=== PATIENT | male | born 1940 | race Caucasian/White ===

== ENCOUNTER 2016-08-14 17:22 | Observation (INO) | payer MEDICARE ==
[2016-08-14] VITALS (9 sets, daily range): BP systolic 146–210; BP diastolic 74–127; PULSE 68–106; RESP 18–20; TEMP 97.6; O2SAT 92–97
[~2016-08-14] VITALS: Ht 177.8 cm; Wt 99.1 kg
[~2016-08-14 17:22] MED LIST: ALLO300 PO; DUONI NEB; ECOT81TA2 PO; ENDO5TAB6 PO; EZET10 PO; FISH100020 PO; FLUT50I NASAL; FURO20TA PO; GLIM1TAB PO; GUAI600 PO; KCL10C PO; METO25 PO; MOBI7.5T PO; NACL.65%I; PRED10 PO; RANI150T PO; TIZA2CAP PO; VENTAER INH; VITA-13 PO
[2016-08-14] MEDS ORDERED: SODIUM CHLORIDE 0.9% FLUSH 5 ML FLUSH IVF PRN (18:00)
--- NOTE | 2016-08-14 18:17 | PD ---
HPI Chief Complaint: Abdominal Pain Time Seen by Provider: 18:16 Travel History International Travel<30 days: No Contact w/Intl Traveler<30days: No Traveled to known affect area: No History of Present Illness HPI Patient comes in complaining of epigastric abdominal pain that began this morning. Patient states he's had similar pain in the past however this felt different. Pain is sharp stabbing like in nature and radiates across his upper abdomen. 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 Patient states he contacted his primary care doctor [facility] this pain feels different and was told to go to a local clinic [facility] here locally. Patient was subsequently sent to the ER after having EKG showing A. fib with ventricular rate of 91. Patient reports he has a history of a fibrillation when he had surgery several years ago but denies any other issues with A. fib. Patient denies any chest pain, palpitations, nausea, vomiting, back pain, numbness or tingling anywhere. Patient reports associated shortness of breath with this and reports his lower extremities have become swollen over the past couple of days which is new. Denies any abdominal distention. PFSH Past Medical History Arthritis: Yes (OA) Asthma: No Autoimmune Disease: No Blood Disorders: Yes (PT STATES HE BLEEDS EASILY UNK ETIOLOGY) Anxiety: Yes Depression: No Heart Rhythm Problems: No Cancer: No Cardiac Catheterization: Yes Cardiovascular Problems: Yes (CABG) High Cholesterol: Yes Chemotherapy: No Chest Pain: No Congestive Heart Failure: No COPD: Yes Cerebrovascular Accident: No Coronary Artery Disease: Yes Diabetes: No Endocrine: No Gastrointestinal Disorders: Yes GERD: Yes Glaucoma: No Gout: Yes Genitourinary: No Hepatitis: No Hiatal Hernia: No Hypertension: Yes Immune Disorder: No Implanted Vascular Access Dvce: Yes Kidney Stones: No Medical other: Yes (GOUT) Musculoskeletal: Yes Neurologic: No Psychiatric: Yes Reproductive: No Respiratory: Yes (COPD ) Migraines: No Radiation Therapy: No Renal Failure: No Seizures: No Sickle Cell Disease: No Sleep Apnea: Yes Thyroid Disease: No Ulcer: No Past Surgical History Abdominal Surgery: No AICD: No Arteriovenous Shunt: No Cardiac Surgery: Yes (CABG) Coronary Artery Bypass Graft: Yes (CABG X2 1997) Ear Surgery: No Endocrine Surgery: No Eye Surgery: Yes (BILATERAL CATARACT REMOVAL) Genitourinary Surgery: No Gynecologic Surgery: No Insulin Pump: No Joint Replacement: Yes (BILATERAL TOTAL HIP) Oral Surgery: Yes (TONSILLECTOMY) Pacemaker: No Thoracic Surgery: No Tonsillectomy: Yes Other Surgery: Yes Social History Alcohol Use: Yes (2-4 BEERS PER DAY) Tobacco Use: No (QUIT) Substance Use: No Allergies-Medications (Allergen,Severity, Reaction): Coded Allergies: HMG-CoA Reductase Inhibitors (Unverified Allergy, Severe, JOINT PAIN, VOMITING, UNABLE TO MOVE, 01/05/16) Lipitor (Verified Allergy, Severe, Nausea/Vomiting, 01/05/16) Lovastatin (Unverified Allergy, Severe, 01/05/16) ALL "STATINS" Mevacor (Verified Allergy, Severe, Nausea/Vomiting, 01/05/16) Tetanus Toxoid (Verified Allergy, Severe, VOMITING, CRAMPING, 01/05/16) Zocor (Verified Allergy, Severe, Nausea/Vomiting, 01/05/16) *MDRO Multi-Drug Resistant Organism (Verified Adverse Reaction, Unknown, ) 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 Reported Meds & Prescriptions Reported Meds & Active Scripts Active Reported Vitamin D3 (Cholecalciferol) 1,000 Unit Chew 1,000 Units CHEW DAILY Ranitidine (Ranitidine HCl) 150 Mg Tab 150 Mg PO BID Prednisone 5 Mg Tab 5 Mg PO BID Metoprolol Succinate ER 24 HR (Metoprolol Succinate) 50 Mg Tab 50 Mg PO DAILY Hydrocodone-Acetaminophen 10-325 mg Tab 1 Tab PO Q4H PRN Glimepiride 1 Mg Tab 1 Mg PO DAILY Take with breakfast or first main meal Furosemide 20 Mg Tab 20 Mg PO BID Furosemide 40 Mg Tab 40 Mg PO BID Fish Oil ([place]-3 Fatty Acids) 500 Mg Cap Allopurinol 300 Mg Tab 300 Mg PO DAILY Albuterol Neb (Albuterol Sulfate) 2.5 Mg/3 Ml Neb 2.5 Mg NEB ONCE Advair Hfa 12 GM Inh (Fluticasone-Salmeterol 12 GM Inh) 230-21 Mcg/Act Aer 2 Puff INH BID Review of Systems Except as stated in HPI: all other systems reviewed are Neg Physical Exam Narrative GENERAL: Well-developed, overly nourished, in no acute distress, and non-ill appearing. SKIN: Warm and dry. HEAD: Atraumatic. Normocephalic. EYES: Pupils equal and round. EOMI. No scleral icterus. No injection or drainage. ENT: No nasal bleeding or discharge. Mucous membranes pink and moist. NECK: Trachea midline. Supple. No nuclear rigidity. CARDIOVASCULAR: Regular rate and rhythm. No murmur appreciated. RESPIRATORY: No accessory muscle use. No respiratory distress. Decreased breath sounds in scant wheezing noted throughout. GASTROINTESTINAL: Abdomen soft, patient reports tenderness to palpation throughout his abdomen, nondistended. Hepatic and splenic margins not palpable. Normal bowel sounds 4. No pulsatile mass. MUSCULOSKELETAL: No obvious deformities. No clubbing. No cyanosis. 1+ pitting edema bilateral lower extremities. Full range of motion. NEUROLOGICAL: Awake and alert. No obvious cranial nerve deficits. Motor grossly within normal limits. Normal speech. PSYCHIATRIC: Appropriate mood and affect; insight and judgment normal. Data Data Last Documented VS Vital Signs Date Time Temp Pulse Resp B/P Pulse Ox O2 Delivery O2 Flow Rate FiO2 08/14/16 22:17 85 18 164/79 94 Nasal Cannula 3 08/14/16 17:27 97.6 Orders Complete Blood Count With Diff (08/14/16 17:49) Comprehensive Metabolic Panel (08/14/16 17:49) Lipase (08/14/16 17:49) Prothrombin Time / Inr (Pt) (08/14/16 17:49) Act Partial Throm Time (Ptt) (08/14/16 17:49) Urinalysis - C+S If Indicated (08/14/16 17:49) Iv Access Insert/Monitor (08/14/16 17:49) Ecg Monitoring (08/14/16 17:49) Oximetry (08/14/16 17:49) Sodium Chloride 0.9% Flush (Ns Flush) (08/14/16 18:00) Electrocardiogram (08/14/16 17:49) B-Type Natriuretic Peptide (08/14/16 17:51) Chest, Single Ap (08/14/16 17:51) Abdomen, Flat & Upright (08/14/16 ) Metoprolol Tartrate Inj (Lopressor Inj) (08/14/16 18:18) Cta Thor Abd Aorta W Iv C W3d (08/14/16 ) Methylprednisolone So Succ Inj (Solumedr (08/14/16 19:00) Albuterol-Ipratropium Neb (Duoneb Neb) (08/14/16 19:00) Methylprednisolone So Succ Inj (Solumedr (08/14/16 19:00) Albuterol-Ipratropium Neb (Duoneb Neb) (08/14/16 19:00) Ckmb (Isoenzyme) Profile (08/14/16 18:00) Magnesium (Mg) (08/14/16 18:00) Troponin I (08/14/16 18:00) Metoprolol Tartrate Inj (Lopressor Inj) (08/14/16 19:57) Lactic Acid (08/14/16 20:54) Hydralazine Inj (Apresoline Inj) (08/14/16 21:15) Iohexol 350 Inj (Omnipaque 350 Inj) (08/14/16 21:27) Admit Order (Ed Use Only) (08/14/16 22:44) Labs Laboratory Tests Test 08/14/16 08/14/16 18:00 21:41 White Blood Count 7.2 TH/MM3 Red Blood Count 5.20 MIL/MM3 Hemoglobin 15.5 GM/DL Hematocrit 47.9 % Mean Corpuscular Volume 92.2 FL Mean Corpuscular Hemoglobin 29.9 PG Mean Corpuscular Hemoglobin 32.4 % Concent Red Cell Distribution Width 16.8 % Platelet Count 219 TH/MM3 Mean Platelet Volume 9.2 FL Neutrophils (%) (Auto) 78.7 % Lymphocytes (%) (Auto) 9.5 % Monocytes (%) (Auto) 8.7 % Eosinophils (%) (Auto) 2.3 % Basophils (%) (Auto) 0.8 % Neutrophils # (Auto) 5.7 TH/MM3 Lymphocytes # (Auto) 0.7 TH/MM3 Monocytes # (Auto) 0.6 TH/MM3 Eosinophils # (Auto) 0.2 TH/MM3 Basophils # (Auto) 0.1 TH/MM3 CBC Comment DIFF FINAL Differential Comment Prothrombin Time 11.1 SEC Prothromb Time International 1.0 RATIO Ratio Activated Partial 29.2 SEC Thromboplast Time Urine Color LIGHT-YELLOW Urine Turbidity CLEAR Urine pH 6.5 Urine Specific [place] 1.007 Urine Protein NEG mg/dL Urine Glucose (UA) NEG mg/dL Urine Ketones NEG mg/dL Urine Occult Blood NEG Urine Nitrite NEG Urine Bilirubin NEG Urine Urobilinogen LESS THAN 2.0 MG/DL Urine Leukocyte Esterase NEG Urine RBC 1 /hpf Urine WBC LESS THAN 1 /hpf Microscopic Urinalysis Comment CULT NOT INDICATED Sodium Level 143 MEQ/L Potassium Level 4.0 MEQ/L Chloride Level 105 MEQ/L Carbon Dioxide Level 30.0 MEQ/L Anion Gap 8 MEQ/L Blood Urea Nitrogen 25 MG/DL Creatinine 1.30 MG/DL Estimat Glomerular Filtration 54 ML/MIN Rate Random Glucose 78 MG/DL Calcium Level 9.0 MG/DL Magnesium Level 2.1 MG/DL Total Bilirubin 0.9 MG/DL Aspartate Amino Transf 21 U/L (AST/SGOT) Alanine Aminotransferase 61 U/L (ALT/SGPT) Alkaline Phosphatase 85 U/L Total Creatine Kinase 80 U/L Troponin I LESS THAN 0.02 NG/ML B-Type Natriuretic Peptide 34 PG/ML Total Protein 7.1 GM/DL Albumin 3.5 GM/DL Lipase 188 U/L Lactic Acid Level 1.5 mmol/L MDM Medical Decision Making Medical Screen Exam Complete: Yes Emergency Medical Condition: Yes Differential Diagnosis CHF, COPD, pancreatitis, ileus, small bowel surfing, acute coronary syndrome, A. fib, aneurysm, other Narrative Course Patient seen and examined. Laboratory and radiological studies were ordered. Discussed patient with Dr. Goff and Dr. Diamond, who saw and evaluated the patient and recommends having the patient admitted for hypertension urgency pending laboratory and radiological studies. Discussed all findings and plan of care with patient, who is agreeable for admission. All questions were answered. Physician Communication Physician Communication [id number] Randall who is agreeable to admit the patient. Diagnosis Primary Impression: Hypertensive urgency Condition: Stable Fox Jeff Aug 14, 2016 18:17
[2016-08-14] MEDS ORDERED: METOPROLOL TARTRATE 5 MG/5 ML VIAL IV PUSH STA ×2 (18:18→19:57)
[2016-08-14] MEDS ORDERED: HYDR-3583 PO (18:22)
[2016-08-14] MEDS ORDERED: ALLO300T2 PO (18:22)
[2016-08-14] MEDS ORDERED: METO50TA11 PO (18:22)
[2016-08-14] MEDS ORDERED: GLIM1TAB PO (18:22)
[2016-08-14] MEDS ORDERED: FURO20TA PO (18:22)
[2016-08-14] MEDS ORDERED: ADVA230A INH (18:22)
[2016-08-14] MEDS ORDERED: FISH500C (18:22)
[2016-08-14] MEDS ORDERED: ALBU0.08 NEB (18:22)
[2016-08-14] MEDS ORDERED: FURO40TA PO (18:22)
[2016-08-14] MEDS ORDERED: CHOL100025 CHEW (18:22)
[2016-08-14] MEDS ORDERED: RANI150T PO (18:22)
[2016-08-14] MEDS ORDERED: PRED5TAB PO (18:22)
--- NOTE | 2016-08-14 18:39 | RADRPT ---
EXAM DATE/TIME: 08/14/2016 18:15 [facility] COMPARISON: CHEST SINGLE AP, January 05, 2016, 7:21. INDICATIONS : Short of breath. MEDICAL HISTORY : Chronic obstructive pulmonary disease. SURGICAL HISTORY : CABG. ENCOUNTER: Initial ACUITY: 2 days PAIN SCORE: 0/10 LOCATION: Bilateral chest FINDINGS: A single view of the chest demonstrates postoperative median sternotomy. Cardiomegaly present. Minima l perihilar airspace disease. No effusion. No pneumothorax. CONCLUSION: 1. Cardiomegaly. Minimal perihilar and basilar subsegmental air space disease. Fernando Lainez MD on August 14, 2016 at 18:36 Board Certified Radiologist. This report was verified electronically.
--- NOTE | 2016-08-14 18:41 | RADRPT ---
EXAM DATE/TIME: 08/14/2016 18:17 [facility] COMPARISON: No previous studies available for comparison. INDICATIONS : Abdominal pain. MEDICAL HISTORY : None. SURGICAL HISTORY : None. ENCOUNTER: Initial ACUITY: 1 day PAIN SCORE: 10/10 LOCATION: Bilateral middle abdomen. FINDINGS: Supine and upright views of the abdomen were performed. The abdominal bowel gas pattern is nonspecif ic without evidence for obstruction or free air. Postoperative bilateral hip replacement. Previous me hussain sternotomy. CONCLUSION: 1. Nonspecific bowel gas pattern without evidence for obstruction or free air. Fernando Lainez MD on August 14, 2016 at 18:38 Board Certified Radiologist. This report was verified electronically.
[2016-08-14] MEDS ORDERED: RESP: ALBUTEROL 2.5 MG/IPRATROPIUM 0.5 MG NEB (SCH) INH (19:00)
[2016-08-14] MEDS ORDERED: methylPREDNISolone SOD SUCC 125 MG/2 ML VIAL IV PUSH ONE ×2 (19:00)
--- NOTE | 2016-08-14 19:01 | PD ---
Physical Exam Date Seen by Provider: Aug 14, 2016 Time Seen by Provider: 18:00 Narrative I, Dr. Goff, have reviewed the advance practice practitioner's documentation and am in agreement, met with the patient face to face, made the diagnosis, and the medical decision making was done by me. *My assessment and Findings: Patient seen and evaluated with PA, please see PA note for further information. Here for abdominal pain, shortness of breath, had been sent by primary care physician to [facility] urgent care and they sent him in because of A. fib. Patient has previous history of A. fib. On exam, he has notable bilateral leg edema. Bilateral lung wheezing. He is tender in the upper abdomen without guarding or rebound. Chest x-ray, lab work , CT of the abdomen pelvis and aorta was initiated on the patient especially considering his history. His blood pressure is fairly elevated as well in the ER and he was given metoprolol for the blood pressure. Solu-Medrol and DuoNeb was ordered for the patient for wheezing. Data Data Last Documented VS Vital Signs Date Time Temp Pulse Resp B/P Pulse Ox O2 Delivery O2 Flow Rate FiO2 08/14/16 18:32 92 20 210/127 Room Air 08/14/16 17:27 97.6 97 Orders Complete Blood Count With Diff (08/14/16 17:49) Comprehensive Metabolic Panel (08/14/16 17:49) Lipase (08/14/16 17:49) Prothrombin Time / Inr (Pt) (08/14/16 17:49) Act Partial Throm Time (Ptt) (08/14/16 17:49) Urinalysis - C+S If Indicated (08/14/16 17:49) Iv Access Insert/Monitor (08/14/16 17:49) Ecg Monitoring (08/14/16 17:49) Oximetry (08/14/16 17:49) Sodium Chloride 0.9% Flush (Ns Flush) (08/14/16 18:00) Electrocardiogram (08/14/16 17:49) B-Type Natriuretic Peptide (08/14/16 17:51) Ckmb (Isoenzyme) Profile (08/14/16 17:51) Magnesium (Mg) (08/14/16 17:51) Troponin I (08/14/16 17:51) Chest, Single Ap (08/14/16 17:51) Abdomen, Flat & Upright (08/14/16 ) Metoprolol Tartrate Inj (Lopressor Inj) (08/14/16 18:18) Cta Thor Abd Aorta W Iv C W3d (08/14/16 ) Methylprednisolone So Succ Inj (Solumedr (08/14/16 19:00) Albuterol-Ipratropium Neb (Duoneb Neb) (08/14/16 19:00) Methylprednisolone So Succ Inj (Solumedr (08/14/16 19:00) Albuterol-Ipratropium Neb (Duoneb Neb) (08/14/16 19:00) MDM Medical Record Reviewed: Yes Supervised Visit with YONY: Yes Differential Diagnosis COPD exacerbation versus CHF versus pneumonia versus PE versus AAA versus gastritis versus pancreatitis versus other acute intra-abdominal processes Narrative Course Awaiting workup for further delineation of acute issues. Disposition based on workup. If breathing issues and blood pressure not improved, patient will need to be admitted. Diagnosis Primary Impression: UPPER ABDOMINAL PAIN, UNSPECIFIED Additional Impression: COPD exacerbation Cortney Goff MD Aug 14, 2016 19:01
[2016-08-14 19:17] LABS: AUTOMATED NEUTROPHIL # 5.7 TH/MM3 (1.8-7.7); BASOPHIL # 0.1 TH/MM3 (0-0.2); BASOPHIL % 0.8 % (0.0-2.0); EOSINOPHIL # 0.2 TH/MM3 (0-0.4); EOSINOPHIL % 2.3 % (0.0-4.0); HEMATOCRIT 47.9 % (39.0-51.0); HEMO FLAGS DIFF FINAL; LYMPH % 9.5 % (9.0-44.0); LYMPHOCYTE # 0.7 TH/MM3 (1.0-4.8); MEAN CELL VOLUME 92.2 FL (80.0-100.0); MEAN CORPUSCULAR HEMOGLOBIN 29.9 PG (27.0-34.0); MEAN CORPUSCULAR HGB CONC 32.4 % (32.0-36.0); MONO % 8.7 % (0.0-8.0); NEUT % 78.7 % (16.0-70.0); PLATELET COUNT 219 TH/MM3 (150-450); RED CELL DISTRIBUTION WIDTH 16.8 % (11.6-17.2); WHITE BLOOD COUNT 7.2 TH/MM3 (4.0-11.0)
[2016-08-14 19:23] LABS: BLOOD, URINE NEG (NEG); GLUCOSE,URINE NEG (NEG); KETONE, URINE NEG (NEG); NITRITE,URINE NEG (NEG); PH, URINE 6.5 (5.0-8.5); URINE COLOR LIGHT-YELLOW (YELLW/STRAW)
[2016-08-14 19:28] LABS: COMMENT (UR) CULT NOT INDICATED; CULTURE IF INDICATED CULT NOT INDICATED
[2016-08-14 19:41] LABS: APTT (PATIENT) 29.2 SEC (24.3-30.1); PROTHROMBIN TIME - PATIENT 11.1 SEC (9.8-11.6)
[2016-08-14] MEDS: RESP: ALBUTEROL 2.5 MG/IPRATROPIUM 0.5 MG NEB (SCH) INH (20:13)
[2016-08-14 20:23] LABS: ALKALINE PHOSPHATASE 85 U/L (45-117); ALT (GPT) 61 U/L (12-78); ANION GAP 8 MEQ/L (5-15); AST (GOT) 21 U/L (15-37); BLOOD UREA NITROGEN 25 MG/DL (7-18); CHLORIDE 105 MEQ/L (98-107); GLOMERULAR FILTRATION RATE 54 ML/MIN (>89); MAGNESIUM 2.1 MG/DL (1.5-2.5); SODIUM (NA) 143 MEQ/L (136-145); TOTAL BILIRUBIN ADULT 0.9 MG/DL (0.2-1.0)
[2016-08-14 20:26] LABS: CREATINE KINASE 80 U/L (39-308)
[2016-08-14] MEDS ORDERED: hydrALAZINE HCL 20 MG/ML VIAL IV PUSH ONE (21:15)
[2016-08-14] MEDS ORDERED: IOHEXOL 350 MG/ML 10 ML VIAL (for RAD DIAG) IV ONE (21:27)
--- NOTE | 2016-08-14 22:28 | RADRPT ---
EXAM DATE/TIME: 08/14/2016 21:17 [facility] COMPARISON: No previous studies available for comparison. INDICATIONS : Abdominal pain with shortness of breath for two days. IV CONTRAST: 100 cc Omnipaque 350 (iohexol) IV RADIATION DOSE: 12.98 CTDIvol (mGy) MEDICAL HISTORY : Cardiovascular disease. Hypertension. SURGICAL HISTORY : None. ENCOUNTER: Initial ACUITY: 1 day PAIN SCALE: 6/10 LOCATION: upper quadrant abdomen TECHNIQUE: Volumetric scanning was performed using a multi-row detector CT scanner. The data was post processed with a variety of visualization algorithms including full volume maximum intensity projection, multi -planar sliding thin slab reformation, curved planar reformation, and surface rendering techniques. Using automated exposure control and adjustment of the mA and/or kV according to patient size, radiat ion dose was kept as low as reasonably achievable to obtain optimal diagnostic quality images. FINDINGS: No filling defects identified in the pulmonary arteries to suggest pulmonary embolic disease. The aor ta is atherosclerotic and tortuous but without significant aneurysmal dilatation. There is mild to moderate centrilobular emphysema the lungs. Dependent atelectasis present. No pleura l or pericardial effusion. No adenopathy. Hepatic cyst is present. Small gallstones. Previous hip rep lacement. No bowel obstruction, free fluid or free air. CONCLUSION: 1. Negative for pulmonary embolism. No aneurysm or dissection identified. Mild to moderate atheroscle rotic change in the aorta. Mild to moderate emphysema. 2. Small gallstones in the gallbladder. Hepatic cysts. No hydronephrosis. No free fluid or free air. Previous bilateral hip replacement. 3. Colonic diverticulosis. Fernando Lainez MD on August 14, 2016 at 22:23 Board Certified Radiologist. This report was verified electronically.
[2016-08-14] MEDS ORDERED: TEMAZEPAM 15 MG CAP PO PRN (23:00)
[2016-08-14] MEDS ORDERED: RESP: ALBUTEROL 2.5 MG/IPRATROPIUM 0.5 MG NEB (PRN) NEB (23:00)
[2016-08-14] MEDS ORDERED: cloNIDine HCL 0.1 MG TAB PO PRN (23:00)
[2016-08-15] VITALS (13 sets, daily range): BP systolic 123–189; BP diastolic 59–91; PULSE 62–112; RESP 18; TEMP 96.6–98; O2SAT 94–98
[2016-08-15] MEDS: LOSARTAN 50 MG TAB PO SCH ×3 (03:15→21:38)
[2016-08-15 06:47] LABS: BICARBONATE 26.1 MEQ/L (21.0-32.0); POTASSIUM 4.3 MEQ/L (3.5-5.1)
[2016-08-15] MEDS ORDERED: RESP: ALBUTEROL 2.5 MG/IPRATROPIUM 0.5 MG NEB (PRN) NEB ×2 (09:00→09:40)
[2016-08-15] MEDS ORDERED: FUROSEMIDE 20 MG/2 ML VIAL IV PUSH ONE (09:45)
[2016-08-15] MEDS ORDERED: ADVAIR INH SCH (10:00)
--- NOTE | 2016-08-15 10:11 | HHI.HP ---
HPI Service [facility] Hospitalists Primary Care Physician Brad Conley MD Admission Diagnosis hypertension urgency Chief Complaint: Abdominal pain Travel History International Travel<30 Days: No Contact w/Intl Traveler <30 Da: No Traveled to Known Affected Are: No History of Present Illness Mr. Hobbs is a 76 y/o WM with COPD, CAD s/p CABG, HTN, Hyperlipidemia, and diabetes who was brought to the ED [place] [facility] [place] with complaints of epigastric abdominal pain that began in the adult neurologist hours on 08/14. He states that the abd pain in mainly in the upper abdomen. He had three BMs during the night on 08/14 but states that this did not provide any relief. He reports that in the past he has had issues with constipation which has made him feel more SOB but that this is different. The pain is sharp/stabbing like in nature and radiates across his upper abdomen. He feels like he can't take a deep breath because this increases the pain. Pt states that he has had over the last three days some intermittent SOB that lasts for a few minutes and then resolves. Sometimes this is improved with taking his nebulizer treatments. He also reports that he has been having increased LE edema and his Lasix dose was recently increased to 40mg in AM and 20mg in PM. Patient states he contacted his PCP. Dr. Conley, and was told to go to a [facility] clinic. Patient was subsequently was seen in the [facility] clinic and was told he was in A. fib with ventricular rate of 91 and instructed to go to the ER. Patient had perioperative A. fib in 08/2015 when he had hip surgery which resolved to NSR. Patient denies any chest pain, palpitations, nausea, vomiting, back pain, numbness or dizziness. Pts BP at the time of arrival in the ED was 153/106 which increased to 210/127. Pt was given Metoprolol IV x 2 doses and Hydralazine 10mg IV x one dose in the ER. Pt was also given Solu-Medrol and Duoneb treatments in the ER Review of Systems Constitutional: DENIES: Fever, Chills Eyes: DENIES: Vision loss Ears, nose, mouth, throat: DENIES: Hearing loss Respiratory: COMPLAINS OF: Shortness of breath, DENIES: Cough, Sputum production Cardiovascular: COMPLAINS OF: Lower Extremity Edema, DENIES: Chest pain, Palpitations Gastrointestinal: COMPLAINS OF: Abdominal pain, Reflux, DENIES: Constipation, Diarrhea, Nausea, Vomiting Genitourinary: DENIES: Hematuria, Dysuria Musculoskeletal: DENIES: Back pain, Neck pain Integumentary: DENIES: Rash Neurologic: DENIES: Headache Psychiatric: DENIES: Confusion Past Family Social History Past Medical History A. fib/flutter Anxiety Osteoarthritis COPD/Asthma CAD s/p CABG 2 vessels CHF CKD, stage 3 Hypertension Hyperlipidemia Pulmonary hypertension Type 2 diabetes with neuropathy ( reports that he has steroid induced hyperglycemia, not diabetes) GERD MASHA on CPAP 2D echo (06/09/2010) - Mild LVH - Estimated EF 55-60% - Mild tricuspid regurgitation - PA peak pressure 44mmHg Past Surgical History Left total hip arthroplasty on 08/30/[address] Gar Coronary artery bypass graft 2 in 1997 Cataract surgery 2010 Tonsillectomy as a child Reported Medications -Vitamin D3 1,000 Units CHEW DAILY -Ranitidine 150 Mg PO BID -Prednisone 5 Mg PO BID -Metoprolol Succinate ER 50 Mg PO DAILY -Hydrocodone-Acetaminophen 10-325 mg Tab 1 Tab PO Q4H PRN -Glimepiride 1 Mg PO DAILY Take with breakfast or first main meal - Furosemide 40 Mg PO IN AM and 20 Mg PO in Afternoon --Fish Oil 2000 Mg Cap DAILY -Allopurinol 300 Mg PO DAILY -Albuterol Neb 2.5 Mg/3 Ml Neb 2.5 Mg NEB -Advair Hfa 12 GM Inh 230-21 Mcg/Act Aer 2 Puff INH BID Allergies: Coded Allergies: HMG-CoA Reductase Inhibitors (Unverified Allergy, Severe, JOINT PAIN, VOMITING, UNABLE TO MOVE, 01/05/16) Lipitor (Verified Allergy, Severe, Nausea/Vomiting, 01/05/16) Lovastatin (Unverified Allergy, Severe, 01/05/16) ALL "STATINS" Mevacor (Verified Allergy, Severe, Nausea/Vomiting, 01/05/16) Tetanus Toxoid (Verified Allergy, Severe, VOMITING, CRAMPING, 01/05/16) Zocor (Verified Allergy, Severe, Nausea/Vomiting, 01/05/16) *MDRO Multi-Drug Resistant Organism (Verified Adverse Reaction, Unknown, ) 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 Family History Noncontributory Social History Remote hx of tobacco use, none since 1974 but smoked 1 pack per day prior to that for approximately 15 years Denies any alcohol use 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 Physical Exam Vital Signs Vital Signs Date Time Temp Pulse Resp B/P Pulse Ox O2 Delivery O2 Flow Rate FiO2 08/15/16 07:04 112 18 189/88 97 Nasal Cannula 3 08/15/16 05:45 73 18 150/91 94 Nasal Cannula 3 08/15/16 03:43 72 18 169/76 94 Nasal Cannula 3 08/15/16 01:45 88 18 145/90 94 Nasal Cannula 3 08/14/16 22:47 87 20 174/74 97 Nasal Cannula 3 08/14/16 22:17 85 18 164/79 94 Nasal Cannula 3 08/14/16 21:42 81 20 146/102 97 Nasal Cannula 3 08/14/16 20:18 97 Nasal Cannula 3.00 08/14/16 20:06 89 20 201/89 92 Nasal Cannula 2 08/14/16 19:35 68 20 185/117 95 Room Air 08/14/16 19:05 80 20 195/86 96 Room Air 08/14/16 18:32 92 20 210/127 Room Air 08/14/16 17:27 97.6 106 20 153/106 97 Room Air Physical Exam GENERAL: This is a well-nourished, well-developed patient, in no apparent distress. HEENT: Atraumatic. Normocephalic. No temporal or scalp tenderness. No scleral icterus. Airway patent. NECK: Trachea midline, supple, nontender, no meningeal signs. CARDIO: Irregular, tachy, HR in the 90-120s RESP: Decreased air movement bilaterally. No wheezes, rales, or rhonchi. ABD: +BS, soft, mild distended, nontender EXT: Bilateral LE edema with skin changes consistent with venous stasis changes NEURO: Awake and alert. Motor and sensory grossly within normal limits. Normal speech. Laboratory Laboratory Tests Test 08/14/16 08/14/16 08/15/16 18:00 21:41 05:27 White Blood Count 7.2 Red Blood Count 5.20 Hemoglobin 15.5 Hematocrit 47.9 Mean Corpuscular Volume 92.2 Mean Corpuscular Hemoglobin 29.9 Mean Corpuscular Hemoglobin 32.4 Concent Red Cell Distribution Width 16.8 Platelet Count 219 Mean Platelet Volume 9.2 Neutrophils (%) (Auto) 78.7 Lymphocytes (%) (Auto) 9.5 Monocytes (%) (Auto) 8.7 Eosinophils (%) (Auto) 2.3 Basophils (%) (Auto) 0.8 Neutrophils # (Auto) 5.7 Lymphocytes # (Auto) 0.7 Monocytes # (Auto) 0.6 Eosinophils # (Auto) 0.2 Basophils # (Auto) 0.1 CBC Comment DIFF FINAL Differential Comment Prothrombin Time 11.1 Prothromb Time International 1.0 Ratio Activated Partial 29.2 Thromboplast Time Urine Color LIGHT-YELLOW Urine Turbidity CLEAR Urine pH 6.5 Urine Specific [place] 1.007 Urine Protein NEG Urine Glucose (UA) NEG Urine Ketones NEG Urine Occult Blood NEG Urine Nitrite NEG Urine Bilirubin NEG Urine Urobilinogen LESS THAN 2.0 Urine Leukocyte Esterase NEG Urine RBC 1 Urine WBC LESS THAN 1 Microscopic Urinalysis Comment CULT NOT INDICATED Sodium Level 143 142 Potassium Level 4.0 4.3 Chloride Level 105 106 Carbon Dioxide Level 30.0 26.1 Anion Gap 8 10 Blood Urea Nitrogen 25 25 Creatinine 1.30 1.30 Estimat Glomerular Filtration 54 54 Rate Random Glucose 78 219 Calcium Level 9.0 9.0 Magnesium Level 2.1 Total Bilirubin 0.9 Aspartate Amino Transf 21 (AST/SGOT) Alanine Aminotransferase 61 (ALT/SGPT) Alkaline Phosphatase 85 Total Creatine Kinase 80 Troponin I LESS THAN 0.02 B-Type Natriuretic Peptide 34 Total Protein 7.1 Albumin 3.5 Lipase 188 Lactic Acid Level 1.5 Result Diagram: 08/14/16 1800 08/15/16 0527 Imaging Last Impressions Chest X-Ray 08/14/16 1751 Signed Impressions: Service Date/Time: Sunday, August 14, 2016 18:15 - CONCLUSION: 1. Cardiomegaly. Minimal perihilar and basilar subsegmental air space disease. Fernando Lainez MD Aorta CTA 08/14/16 0000 Signed Impressions: Service Date/Time: Sunday, August 14, 2016 21:17 - CONCLUSION: 1. Negative for pulmonary embolism. No aneurysm or dissection identified. Mild to moderate atherosclerotic change in the aorta. Mild to moderate emphysema. 2. Small gallstones in the gallbladder. Hepatic cysts. No hydronephrosis. No free fluid or free air. Previous bilateral hip replacement. 3. Colonic diverticulosis. Fernando Lainez MD Abdomen X-Ray 08/14/16 0000 Signed Impressions: Service Date/Time: Sunday, August 14, 2016 18:17 - CONCLUSION: 1. Nonspecific bowel gas pattern without evidence for obstruction or free air. Fernando Lainez MD Septic Shock Reassessment Heart: Irregular Lungs: Clear Skin: Warm Assessment and Plan Problem List: (1) Abdominal pain Status: Acute Plan: - Pt admitted with complaints of upper abdominal pain x 2 days, not relieved with BMs, not related to food intake, worse with deep breathing. Etiology unclear, possibly pleuritic pain vs. CHF vs. ascites vs. other - KUB (08/14) --> Nonspecific bowel gas pattern without evidence for obstruction or free air. - CXR (08/14) --> Cardiomegaly. Minimal perihilar and basilar subsegmental air space disease. - CTA Aorta (08/14) --> Negative for pulmonary embolism. No aneurysm or dissection identified. Mild to moderate atherosclerotic change in the aorta. Mild to moderate emphysema. Small gallstones in the gallbladder. Hepatic cysts. No hydronephrosis. No free fluid or free air. Previous bilateral hip replacement. Colonic diverticulosis - Check 2D echo - Check Abd US - LFTs are stable. - CE are negative. - PPI - Pain meds PRN - Lasix 20mg x one dose now - Monitor labs - Supportive care - DVT prophylaxis (2) Hypertensive urgency Status: Acute Plan: - Pt with significantly elevated BP at the time of admission - Pt has been resumed on Metoprolol 50mg po BID and Losartan 50mg po Q12H - Clonidine PRN - Monitor (3) A-fib Status: Chronic Plan: - Pt with a hx of paroxysmal atrial fibrillation - Pt is not on any anticoagulants, he declined them previously because he has issues with bleeding easily. - Pt is currently in A. fib with HR into the 110-120's on telemetry - Metoprolol 50mg po BID - Monitor (4) COPD (chronic obstructive pulmonary disease) Status: Chronic Plan: - Duonebs Q6H WA and Q2H PRN - Cont. home meds - Pt was given Solu-medrol in the ER - Consider continuing Solumedrol vs. prednisone. Pt was on Prednisone 5mg po daily as an outpt. (5) Hypertension Status: Chronic Plan: - See above. (6) Hyperlipemia Status: Chronic Plan: - Cont. home meds (7) Diabetes mellitus Status: Chronic Plan: - NovoLog SSI - Accu checks (8) Gout Status: Chronic Assessment and Plan Patient examined. Assessment and plan formulated with Janneth Clark PA-C. I agree with the above. mostly midabdomen pains. 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 recently had some constipation from narcotic meds. no vomiting. no fever or chills. describes sob whenf flexing at hips. relieved with bm but returns. pt was hypertensive on arrival. He was given bp meds and copd meds acutely. f/u kub and consider laxative. add ppi and simethicone and reassess. deescalate steroid in AM Problem Qualifiers (1) Abdominal pain: Qualified Code: R10.13 - Epigastric pain (2) A-fib: Qualified Code: I48.0 - Paroxysmal atrial fibrillation Janneth Clark Aug 15, 2016 10:09 Zia Gordon MD Aug 15, 2016 22:32
[2016-08-15] MEDS ORDERED: GLUCAGON 1 MG/ML VIAL OTHER PRN (10:45)
[2016-08-15] MEDS ORDERED: DEXTROSE 50% IN WATER 50 ML VIAL(D50) IV PUSH PRN (10:45)
--- NOTE | 2016-08-15 11:59 | RADRPT ---
EXAM DATE/TIME: 08/15/2016 10:53 [facility] COMPARISON: CTA THORACIC ABDOMINAL AORTA W 3D RECON, August 14, 2016, 21:17. INDICATIONS : Pain. MEDICAL HISTORY : Chronic obstructive pulmonary disease. Hypercholesterolemia. Gastroesophageal reflux disease. Coronar y artery disease. Dyspnea. Hypertension. Arthritis. Gout. SURGICAL HISTORY : Tonsillectomy. Bilateral cataract removal. CABG. Bilateral total hip replacements. ENCOUNTER: Initial ACUITY: 1 day PAIN SCORE: 2/10 LOCATION: Bilateral upper quadrant MEASUREMENTS: LIVER: 18.3 cm length COMMON DUCT: 5 mm RIGHT KIDNEY: 10.9 x 5.5 x 6.9 cm LEFT KIDNEY: 11.4 x 6.7 x 6.4 cm SPLEEN: 11.0 cm length AORTA: 2.6cm maximal FINDINGS: LIVER: Normal size and configuration with a 3.6 cm cyst in the right lobe. COMMON DUCT: No intraluminal mass or stone visualized. GALLBLADDER: Contains a small amount of sludge and suggestion of a small 1.9 cm area of echogenicity near the neck possible stone. PANCREAS: The visualized portions are within normal limits. RIGHT KIDNEY: No hydronephrosis, stone or mass. LEFT KIDNEY: No hydronephrosis, stone or mass. SPLEEN: No focal lesion. AORTA: Non aneurysmal. IVC: Within normal limits. CONCLUSION: 3.6 cm cyst right lobe of liver. Gallbladder reveals sludge and suggestion 1.9 cm area of echo genicity stone near the neck. Hugh Cabrera MD on August 15, 2016 at 11:53 Board Certified Radiologist. This report was verified electronically.
[2016-08-15] MEDS: RESP: ALBUTEROL 2.5 MG/IPRATROPIUM 0.5 MG NEB (SCH) NEB ×2 (12:30→19:40)
[2016-08-15] MEDS: METOPROLOL TARTRATE 50 MG TAB PO SCH ×2 (12:37→21:38)
[2016-08-15] MEDS: PANTOPRAZOLE SOD 40 MG DELAYED RELEASE TAB PO SCH (12:38)
[2016-08-15] MEDS: ALLOPURINOL 300 MG TAB PO SCH (12:38)
[2016-08-15] MEDS: INSULIN ASPART SUPPLEMENTAL SCALE SQ SCH ×3 (12:50→21:39)
[2016-08-15] MEDS: ACETAMINOPHEN/HYDROcodone 325 MG/10 MG TAB PO PRN (13:40)
--- NOTE | 2016-08-15 15:32 | EC ---
Study Study Date:08/15/2016 STUDY CONCLUSIONS SUMMARY - Left ventricle: The cavity size was normal. There was mild focal basal hypertrophy of the septum. Systolic function was normal. The estimated ejection fraction was in the range of 55% to 60%. Wall motion was normal; there were no regional wall motion abnormalities. - Pulmonary arteries: Systolic pressure was mildly increased. PA peak pressure: 46mm Hg (S). If LV function is below 40, please consider prescribing an ACEI or ARB or document rationale for non-use. PROCEDURE DATA STUDY STATUS: Elective. Procedure: Transthoracic echocardiography. Image quality was good. Scanning was performed from the parasternal, apical, and subcostal acoustic windows. Study completion: The patient tolerated the procedure well. Transthoracic echocardiography. M-mode, complete 2D, complete spectral Doppler, and color Doppler. Patient status: Inpatient. CARDIAC ANATOMY LEFT VENTRICLE: The cavity size was normal. There was mild focal basal hypertrophy of the septum. Systolic function was normal. The estimated ejection fraction was in the range of 55% to 60%. Wall motion was normal; there were no regional wall motion abnormalities. AORTIC VALVE: Trileaflet; normal thickness leaflets. Doppler: Transvalvular velocity was within the normal range. There was no stenosis. No regurgitation. AORTA: Aortic root: The aortic root was normal in size. MITRAL VALVE: Structurally normal valve. Doppler: Transvalvular velocity was within the normal range. There was no evidence for stenosis. Trace regurgitation. Peak gradient: 5mm Hg (D). LEFT ATRIUM: The atrium was normal in size. RIGHT VENTRICLE: The cavity size was normal. Wall thickness was normal. PULMONIC VALVE: Doppler: Transvalvular velocity was within the normal range. There was no evidence for stenosis. No regurgitation. TRICUSPID VALVE: Structurally normal valve. Doppler: Transvalvular velocity was within the normal range. No regurgitation. PULMONARY ARTERY: The main pulmonary artery was normal-sized. Systolic pressure was mildly increased. RIGHT ATRIUM: The atrium was normal in size. PERICARDIUM: There was no pericardial effusion. SYSTEMIC VEINS: Inferior vena cava: The vessel was normal in size. BASIC MEASUREMENTS ADULT Normal Left ventricle LV internal dimension, ED, chordal level, 50.2 mm 43-52 PLAX LV posterior wall thickness, ED 9.26 mm IVS/LVPW ratio, ED *1.37 <1.3 Ventricular septum Septal thickness, ED 12.7 mm Aortic valve Leaflet separation 20 mm 15-26 Left atrium Anterior-posterior dimension 31 mm BASIC MEASUREMENTS ADULT Normal Aortic valve Leaflet separation 20 mm 15-26 DOPPLER MEASUREMENTS ADULT Normal Main pulmonary artery Pressure, S *46 mm Hg =30 Mitral valve Peak E-wave velocity 111 cm/s Peak gradient, D 5 mm Hg Tricuspid valve Regurgitant peak velocity 284 cm/s Peak RV-RA gradient, S 32 mm Hg Maximal regurgitant velocity 284 cm/s Systemic veins Estimated CVP 10 mm Hg Right ventricle RV pressure, S *46 mm Hg <30 LEGEND: Mean values are shown as u=mean value. Asterisk (*) lares values outside specified normal range. Prepared and signed by Candis Dangelo [id number]
[2016-08-15] MEDS: methylPREDNISolone SOD SUCC 40 MG/1 ML VIAL IV PUSH SCH ×2 (17:27→23:11)
[2016-08-15] MEDS ORDERED: SIMETHICONE 125 MG CHEWABLE TAB PO ONE (18:30)
--- NOTE | 2016-08-15 18:43 | RADRPT ---
EXAM DATE/TIME: 08/15/2016 18:19 [facility] COMPARISON: No previous studies available for comparison. INDICATIONS : Abdominal pain. MEDICAL HISTORY : None. SURGICAL HISTORY : None. ENCOUNTER: Initial ACUITY: 2 days PAIN SCORE: 10 LOCATION: Bilateral upper quadrant abdomen. FINDINGS: Supine view of the abdomen was performed. The abdominal bowel gas pattern is normal. Gas-filled loop s of nondilated large and small bowel observed. No abnormal masses, calcifications, or organomegaly is seen. Renal contours are obscured by the patient's body habitus in conjunction with the portable n ature of the exam. Bilateral hip prostheses partially seen. CONCLUSION: Normal bowel gas pattern. Vish Arriola Jr., MD on August 15, 2016 at 18:40 Board Certified Radiologist. This report was verified electronically.
[2016-08-15] MEDS: SIMETHICONE 125 MG CHEWABLE TAB PO SCH (21:38)
[2016-08-16] VITALS (7 sets, daily range): BP systolic 127–140; BP diastolic 60–84; PULSE 70–111; RESP 17–18; TEMP 97–98; O2SAT 93–97
[2016-08-16] MEDS: ACETAMINOPHEN/HYDROcodone 325 MG/10 MG TAB PO PRN ×3 (02:29→16:55)
[2016-08-16] MEDS: LACTULOSE SYRUP 20 GM/30 ML CUP PO SCH ×4 (05:43→16:46)
[2016-08-16] MEDS: SIMETHICONE 125 MG CHEWABLE TAB PO SCH ×2 (05:43→14:43)
[2016-08-16] MEDS: methylPREDNISolone SOD SUCC 40 MG/1 ML VIAL IV PUSH SCH (05:44)
[2016-08-16] MEDS: INSULIN ASPART SUPPLEMENTAL SCALE SQ SCH ×3 (05:59→16:46)
[2016-08-16] MEDS: RESP: ALBUTEROL 2.5 MG/IPRATROPIUM 0.5 MG NEB (SCH) NEB ×2 (06:22→13:04)
[2016-08-16 08:03] LABS: BASOPHIL % 0.1 % (0.0-2.0); HEMATOCRIT 46.7 % (39.0-51.0); HEMO FLAGS DIFF FINAL; LYMPH % 2.1 % (9.0-44.0); LYMPHOCYTE # 0.3 TH/MM3 (1.0-4.8); MEAN CORPUSCULAR HEMOGLOBIN 29.7 PG (27.0-34.0); MEAN CORPUSCULAR HGB CONC 32.6 % (32.0-36.0); MONO % 1.7 % (0.0-8.0); NEUT % 96.1 % (16.0-70.0); PLATELET COUNT 228 TH/MM3 (150-450); RED BLOOD COUNT 5.13 MIL/MM3 (4.50-5.90); RED CELL DISTRIBUTION WIDTH 16.6 % (11.6-17.2); WHITE BLOOD COUNT 13.6 TH/MM3 (4.0-11.0)
[2016-08-16] MEDS: ALLOPURINOL 300 MG TAB PO SCH (08:24)
[2016-08-16] MEDS: PANTOPRAZOLE SOD 40 MG DELAYED RELEASE TAB PO SCH (08:25)
[2016-08-16] MEDS: LOSARTAN 50 MG TAB PO SCH (08:25)
[2016-08-16] MEDS: METOPROLOL TARTRATE 50 MG TAB PO SCH (08:25)
[2016-08-16 08:29] LABS: BICARBONATE 23.1 MEQ/L (21.0-32.0); MAGNESIUM 2.5 MG/DL (1.5-2.5); POTASSIUM 4.6 MEQ/L (3.5-5.1)
--- NOTE | 2016-08-16 09:58 | HHI.PR ---
Subjective Remarks Pt reports that he was able to walk around the whole unit last night without significant SOB In the ER he wasn't able to walk to the bathroom without SOB He has not had any BMs since admission No significant flatus Abd pain is improving. Objective Vitals Vital Signs Date Time Temp Pulse Resp B/P Pulse Ox O2 Delivery O2 Flow Rate FiO2 08/16/16 08:45 97.0 111 18 129/60 94 08/16/16 01:28 98.0 70 18 130/72 96 08/15/16 23:22 70 08/15/16 20:58 98.0 88 18 124/78 97 08/15/16 20:10 62 08/15/16 16:00 96.8 74 18 123/59 97 08/15/16 14:00 76 08/15/16 13:45 79 18 127/67 98 08/15/16 13:40 96.6 97 18 153/72 96 08/15/16 12:32 96 Nasal Cannula 3.00 Result Diagram: 08/16/16 0737 08/16/16 0737 Other Results Laboratory Tests Test 08/14/16 08/14/16 08/15/16 08/16/16 18:00 21:41 05:27 07:37 White Blood Count 7.2 TH/MM3 13.6 TH/MM3 Red Blood Count 5.20 MIL/MM3 5.13 MIL/MM3 Hemoglobin 15.5 GM/DL 15.3 GM/DL Hematocrit 47.9 % 46.7 % Mean Corpuscular Volume 92.2 FL 91.0 FL Mean Corpuscular Hemoglobin 29.9 PG 29.7 PG Mean Corpuscular Hemoglobin 32.4 % 32.6 % Concent Red Cell Distribution Width 16.8 % 16.6 % Platelet Count 219 TH/MM3 228 TH/MM3 Mean Platelet Volume 9.2 FL 9.1 FL Neutrophils (%) (Auto) 78.7 % 96.1 % Lymphocytes (%) (Auto) 9.5 % 2.1 % Monocytes (%) (Auto) 8.7 % 1.7 % Eosinophils (%) (Auto) 2.3 % 0.0 % Basophils (%) (Auto) 0.8 % 0.1 % Neutrophils # (Auto) 5.7 TH/MM3 13.0 TH/MM3 Lymphocytes # (Auto) 0.7 TH/MM3 0.3 TH/MM3 Monocytes # (Auto) 0.6 TH/MM3 0.2 TH/MM3 Eosinophils # (Auto) 0.2 TH/MM3 0.0 TH/MM3 Basophils # (Auto) 0.1 TH/MM3 0.0 TH/MM3 CBC Comment DIFF FINAL DIFF FINAL Differential Comment Prothrombin Time 11.1 SEC Prothromb Time International 1.0 RATIO Ratio Activated Partial 29.2 SEC Thromboplast Time Urine Color LIGHT-YELLOW Urine Turbidity CLEAR Urine pH 6.5 Urine Specific [place] 1.007 Urine Protein NEG mg/dL Urine Glucose (UA) NEG mg/dL Urine Ketones NEG mg/dL Urine Occult Blood NEG Urine Nitrite NEG Urine Bilirubin NEG Urine Urobilinogen LESS THAN 2.0 MG/DL Urine Leukocyte Esterase NEG Urine RBC 1 /hpf Urine WBC LESS THAN 1 /hpf Microscopic Urinalysis Comment CULT NOT INDICATED Sodium Level 143 MEQ/L 142 MEQ/L 139 MEQ/L Potassium Level 4.0 MEQ/L 4.3 MEQ/L 4.6 MEQ/L Chloride Level 105 MEQ/L 106 MEQ/L 103 MEQ/L Carbon Dioxide Level 30.0 MEQ/L 26.1 MEQ/L 23.1 MEQ/L Anion Gap 8 MEQ/L 10 MEQ/L 13 MEQ/L Blood Urea Nitrogen 25 MG/DL 25 MG/DL 44 MG/DL Creatinine 1.30 MG/DL 1.30 MG/DL 1.77 MG/DL Estimat Glomerular Filtration 54 ML/MIN 54 ML/MIN 38 ML/MIN Rate Random Glucose 78 MG/DL 219 MG/DL 217 MG/DL Calcium Level 9.0 MG/DL 9.0 MG/DL 9.5 MG/DL Magnesium Level 2.1 MG/DL 2.5 MG/DL Total Bilirubin 0.9 MG/DL Aspartate Amino Transf 21 U/L (AST/SGOT) Alanine Aminotransferase 61 U/L (ALT/SGPT) Alkaline Phosphatase 85 U/L Total Creatine Kinase 80 U/L Troponin I LESS THAN 0.02 NG/ML B-Type Natriuretic Peptide 34 PG/ML Total Protein 7.1 GM/DL Albumin 3.5 GM/DL Lipase 188 U/L Lactic Acid Level 1.5 mmol/L Imaging Last Impressions Abdomen X-Ray 08/15/16 0000 Signed Impressions: Service Date/Time: Monday, August 15, 2016 18:19 - CONCLUSION: Normal bowel gas pattern. Vish Arriola Jr., MD Abdomen Ultrasound 08/15/16 0000 Signed Impressions: Service Date/Time: Monday, August 15, 2016 10:53 - CONCLUSION: 3.6 cm cyst right lobe of liver. Gallbladder reveals sludge and suggestion 1.9 cm area of echogenicity stone near the neck. Hugh Cabrera MD Chest X-Ray 08/14/16 1751 Signed Impressions: Service Date/Time: Sunday, August 14, 2016 18:15 - CONCLUSION: 1. Cardiomegaly. Minimal perihilar and basilar subsegmental air space disease. Fernando Lainez MD Aorta CTA 08/14/16 0000 Signed Impressions: Service Date/Time: Sunday, August 14, 2016 21:17 - CONCLUSION: 1. Negative for pulmonary embolism. No aneurysm or dissection identified. Mild to moderate atherosclerotic change in the aorta. Mild to moderate emphysema. 2. Small gallstones in the gallbladder. Hepatic cysts. No hydronephrosis. No free fluid or free air. Previous bilateral hip replacement. 3. Colonic diverticulosis. Fernando Lainez MD Objective Remarks General: NAD, AAOx3 Chest: CTA bilaterally Cardiac: Regular Abd: +BS, firm, nontender Ext: Less edema bilaterally A/P Problem List: (1) Abdominal pain Status: Acute Plan: - Pt admitted with complaints of upper abdominal pain x 2 days, not relieved with BMs, not related to food intake, worse with deep breathing. Etiology unclear. - KUB (08/14) --> Nonspecific bowel gas pattern without evidence for obstruction or free air. - CXR (08/14) --> Cardiomegaly. Minimal perihilar and basilar subsegmental air space disease. - CTA Aorta (08/14) --> Negative for pulmonary embolism. No aneurysm or dissection identified. Mild to moderate atherosclerotic change in the aorta. Mild to moderate emphysema. Small gallstones in the gallbladder. Hepatic cysts. No hydronephrosis. No free fluid or free air. Previous bilateral hip replacement. Colonic diverticulosis - 2D echo (08/15) --> Systolic function is normal with estimated EF 55-60%. PA peak pressure increased at 46mmHg - Abd US (08/15) --> 3.6 cm cyst right lobe of liver. Gallbladder reveals sludge and suggestion 1.9 cm area of echogenicity stone near the neck - KUB (08/15) --> Normal bowel gas pattern - LFTs are stable. - CE are negative. - PPI - Pain meds PRN - Pt was given Lasix 20mg x one dose on 08/15 - Monitor labs - Supportive care - DVT prophylaxis (2) Hypertensive urgency Status: Acute Plan: - Pt with significantly elevated BP at the time of admission - Pt has been resumed on Metoprolol 50mg po BID and Losartan 50mg po Q12H - KOFFI is much more stable today - Clonidine PRN - Monitor (3) A-fib Status: Chronic Plan: - Pt with a hx of paroxysmal atrial fibrillation - Pt is not on any anticoagulants, he declined them previously because he has issues with bleeding easily. - Pt is currently in A. fib with HR controlled - Cont. Metoprolol 50mg po BID - Monitor (4) COPD (chronic obstructive pulmonary disease) Status: Chronic Plan: - Duonebs Q6H WA and Q2H PRN - Cont. home meds - Pt was given Solu-medrol in the ER - Pt was continued on Solu-Medrol and will deescalate the dose today - Pt will need a quick taper of prednisone upon discharge. - Pt was on Prednisone 5mg po daily as an outpt. (5) Hypertension Status: Chronic Plan: - See above. (6) Hyperlipemia Status: Chronic Plan: - Cont. home meds (7) Diabetes mellitus Status: Chronic Plan: - NovoLog SSI - Accu checks (8) Gout Status: Chronic Assessment and Plan Patient examined. Assessment and plan formulated with Janneth Clark PA-C. I agree with the above. pt seems to have alot of gaseous abdomen discomfort. today it is resolved. no bm yet despite multiple doses of lactulose. he is passing gas. he is dehydrated. I have recommended he stay and his agrees. Pt says he needs to get home and check on his animals. he would be high risk for readmission. Problem Qualifiers (1) Abdominal pain: Qualified Code: R10.13 - Epigastric pain (2) A-fib: Qualified Code: I48.0 - Paroxysmal atrial fibrillation Janneth Clark Aug 16, 2016 09:58 Zia Gordon MD Aug 16, 2016 16:49
[2016-08-16] MEDS ORDERED: LACT10SO PO (16:30)
[2016-08-16] MEDS ORDERED: SIME1CHW13 CHEW (16:30)
[2016-08-16] MEDS ORDERED: SODIUM CHLOR 0.9% 250 ML INJ 250 ML IV ONE (16:30)
[2016-08-16] MEDS ORDERED: PRED20 PO (16:30)
--- NOTE | 2016-08-16 16:31 | HHI.DCPOC ---
Discharge Care Plan Diagnosis: (1) Abdominal pain (2) Hypertensive urgency (3) Hypertension (4) Hyperlipemia (5) Gout (6) Diabetes mellitus (7) COPD (chronic obstructive pulmonary disease) (8) A-fib Goals to Promote Your Health * To prevent worsening of your condition and complications - Pt is to drink plenty of fluids tonight. - He can resume his Lasix 40mg in AM and 20mg in PM tomorrow - He will need a recheck of his blood work next week with results to his PCP. - Pt is to followup with his PCP, Dr. Conley, next week. Directions to Meet Your Goals Take your medications as prescribed Follow your dietary instruction Follow activity as directed Keep your appointments as scheduled Take your immunizations and boosters as scheduled If your symptoms worsen call your PCP, if no PCP go to Urgent Care Center or Emergency Room Smoking is Dangerous to Your Health. Avoid second hand smoke Call the 24-hour hour crisis hotline for domestic abuse at Janneth Clark Aug 16, 2016 16:31
[2016-08-16] MEDS ORDERED: methylPREDNISolone SOD SUCC 40 MG/1 ML VIAL IV PUSH SCH (21:00)
== END 2016-08-16 20:00 | disposition home or self-care (01) ==
LOC: NEPC 17:22 → NEDA 22:46 → NEDH 08-15 03:06 → NEPGCP 08-15 13:31
PROVIDERS: ADMIT Hospitalist; ATTEND Hospitalist
DX: R10.13 Epigastric pain (principal); I16.0 Hypertensive urgency; I10 Essential (primary) hypertension; I48.0 Paroxysmal atrial fibrillation; E78.5 Hyperlipidemia, unspecified; E11.9 Type 2 diabetes mellitus without complications; M1A.9XX0 Chronic gout, unspecified, without tophus (tophi); J44.9 Chronic obstructive pulmonary disease, unspecified; I25.810 Atherosclerosis of coronary artery bypass graft(s) without angina pectoris; R06.02 Shortness of breath; Z95.1 Presence of aortocoronary bypass graft
CPT/HCPCS: 71010; 71275; 74000; 74020; 74174; 76700; 80048; 80053; 81001; 82550; 82948; 83605; 83690; 83735; 83880; 84484; 85025; 85610; 85730; 93306; 94640; 94664; 96374; 96375; 96376; 99285; G0378; J0360; J1815; J1940; J2920; J2930; J7050; Q9967

== ENCOUNTER 2016-12-15 12:50 | Emergency (ER) | payer MEDICARE ==
[~2016-12-15] VITALS: Ht 172.7 cm; Wt 100.0 kg
[~2016-12-15 12:50] MED LIST changes: +ADVA230A INH; +ALBU0.08 NEB; -ALLO300 PO; +ALLO300T2 PO; +CHOL100025 CHEW; -DUONI NEB; -ECOT81TA2 PO; -ENDO5TAB6 PO; -EZET10 PO; -FISH100020 PO; +FISH500C; -FLUT50I NASAL; +FURO40TA PO; -GUAI600 PO; +HYDR-3583 PO; -KCL10C PO; +LACT10SO PO; -METO25 PO; +METO50TA11 PO; -MOBI7.5T PO; -NACL.65%I; -PRED10 PO; +PRED20 PO; +SIME1CHW13 CHEW; -TIZA2CAP PO; -VENTAER INH; -VITA-13 PO
[2016-12-15 12:53] VITALS: BP 139/82; PULSE 90; RESP 24; TEMP 96.9; O2SAT 96
--- NOTE | 2016-12-15 13:00 | PD ---
Physical Exam Time Seen by Provider: 12:59 Narrative 76 y/o male here with laceration to R forearm sustained by a tree branch. Vital signs reviewed. Seen at triage desk, awaiting bed placement. Data Data Last Documented VS Vital Signs Date Time Temp Pulse Resp B/P Pulse Ox O2 Delivery O2 Flow Rate FiO2 12/15/16 12:53 96.9 90 24 139/82 96 Room Air MDM Medical Record Reviewed: Yes Supervised Visit with YONY: Shadi Armenta December 15, 2016 13:00
--- NOTE | 2016-12-15 13:10 | PD ---
HPI Chief Complaint: Laceration/Skin Injury Time Seen by Provider: 13:04 Travel History International Travel<30 days: No Contact w/Intl Traveler<30days: No Traveled to known affect area: No History of Present Illness HPI 46-year-old male here with complaint of laceration. Patient was using a machete to trim a tree when all this and he began to bleed from the arm. Isn't exactly sure what happened or how he lacerated his right arm. Noted bleeding on scene which is now hemostatic. Denies any loss of function, numbness or tingling. Unknown last tetanus, the patient is allergic to immunization. PFSH Past Medical History Hx Anticoagulant Therapy: No Arthritis: Yes (OA) Asthma: No Autoimmune Disease: No Blood Disorders: Yes (PT STATES HE BLEEDS EASILY UNK ETIOLOGY) Anxiety: Yes Depression: No Heart Rhythm Problems: No Cancer: No Cardiac Catheterization: Yes Cardiovascular Problems: Yes (CABG) High Cholesterol: Yes Chemotherapy: No Chest Pain: No Congestive Heart Failure: No COPD: Yes Cerebrovascular Accident: No Coronary Artery Disease: Yes Diabetes: No Endocrine: No Gastrointestinal Disorders: Yes GERD: Yes Glaucoma: No Gout: Yes Genitourinary: No Hepatitis: No Hiatal Hernia: No Hypertension: Yes Immune Disorder: No Implanted Vascular Access Dvce: Yes Kidney Stones: No Musculoskeletal: Yes Neurologic: No Psychiatric: Yes Reproductive: No Respiratory: Yes (COPD ) Migraines: No Radiation Therapy: No Renal Failure: No Seizures: No Sickle Cell Disease: No Sleep Apnea: Yes Thyroid Disease: No Ulcer: No Past Surgical History Abdominal Surgery: No AICD: No Arteriovenous Shunt: No Cardiac Surgery: Yes (CABG) Coronary Artery Bypass Graft: Yes (CABG X2 1997) Ear Surgery: No Endocrine Surgery: No Eye Surgery: Yes (BILATERAL CATARACT REMOVAL) Genitourinary Surgery: No Gynecologic Surgery: No Insulin Pump: No Joint Replacement: Yes (BILATERAL TOTAL HIP) Oral Surgery: Yes (TONSILLECTOMY) Pacemaker: No Thoracic Surgery: No Tonsillectomy: Yes Other Surgery: Yes Social History Alcohol Use: Yes (2-4 BEERS PER DAY) Tobacco Use: No (QUIT) Substance Use: No Allergies-Medications (Allergen,Severity, Reaction): Coded Allergies: HMG-CoA Reductase Inhibitors (Unverified Allergy, Severe, JOINT PAIN, VOMITING, UNABLE TO MOVE, 12/15/16) Lipitor (Verified Allergy, Severe, Nausea/Vomiting, 12/15/16) Lovastatin (Unverified Allergy, Severe, 12/15/16) ALL "STATINS" Mevacor (Verified Allergy, Severe, Nausea/Vomiting, 12/15/16) Tetanus Toxoid (Verified Allergy, Severe, VOMITING, CRAMPING, 12/15/16) Zocor (Verified Allergy, Severe, Nausea/Vomiting, 12/15/16) *MDRO Multi-Drug Resistant Organism (Verified Adverse Reaction, Unknown, ) 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 Reported Meds & Prescriptions Reported Meds & Active Scripts Active Lactulose Liq (Lactulose) 10 Gm/15 Ml Soln 30 Ml PO Q6H PRN 30 Days Simethicone 125 Mg Chw 125 Mg CHEW QID PRN Prednisone 20 Mg Tab 20 Mg PO DIRECTED 20 MG twice a day x 3 days, then 20 MG daily x 3 days, then 10 MG daily x 3 days, then resume your regular 5mg daily dose Reported Vitamin D3 (Cholecalciferol) 1,000 Unit Chew 1,000 Units CHEW DAILY Ranitidine (Ranitidine HCl) 150 Mg Tab 150 Mg PO BID Metoprolol Succinate ER 24 HR (Metoprolol Succinate) 50 Mg Tab 50 Mg PO DAILY Hydrocodone-Acetaminophen 10-325 mg Tab 1 Tab PO Q4H PRN Glimepiride 1 Mg Tab 1 Mg PO DAILY Take with breakfast or first main meal Furosemide 20 Mg Tab 20 Mg PO DAILY@1400 resume on 08/17/16 Furosemide 40 Mg Tab 40 Mg PO DAILY Fish Oil ([place]-3 Fatty Acids) 500 Mg Cap Allopurinol 300 Mg Tab 300 Mg PO DAILY Albuterol Neb (Albuterol Sulfate) 2.5 Mg/3 Ml Neb 2.5 Mg NEB ONCE Advair Hfa 12 GM Inh (Fluticasone-Salmeterol 12 GM Inh) 230-21 Mcg/Act Aer 2 Puff INH BID Review of Systems Except as stated in HPI: all other systems reviewed are Neg Physical Exam Narrative GENERAL: Well-appearing male in no acute distress SKIN: Large L-shaped laceration over the dorsal aspect of the right forearm, hemostatic. No evidence of tendon, ligament, muscular injury HEAD: Normocephalic. EYES: No scleral icterus. No injection or drainage. ENT: Mucous membranes pink and moist. NECK: Supple CARDIOVASCULAR: Regular rate and rhythm. RESPIRATORY: No accessory muscle use. MUSCULOSKELETAL: Moves all extremities normally NEUROLOGICAL: Awake and alert. normal speech. PSYCHIATRIC: Appropriate mood and affect; insight and judgment normal. Data Data Last Documented VS Vital Signs Date Time Temp Pulse Resp B/P Pulse Ox O2 Delivery O2 Flow Rate FiO2 12/15/16 12:53 96.9 90 24 139/82 96 Room Air Orders Lidocai-Epi 1%-1:100,000 Inj (Xylocaine- (12/15/16 13:15) MDM Medical Decision Making Medical Screen Exam Complete: Yes Emergency Medical Condition: Yes Medical Record Reviewed: Yes Differential Diagnosis 76-year-old male here with laceration. Exam is consistent with same, thankfully superficial without any tendon, ligament, muscular involvement but will require suture repair Narrative Course Laceration repaired, please see procedure note, and discharged home Diagnosis Primary Impression: Laceration of right forearm Qualified Code: S51.811A - Laceration of right forearm, initial encounter Referrals: Primary Care Physician 1 week Additional Instructions: Suture removal in 7-10 days Med/Other Pt SpecificInfo: No Change to Meds Disposition: 01 DISCHARGE HOME Condition: Stable Darlin Hodge MD December 15, 2016 13:10
[2016-12-15] MEDS ORDERED: LIDOCAINE 1%/EPINEPHrine 1:100,000 SOLN 20 ML VIAL INFIL ONE (13:15)
[2016-12-15] MEDS ORDERED: LIDOCAINE 1%/EPINEPHrine 1:200,000 PF SOLN 10 ML VIAL INFIL ONE (13:45)
--- NOTE | 2016-12-15 14:27 | PD ---
Physical Exam Time Seen by Provider: 14:23 Narrative I repaired the laceration to the right forearm. Data Data Last Documented VS Vital Signs Date Time Temp Pulse Resp B/P Pulse Ox O2 Delivery O2 Flow Rate FiO2 12/15/16 12:53 96.9 90 24 139/82 96 Room Air Orders Lidoca-Epi Pf 1%-1:200,000 Inj (Xylocain (12/15/16 13:45) MDM Supervised Visit with YONY: No Narrative Course I repaired the laceration to the right forearm. See my procedure note. Procedures Procedure Narrative LACERATION LOCATION: Lateral aspect of right proximal forearm LENGTH: Approximately 15 cm; L-shaped NUMBER OF STITCHES/TONI: 15 toni REPAIR: The area of the laceration was prepped with Betadine and sterilely draped. The laceration was infiltrated with 1% lidocaine with epinephrine. The wound was copiously irrigated and explored without evidence of foreign body, tendon injury or neurovascular injury. The wound was closed using toni. This was a single layer repair. A sterile dressing was applied. The patient was advised to keep the dressing clean and dry. Patient tolerated the procedure well. Diagnosis Primary Impression: Laceration of right forearm Qualified Code: S51.811A - Laceration of right forearm, initial encounter Referrals: Primary Care Physician 1 week Patient Instructions: General Instructions Departure Forms: Tests/Procedures Additional Instruction: Staple removal in 7-10 days Disposition: 01 DISCHARGE HOME Condition: Stable Meghana Omalley December 15, 2016 14:27
== END 2016-12-15 15:55 | disposition home or self-care (01) ==
LOC: NEPD 12:50
DX: S51.811A Laceration without foreign body of right forearm, initial encounter (principal); W45.8XXA Other foreign body or object entering through skin, initial encounter; Y93.H2 Activity, gardening and landscaping
CPT/HCPCS: 12005

== ENCOUNTER 2018-01-25 16:10 | Inpatient (IN) ==
[2018-01-25] MEDS ORDERED: Sod Chloride 0.9% Inj 1,000 ML IV.SIG ONE ×2 (17:53→17:54)
[2018-01-25 18:00] LABS: Baso # (Auto) 0.1 th/mm3 (0.0-0.2); Baso % (Auto) 1.1 % (0.0-2.0); Eos # (Auto) 0.2 th/mm3 (0.0-0.4); Eos % (Auto) 1.9 % (0.0-4.0); Hematocrit 37.5 % (39.0-51.0); Hemoglobin 11.9 gm/dL (13.0-17.0); Lymph # (Auto) 1.3 th/mm3 (1.0-4.8); Lymph % (Auto) 11.9 % (9.0-44.0); Mean Corpuscular HGB Conc 31.7 % (32.0-36.0); Mean Corpuscular Hemoglobin 31.1 pg (27.0-34.0); Mean Platelet Volume 9.8 fL (7.0-11.0); Mono # (Auto) 0.8 th/mm3 (0.0-0.9); Mono % (Auto) 7.1 % (0.0-8.0); Neut # (Auto) 8.5 th/mm3 (1.8-7.7); Platelet Count 425 th/mm3 (150-450); Red Blood Count 3.83 mil/mm3 (4.50-5.90); Red Cell Distribution Width 17.7 % (11.6-17.2); White Blood Count 10.9 th/mm3 (4.0-11.0)
[2018-01-25] MEDS ORDERED: Vancomycin Inj 1 GM/200 ML PIGGYBACK IV.SIG SCH (18:00)
--- NOTE | 2018-01-25 18:04 | ED ---
HPI General Chief complaint: Skin/Abscess/Foreign Body Stated complaint: Wond care/legs Time Seen by Provider: 01/25/18 16:49 History of Present Illness HPI narrative: This patient was sent to the emergency department from wound care evaluation for IV antibiotic admission. He is been battling wounds on his feet for several months. Culture came back today from his left heel revealing heavy growth of Enterococcus faecalis. The report suggested he would need combination synergistic therapy including IV aminoglycoside with either ampicillin or vancomycin. He denies fever. He has generalized weakness and fatigue. He is hypotensive and 85 systolic. Symptoms are severe. Duration of the malaise is 1 week. No alleviating factors. Symptoms are exacerbated by his infection. Related Data Home Medications Medication Instructions Recorded Confirmed allopurinol 300 mg PO DAILY 01/25/18 01/25/18 ezetimibe [Zetia] 10 mg PO DAILY 01/25/18 01/25/18 furosemide [Lasix] 40 mg PO QAM 01/25/18 01/25/18 gabapentin 300 mg PO BID 01/25/18 01/25/18 glimepiride 1 mg PO QAM 01/25/18 01/25/18 hydrocodone-acetaminophen [Wilton] 1 tab PO TID 01/25/18 01/25/18 losartan 100 mg PO DAILY 01/25/18 01/25/18 metoprolol tartrate 50 mg PO BID 01/25/18 01/25/18 Allergies Allergy/AdvReac Type Severity Reaction Status Date / Time amlodipine Allergy Severe JOINT Verified 01/25/18 17:52 PAIN, VOMITING, UNABLE TO MOVE atorvastatin Allergy Severe Nausea/Vomi Verified 01/25/18 17:52 ting lovastatin Allergy Severe Abdominal Verified 01/25/18 17:52 Pain pravastatin Allergy Severe JOINT Verified 01/25/18 17:52 PAIN, VOMITING, UNABLE TO MOVE simvastatin Allergy Severe Nausea/Vomi Verified 01/25/18 17:52 ting tetanus toxoid, adsorbed Allergy Severe VOMITING, Verified 01/25/18 17:52 CRAMPING *MDRO Multi-Drug Resistant AdvReac Unknown Nausea/Vomi Uncoded 01/25/18 17:52 Organism ting Review of Systems Except as stated in HPI: all other systems reviewed are negative PMFSH Social History Social History Substance History: No History of Abuse Second Hand Smoke Exposure: No Smoking Status: Former smoker Tobacco Type: Cigarettes How Often Do You Have a Drink Containing Alcohol: Never [facility] within [facility] Last 8 Weeks: No Recent Out of Country Travel within the Last 8 Weeks: No Immunization History Tetanus Immunization: Unsure Hx Influenza Vaccine This Season: No Exam Narrative Exam Narrative: GENERAL: Well-nourished, well-developed patient with generalized weakness and hypotension. SKIN: Focused skin assessment reveals no rash and nodules. Skin is Warm and dry. HEAD: Atraumatic. Normocephalic. EYES: Pupils equal and round. No scleral icterus. No injection or drainage. ENT: No nasal bleeding or discharge. Mucous membranes pink and moist. NECK: Trachea midline. No JVD. CARDIOVASCULAR: Regular rate and rhythm. No murmur appreciated. RESPIRATORY: No accessory muscle use. Diminished breath sounds throughout with no active wheezing or crackles. Breath sounds equal bilaterally. GASTROINTESTINAL: Abdomen soft, non-tender, nondistended. Hepatic and splenic margins not palpable. MUSCULOSKELETAL: No obvious deformities. No clubbing. No cyanosis. There is a wound on his left heel. Roughly quarter sized and circular with some black eschar in the middle of it. There is a wound on his right foot which goes through the skin and into the subcu tissues. There is some yellow honey crusting on his right tibia area with some erythema and swelling. NEUROLOGICAL: Awake and alert. No obvious cranial nerve deficits. Motor grossly within normal limits. Normal speech. PSYCHIATRIC: Appropriate mood and affect; insight and judgment normal. Course Initial Documented Vital Signs Pulse Rate 81 01/25/18 16:50 Respiratory Rate 22 01/25/18 16:50 Blood Pressure 235/124 H 01/25/18 16:50 Last Documented Vital Signs Pulse Rate 81 01/25/18 16:50 Respiratory Rate 22 01/25/18 16:50 Blood Pressure 99/57 L 01/25/18 18:00 Critical Care Time Critical Care Time: Yes Total Critical Care Time: 38 Attestation: Aggregate critical care time was 38 minutes. Time to perform other separately billable procedures was not included in the critical care time. My time did not include minutes spent treating any other patients simultaneously or on activities that did not directly contribute to the patient's treatment. The services I provided to this patient were to treat and/or prevent clinically significant deterioration that could result in: Septic shock, cardiopulmonary arrest I provided critical care services requiring my management, as noted below: Chart data review, documentation time, medication orders and management, vital sign assessments/reviewing monitor data, ordering and reviewing lab tests, ordering and interpreting/reviewing x-rays and diagnostic studies, care of the patient and discussion of the patient with the admitting physicians. Medical Decision Making MDM Narrative Medical decision making narrative: 2 IVs placed. I gave him 2 L normal saline IV bolus and will reassess pressure after that. Blood cultures obtained prior to IV vancomycin administration Labs sent Pressures come up to the 90s after the first liter. After the second liter is 106 systolic. He is not tachycardic or febrile and has normal white count at this point. Blood pressure has improved. [facility] I reviewed his chest x-ray which is negative. Differential Diagnosis Differential Diagnosis: Sepsis, bacteremia, wound infection, cellulitis Medical Records Medical records reviewed: Yes I reviewed the patient's medical records. I reviewed the culture results that the patient brought in as described in history of present illness Lab Data Lab results reviewed: Yes I reviewed the patient's lab results. Result diagrams: 01/25/18 17:40 01/25/18 17:40 Lab Results 01/25/18 01/25/18 Range/Units 17:40 17:40 WBC 10.9 (4.0-11.0) th/mm3 RBC 3.83 L (4.50-5.90) mil/mm3 Hgb 11.9 L (13.0-17.0) gm/dL Hct 37.5 L (39.0-51.0) % MCV 98.0 (80.0-100.0) fL MCH 31.1 (27.0-34.0) pg MCHC 31.7 L (32.0-36.0) % RDW 17.7 H (11.6-17.2) % Plt Count 425 (150-450) th/mm3 MPV 9.8 (7.0-11.0) fL Neut % (Auto) 78.0 H (16.0-70.0) % Lymph % (Auto) 11.9 (9.0-44.0) % [place] % (Auto) 7.1 (0.0-8.0) % Eos % (Auto) 1.9 (0.0-4.0) % Baso % (Auto) 1.1 (0.0-2.0) % Neut # (Auto) 8.5 H (1.8-7.7) th/mm3 Lymph # (Auto) 1.3 (1.0-4.8) th/mm3 [place] # (Auto) 0.8 (0.0-0.9) th/mm3 Eos # (Auto) 0.2 (0.0-0.4) th/mm3 Baso # (Auto) 0.1 (0.0-0.2) th/mm3 WBC Differential . Differential Comment Auto diff final Sodium 136 (136-145) meq/L Potassium 3.9 (3.5-5.1) meq/L Chloride 99 (98-107) meq/L Carbon Dioxide 24.3 (21.0-32.0) meq/L Anion Gap 13 (5-15) meq/L BUN 38 H (7-18) mg/dL Creatinine 2.72 H (0.60-1.30) mg/dL Estimated GFR 23 L (>89) mL/min Random Glucose 112 H (74-106) mg/dL Calcium 9.9 (8.5-10.1) mg/dL Imaging Data Radiologist's impression: ITS Impressions Chest X-Ray 01/25/18 17:54 CONCLUSION: 1. Cardiomegaly. 2. No focal infiltrate or pulmonary vascular congestion. 3. Severe degenerative changes involving the shoulders bilaterally. Discharge Plan Discharge Disposition Patient Disposition: 30 Still Patient Discharge Details Discharge Problem: Wound infection Physicians Team ED Provider: Teodoro Barney Primary Care Provider: Primary Care Shelia Heaton Other Providers: Prudence Sandoval Rxs /Orders / Referrals /Forms Prescriptions: Continue hydrocodone-acetaminophen [Wilton] 10-325 mg Tablet 1 tab PO TID RF: 0 gabapentin 300 mg Capsule 300 mg PO BID RF: 0 No Action furosemide [Lasix] 40 mg Tablet 40 mg PO QAM RF: 0 glimepiride 1 mg Tablet 1 mg PO QAM RF: 0 metoprolol tartrate 50 mg Tablet 50 mg PO BID RF: 0 allopurinol 300 mg Tablet 300 mg PO DAILY RF: 0 losartan 100 mg Tablet 100 mg PO DAILY RF: 0 ezetimibe [Zetia] 10 mg Tablet 10 mg PO DAILY RF: 0 Discharge Interventions Interventions: Vital Signs Last Done: 01/25/18 18:00 Status ED Status: With Doctor
[2018-01-25 18:20] LABS: Calcium 9.9 mg/dL (8.5-10.1); Carbon Dioxide 24.3 meq/L (21.0-32.0); Potassium 3.9 meq/L (3.5-5.1)
--- NOTE | 2018-01-25 18:40 | XR ---
EXAM DATE: 01/25/2018 6:28 PM EDT AGE/SEX: 77 years / Male INDICATIONS: Fever. Leg edema. CLINICAL DATA: This is the patient's initial encounter. Patient reports that signs and symptoms have been present for 3 days and indicates a pain score of 6/10. MEDICAL/SURGICAL HISTORY: Cardiovascular disease. CABG. COMPARISON: [facility] [place], CHEST SINGLE AP, 08/14/2016. . FINDINGS: Median sternotomy wires are noted status post cardiac surgery. The heart is enlarged. The pulmonary v ascular pattern is normal. The lungs are clear. Severe degenerative changes are noted involving the s houlders bilaterally. CONCLUSION: 1. Cardiomegaly. 2. No focal infiltrate or pulmonary vascular congestion. 3. Severe degenerative changes involving the shoulders bilaterally. Electronically signed by: Ken San MD 01/25/2018 6:38 PM EDT
[2018-01-25] MEDS ORDERED: Acetaminophen 325 MG Tablet PO PRN (18:59)
[2018-01-25] MEDS ORDERED: Bisacodyl 10 MG Supp RECTAL PRN (18:59)
[2018-01-25] MEDS ORDERED: Dextrose 50% in Water 50 ML Vial IV.PUSH PRN (19:10)
[2018-01-25] MEDS: Enoxaparin Inj 30 MG/0.3 ML Syringe SQ SCH (21:00)
[2018-01-25] MEDS: Sod Chloride 0.9% Inj 1,000 ML IV.CONT SCH (21:12)
[2018-01-25] MEDS: Gabapentin 300 MG Capsule PO SCH (22:05)
[2018-01-25] MEDS: Insulin NovoLOG Aspart Correctional Sugar Inj SQ SCH (22:06)
--- NOTE | 2018-01-25 22:22 | P.HPFP ---
History of Present Illness Primary Care Physician: No Primary Care Physician History of Present Illness: This is a pleasant 77-year-old male with past medical history of coronary artery disease, COPD, chronic kidney disease stage III, diabetes with neuropathy, peripheral arterial disease, and paroxysmal atrial fibrillation who presented to the ER today for evaluation of cellulitis and possible infected ulcer of lower extremity. The patient states that he was at the wound care clinic earlier today. He was weak and unable to get out of the car. He then vomited. He felt very dizzy. Of note several days ago he did have a culture of the left heel ulcer which returned positive for enterococcus sensitive to vancomycin. The patient has been under treatment with Dr. Kaminski for the left heel ulcer and also ulcer of the posterior right calf. Today he has redness of his right lower foot. The patient also has chronic pedal edema. He endorses he has not been eating or drinking well. He was hypotensive in the ED, this improved after receiving IVF boluses. He has elevation of BUN and creatinine as compared to baseline. No leukocytosis. - Diagnosis (1) YAZAN (acute kidney injury) (2) CKD stage 3 due to type 2 diabetes mellitus (3) Afib (4) COPD (chronic obstructive pulmonary disease) (5) Dehydration (6) Wound infection (7) Vomiting alone (8) Weakness generalized Inpatient Certification: I certify that the inpatient services were ordered in accordance with Medicare regulations governing the order. This includes certification that hospital inpatient services are reasonable and necessary and in the case of services not specified as inpatient-only under 42 CFR 419.22(n), that they are appropriately provided as inpatient services in accordance to with the 2-midnight benchmark under 43 CFR 412.3(e) Estimated Total Length of Stay (Days): 3 Plans for Post Hospital Care: Not yet determined Review of Systems All other systems reviewed negative except as stated in HPI PMFSH - History History Provided By: Patient, Medical Record - Medical / Surgical Hx Neg / Unobtainable Medical Problems Denied: Yes (patient denies diabetes, says he has borderline diabetes) - Medical History Medical History: Medical History (Last Updated 01/25/18 @ 22:22 by Celi Johnson MD) Edema of both lower extremities due to peripheral venous insufficiency (Acute) GERD (gastroesophageal reflux disease) (Acute) CAD (coronary artery disease) (Acute) Paroxysmal A-fib (Acute) COPD (chronic obstructive pulmonary disease) (Acute) Cellulitis of right foot (Acute) Ulcers of both lower extremities (Acute) PAD (peripheral artery disease) (Acute) Asthma CHF (congestive heart failure) 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, uncontrolled, with neuropathy HLD (hyperlipidemia) HTN (hypertension) MASHA (obstructive sleep apnea) Pedal edema Pulmonary hypertension - Surgical History Surgical History: Surgical History (Last Updated 01/25/18 @ 22:22 by Celi Johnson MD) Hx of CABG (Acute) - Family History Family History: Family History (Last Updated 01/25/18 @ 22:18 by Celi Johnson MD) Other Family history of diabetes mellitus - Tobacco History Second Hand Smoke Exposure: No Tobacco Use In Past 30 Days: No Smoking Status: Former smoker Tobacco Type: Cigarettes - Alcohol History How Often Do You Have a Drink Containing Alcohol: Never - Substance Use History Substance History: No History of Abuse - Travel History Recent Travel in the [place] Within the Last 8 Weeks: No Recent Travel Out of the Country Within the Last 8 Weeks: No - Immunization History Tetanus Immunization: Unsure Hx Influenza Vaccine This Season: No Medications and Allergies Active Medications: Active Medications Acetaminophen (Tylenol) 650 mg PO Q4H PRN PRN Reason: Temp > 100.4 Hydrocodone Bitart/Acetaminophen ([place] 10/325) 1 tab PO Q8HR PRN PRN Reason: wound pain Al Hydroxide/Mg Hydroxide (Milk Of Jasiel Liq) 30 ml PO Q12H PRN PRN Reason: Mild Constipation Albuterol (Duoneb Neb (Prn)) 1 ampul NEB Q4HR NEB PRN PRN Reason: DYSPNEA Bisacodyl (Dulcolax Supp) 10 mg RECTAL DAILY PRN PRN Reason: SEVERE CONSITIPATION Dextrose (D50w Vial) 50 ml IV.PUSH UNSCH PRN PRN Reason: PER HYPOGLYCEMIA PROTOCOL Enoxaparin Sodium (Lovenox Inj) 30 mg SQ Q24H [facility] Last Admin: 01/25/18 21:00 Dose: 30 mg Gabapentin (Neurontin) 300 mg PO BID [facility] Last Admin: 01/25/18 22:05 Dose: 300 mg Glucagon (Glucagon Inj) 1 mg OTHER PRN PRN PRN Reason: for Hypoglycemia Protocol Vancomycin/Sodium Chloride (Vancomycin Inj) 1 gm in 200 mls @ 200 mls/hr IV.SIG [employer] [facility] Sodium Chloride (Ns Inj) 1,000 mls @ 100 mls/hr IV.CONT .Q10H [facility] Last Admin: 01/25/18 21:12 Dose: 100 mls/hr Insulin Aspart (Novolog Insulin Suppl Scale Inj) 0 unit SQ ACHS AND 3AM [facility]; Protocol Last Admin: 01/25/18 22:06 Dose: Not Given Lactulose (Lactulose Liq) 30 ml PO DAILY PRN PRN Reason: SEVERE CONSITIPATION Ondansetron HCl (Zofran Inj) 4 mg IV.PUSH Q6H PRN PRN Reason: NAUSEA OR VOMITING Sennosides (Senokot) 17.2 mg PO Q12H PRN PRN Reason: Moderate Constipation Allergies Allergy/AdvReac Type Severity Reaction Status Date / Time amlodipine Allergy Severe JOINT Verified 01/25/18 17:52 PAIN, VOMITING, UNABLE TO MOVE atorvastatin Allergy Severe Nausea/Vomi Verified 01/25/18 17:52 ting lovastatin Allergy Severe Abdominal Verified 01/25/18 17:52 Pain pravastatin Allergy Severe JOINT Verified 01/25/18 17:52 PAIN, VOMITING, UNABLE TO MOVE simvastatin Allergy Severe Nausea/Vomi Verified 01/25/18 17:52 ting tetanus toxoid, adsorbed Allergy Severe VOMITING, Verified 01/25/18 17:52 CRAMPING *MDRO Multi-Drug Resistant AdvReac Unknown Nausea/Vomi Uncoded 01/25/18 17:52 Organism ting Home Medications Medication Instructions Recorded Confirmed Type allopurinol 300 mg PO DAILY 01/25/18 01/25/18 History ezetimibe [Zetia] 10 mg PO DAILY 01/25/18 01/25/18 History furosemide [Lasix] 40 mg PO QAM 01/25/18 01/25/18 History gabapentin 300 mg PO BID 01/25/18 01/25/18 History glimepiride 1 mg PO QAM 01/25/18 01/25/18 History hydrocodone-acetaminophen [[place]] 1 tab PO TID 01/25/18 01/25/18 History losartan 100 mg PO DAILY 01/25/18 01/25/18 History metoprolol tartrate 50 mg PO BID 01/25/18 01/25/18 History Exam Vital signs: Vital Signs 07/06/18 16:50 01/25/18 17:41 01/25/18 18:00 Temperature Pulse Rate 81 Respiratory Rate 22 Blood Pressure 235/124 H 85/67 L 99/57 L Pulse Oximetry 01/25/18 21:21 01/25/18 21:53 Temperature 97.4 F L Pulse Rate 58 L 98 H Respiratory Rate 18 Blood Pressure 106/61 109/64 Pulse Oximetry 88 L Intake & Output 01/25/18 01/25/18 01/26/18 06:59 18:59 06:59 Weight 90.718 kg Narrative: GENERAL: Pleasant male in no apparent distress. SKIN: Warm and dry. Anterior right foot with erythema and warmth. He has a shallow wide ulcer on the posterior right calf. He has a silver dollar sized wound on the left heel with clean bed and no sign of infection. HEAD: Atraumatic. Normocephalic. EYES: Pupils equal and round. No scleral icterus. No injection or drainage. ENT: No nasal bleeding or discharge. Mucous membranes pink and moist. NECK: Trachea midline. No JVD. CARDIOVASCULAR: Irregularly irregular rate and rhythm. He has poor capillary refill of both feet. RESPIRATORY: No accessory muscle use. Clear to auscultation. Breath sounds equal bilaterally. GASTROINTESTINAL: Abdomen soft, non-tender, nondistended. Hepatic and splenic margins not palpable. MUSCULOSKELETAL: 2+ edema bilateral lower extremities. NEUROLOGICAL: Awake and alert. No obvious cranial nerve deficits. Motor grossly within normal. normal speech. PSYCHIATRIC: Appropriate mood and affect; insight and judgment normal. Results - Labs Result diagrams: 01/25/18 17:40 01/25/18 17:40 Abnormal lab results 01/25/18 01/25/18 Range/Units 17:40 17:40 RBC 3.83 L (4.50-5.90) mil/mm3 Hgb 11.9 L (13.0-17.0) gm/dL Hct 37.5 L (39.0-51.0) % MCHC 31.7 L (32.0-36.0) % RDW 17.7 H (11.6-17.2) % Neut % (Auto) 78.0 H (16.0-70.0) % Neut # (Auto) 8.5 H (1.8-7.7) th/mm3 BUN 38 H (7-18) mg/dL Creatinine 2.72 H (0.60-1.30) mg/dL Estimated GFR 23 L (>89) mL/min Random Glucose 112 H (74-106) mg/dL Short CBC 01/25/18 Range/Units 17:40 WBC 10.9 (4.0-11.0) th/mm3 Hgb 11.9 L (13.0-17.0) gm/dL Hct 37.5 L (39.0-51.0) % Plt Count 425 (150-450) th/mm3 BMP 01/25/18 17:40 Sodium 136 Potassium 3.9 Chloride 99 Carbon Dioxide 24.3 BUN 38 H Creatinine 2.72 H Calcium 9.9 - Imaging Impressions Chest X-Ray 01/25/18 17:54 CONCLUSION: 1. Cardiomegaly. 2. No focal infiltrate or pulmonary vascular congestion. 3. Severe degenerative changes involving the shoulders bilaterally. Caprini VTE Risk Assessment Caprini VTE Risk Assessment: Moderate/High Risk (score >= 2) Caprini Risk Assessment Model: Point Value = 1 Point Value = 2 Point Value = 3 Point Value = 5 Age 41-60 Minor surgery BMI > 25 kg/m2 Swollen legs Varicose veins or History of unexplained or recurrent spontaneous Oral contraceptives or hormone replacement Sepsis (< 1 month) Serious lung disease, including pneumonia (< 1 month) Abnormal pulmonary function Acute myocardial infarction Congestive heart failure (< 1 month) History of inflammatory bowel disease Medical patient at bed rest Age 61-74 Arthroscopic surgery Major open surgery (> 45 min) Laparoscopic surgery (> 45 min) Malignancy Confined to bed (> 72 hours) Immobilizing plaster cast Central venous access Age >= 75 History of VTE Family history of VTE Factor V Leiden Prothrombin [id number] Lupus anticoagulant Anticardiolipin antibodies Elevated serum homocysteine Heparin-induced thrombocytopenia Other congenital or acquired thrombophilia Stroke (< 1 month) Elective arthroplasty Hip, pelvis, or leg fracture Acute spinal cord injury (< 1 month) Prophylaxis Regimen: Total Risk Factor Score Risk Level Prophylaxis Regimen 0-1 Low Early ambulation 2 Moderate Order ONE of the following: *Sequential Compression Device (SCD) *Heparin 5000 units SQ BID 3-4 Higher Order ONE of the following medications: *Heparin 5000 units SQ TID *Enoxaparin/Lovenox 40 mg SQ daily (WT < 150 kg, CrCl > 30 mL/min) *Enoxaparin/Lovenox 30 mg SQ daily (WT < 150 kg, CrCl > 10-29 mL/min) *Enoxaparin/Lovenox 30 mg SQ BID (WT < 150 kg, CrCl > 30 mL/min) AND/OR *Sequential Compression Device (SCD) 5 or more Highest Order ONE of the following medications: *Heparin 5000 units SQ TID (Preferred with Epidurals) *Enoxaparin/Lovenox 40 mg SQ daily (WT < 150 kg, CrCl > 30 mL/min) *Enoxaparin/Lovenox 30 mg SQ daily (WT < 150 kg, CrCl > 10-29 mL/min) *Enoxaparin/Lovenox 30 mg SQ BID (WT < 150 kg, CrCl > 30 mL/min) AND *Sequential Compression Device (SCD) Assessment and Plan - Assessment (1) YAZAN (acute kidney injury) Code(s): N17.9 - Acute kidney failure, unspecified Status: Acute (2) CKD stage 3 due to type 2 diabetes mellitus Code(s): E11.22 - Type 2 diabetes mellitus with diabetic chronic kidney disease ; N18.3 - Chronic kidney disease, stage 3 (moderate) Status: Acute (3) Afib Code(s): I48.91 - Unspecified atrial fibrillation Status: Acute (4) COPD (chronic obstructive pulmonary disease) Code(s): J44.9 - Chronic obstructive pulmonary disease, unspecified Status: Acute (5) Dehydration Code(s): E86.0 - Dehydration Status: Acute (6) Wound infection Code(s): T14.8XXA - Other injury of unspecified body region, initial encounter; L08.9 - Local infection of the skin and subcutaneous tissue, unspecified Status: Acute (7) Vomiting alone Code(s): R11.11 - Vomiting without nausea Status: Acute (8) Weakness generalized Code(s): R53.1 - Weakness Status: Acute - Assessment and Plan We will admit to [facility]. Place him on vancomycin for the right foot cellulitis. I am not sure that the enterococcus represents infection of the left heel ulcer as it appears clean. Will consult infectious disease for recommendations. Consult wound care nurse. Place him on sliding scale insulin. Hold his home blood pressure medications. The patient declines anticoagulation. We will continue him on aspirin. Heart rate is currently controlled. Observe for any more vomiting. Consult physical therapy. DVT prophylaxis with Lovenox renally dosed.
[2018-01-25] MEDS ORDERED: Vancomycin Consult Pharmacy 1 EACH OTHER SCH (23:00)
[2018-01-26] MEDS ORDERED: Vancomycin Inj 1,500 MG in Sodium Chlor 0.9% Inj 500 ML IV.SIG ONE ×2
[2018-01-26] MEDS: Insulin NovoLOG Aspart Correctional Sugar Inj SQ SCH ×3 (04:12→12:14)
[2018-01-26] MEDS: Sod Chloride 0.9% Inj 1,000 ML IV.CONT SCH ×2 (06:27→10:00)
[2018-01-26] MEDS: Aspirin 325 MG Tablet PO SCH (09:49)
[2018-01-26] MEDS: Ezetimibe 10 MG Tablet PO SCH (09:49)
[2018-01-26] MEDS: Gabapentin 300 MG Capsule PO SCH (09:49)
--- NOTE | 2018-01-26 10:31 | ECG ---
Date Performed: 01/25/2018 Time Performed: 18:13:10 PTAGE: 77 years EKG: ATRIAL FIBRILLATION NONSPECIFIC ST ABNORMALITY ABNORMAL ECG PREVIOUS TRACING : 01/05/2016 17.54 Compared to previous tracing, atrial fibrillation has repla shyann Sinus rhythm . DOCTOR: Zhen Truong Interpretating Date/Time 01/26/2018 10:30:32
[2018-01-26 14:19] LABS: Baso # (Auto) 0.1 th/mm3 (0.0-0.2); Baso % (Auto) 0.9 % (0.0-2.0); Eos # (Auto) 0.2 th/mm3 (0.0-0.4); Eos % (Auto) 3.1 % (0.0-4.0); Hematocrit 30.8 % (39.0-51.0); Hemoglobin 9.9 gm/dL (13.0-17.0); Lymph # (Auto) 0.8 th/mm3 (1.0-4.8); Lymph % (Auto) 12.4 % (9.0-44.0); Mean Corpuscular HGB Conc 32.1 % (32.0-36.0); Mean Corpuscular Hemoglobin 30.7 pg (27.0-34.0); Mean Corpuscular Volume 95.4 fL (80.0-100.0); Mean Platelet Volume 9.5 fL (7.0-11.0); Mono # (Auto) 0.6 th/mm3 (0.0-0.9); Mono % (Auto) 8.8 % (0.0-8.0); Neut # (Auto) 4.8 th/mm3 (1.8-7.7); Neut % (Auto) 74.8 % (16.0-70.0); Platelet Count 306 th/mm3 (150-450); Red Blood Count 3.22 mil/mm3 (4.50-5.90); Red Cell Distribution Width 17.4 % (11.6-17.2); White Blood Count 6.5 th/mm3 (4.0-11.0)
--- NOTE | 2018-01-26 14:22 | P.CONID ---
History of Present Illness Service: ID Consult date: 01/26/18 Requesting Physician: Celi Johnson Reason for Consult: Evaluation and management of bilateral lower extremity cellulitis as well a Primary Care Provider: No Primary Care Physician Family Provider: Brad Conley MD History of Present Illness: Mr. Hobbs is a 77-year-old male with past medical history significant for coronary artery disease, COPD, chronic kidney disease stage III , diabetes with neuropathy, peripheral arterial disease as well as paroxysmal atrial fibrillation who presents to the emergency room for evaluation of weakness and dizziness. Patient reports that he has had recurrent cellulitis but that is not the reason why he is here today he has been seeing wound care in the clinic and was infected the wound care clinic in trying to get into his car when he felt extremely weak and unable to get out of the car. He then vomited felt dizzy and was brought into the emergency department. Patient had reportedly a culture of the left heel which was positive for enterococcus which is reportedly sensitive to vancomycin. Patient reportedly is under the treatment of Dr. Kaminski for left heel ulcer as well as ulcer of the posterior right calf. Patient endorses that he has not been eating or drinking well because he has not been feeling quite well we hypotensive in the emergency department with IV fluid boluses. WBC count on admission was normal because of hypotension as well as bilateral lower extremity cellulitis patient was admitted to the hospital for further evaluation for sepsis. Diseases consulted with sepsis and bilateral lower extremity cellulitis. Admission patient had temperature of 100.2 was tachycardic and hypotensive and there was concern for sepsis and workup is pending for the same. Review of Systems All other systems reviewed negative except as stated in HPI PMFSH - History History Provided By: Patient, Medical Record - Medical / Surgical Hx Neg / Unobtainable Medical Problems Denied: Yes (patient denies diabetes, says he has borderline diabetes) - Medical History Medical History: Medical History (Last Reviewed 01/26/18 @ 07:06 by Abhi Marrufo) Edema of both lower extremities due to peripheral venous insufficiency (Acute) GERD (gastroesophageal reflux disease) (Acute) CAD (coronary artery disease) (Acute) Paroxysmal A-fib (Acute) COPD (chronic obstructive pulmonary disease) (Acute) Cellulitis of right foot (Acute) Ulcers of both lower extremities (Acute) PAD (peripheral artery disease) (Acute) Asthma CHF (congestive heart failure) 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, uncontrolled, with neuropathy HLD (hyperlipidemia) HTN (hypertension) MASHA (obstructive sleep apnea) Pedal edema Pulmonary hypertension - Surgical History Surgical History: Surgical History (Last Reviewed 01/26/18 @ 07:06 by Abhi Marrufo) Hx of CABG (Acute) - Family History Family History: Family History (Last Updated 01/25/18 @ 22:18 by Celi Johnson MD) Other Family history of diabetes mellitus - Tobacco History Second Hand Smoke Exposure: No Tobacco Use In Past 30 Days: No Smoking Status: Former smoker Tobacco Type: Cigarettes - Alcohol History How Often Do You Have a Drink Containing Alcohol: Never - Substance Use History Substance History: No History of Abuse - Travel History Recent Travel in the [place] Within the Last 8 Weeks: No Recent Travel Out of the Country Within the Last 8 Weeks: No - Immunization History Tetanus Immunization: Unsure Hx Influenza Vaccine This Season: No Medications and Allergies Active Medications: Active Medications Acetaminophen (Tylenol) 650 mg PO Q4H PRN PRN Reason: Temp > 100.4 Hydrocodone Bitart/Acetaminophen ([place] 10/325) 1 tab PO Q8HR PRN PRN Reason: wound pain Al Hydroxide/Mg Hydroxide (Milk Of Magnesia Liq) 30 ml PO Q12H PRN PRN Reason: Mild Constipation Albuterol (Duoneb Neb (Prn)) 1 ampul NEB Q4HR NEB PRN PRN Reason: DYSPNEA Last Admin: 01/26/18 13:29 Dose: 1 ampul Aspirin (Aspirin) 325 mg PO DAILY [facility] Last Admin: 01/26/18 09:49 Dose: 325 mg Bisacodyl (Dulcolax Supp) 10 mg RECTAL DAILY PRN PRN Reason: SEVERE CONSITIPATION Dextrose (D50w Vial) 50 ml IV.PUSH UNSCH PRN PRN Reason: PER HYPOGLYCEMIA PROTOCOL Ezetimibe (Zetia) 10 mg PO DAILY [facility] Last Admin: 01/26/18 09:49 Dose: 10 mg Enoxaparin Sodium (Lovenox Inj) 30 mg SQ Q24H [facility] Last Admin: 01/25/18 21:00 Dose: 30 mg Gabapentin (Neurontin) 300 mg PO BID [facility] Last Admin: 01/26/18 09:49 Dose: 300 mg Glucagon (Glucagon Inj) 1 mg OTHER PRN PRN PRN Reason: for Hypoglycemia Protocol Sodium Chloride (Ns Inj) 1,000 mls @ 100 mls/hr IV.CONT .Q10H [facility] Last Infusion: 01/26/18 09:56 Dose: Infused Insulin Aspart (Novolog Insulin Suppl Scale Inj) 0 unit SQ ACHS AND 3AM ANTIONETTE; Protocol Last Admin: 01/26/18 12:14 Dose: Not Given Lactulose (Lactulose Liq) 30 ml PO DAILY PRN PRN Reason: SEVERE CONSITIPATION Ondansetron HCl (Zofran Inj) 4 mg IV.PUSH Q6H PRN PRN Reason: NAUSEA OR VOMITING Sennosides (Senokot) 17.2 mg PO Q12H PRN PRN Reason: Moderate Constipation Allergies Allergy/AdvReac Type Severity Reaction Status Date / Time amlodipine Allergy Severe JOINT Verified 01/25/18 17:52 PAIN, VOMITING, UNABLE TO MOVE atorvastatin Allergy Severe Nausea/Vomi Verified 01/25/18 17:52 ting lovastatin Allergy Severe Abdominal Verified 01/25/18 17:52 Pain pravastatin Allergy Severe JOINT Verified 01/25/18 17:52 PAIN, VOMITING, UNABLE TO MOVE simvastatin Allergy Severe Nausea/Vomi Verified 01/25/18 17:52 ting tetanus toxoid, adsorbed Allergy Severe VOMITING, Verified 01/25/18 17:52 CRAMPING *MDRO Multi-Drug Resistant AdvReac Unknown Nausea/Vomi Uncoded 01/25/18 17:52 Organism ting Home Medications Medication Instructions Recorded Confirmed Type allopurinol 300 mg PO DAILY 01/25/18 01/25/18 History ezetimibe [Zetia] 10 mg PO DAILY 01/25/18 01/25/18 History furosemide [Lasix] 40 mg PO QAM 01/25/18 01/25/18 History gabapentin 300 mg PO BID 01/25/18 01/25/18 History glimepiride 1 mg PO QAM 01/25/18 01/25/18 History hydrocodone-acetaminophen [[place]] 1 tab PO TID 01/25/18 01/25/18 History losartan 100 mg PO DAILY 01/25/18 01/25/18 History metoprolol tartrate 50 mg PO BID 01/25/18 01/25/18 History Exam Vital signs: Vital Signs 01/25/18 16:50 01/25/18 17:41 01/25/18 18:00 Temperature Pulse Rate 81 Respiratory Rate 22 Blood Pressure 235/124 H 85/67 L 99/57 L Pulse Oximetry 01/25/18 21:21 01/25/18 21:53 01/25/18 22:14 Temperature 97.4 F L Pulse Rate 58 L 98 H Respiratory Rate 18 Blood Pressure 106/61 109/64 Pulse Oximetry 88 L 98 01/25/18 23:47 01/26/18 04:14 01/26/18 08:00 Temperature 98.2 F 99.0 F 100.6 F H Pulse Rate 53 L 102 H 106 H Respiratory Rate 16 17 17 Blood Pressure 117/53 L 102/55 L 101/57 L Pulse Oximetry 97 95 100 01/26/18 11:25 01/26/18 13:31 Temperature 99.1 F Pulse Rate 117 H 80 Respiratory Rate 20 16 Blood Pressure 98/53 L Pulse Oximetry 99 Intake & Output 01/25/18 01/26/18 01/26/18 18:59 06:59 18:59 Intake Total 1240 / 1240 3500 / 3500 Balance 1240 / 1240 3500 / 3500 Weight 90.718 kg 90.72 kg Intake: IV 1000 / 1000 3500 / 3500 NS Inj 1,000 ML @ 100 mls/hr IV 1000 / 1000 1000 / 1000 .CONT .Q10H [facility] Rx#:[id number] Vancomycin Inj 1,500 MG In NS 500 / 500 Inj 500 ML @ 250 mls/hr IV.SIG ONCE ONE Rx#:[id number] Oral 240 / 240 Other: Weight On Admission 90.72 kg Narrative: GENERAL: Well-nourished well-developed, not in acute distress SKIN: Cool and dry, no generalized rash HEAD: Atraumatic. Normocephalic. No temporal or scalp tenderness. EYES: Pupils equal round and reactive. Scleral icterus. No injection or drainage. No petechia ENT: Nothing abnormal detected NECK: Trachea midline. Supple, nontender, no meningeal signs. CARDIOVASCULAR: HS audible. RESPIRATORY: Clear to auscultation bilaterally. GASTROINTESTINAL: Abdomen soft nontender. MUSCULOSKELETAL: Bilateral lower extremity cellulitis. Dry scaly skin bilateral lower extremities. Left heel posterior aspect with stage I pressure ulcer surrounding erythema. Right heel with skin breakdown as well. NEUROLOGICAL: Alert oriented 3. Nonfocal. Psych cooperative IV line sites ok. Results - Labs CBC & Chem 7: 01/26/18 12:34 01/25/18 17:40 Labs: Laboratory Results - last 24 hr 01/25/18 01/25/18 01/26/18 17:40 17:40 12:34 WBC 10.9 6.5 RBC 3.83 L 3.22 L Hgb 11.9 L 9.9 L D Hct 37.5 L 30.8 L MCV 98.0 95.4 MCH 31.1 30.7 MCHC 31.7 L 32.1 RDW 17.7 H 17.4 H Plt Count 425 306 MPV 9.8 9.5 Neut % (Auto) 78.0 H 74.8 H Lymph % (Auto) 11.9 12.4 [place] % (Auto) 7.1 8.8 H Eos % (Auto) 1.9 3.1 Baso % (Auto) 1.1 0.9 Neut # (Auto) 8.5 H 4.8 Lymph # (Auto) 1.3 0.8 L [place] # (Auto) 0.8 0.6 Eos # (Auto) 0.2 0.2 Baso # (Auto) 0.1 0.1 WBC Differential . . Differential Comment Auto diff final Auto diff final Sodium 136 Potassium 3.9 Chloride 99 Carbon Dioxide 24.3 Anion Gap 13 BUN 38 H Creatinine 2.72 H Estimated GFR 23 L POC Glucose Random Glucose 112 H Calcium 9.9 01/26/18 13:18 WBC RBC Hgb Hct MCV MCH MCHC RDW Plt Count MPV Neut % (Auto) Lymph % (Auto) [place] % (Auto) Eos % (Auto) Baso % (Auto) Neut # (Auto) Lymph # (Auto) [place] # (Auto) Eos # (Auto) Baso # (Auto) WBC Differential Differential Comment Sodium Potassium Chloride Carbon Dioxide Anion Gap BUN Creatinine Estimated GFR POC Glucose 153 H Random Glucose Calcium - Imaging Impressions Chest X-Ray 01/25/18 17:54 CONCLUSION: 1. Cardiomegaly. 2. No focal infiltrate or pulmonary vascular congestion. 3. Severe degenerative changes involving the shoulders bilaterally. Assessment and Plan - Plan Bilateral lower extremity cellulitis Bilateral lower extremity heel ulcerations. Pressure sores related from prior admissions per patient's narrative. Peripheral vascular disease Peripheral arterial disease Coronary artery disease Recommendations Discontinue vancomycin IV Start Unasyn IV Follow cultures Follow clinically Case discussed with Dr. العلي podiatry who will see the patient.
[2018-01-26 14:44] LABS: Alanine Aminotransferase 18 U/L (12-78); Albumin 2.1 g/dL (3.4-5.0); Alkaline Phosphatase 56 U/L (45-117); Anion Gap 11 meq/L (5-15); Aspartate Aminotransferase 39 U/L (15-37); Blood Urea Nitrogen 40 mg/dL (7-18); Calcium 8.7 mg/dL (8.5-10.1); Carbon Dioxide 24.3 meq/L (21.0-32.0); Chloride 107 meq/L (98-107); Glomerular Filtration Rate 25 mL/min (>89); Glucose,Random 123 mg/dL (74-106); Potassium 3.5 meq/L (3.5-5.1); Sodium 142 meq/L (136-145); Total Protein 5.8 g/dL (6.4-8.2)
[2018-01-26] MEDS: Ampicillin/Sulbactam Inj 1,500 MG in Sodium Chloride 0.9% Inj 100 ML IV.SIG SCH (17:25)
--- NOTE | 2018-01-26 18:32 | P.CONPOD ---
History of Present Illness Service: Foot and Ankle Surgery/Podiatry Consult date: 01/26/18 Reason for Consult: Bilateral LE ulcerations Primary Care Provider: Shelia Primary Care Physician Family Provider: Brad Conley MD Chief Complaint: Bialteral wounds History of Present Illness: Podiatry consulted for this 77-year-old male with past medical history of coronary artery disease, COPD, chronic kidney disease stage III, diabetes with neuropathy, peripheral arterial disease, and atrial fibrillation who presented to the ER today for evaluation of cellulitis and bilateral lower extremity wounds. Patient states he is seen at the wound care center by Dr. Kaminski. Patient states he was weak and unable to get of the car, he vomited and felt dizzy while he was at the wound care center today. He states he did have a culture come back positive for enterococcus to the left lateral heel ulcer. Review of Systems All other systems reviewed negative except as stated in HPI PMFSH - History History Provided By: Patient, Medical Record - Medical / Surgical Hx Neg / Unobtainable Medical Problems Denied: Yes (patient denies diabetes, says he has borderline diabetes) - Medical History Medical History: Medical History (Last Reviewed 01/26/18 @ 18:27 by Mariam العلي DPM) Edema of both lower extremities due to peripheral venous insufficiency (Acute) GERD (gastroesophageal reflux disease) (Acute) CAD (coronary artery disease) (Acute) Paroxysmal A-fib (Acute) COPD (chronic obstructive pulmonary disease) (Acute) Cellulitis of right foot (Acute) Ulcers of both lower extremities (Acute) PAD (peripheral artery disease) (Acute) Asthma CHF (congestive heart failure) 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, uncontrolled, with neuropathy HLD (hyperlipidemia) HTN (hypertension) MASHA (obstructive sleep apnea) Pedal edema Pulmonary hypertension - Surgical History Surgical History: Surgical History (Last Reviewed 01/26/18 @ 18:27 by Mariam العلي DPM) Hx of CABG (Acute) - Family History Family History: Family History (Last Reviewed 01/26/18 @ 18:27 by Mariam العلي DPM) Other Family history of diabetes mellitus - Tobacco History Second Hand Smoke Exposure: No Tobacco Use In Past 30 Days: No Smoking Status: Former smoker Tobacco Type: Cigarettes - Alcohol History How Often Do You Have a Drink Containing Alcohol: Never - Substance Use History Substance History: No History of Abuse - Travel History Recent Travel in the [place] Within the Last 8 Weeks: No Recent Travel Out of the Country Within the Last 8 Weeks: No - Immunization History Tetanus Immunization: Unsure Hx Influenza Vaccine This Season: No Medications and Allergies Active Medications: Active Medications Acetaminophen (Tylenol) 650 mg PO Q4H PRN PRN Reason: Temp > 100.4 Hydrocodone Bitart/Acetaminophen ([place] 10/325) 1 tab PO Q8HR PRN PRN Reason: wound pain Al Hydroxide/Mg Hydroxide (Milk Of Magnesia Liq) 30 ml PO Q12H PRN PRN Reason: Mild Constipation Albuterol (Duoneb Neb (Prn)) 1 ampul NEB Q4HR NEB PRN PRN Reason: DYSPNEA Last Admin: 01/26/18 17:51 Dose: 1 ampul Aspirin (Aspirin) 325 mg PO DAILY [facility] Last Admin: 01/26/18 09:49 Dose: 325 mg Bisacodyl (Dulcolax Supp) 10 mg RECTAL DAILY PRN PRN Reason: SEVERE CONSITIPATION Dextrose (D50w Vial) 50 ml IV.PUSH UNSCH PRN PRN Reason: PER HYPOGLYCEMIA PROTOCOL Ezetimibe (Zetia) 10 mg PO DAILY [facility] Last Admin: 01/26/18 09:49 Dose: 10 mg Enoxaparin Sodium (Lovenox Inj) 30 mg SQ Q24H [facility] Last Admin: 01/25/18 21:00 Dose: 30 mg Gabapentin (Neurontin) 300 mg PO BID [facility] Last Admin: 01/26/18 09:49 Dose: 300 mg Glucagon (Glucagon Inj) 1 mg OTHER PRN PRN PRN Reason: for Hypoglycemia Protocol Ampicillin Sodium/Sulbactam Sodium 1,500 mg/ Sodium Chloride 100 mls @ 200 mls/ hr IV.SIG Q6H [facility] Last Admin: 01/26/18 17:25 Dose: 200 mls/hr Sodium Chloride (Ns Inj) 1,000 mls @ 100 mls/hr IV.CONT .Q10H [facility] Insulin Aspart (Novolog Insulin Suppl Scale Inj) 0 unit SQ ACHS AND 3AM [facility]; Protocol Last Admin: 01/26/18 12:14 Dose: Not Given Lactulose (Lactulose Liq) 30 ml PO DAILY PRN PRN Reason: SEVERE CONSITIPATION Ondansetron HCl (Zofran Inj) 4 mg IV.PUSH Q6H PRN PRN Reason: NAUSEA OR VOMITING Sennosides (Senokot) 17.2 mg PO Q12H PRN PRN Reason: Moderate Constipation Allergies Allergy/AdvReac Type Severity Reaction Status Date / Time amlodipine Allergy Severe JOINT Verified 01/25/18 17:52 PAIN, VOMITING, UNABLE TO MOVE atorvastatin Allergy Severe Nausea/Vomi Verified 01/25/18 17:52 ting lovastatin Allergy Severe Abdominal Verified 01/25/18 17:52 Pain pravastatin Allergy Severe JOINT Verified 01/25/18 17:52 PAIN, VOMITING, UNABLE TO MOVE simvastatin Allergy Severe Nausea/Vomi Verified 01/25/18 17:52 ting tetanus toxoid, adsorbed Allergy Severe VOMITING, Verified 01/25/18 17:52 CRAMPING *MDRO Multi-Drug Resistant AdvReac Unknown Nausea/Vomi Uncoded 01/25/18 17:52 Organism ting Home Medications Medication Instructions Recorded Confirmed Type allopurinol 300 mg PO DAILY 01/25/18 01/25/18 History ezetimibe [Zetia] 10 mg PO DAILY 01/25/18 01/25/18 History furosemide [Lasix] 40 mg PO QAM 01/25/18 01/25/18 History gabapentin 300 mg PO BID 01/25/18 01/25/18 History glimepiride 1 mg PO QAM 01/25/18 01/25/18 History hydrocodone-acetaminophen [Owendale] 1 tab PO TID 01/25/18 01/25/18 History losartan 100 mg PO DAILY 01/25/18 01/25/18 History metoprolol tartrate 50 mg PO BID 01/25/18 01/25/18 History Physical Exam Vital signs: Vital Signs 01/25/18 21:21 01/25/18 21:53 01/25/18 22:14 Temperature 97.4 F L Pulse Rate 58 L 98 H Respiratory Rate 18 Blood Pressure 106/61 109/64 Pulse Oximetry 88 L 98 01/25/18 23:47 01/26/18 04:14 01/26/18 08:00 Temperature 98.2 F 99.0 F 100.6 F H Pulse Rate 53 L 102 H 106 H Respiratory Rate 16 17 17 Blood Pressure 117/53 L 102/55 L 101/57 L Pulse Oximetry 97 95 100 01/26/18 11:25 01/26/18 13:31 01/26/18 16:00 Temperature 99.1 F 98.2 F Pulse Rate 117 H 80 102 H Respiratory Rate 20 16 21 Blood Pressure 98/53 L 102/64 Pulse Oximetry 99 01/26/18 17:53 Temperature Pulse Rate 72 Respiratory Rate 14 Blood Pressure Pulse Oximetry Intake & Output 01/25/18 01/26/18 01/26/18 18:59 06:59 18:59 Intake Total 1240 / 1240 4700 / 4700 Balance 1240 / 1240 4700 / 4700 Weight 90.718 kg 90.72 kg Intake: IV 1000 / 1000 3500 / 3500 NS Inj 1,000 ML @ 100 mls/hr IV 1000 / 1000 1000 / 1000 .CONT .Q10H [facility] Rx#:[id number] Vancomycin Inj 1,500 MG In NS 500 / 500 Inj 500 ML @ 250 mls/hr IV.SIG ONCE ONE Rx#:[id number] Oral 240 / 240 1200 / 1200 Other: # Voids 0 # Bowel Movements 0 Weight On Admission 90.72 kg Narrative: GENERAL: This is a well-nourished, well-developed patient, in no apparent distress. SKIN: Bilateral lower extremity wounds HEAD: Atraumatic. EYES: Pupils equal round and reactive. ENT: Airway patent. NECK: Trachea midline. RESPIRATORY: Nonlabored breathing. MUSCULOSKELETAL:. Negative Homans sign bilaterally. NEUROLOGICAL: Awake and alert. Normal speech. Lower extremity physical exam: Vascular: Dorsalis pedis nonpalpable, posterior tibial nonpalpable. Capillary refill time within normal limits to digits X5 bilateral foot. Edema present to bilateral LE. Neuro: Gross sensation intact to bilateral lower extremity. Pinpoint sensation decreased to bilateral LE. No hyperalgesia noted to bilateral lower extremity Dermatology: Increased edema and erythema noted to bilateral left lateral heel ulceration noted with superficial base and mild hyperkeratotic borders. Mild serous drainage noted to this wound. Wound also located to right posterior calf with fibro-granular base, serous drainage noted, surrounding erythema noted , no fluctuance noted. Musculoskeletal: Tender to palpation to bilateral lower extremity on examination. Results - Labs CBC & Chem 7: 01/26/18 12:34 01/26/18 12:34 Laboratory Results - last 24 hr 01/26/18 01/26/18 01/26/18 12:34 12:34 13:18 WBC 6.5 RBC 3.22 L Hgb 9.9 L D Hct 30.8 L MCV 95.4 MCH 30.7 MCHC 32.1 RDW 17.4 H Plt Count 306 MPV 9.5 Neut % (Auto) 74.8 H Lymph % (Auto) 12.4 [place] % (Auto) 8.8 H Eos % (Auto) 3.1 Baso % (Auto) 0.9 Neut # (Auto) 4.8 Lymph # (Auto) 0.8 L [place] # (Auto) 0.6 Eos # (Auto) 0.2 Baso # (Auto) 0.1 WBC Differential . Differential Comment Auto diff final Sodium 142 Potassium 3.5 Chloride 107 D Carbon Dioxide 24.3 Anion Gap 11 BUN 40 H Creatinine 2.48 H Estimated GFR 25 L POC Glucose 153 H Random Glucose 123 H Calcium 8.7 D Total Bilirubin 0.5 AST 39 H ALT 18 Alkaline Phosphatase 56 Total Protein 5.8 L Albumin 2.1 L Microbiology 01/25/18 18:00 Blood - Peripheral Aerobic Blood Culture - Preliminary No growth in 1 day 01/25/18 18:00 Blood - Peripheral Anaerobic Blood Culture - Preliminary No growth in 1 day 01/25/18 17:50 Blood - Peripheral Aerobic Blood Culture - Preliminary No growth in 1 day 01/25/18 17:50 Blood - Peripheral Anaerobic Blood Culture - Preliminary No growth in 1 day - Imaging Impressions Chest X-Ray 01/25/18 17:54 CONCLUSION: 1. Cardiomegaly. 2. No focal infiltrate or pulmonary vascular congestion. 3. Severe degenerative changes involving the shoulders bilaterally. Assessment and Plan - Plan 77-year-old male with left lateral heel ulceration and right posterior calf ulceration Patient examined evaluated with all questions answered Nursing to perform daily dressing changes will provide daily dressing change orders We will Have Wound Care Nurses place Ethel to left heel ulcer every 72 hours Recommend vascular workup will obtain ABIs Appreciate ID recommendations Continue with IV antibiotics Ulcerations are stable at this point in time and do not require any surgical intervention or debridement
--- NOTE | 2018-01-26 18:42 | P.PNIM ---
Subjective Interval history: No new complaints. Physical Exam Vital signs: Vital Signs 01/25/18 21:21 01/25/18 21:53 01/25/18 22:14 Temperature 97.4 F L Pulse Rate 58 L 98 H Respiratory Rate 18 Blood Pressure 106/61 109/64 Pulse Oximetry 88 L 98 01/25/18 23:47 01/26/18 04:14 01/26/18 08:00 Temperature 98.2 F 99.0 F 100.6 F H Pulse Rate 53 L 102 H 106 H Respiratory Rate 16 17 17 Blood Pressure 117/53 L 102/55 L 101/57 L Pulse Oximetry 97 95 100 01/26/18 11:25 01/26/18 13:31 01/26/18 16:00 Temperature 99.1 F 98.2 F Pulse Rate 117 H 80 102 H Respiratory Rate 20 16 21 Blood Pressure 98/53 L 102/64 Pulse Oximetry 99 01/26/18 17:53 Temperature Pulse Rate 72 Respiratory Rate 14 Blood Pressure Pulse Oximetry Intake & Output 01/25/18 01/26/18 01/26/18 18:59 06:59 18:59 Intake Total 1240 / 1240 4700 / 4700 Balance 1240 / 1240 4700 / 4700 Weight 90.718 kg 90.72 kg Intake: IV 1000 / 1000 3500 / 3500 NS Inj 1,000 ML @ 100 mls/hr IV 1000 / 1000 1000 / 1000 .CONT .Q10H [facility] Rx#:[id number] Vancomycin Inj 1,500 MG In NS 500 / 500 Inj 500 ML @ 250 mls/hr IV.SIG ONCE ONE Rx#:[id number] Oral 240 / 240 1200 / 1200 Other: # Voids 0 # Bowel Movements 0 Weight On Admission 90.72 kg Narrative: GENERAL: This is a well-nourished, well-developed patient, in no apparent distress. CARDIOVASCULAR: Regular rate and rhythm without murmurs, gallops, or rubs. RESPIRATORY: Clear to auscultation. Breath sounds equal bilaterally. No wheezes , rales, or rhonchi. GASTROINTESTINAL: Abdomen soft, non-tender, nondistended. Normal active bowel sounds MUSCULOSKELETAL: b/l LE heel ulcers NEURO: Alert & Oriented x4 to person, place, time, situation. Moves all ext x4 Results - Labs CBC & Chem 7: 01/27/18 08:35 01/27/18 08:35 Microbiology 01/25/18 18:00 Blood - Peripheral Aerobic Blood Culture - Preliminary No growth in 1 day 01/25/18 18:00 Blood - Peripheral Anaerobic Blood Culture - Preliminary No growth in 1 day 01/25/18 17:50 Blood - Peripheral Aerobic Blood Culture - Preliminary No growth in 1 day 01/25/18 17:50 Blood - Peripheral Anaerobic Blood Culture - Preliminary No growth in 1 day - Imaging Impressions Chest X-Ray 01/25/18 17:54 CONCLUSION: 1. Cardiomegaly. 2. No focal infiltrate or pulmonary vascular congestion. 3. Severe degenerative changes involving the shoulders bilaterally. Assessment and Plan - Assessment (1) Wound infection Code(s): T14.8XXA - Other injury of unspecified body region, initial encounter; L08.9 - Local infection of the skin and subcutaneous tissue, unspecified Status: Acute Plan: Wound Infections, B/L heels - Pt follows outpt with General Surgery, Dr. Kaminski. - Wound Cx outpt, left heel, (01/18) --> enterococcus faecalis - h/o enterococcus in left heel wound by outpt culture - Comgmt with ID, Podiatry, Wound Care - Pt received Vancomycin in the ER - Unasyn (01/26 - present) - norco prn pain - DVT prophylaxis with lovenox - supportive care YAZAN - underlying CKD -3 - pt had decreased appetite, n/v prior to admission - continue IVFs - repeat BMP in AM Failure to Thrive - IVFs - PT - will likely need SNF at the end of this hospitalization COPD - duonebs prn PAD CAD - ASA, zetia (2) YAZAN (acute kidney injury) Code(s): N17.9 - Acute kidney failure, unspecified Status: Acute (3) Afib Code(s): I48.91 - Unspecified atrial fibrillation Status: Acute (4) COPD (chronic obstructive pulmonary disease) Code(s): J44.9 - Chronic obstructive pulmonary disease, unspecified Status: Acute (5) Weakness generalized Code(s): R53.1 - Weakness Status: Acute
[2018-01-27] MEDS: Ampicillin/Sulbactam Inj 1,500 MG in Sodium Chloride 0.9% Inj 100 ML IV.SIG SCH ×5 (00:06→21:00)
[2018-01-27] MEDS: Gabapentin 300 MG Capsule PO SCH ×3 (00:07→20:50)
[2018-01-27] MEDS: Enoxaparin Inj 30 MG/0.3 ML Syringe SQ SCH ×2 (00:07→18:36)
[2018-01-27] MEDS: Insulin NovoLOG Aspart Correctional Sugar Inj SQ SCH ×5 (00:14→20:52)
[2018-01-27] MEDS: Sod Chloride 0.9% Inj 1,000 ML IV.CONT SCH ×2 (00:15→18:09)
[2018-01-27 09:35] LABS: Baso % (Auto) 0.6 % (0.0-2.0); Eos # (Auto) 0.2 th/mm3 (0.0-0.4); Eos % (Auto) 3.7 % (0.0-4.0); Hemoglobin 9.3 gm/dL (13.0-17.0); Lymph # (Auto) 0.7 th/mm3 (1.0-4.8); Lymph % (Auto) 12.5 % (9.0-44.0); Mean Corpuscular Hemoglobin 29.8 pg (27.0-34.0); Mean Corpuscular Volume 96.2 fL (80.0-100.0); Mean Platelet Volume 9.4 fL (7.0-11.0); Mono # (Auto) 0.7 th/mm3 (0.0-0.9); Mono % (Auto) 12.7 % (0.0-8.0); Neut # (Auto) 3.9 th/mm3 (1.8-7.7); Neut % (Auto) 70.5 % (16.0-70.0); Platelet Count 310 th/mm3 (150-450); Red Blood Count 3.12 mil/mm3 (4.50-5.90); Red Cell Distribution Width 17.2 % (11.6-17.2); White Blood Count 5.6 th/mm3 (4.0-11.0)
[2018-01-27 09:53] LABS: Calcium 8.8 mg/dL (8.5-10.1); Carbon Dioxide 22.7 meq/L (21.0-32.0); Magnesium 1.8 mg/dL (1.5-2.5); Potassium 3.6 meq/L (3.5-5.1)
[2018-01-27] MEDS: Aspirin 325 MG Tablet PO SCH (10:01)
[2018-01-27] MEDS: Ezetimibe 10 MG Tablet PO SCH (10:01)
--- NOTE | 2018-01-27 15:16 | P.PNIM ---
Subjective Interval history: No new complaints. Physical Exam Vital signs: Vital Signs 01/26/18 16:00 01/26/18 17:53 01/26/18 20:00 Temperature 98.2 F 98.0 F Pulse Rate 102 H 72 101 H Respiratory Rate 21 14 18 Blood Pressure 102/64 126/75 Pulse Oximetry 91 L 01/26/18 20:30 01/26/18 23:43 01/27/18 00:00 Temperature Pulse Rate 109 H 93 H 110 H Respiratory Rate 22 Blood Pressure Pulse Oximetry 98 01/27/18 00:35 01/27/18 01:03 01/27/18 04:00 Temperature 99.3 F 98.7 F Pulse Rate 111 H 111 H Respiratory Rate 20 20 20 Blood Pressure 120/62 116/57 L Pulse Oximetry 99 98 01/27/18 08:00 01/27/18 12:00 01/27/18 13:12 Temperature 97.7 F 98.0 F Pulse Rate 83 97 H 93 H Respiratory Rate 20 21 16 Blood Pressure 113/92 H 98/61 L Pulse Oximetry 96 95 99 Intake & Output 01/26/18 01/27/18 01/27/18 18:59 06:59 18:59 Intake Total 4800 / 4800 200 / 200 240 / 240 Balance 4800 / 4800 200 / 200 240 / 240 Weight 92.6 kg Intake: IV 3600 / 3600 200 / 200 NS Inj 1,000 ML @ 100 mls/hr IV 1000 / 1000 .CONT .Q10H [facility] Rx#:[id number] Unasyn Inj 1,500 MG In NS Inj 100 / 100 200 / 200 100 ML @ 200 mls/hr IV.SIG Q6H [facility] Rx#:[id number] Vancomycin Inj 1,500 MG In NS 500 / 500 Inj 500 ML @ 250 mls/hr IV.SIG ONCE ONE Rx#:[id number] Oral 1200 / 1200 240 / 240 Other: # Voids 0 # Bowel Movements 0 Narrative: GENERAL: This is a well-nourished, well-developed patient, in no apparent distress. CARDIOVASCULAR: Regular rate and rhythm without murmurs, gallops, or rubs. RESPIRATORY: Clear to auscultation. Breath sounds equal bilaterally. No wheezes , rales, or rhonchi. GASTROINTESTINAL: Abdomen soft, non-tender, nondistended. Normal active bowel sounds MUSCULOSKELETAL: b/l LE heel ulcers NEURO: Alert & Oriented x4 to person, place, time, situation. Moves all ext x4 Results - Labs CBC & Chem 7: 01/27/18 08:35 01/27/18 08:35 Microbiology 01/25/18 18:00 Blood - Peripheral Aerobic Blood Culture - Preliminary No growth in 2 days 01/25/18 18:00 Blood - Peripheral Anaerobic Blood Culture - Preliminary No growth in 2 days 01/25/18 17:50 Blood - Peripheral Aerobic Blood Culture - Preliminary No growth in 2 days 01/25/18 17:50 Blood - Peripheral Anaerobic Blood Culture - Preliminary No growth in 2 days Assessment and Plan - Assessment (1) Wound infection Code(s): T14.8XXA - Other injury of unspecified body region, initial encounter; L08.9 - Local infection of the skin and subcutaneous tissue, unspecified Status: Acute Plan: Wound Infections, B/L heels - Pt follows outpt with General Surgery, Dr. Kaminski. - Wound Cx outpt, left heel, (01/18) --> enterococcus faecalis - h/o enterococcus in left heel wound by outpt culture - Comgmt with ID, Podiatry, Wound Care - Pt received Vancomycin in the ER - Unasyn (01/26 - present) - norco prn pain - DVT prophylaxis with lovenox - supportive care YAZAN - improving - underlying CKD -3 - pt had decreased appetite, n/v prior to admission - Cr 2.72 (01/25), 2.48 (01/26), 1.76 (01/27) - continue IVFs - repeat BMP in AM Failure to Thrive - IVFs - PT - will need SNF at the end of this hospitalization - anticipate d/c to SNF in 1-2 days COPD - duonebs prn PAD CAD - ASA, zetia (2) YAZAN (acute kidney injury) Code(s): N17.9 - Acute kidney failure, unspecified Status: Acute (3) Afib Code(s): I48.91 - Unspecified atrial fibrillation Status: Acute (4) COPD (chronic obstructive pulmonary disease) Code(s): J44.9 - Chronic obstructive pulmonary disease, unspecified Status: Acute (5) Weakness generalized Code(s): R53.1 - Weakness Status: Acute
--- NOTE | 2018-01-27 17:10 | ECHRPT ---
EXAM DATE: 01/27/2018 12:30 PM EDT AGE/SEX: 77 years / Male INDICATIONS: Wound Care, BLE ulcers CLINICAL DATA: This is the patient's initial encounter. Patient reports that signs and symptoms have been present for > 1 year and indicates a pain score of 8/10. MEDICAL/SURGICAL HISTORY: . CAD, COPD, KIDNEY DISEASE, PAD, AFIB, BLE WOUNDS . HX OF CABG COMPARISON: [facility] – [place], CTA THORACIC ABDOMINAL AORTA W 3D RECON, 08/14/2016. . TECHNIQUE: Five-station segmental examination of the lower extremities was performed. Pulsed-cuff wa veform tracings and pressures were recorded. Ankle-brachial indices and toe-brachial indices were fidel culated. PRESSURES (mmHg): Brachial (arm) : RIGHT: IV SITE, LEFT: 86 Lower Thigh : RIGHT: 51, LEFT: 142 Calf : RIGHT: 77, LEFT: 76 Ankle : RIGHT: 85, LEFT: 69 Toe : RIGHT: 0, LEFT: 0 ANATOLY : RIGHT: 0.99, LEFT: 0.80 TBI : RIGHT: 0.00, LEFT: 0.00 RIGHT: , LEFT: FINDINGS: Pulsed-Cuff Waveform: Significantly blunted waveforms in the temporal lobes with unobtainable pressu res. There is also erratic inconsistent waveforms bilaterally. Other: None. CONCLUSION: 1. Irregular inconsistent segmental pressures and waveforms particularly on the right. This may refl ect diffusely calcified vessels peripherally with artifactually increased pressures. 2. Significantly dampened waveforms with unobtainable pressures in the toes consistent with small ve ssel disease. 3. Consider CTA examination for better evaluation. Electronically signed by: Ke Mckeon MD 01/27/2018 5:08 PM EDT
[2018-01-28] MEDS: Ampicillin/Sulbactam Inj 1,500 MG in Sodium Chloride 0.9% Inj 100 ML IV.SIG SCH ×4 (03:09→21:46)
[2018-01-28] MEDS: Insulin NovoLOG Aspart Correctional Sugar Inj SQ SCH ×5 (03:21→21:43)
[2018-01-28] MEDS: Sod Chloride 0.9% Inj 1,000 ML IV.CONT SCH (05:00)
[2018-01-28 05:47] LABS: Baso % (Auto) 0.8 % (0.0-2.0); Eos # (Auto) 0.2 th/mm3 (0.0-0.4); Eos % (Auto) 4.8 % (0.0-4.0); Hematocrit 28.8 % (39.0-51.0); Hemoglobin 9.1 gm/dL (13.0-17.0); Lymph # (Auto) 0.6 th/mm3 (1.0-4.8); Lymph % (Auto) 11.2 % (9.0-44.0); Mean Corpuscular HGB Conc 31.6 % (32.0-36.0); Mean Corpuscular Hemoglobin 30.5 pg (27.0-34.0); Mean Corpuscular Volume 96.6 fL (80.0-100.0); Mean Platelet Volume 9.1 fL (7.0-11.0); Mono # (Auto) 0.6 th/mm3 (0.0-0.9); Mono % (Auto) 12.2 % (0.0-8.0); Neut # (Auto) 3.6 th/mm3 (1.8-7.7); Platelet Count 272 th/mm3 (150-450); Red Blood Count 2.98 mil/mm3 (4.50-5.90); Red Cell Distribution Width 17.1 % (11.6-17.2)
[2018-01-28 06:07] LABS: Calcium 8.8 mg/dL (8.5-10.1); Carbon Dioxide 21.5 meq/L (21.0-32.0); Potassium 3.9 meq/L (3.5-5.1)
--- NOTE | 2018-01-28 08:19 | P.PNIM ---
Subjective Interval history: Pt and are willing to go to snf at end of hospitalization they are insisting on resuming home medications today they are not happy about lack of wound care over the weekend. Physical Exam Vital signs: Vital Signs 01/27/18 12:00 01/27/18 13:12 01/27/18 16:00 Temperature 98.0 F 97.6 F Pulse Rate 97 H 93 H 101 H Respiratory Rate 21 16 20 Blood Pressure 98/61 L 103/55 L Pulse Oximetry 95 99 95 01/27/18 20:00 01/27/18 20:52 01/28/18 00:00 Temperature 97.3 F L 98.7 F Pulse Rate 83 69 93 H Respiratory Rate 20 18 20 Blood Pressure 134/69 114/55 L Pulse Oximetry 99 100 96 01/28/18 04:00 Temperature 98.7 F Pulse Rate 107 H Respiratory Rate 21 Blood Pressure 137/73 Pulse Oximetry 93 L Intake & Output 01/27/18 01/28/18 01/28/18 18:59 06:59 18:59 Intake Total 2040 / 2040 1560 / 1560 Output Total 400 / 400 600 / 600 Balance 1640 / 1640 960 / 960 Weight 92.6 kg Intake: IV 1200 / 1200 1200 / 1200 NS Inj 1,000 ML @ 100 mls/hr IV 1000 / 1000 1000 / 1000 .CONT .Q10H [facility] Rx#:[id number] Unasyn Inj 1,500 MG In NS Inj 200 / 200 200 / 200 100 ML @ 200 mls/hr IV.SIG Q6H [facility] Rx#:[id number] Oral 840 / 840 360 / 360 Output: Urine 400 / 400 600 / 600 heent neg heart reg lung cta abd s/nt ext left heel ulcerated/edematous right post calf ulcerated Results - Labs CBC & Chem 7: 01/28/18 05:15 01/28/18 05:15 Laboratory Results - last 24 hr 01/27/18 01/27/18 01/27/18 08:35 08:35 12:35 WBC 5.6 RBC 3.12 L Hgb 9.3 L Hct 30.0 L MCV 96.2 MCH 29.8 MCHC 31.0 L RDW 17.2 Plt Count 310 MPV 9.4 Neut % (Auto) 70.5 H Lymph % (Auto) 12.5 [place] % (Auto) 12.7 H Eos % (Auto) 3.7 Baso % (Auto) 0.6 Neut # (Auto) 3.9 Lymph # (Auto) 0.7 L [place] # (Auto) 0.7 Eos # (Auto) 0.2 Baso # (Auto) 0.0 WBC Differential . Differential Comment Auto diff final Sodium 143 Potassium 3.6 Chloride 109 H Carbon Dioxide 22.7 Anion Gap 11 BUN 36 H Creatinine 1.76 H Estimated GFR 38 L POC Glucose 141 H Random Glucose 95 Calcium 8.8 Magnesium 1.8 01/27/18 01/27/18 01/28/18 17:09 20:02 03:15 WBC RBC Hgb Hct MCV MCH MCHC RDW Plt Count MPV Neut % (Auto) Lymph % (Auto) [place] % (Auto) Eos % (Auto) Baso % (Auto) Neut # (Auto) Lymph # (Auto) [place] # (Auto) Eos # (Auto) Baso # (Auto) WBC Differential Differential Comment Sodium Potassium Chloride Carbon Dioxide Anion Gap BUN Creatinine Estimated GFR POC Glucose 163 H 107 172 H Random Glucose Calcium Magnesium 01/28/18 01/28/18 01/28/18 05:15 05:15 07:52 WBC 5.0 RBC 2.98 L Hgb 9.1 L Hct 28.8 L MCV 96.6 MCH 30.5 MCHC 31.6 L RDW 17.1 Plt Count 272 MPV 9.1 Neut % (Auto) 71.0 H Lymph % (Auto) 11.2 [place] % (Auto) 12.2 H Eos % (Auto) 4.8 H Baso % (Auto) 0.8 Neut # (Auto) 3.6 Lymph # (Auto) 0.6 L [place] # (Auto) 0.6 Eos # (Auto) 0.2 Baso # (Auto) 0.0 WBC Differential . Differential Comment Auto diff final Sodium 143 Potassium 3.9 Chloride 112 H Carbon Dioxide 21.5 Anion Gap 10 BUN 29 H Creatinine 1.48 H Estimated GFR 46 L POC Glucose 91 Random Glucose 112 H Calcium 8.8 Magnesium Microbiology 01/25/18 18:00 Blood - Peripheral Aerobic Blood Culture - Preliminary No growth in 2 days 01/25/18 18:00 Blood - Peripheral Anaerobic Blood Culture - Preliminary No growth in 2 days 01/25/18 17:50 Blood - Peripheral Aerobic Blood Culture - Preliminary No growth in 2 days 01/25/18 17:50 Blood - Peripheral Anaerobic Blood Culture - Preliminary No growth in 2 days - Imaging Impressions Extremity Arterial Study 01/26/18 18:34 CONCLUSION: 1. Irregular inconsistent segmental pressures and waveforms particularly on the right. This may reflect diffusely calcified vessels peripherally with artifactually increased pressures. 2. Significantly dampened waveforms with unobtainable pressures in the toes consistent with small vessel disease. 3. Consider CTA examination for better evaluation. Assessment and Plan - Assessment (1) Wound infection Code(s): T14.8XXA - Other injury of unspecified body region, initial encounter; L08.9 - Local infection of the skin and subcutaneous tissue, unspecified Status: Acute Plan: Wound Infections, B/L heels - Pt follows outpt with General Surgery, Dr. Kaminski. - Wound Cx outpt, left heel, (01/18) --> enterococcus faecalis - h/o enterococcus in left heel wound by outpt culture - Comgmt with ID, Podiatry, Wound Care - Pt received Vancomycin in the ER - Unasyn (01/26 - present) - norco prn pain - DVT prophylaxis with lovenox - Wound care orders placed per Podiatry. await wound care team - vascular studies per podiatry - will plan for dc to snf once wound care and abx regimen decided. - supportive care YAZAN - improving - underlying CKD -3 - pt had decreased appetite, n/v prior to admission - Cr 2.72 (01/25), 2.48 (01/26), 1.76 (01/27), 01/28 1.4 - continue IVFs Failure to Thrive - IVFs - PT - will need SNF at the end of this hospitalization - anticipate d/c to SNF soon COPD - duonebs prn PAD CAD - ASA, zetia (2) YAZAN (acute kidney injury) Code(s): N17.9 - Acute kidney failure, unspecified Status: Acute (3) Afib Code(s): I48.91 - Unspecified atrial fibrillation Status: Acute (4) COPD (chronic obstructive pulmonary disease) Code(s): J44.9 - Chronic obstructive pulmonary disease, unspecified Status: Chronic (5) Weakness generalized Code(s): R53.1 - Weakness Status: Acute (3) Afib Qualifiers: Atrial fibrillation type: chronic Qualified Code(s): I48.2 - Chronic atrial fibrillation
[2018-01-28] MEDS: Ezetimibe 10 MG Tablet PO SCH (08:28)
[2018-01-28] MEDS: Gabapentin 300 MG Capsule PO SCH ×2 (08:28→21:45)
[2018-01-28] MEDS: Aspirin 325 MG Tablet PO SCH (08:28)
[2018-01-28] MEDS: Allopurinol 300 MG Tablet PO SCH (09:16)
[2018-01-28] MEDS: Metoprolol Tartrate 50 MG Tablet PO SCH ×2 (09:16→21:44)
--- NOTE | 2018-01-28 12:15 | P.CONVS ---
History of Present Illness Service: Cardiovascular Consult date: 01/28/18 Reason for Consult: Non healing bilateral lower extremity wounds/ non palpable distal pulses Primary Care Provider: No Primary Care Physician Family Provider: Brad Conley MD Chief Complaint: Bialteral wounds History of Present Illness: 77/M w/ a PMH of COPD, CAD, PAD, Venous Insufficiency, CKD (stage III), DM and A - Fib Pt had an appointment with Dr. Kaminski this past Sunday for wound care Pt stated he was unable to get out of the vehicle and began vomiting, staff sent pt to the ED for an evaluation Pt reported a decrease in ambulation over the past few months due to weakness Pt c/o chronic B LE swelling with pain Pt w/ non palpable distal pules LE warm w/ motor intact Review of Systems Constitutional: Denies chills, Denies fever(s) Cardiovascular: Reports foot swelling, Reports leg swelling, Denies chest pain, Denies shortness of breath Skin/Breast: Reports change in skin color (B LE lipodermatosclerosis ), Reports dry skin, Reports hair loss, Reports non-healing lesions, Reports skin ulcer, Reports wounds (L heel/L LE lateral wound/Right LE posterior wound ) PMFSH - History History Provided By: Patient, Family Member, Medical Record - Medical / Surgical Hx Neg / Unobtainable Medical Problems Denied: Yes (patient denies diabetes, says he has borderline diabetes) - Medical History Medical History: Medical History (Last Updated 01/28/18 @ 11:56 by Juanita Madrigal) Edema of both lower extremities due to peripheral venous insufficiency (Acute) GERD (gastroesophageal reflux disease) (Acute) CAD (coronary artery disease) (Acute) Paroxysmal A-fib (Acute) COPD (chronic obstructive pulmonary disease) (Acute) Cellulitis of right foot (Acute) Ulcers of both lower extremities (Acute) PAD (peripheral artery disease) (Acute) Asthma CHF (congestive heart failure) 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, uncontrolled, with neuropathy FH: bilateral hip replacements FH: bilateral hip replacements HLD (hyperlipidemia) HTN (hypertension) MASHA (obstructive sleep apnea) Pedal edema Pulmonary hypertension - Surgical History Surgical History: Surgical History (Last Updated 01/28/18 @ 11:55 by Juanita Madrigal) Hx of CABG (Acute) Hx of tonsillectomy - Family History Family History: Family History (Last Reviewed 01/28/18 @ 11:56 by Juanita Madrigal) Other Family history of diabetes mellitus - Tobacco History Second Hand Smoke Exposure: No Tobacco Use In Past 30 Days: No Smoking Status: Former smoker Tobacco Type: Cigarettes - Alcohol History How Often Do You Have a Drink Containing Alcohol: Never - Substance Use History Substance History: No History of Abuse - Travel History Recent Travel in the [place] Within the Last 8 Weeks: No Recent Travel Out of the Country Within the Last 8 Weeks: No - Immunization History Tetanus Immunization: Unsure Hx Influenza Vaccine This Season: No Medications and Allergies Allergies Allergy/AdvReac Type Severity Reaction Status Date / Time amlodipine Allergy Severe JOINT Verified 01/25/18 17:52 PAIN, VOMITING, UNABLE TO MOVE atorvastatin Allergy Severe Nausea/Vomi Verified 01/25/18 17:52 ting lovastatin Allergy Severe Abdominal Verified 01/25/18 17:52 Pain pravastatin Allergy Severe JOINT Verified 01/25/18 17:52 PAIN, VOMITING, UNABLE TO MOVE simvastatin Allergy Severe Nausea/Vomi Verified 01/25/18 17:52 ting tetanus toxoid, adsorbed Allergy Severe VOMITING, Verified 01/25/18 17:52 CRAMPING *MDRO Multi-Drug Resistant AdvReac Unknown Nausea/Vomi Uncoded 01/25/18 17:52 Organism ting Home Medications Medication Instructions Recorded Confirmed Type allopurinol 300 mg PO DAILY 01/25/18 01/25/18 History ezetimibe [Zetia] 10 mg PO DAILY 01/25/18 01/25/18 History furosemide [Lasix] 40 mg PO QAM 01/25/18 01/25/18 History gabapentin 300 mg PO BID 01/25/18 01/25/18 History glimepiride 1 mg PO QAM 01/25/18 01/25/18 History hydrocodone-acetaminophen [[place]] 1 tab PO TID 01/25/18 01/25/18 History losartan 100 mg PO DAILY 01/25/18 01/25/18 History metoprolol tartrate 50 mg PO BID 01/25/18 01/25/18 History Active Medications: Active Medications Acetaminophen (Tylenol) 650 mg PO Q4H PRN PRN Reason: Temp > 100.4 Hydrocodone Bitart/Acetaminophen ([place] 10/325) 1 tab PO Q8HR PRN PRN Reason: wound pain Last Admin: 01/28/18 08:30 Dose: 1 tab Al Hydroxide/Mg Hydroxide (Milk Of Magnesia Liq) 30 ml PO Q12H PRN PRN Reason: Mild Constipation Albuterol (Duoneb Neb (Prn)) 1 ampul NEB Q4HR NEB PRN PRN Reason: DYSPNEA Last Admin: 01/27/18 20:52 Dose: 1 ampul Allopurinol (Zyloprim) 300 mg PO DAILY [facility] Last Admin: 01/28/18 09:16 Dose: 300 mg Alprazolam (Xanax) 0.25 mg PO HS [facility] Aspirin (Aspirin) 325 mg PO DAILY [facility] Last Admin: 01/28/18 08:28 Dose: 325 mg Bisacodyl (Dulcolax Supp) 10 mg RECTAL DAILY PRN PRN Reason: SEVERE CONSITIPATION Dextrose (D50w Vial) 50 ml IV.PUSH UNSCH PRN PRN Reason: PER HYPOGLYCEMIA PROTOCOL Ezetimibe (Zetia) 10 mg PO DAILY [facility] Last Admin: 01/28/18 08:28 Dose: 10 mg Enoxaparin Sodium (Lovenox Inj) 30 mg SQ Q24H [facility] Last Admin: 01/27/18 18:36 Dose: 30 mg Gabapentin (Neurontin) 300 mg PO BID [facility] Last Admin: 01/28/18 08:28 Dose: 300 mg Glucagon (Glucagon Inj) 1 mg OTHER PRN PRN PRN Reason: for Hypoglycemia Protocol Ampicillin Sodium/Sulbactam Sodium 1,500 mg/ Sodium Chloride 100 mls @ 200 mls/ hr IV.SIG Q6H [facility] Last Infusion: 01/28/18 10:00 Dose: Infused Sodium Bicarbonate 150 meq/ (Dextrose) 1,150 mls @ 42 mls/hr IV.CONT .Q24H [facility] Insulin Aspart (Novolog Insulin Suppl Scale Inj) 0 unit SQ ACHS AND 3AM [facility]; Protocol Last Admin: 01/28/18 11:33 Dose: Not Given Lactulose (Lactulose Liq) 30 ml PO DAILY PRN PRN Reason: SEVERE CONSITIPATION Metoprolol Tartrate (Lopressor) 50 mg PO BID [facility] Last Admin: 01/28/18 09:16 Dose: 50 mg Ondansetron HCl (Zofran Inj) 4 mg IV.PUSH Q6H PRN PRN Reason: NAUSEA OR VOMITING Sennosides (Senokot) 17.2 mg PO Q12H PRN PRN Reason: Moderate Constipation Physical Exam Vital Signs / I&O: Vital Signs 01/27/18 12:00 01/27/18 13:12 01/27/18 16:00 Temperature 98.0 F 97.6 F Pulse Rate 97 H 93 H 101 H Respiratory Rate 21 16 20 Blood Pressure 98/61 L 103/55 L Pulse Oximetry 95 99 95 01/27/18 20:00 01/27/18 20:52 01/28/18 00:00 Temperature 97.3 F L 98.7 F Pulse Rate 83 69 93 H Respiratory Rate 20 18 20 Blood Pressure 134/69 114/55 L Pulse Oximetry 99 100 96 01/28/18 04:00 01/28/18 08:00 01/28/18 09:01 Temperature 98.7 F Pulse Rate 107 H 108 H Respiratory Rate 21 21 Blood Pressure 137/73 Pulse Oximetry 93 L 100 Intake & Output 01/27/18 01/28/18 01/28/18 18:59 06:59 18:59 Intake Total 2040 / 2040 1560 / 1560 100 / 100 Output Total 400 / 400 600 / 600 Balance 1640 / 1640 960 / 960 100 / 100 Weight 92.6 kg Intake: IV 1200 / 1200 1200 / 1200 100 / 100 NS Inj 1,000 ML @ 100 mls/hr IV 1000 / 1000 1000 / 1000 .CONT .Q10H [facility] Rx#:[id number] Unasyn Inj 1,500 MG In NS Inj 200 / 200 200 / 200 100 / 100 100 ML @ 200 mls/hr IV.SIG Q6H [facility] Rx#:[id number] Oral 840 / 840 360 / 360 Output: Urine 400 / 400 600 / 600 Neuro: GCS 15 CN 2-12 intact Speech Clear Neck: No JVD distention Heart: + S1, S2 Lungs: CTA Abdomen: S/NT Vascular: NON palpable R/L femoral pulses NON palpable R/L DP/PT LE warm w/ motor intact Lipodermatosclerosis present B LE LE swelling w/ multiple B LE ulcerations Extremities: UE 5/5 LE 4/5 Laboratory Results - last 24 hr 01/27/18 01/27/18 01/27/18 12:35 17:09 20:02 WBC RBC Hgb Hct MCV MCH MCHC RDW Plt Count MPV Neut % (Auto) Lymph % (Auto) [place] % (Auto) Eos % (Auto) Baso % (Auto) Neut # (Auto) Lymph # (Auto) [place] # (Auto) Eos # (Auto) Baso # (Auto) WBC Differential Differential Comment Sodium Potassium Chloride Carbon Dioxide Anion Gap BUN Creatinine Estimated GFR POC Glucose 141 H 163 H 107 Random Glucose Calcium 01/28/18 01/28/18 01/28/18 03:15 05:15 05:15 WBC 5.0 RBC 2.98 L Hgb 9.1 L Hct 28.8 L MCV 96.6 MCH 30.5 MCHC 31.6 L RDW 17.1 Plt Count 272 MPV 9.1 Neut % (Auto) 71.0 H Lymph % (Auto) 11.2 [place] % (Auto) 12.2 H Eos % (Auto) 4.8 H Baso % (Auto) 0.8 Neut # (Auto) 3.6 Lymph # (Auto) 0.6 L [place] # (Auto) 0.6 Eos # (Auto) 0.2 Baso # (Auto) 0.0 WBC Differential . Differential Comment Auto diff final Sodium 143 Potassium 3.9 Chloride 112 H Carbon Dioxide 21.5 Anion Gap 10 BUN 29 H Creatinine 1.48 H Estimated GFR 46 L POC Glucose 172 H Random Glucose 112 H Calcium 8.8 01/28/18 07:52 WBC RBC Hgb Hct MCV MCH MCHC RDW Plt Count MPV Neut % (Auto) Lymph % (Auto) [place] % (Auto) Eos % (Auto) Baso % (Auto) Neut # (Auto) Lymph # (Auto) [place] # (Auto) Eos # (Auto) Baso # (Auto) WBC Differential Differential Comment Sodium Potassium Chloride Carbon Dioxide Anion Gap BUN Creatinine Estimated GFR POC Glucose 91 Random Glucose Calcium Microbiology 01/25/18 18:00 Aerobic Blood Culture - Preliminary Blood - Peripheral No growth in 3 days Anaerobic Blood Culture - Preliminary No growth in 3 days 01/25/18 17:50 Aerobic Blood Culture - Preliminary Blood - Peripheral No growth in 3 days Anaerobic Blood Culture - Preliminary No growth in 3 days Impressions Extremity Arterial Study 01/26/18 18:34 CONCLUSION: 1. Irregular inconsistent segmental pressures and waveforms particularly on the right. This may reflect diffusely calcified vessels peripherally with artifactually increased pressures. 2. Significantly dampened waveforms with unobtainable pressures in the toes consistent with small vessel disease. 3. Consider CTA examination for better evaluation. Assessment and Plan - Plan 77/M w/ chronic B LE wounds and non palpable distal pulses LE warm w/ motor intact Reviewed ANATOLY's Reviewed labs- Creatine improving Plan D/C MIVF Ordered D5W w/ 3 amps of Sodium Bicarb in prep for CTA Ordered BMP for tomorrow am- If Creatine improves will order CTA tomorrow am Continue daily CardioVascular R/F modifications- ASA/Statin (intolerant) Discussed plan w/ Dr. Evan Madrigal [employer] [facility] [phone] - Attending Attestation I agree with above note. Patient has B venous stasis changes but he has nonpalpable femoral, pedal pulses, and the heel ulceration appears pressure related/arterial. Would not entertain and venous therapy until arterial issue improved. PVRs support the clinical diagnosis of severe arterial insufficiency. Because of lack of femoral pulses, he likely has aorto-iliac disease and as such, needs CTA A/P to toes. Will hydrate overnight and if creatinine stable/better, will proceed with CTA tomorrow. Further plans based on imaging. Will follow closely. Ken Benavidez MD FACS [employer] metal products fabricator assembler [facility] - Heart and Vascular Surgery at [facility] [phone]
--- NOTE | 2018-01-28 14:03 | P.PNID ---
Subjective Remarks: Mr. Hobbs is a 77-year-old male with past medical history significant for coronary artery disease, COPD, chronic kidney disease stage III , diabetes with neuropathy, peripheral arterial disease as well as paroxysmal atrial fibrillation who presents to the emergency room for evaluation of weakness and dizziness. Patient reports that he has had recurrent cellulitis but that is not the reason why he is here today he has been seeing wound care in the clinic and was infected the wound care clinic in trying to get into his car when he felt extremely weak and unable to get out of the car. He then vomited felt dizzy and was brought into the emergency department. Patient had reportedly a culture of the left heel which was positive for enterococcus which is reportedly sensitive to vancomycin. Patient reportedly is under the treatment of Dr. Kaminski for left heel ulcer as well as ulcer of the posterior right calf. Patient endorses that he has not been eating or drinking well because he has not been feeling quite well we hypotensive in the emergency department with IV fluid boluses. WBC count on admission was normal because of hypotension as well as bilateral lower extremity cellulitis patient was admitted to the hospital for further evaluation for sepsis. Diseases consulted with sepsis and bilateral lower extremity cellulitis. Admission patient had temperature of 100.2 was tachycardic and hypotensive and there was concern for sepsis and workup is pending for the same. 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, uncontrolled, with neuropathy HLD (hyperlipidemia) HTN (hypertension) MASHA (obstructive sleep apnea) Pedal edema Pulmonary hypertension Surgical History: Surgical History Hx of CABG (Acute) Allergies/Adverse Reactions: Allergies amlodipine Allergy (Severe, Verified 01/25/18 17:52) JOINT PAIN, VOMITING, UNABLE TO MOVE atorvastatin Allergy (Severe, Verified 01/25/18 17:52) Nausea/Vomiting lovastatin Allergy (Severe, Verified 01/25/18 17:52) Abdominal Pain ALL "STATINS" pravastatin Allergy (Severe, Verified 01/25/18 17:52) JOINT PAIN, VOMITING, UNABLE TO MOVE simvastatin Allergy (Severe, Verified 01/25/18 17:52) Nausea/Vomiting tetanus toxoid, adsorbed Allergy (Severe, Verified 01/25/18 17:52) VOMITING, CRAMPING *MDRO Multi-Drug Resistant Organism Adverse Reaction (Unknown, Uncoded 01/25/18 17:52) Nausea/Vomiting 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 Objective Vital Signs 01/27/18 16:00 01/27/18 20:00 01/27/18 20:52 Temperature 97.6 F 97.3 F L Pulse Rate 101 H 83 69 Respiratory Rate 20 20 18 Blood Pressure 103/55 L 134/69 Pulse Oximetry 95 99 100 01/28/18 00:00 01/28/18 04:00 01/28/18 08:00 Temperature 98.7 F 98.7 F 98 F Pulse Rate 93 H 107 H 117 H Respiratory Rate 20 21 20 Blood Pressure 114/55 L 137/73 123/63 Pulse Oximetry 96 93 L 99 01/28/18 09:01 01/28/18 12:00 Temperature 98.1 F Pulse Rate Respiratory Rate 20 Blood Pressure 108/65 Pulse Oximetry 100 96 Intake & Output 01/27/18 01/28/18 01/28/18 18:59 06:59 18:59 Intake Total 2040 / 2040 1560 / 1560 600 / 600 Output Total 400 / 400 600 / 600 Balance 1640 / 1640 960 / 960 600 / 600 Weight 92.6 kg Intake: IV 1200 / 1200 1200 / 1200 600 / 600 NS Inj 1,000 ML @ 100 mls/hr IV 1000 / 1000 1000 / 1000 500 / 500 .CONT .Q10H [facility] Rx#:[id number] Unasyn Inj 1,500 MG In NS Inj 200 / 200 200 / 200 100 / 100 100 ML @ 200 mls/hr IV.SIG Q6H [facility] Rx#:[id number] Oral 840 / 840 360 / 360 Output: Urine 400 / 400 600 / 600 01/25/18 18:00 Blood - Peripheral Aerobic Blood Culture - Preliminary No growth in 3 days 01/25/18 18:00 Blood - Peripheral Anaerobic Blood Culture - Preliminary No growth in 3 days 01/25/18 17:50 Blood - Peripheral Aerobic Blood Culture - Preliminary No growth in 3 days 01/25/18 17:50 Blood - Peripheral Anaerobic Blood Culture - Preliminary No growth in 3 days Lab - Hematology Results 01/26/18 01/27/18 01/28/18 12:34 08:35 05:15 WBC 6.5 5.6 5.0 RBC 3.22 L 3.12 L 2.98 L Hgb 9.9 L D 9.3 L 9.1 L Hct 30.8 L 30.0 L 28.8 L MCV 95.4 96.2 96.6 MCH 30.7 29.8 30.5 MCHC 32.1 31.0 L 31.6 L RDW 17.4 H 17.2 17.1 Plt Count 306 310 272 MPV 9.5 9.4 9.1 Neut % (Auto) 74.8 H 70.5 H 71.0 H Lymph % (Auto) 12.4 12.5 11.2 [place] % (Auto) 8.8 H 12.7 H 12.2 H Eos % (Auto) 3.1 3.7 4.8 H Baso % (Auto) 0.9 0.6 0.8 Neut # (Auto) 4.8 3.9 3.6 Lymph # (Auto) 0.8 L 0.7 L 0.6 L [place] # (Auto) 0.6 0.7 0.6 Eos # (Auto) 0.2 0.2 0.2 Baso # (Auto) 0.1 0.0 0.0 WBC Differential . . . Differential Comment Auto diff final Auto diff final Auto diff final Lab - Chemistry Results 01/26/18 01/26/18 01/27/18 12:34 20:49 07:43 Sodium 142 Potassium 3.5 Chloride 107 D Carbon Dioxide 24.3 Anion Gap 11 BUN 40 H Creatinine 2.48 H Estimated GFR 25 L POC Glucose 122 H 109 Random Glucose 123 H Calcium 8.7 D Magnesium Total Bilirubin 0.5 AST 39 H ALT 18 Alkaline Phosphatase 56 Total Protein 5.8 L Albumin 2.1 L 01/27/18 01/27/18 01/27/18 08:35 12:35 17:09 Sodium 143 Potassium 3.6 Chloride 109 H Carbon Dioxide 22.7 Anion Gap 11 BUN 36 H Creatinine 1.76 H Estimated GFR 38 L POC Glucose 141 H 163 H Random Glucose 95 Calcium 8.8 Magnesium 1.8 Total Bilirubin AST ALT Alkaline Phosphatase Total Protein Albumin 01/27/18 01/28/18 01/28/18 20:02 03:15 05:15 Sodium 143 Potassium 3.9 Chloride 112 H Carbon Dioxide 21.5 Anion Gap 10 BUN 29 H Creatinine 1.48 H Estimated GFR 46 L POC Glucose 107 172 H Random Glucose 112 H Calcium 8.8 Magnesium Total Bilirubin AST ALT Alkaline Phosphatase Total Protein Albumin 01/28/18 01/28/18 07:52 11:31 Sodium Potassium Chloride Carbon Dioxide Anion Gap BUN Creatinine Estimated GFR POC Glucose 91 110 Random Glucose Calcium Magnesium Total Bilirubin AST ALT Alkaline Phosphatase Total Protein Albumin Imaging: ITS Impressions Chest X-Ray 01/25/18 17:54 CONCLUSION: 1. Cardiomegaly. 2. No focal infiltrate or pulmonary vascular congestion. 3. Severe degenerative changes involving the shoulders bilaterally. Extremity Arterial Study 01/26/18 18:34 CONCLUSION: 1. Irregular inconsistent segmental pressures and waveforms particularly on the right. This may reflect diffusely calcified vessels peripherally with artifactually increased pressures. 2. Significantly dampened waveforms with unobtainable pressures in the toes consistent with small vessel disease. 3. Consider CTA examination for better evaluation. Physical Exam: GENERAL: Well-nourished well-developed, not in acute distress SKIN: Cool and dry, no generalized rash HEAD: Atraumatic. Normocephalic. No temporal or scalp tenderness. EYES: Pupils equal round and reactive. Scleral icterus. No injection or drainage. No petechia ENT: Nothing abnormal detected NECK: Trachea midline. Supple, nontender, no meningeal signs. CARDIOVASCULAR: HS audible. RESPIRATORY: Clear to auscultation bilaterally. GASTROINTESTINAL: Abdomen soft nontender. MUSCULOSKELETAL: Bilateral lower extremity cellulitis. Dry scaly skin bilateral lower extremities. Left heel posterior aspect with stage I pressure ulcer surrounding erythema. Right heel with skin breakdown as well. NEUROLOGICAL: Alert oriented 3. Nonfocal. Psych cooperative IV line sites ok. Assessment and Plan - Plan Bilateral lower extremity cellulitis Bilateral lower extremity heel ulcerations. Pressure sores related from prior admissions per patient's narrative. Peripheral vascular disease Peripheral arterial disease Coronary artery disease Recommendations Continue Unasyn IV. Follow cultures Follow clinically Discussed with Dr. Mukherjee: Patient undergoing vascular workup CTA once the workup is complete call me for discharge recommendations. Clinically cellulitis appears to be improving. Concerned that itching to oral without assessing vascular supply local availability of oral antibiotic issue. I will be OOT please call ID retail salesperson for discharge recs if vascular issues not resolved and IV antibiotics needed. If vascular supply restored and patient clinically doing well ok to complete course with oral augmentin.
[2018-01-28] MEDS: Sodium Bicarbonate 8.4% Inj 150 MEQ in Dextrose 5% in Water Inj 1,000 ML IV.CONT SCH ×2 (14:37)
--- NOTE | 2018-01-28 16:50 | P.PNWCN ---
Wound Care Nurse Consult Description: Wound consult ordered by Communicated with: Artis RN Recommendation: Please defer to Vascular surgeons recommendations Additional information: Patient was not seen today due to having current wound care orders by podiatry for left lower extremity and general surgeon writing plan of care on right lower extremity please reconsult wound care if needed. Wound/Pressure Injury - Patient Status Premedicated for Pain Prior to Dressing Change: No - Wound Left Heel Wound Assessment: Ongoing Wound Type: Pressure Injury Is This a Chronic Wound: Yes Requested from Provider a Wound Care Consult: Yes Length: 3 Width: 3 Wound Bed Appearance: Peeling Skin, Red, Shiny, White, Yellow Surrounding Tissue Appearance: Dark Red, Edematous, Erythema, [place] Surrounding Tissue Temperature: Warm Drainage Description: Purulent Drainage Amount: None Drainage Odor: Slight Odor Dressing Status: Changed Primary Dressing: Adhesive Dressing Left Leg Wound Assessment: Ongoing Wound Type: Pressure Injury Is This a Chronic Wound: Yes Requested from Provider a Wound Care Consult: Yes Wound Bed Appearance: Peeling Skin, [place] Surrounding Tissue Appearance: [place] Surrounding Tissue Temperature: Warm Drainage Amount: None Drainage Odor: Slight Odor Dressing Status: Changed Primary Dressing: Adhesive Dressing Right Leg Wound Assessment: Ongoing Wound Type: Pressure Injury Is This a Chronic Wound: Yes Requested from Provider a Wound Care Consult: Yes Wound Bed Appearance: Peeling Skin, [place], Red, Shiny, Yellow Surrounding Tissue Appearance: Dark Red, Edematous, Erythema, [place], Shiny, Weeping Surrounding Tissue Temperature: Warm Drainage Description: Serosanguinous Drainage Amount: Scant Drainage Odor: No Odor Dressing Status: Changed Primary Dressing: maxsorb ag 2 Cover Dressing: Gauze Roll/Wrap Incision - Patient Status Premedicated for Pain Prior to Dressing Change: No
[2018-01-28] MEDS: Enoxaparin Inj 30 MG/0.3 ML Syringe SQ SCH (18:29)
[2018-01-28] MEDS: ALPRAZolam 0.25 MG Tablet PO SCH (21:45)
[2018-01-29] MEDS: Ampicillin/Sulbactam Inj 1,500 MG in Sodium Chloride 0.9% Inj 100 ML IV.SIG SCH ×4 (03:08→21:40)
[2018-01-29] MEDS: Insulin NovoLOG Aspart Correctional Sugar Inj SQ SCH ×5 (04:52→21:39)
[2018-01-29 07:16] LABS: Calcium 8.9 mg/dL (8.5-10.1); Carbon Dioxide 21.1 meq/L (21.0-32.0); Potassium 4.1 meq/L (3.5-5.1)
[2018-01-29] MEDS: Gabapentin 300 MG Capsule PO SCH ×3 (08:10→21:54)
[2018-01-29] MEDS: Aspirin 325 MG Tablet PO SCH (08:10)
[2018-01-29] MEDS: Allopurinol 300 MG Tablet PO SCH (08:10)
[2018-01-29] MEDS: Ezetimibe 10 MG Tablet PO SCH (08:11)
[2018-01-29] MEDS: Metoprolol Tartrate 50 MG Tablet PO SCH ×2 (08:11→21:42)
--- NOTE | 2018-01-29 09:26 | P.PNIM ---
Subjective Interval history: pt c/o ue swelling after ivf started. Physical Exam Vital signs: Vital Signs 01/28/18 12:00 01/28/18 15:09 01/28/18 15:23 Temperature 98.1 F Pulse Rate 79 78 69 Respiratory Rate 20 16 Blood Pressure 108/65 Pulse Oximetry 96 01/28/18 16:00 01/28/18 20:00 01/28/18 20:49 Temperature 98 F Pulse Rate 70 96 H 68 Respiratory Rate 20 18 Blood Pressure 100/59 L Pulse Oximetry 100 95 01/28/18 21:43 01/29/18 00:00 01/29/18 01:18 Temperature 97.8 F 98.7 F Pulse Rate 110 H 104 H 84 Respiratory Rate 18 18 Blood Pressure 117/76 110/69 Pulse Oximetry 98 96 01/29/18 04:00 01/29/18 08:00 Temperature 97.9 F 98.5 F Pulse Rate 85 108 H Respiratory Rate 18 22 Blood Pressure 100/63 137/96 H Pulse Oximetry 98 99 Intake & Output 01/28/18 01/29/18 01/29/18 18:59 06:59 18:59 Intake Total 1540 / 1540 300 / 300 Output Total 550 / 550 Balance 1540 / 1540 -250 / -250 Weight 94.5 kg Intake: IV 700 / 700 200 / 200 NS Inj 1,000 ML @ 100 mls/hr IV 500 / 500 .CONT .Q10H ANTIONETTE Rx#:[id number] Unasyn Inj 1,500 MG In NS Inj 200 / 200 200 / 200 100 ML @ 200 mls/hr IV.SIG Q6H ANTIONETTE Rx#:[id number] Oral 840 / 840 100 / 100 Output: Urine 550 / 550 Other: # Voids 2 # Bowel Movements 0 heart reg lung cta abd s/nt ext left heel ulcerated/swollen right post calf ulcerated ue's swollen. Results - Labs CBC & Chem 7: 01/28/18 05:15 01/29/18 06:20 Laboratory Results - last 24 hr 01/28/18 01/28/18 01/28/18 11:31 16:40 20:34 Sodium Potassium Chloride Carbon Dioxide Anion Gap BUN Creatinine Estimated GFR POC Glucose 110 103 92 Random Glucose Calcium 01/29/18 01/29/18 01/29/18 04:28 06:20 07:26 Sodium 143 Potassium 4.1 Chloride 112 H Carbon Dioxide 21.1 Anion Gap 10 BUN 21 H Creatinine 1.26 Estimated GFR 55 L POC Glucose 123 H 108 Random Glucose 96 Calcium 8.9 Microbiology 01/25/18 18:00 Blood - Peripheral Aerobic Blood Culture - Preliminary No growth in 3 days 01/25/18 18:00 Blood - Peripheral Anaerobic Blood Culture - Preliminary No growth in 3 days 01/25/18 17:50 Blood - Peripheral Aerobic Blood Culture - Preliminary No growth in 3 days 01/25/18 17:50 Blood - Peripheral Anaerobic Blood Culture - Preliminary No growth in 3 days Assessment and Plan - Assessment (1) Wound infection Code(s): T14.8XXA - Other injury of unspecified body region, initial encounter; L08.9 - Local infection of the skin and subcutaneous tissue, unspecified Status: Acute Plan: Wound Infections, B/L heels - Pt follows outpt with General Surgery, Dr. Kaminski. - Wound Cx outpt, left heel, (01/18) --> enterococcus faecalis - h/o enterococcus in left heel wound by outpt culture - Comgmt with ID, Podiatry, Wound Care - Pt received Vancomycin in the ER - Unasyn (01/26 - present) - norco prn pain - DVT prophylaxis with lovenox - Wound care orders placed per Podiatry. - vascular studies per podiatry. gfr better with ivf...await cta with runoff per vascular and await decision for any vascular procedures before dc to snf dc ivf jessica due to increased swelling. pt agreeable to snf. discussed po augmentin upon dc with ID YAZAN - improving - underlying CKD -3 - pt had decreased appetite, n/v prior to admission - Cr 2.72 (01/25), 2.48 (01/26), 1.76 (01/27), 01/28 1.4. now 1.2 Failure to Thrive - IVFs - PT - will need SNF at the end of this hospitalization - anticipate d/c to SNF soon COPD - duonebs prn PAD CAD - ASA, zetia (2) YAZAN (acute kidney injury) Code(s): N17.9 - Acute kidney failure, unspecified Status: Acute (3) Afib Code(s): I48.91 - Unspecified atrial fibrillation Status: Acute (4) COPD (chronic obstructive pulmonary disease) Code(s): J44.9 - Chronic obstructive pulmonary disease, unspecified Status: Chronic (5) Weakness generalized Code(s): R53.1 - Weakness Status: Acute (3) Afib Qualifiers: Atrial fibrillation type: chronic Qualified Code(s): I48.2 - Chronic atrial fibrillation
[2018-01-29] MEDS: Sodium Bicarbonate 8.4% Inj 150 MEQ in Dextrose 5% in Water Inj 1,000 ML IV.CONT SCH ×2 (13:03)
--- NOTE | 2018-01-29 17:35 | CT ---
EXAM DATE: 01/29/2018 5:08 PM EDT AGE/SEX: 77 years / Male INDICATIONS: Peripheral vascular disease CLINICAL DATA: This is the patient's initial encounter. Patient reports that signs and symptoms have been present for 1 day and indicates a pain score of 5/10. MEDICAL/SURGICAL HISTORY: Cardiovascular disease. Asthma. Diabetes. Hypertension, CKD None. RADIATION DOSE: 6.11 CTDI (mGy) COMPARISON: No prior exams available for comparison. TECHNIQUE: Volumetric scanning was performed using a multi-row detector CT scanner during bolus infu tracy of 99 ml Omnipaque 350 (iohexol) nonionic water-soluble contrast as a single exam dose. The d jae was post processed with a variety of visualization algorithms including full volume maximum inten sity projection, multi-planar sliding thin slab reformation, curved planar reformation, and surface r endering techniques. Using automated exposure control and adjustment of the mA and/or kV according t o patient size, radiation dose was kept as low as reasonably achievable to obtain optimal diagnostic quality images. DICOM format image data is available electronically for review and comparison. FINDINGS: There is subsegmental atelectasis in the both bases. Small bilateral pleural effusions are identified . There are multiple hypodensities within the liver compatible with hepatic cysts the largest measur ing 2 cm in segment 4 The gallbladder and pancreas are unremarkable. No intrahepatic or extrahepatic ductal dilatation is seen. The adrenal glands and kidneys appear normal bilaterally. No hydronephros is or mass lesions are identified. There is diverticulosis without evidence of diverticulitis. The aorta is normal in caliber. There is no evidence of aneurysm or dissection. There is 20-30% steno sis at the origin of the celiac axis. The superior mesenteric artery origin is patent. The left renal artery origin is patent. There is 70-80% stenosis at the origin of the right renal artery Examination of the right lower extremity demonstrates no evidence of inflow stenosis. The common femo ral artery is patent. There are multiple areas of stenosis involving distal right superficial femora l artery greater than 70%. No segmental occlusion is identified. The popliteal artery is patent. Ther e is three-vessel runoff to the ankle. There is diffuse disease involving the infrapopliteal vessels Examination of the left lower extremity demonstrates no evidence of inflow stenosis. The common femor al artery is patent. There is high-grade stenosis involving the distal left superficial femoral arter y. No segmental occlusion is identified. The popliteal artery is patent. There is two vessel runoff t o the ankle via the anterior tibial and peroneal branches. 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 This would be amen able to endovascular repair. No inflow stenosis is seen. Electronically signed by: Felipe Archer MD 01/29/2018 5:34 PM EDT
[2018-01-29] MEDS: Enoxaparin Inj 30 MG/0.3 ML Syringe SQ SCH (18:07)
--- NOTE | 2018-01-29 21:25 | ECHRPT ---
Indication: ATRIAL FIB/FLUTTER CONCLUSIONS Normal left ventricular size. Wall thickness is normal. The left ventricular systolic function is moderately reduced with an estimated ejection fraction of 40% with paradoxical septal motion.The right ventricle is moderately dilated. The right ventricular systoilc function is mildly decreased. The left atrial size is mildly dilated. The right atrial size is mildly dilated. No atrial level shunt is demonstrated by color flow Doppler interrogation. Mitral annular thickening with mild mitral valve regurgitation. Aortic valve sclerosis is present. Mild aortic valve regurgitation. There is moderate tricuspid regurgitation. The estimated pulmonary arterial pressure is 44.3 mmHg. BP: / HR: Rhythm: Sinus MEASUREMENTS (Male / Female) Normal Values Technical Quality:Fair 2D ECHO LV Diastolic Diameter PLAX 4.4 cm 4.2 - 5.9 / 3.9 - 5.3 cm LV Systolic Diameter PLAX 3.7 cm IVS Diastolic Thickness 0.9 cm 0.6 - 1.0 / 0.6 - 0.9 cm LVPW Diastolic Thickness 0.9 cm 0.6 - 1.0 / 0.6 - 0.9 cm LV Relative Wall Thickness 0.4 RV Internal Dim ED PLAX 4.2 cm LVOT Diameter 2.3 cm Aortic Root Diameter 4.0 cm LA Systolic Diameter LX 4.6 cm 3.0 - 4.0 / 2.7 - 3.8 cm M-MODE AV Cusp Separation MM 1.6 cm DOPPLER AV Peak Velocity 157.3 cm/s AV Peak Gradient 9.9 mmHg AV Mean Gradient 5.3 mmHg AV Velocity Time Integral 28.6 cm LVOT Peak Velocity 55.6 cm/s LVOT Peak Gradient 1.2 mmHg LVOT Velocity Time Integral 10.2 cm AV Area Cont Eq vti 1.5 cm AV Area Cont Eq pk 1.5 cm Mitral E Point Velocity 122.0 cm/s LV E' Lateral Velocity 13.5 cm/s Mitral E to LV E' Lateral Ratio 9.0 LV E' Septal Velocity 9.7 cm/s Mitral E to LV E' Septal Ratio 12.6 TR Peak Velocity 293.0 cm/s TR Peak Gradient 34.3 mmHg Right Atrial Pressure 10.0 mmHg Pulmonary Artery Systolic Pressu 44.3 mmHg Right Ventricular Systolic Press 44.3 mmHg PV Peak Velocity 57.1 cm/s PV Peak Gradient 1.3 mmHg FINDINGS LEFT VENTRICLE Normal left ventricular size. Wall thickness is normal. The left ventricular systolic function is moderately reduced with an estimated ejection fraction of 40% with paradoxical septal motion. RIGHT VENTRICLE The right ventricle is moderately dilated. The right ventricular systoilc function is mildly decreased. LEFT ATRIUM The left atrial size is mildly dilated. RIGHT ATRIUM The right atrial size is mildly dilated. ATRIAL SEPTUM No atrial level shunt is demonstrated by color flow Doppler interrogation. AORTA The aortic root and proximal ascending aorta are normal in size on limited imaging. MITRAL VALVE Mitral annular thickening with mild mitral valve regurgitation. AORTIC VALVE Aortic valve sclerosis is present. Mild aortic valve regurgitation. TRICUSPID VALVE There is moderate tricuspid regurgitation. The estimated pulmonary arterial pressure is 44.3 mmHg. PULMONARY VALVE No pulmonary valve regurgitation or stenosis. VESSELS The inferior vena cava is normal in size. PERICARDIUM No pericardial effusion. Jerome Diamond MD (Electronically Signed) Final Date:29 January 2018 21:24
[2018-01-29] MEDS: ALPRAZolam 0.25 MG Tablet PO SCH (21:42)
[2018-01-30] MEDS: Ampicillin/Sulbactam Inj 1,500 MG in Sodium Chloride 0.9% Inj 100 ML IV.SIG SCH ×4 (03:49→22:32)
[2018-01-30] MEDS: Insulin NovoLOG Aspart Correctional Sugar Inj SQ SCH ×5 (03:54→22:31)
[2018-01-30] MEDS: Aspirin 325 MG Tablet PO SCH (09:00)
[2018-01-30] MEDS: Allopurinol 300 MG Tablet PO SCH (09:00)
[2018-01-30] MEDS: Ezetimibe 10 MG Tablet PO SCH (09:00)
[2018-01-30] MEDS: Metoprolol Tartrate 50 MG Tablet PO SCH ×2 (09:00→22:35)
--- NOTE | 2018-01-30 09:45 | P.PNIM ---
Subjective Interval history: more wheezing and ue swelling alyx. Physical Exam Vital signs: Vital Signs 01/29/18 12:00 01/29/18 15:58 01/29/18 16:00 Temperature 98.4 F 98.1 F Pulse Rate 66 71 88 Respiratory Rate 22 16 22 Blood Pressure 166/78 H 148/70 H Pulse Oximetry 100 96 100 01/29/18 19:56 01/29/18 20:00 01/29/18 23:45 Temperature 97.0 F L Pulse Rate 87 109 H 84 Respiratory Rate 20 Blood Pressure 128/66 Pulse Oximetry 99 01/30/18 00:00 01/30/18 04:00 01/30/18 04:13 Temperature 98.4 F 99.0 F Pulse Rate 86 91 H 77 Respiratory Rate 20 20 Blood Pressure 111/54 L 125/58 L Pulse Oximetry 97 99 Intake & Output 01/29/18 01/30/18 01/30/18 18:59 06:59 18:59 Intake Total 1830 / 1830 220 / 220 Output Total 600 / 600 400 / 400 Balance 1230 / 1230 -180 / -180 Weight 96.1 kg Intake: IV 1350 / 1350 100 / 100 Sodium Bicarbonate 8.4% Inj 150 1150 / 1150 MEQ In D5W Inj 1,000 ML @ 42 mls/hr IV.CONT .Q24H ANTIONETTE Rx#: [id number] Unasyn Inj 1,500 MG In NS Inj 200 / 200 100 / 100 100 ML @ 200 mls/hr IV.SIG Q6H ANTIONETTE Rx#:[id number] Oral 480 / 480 120 / 120 Output: Urine 600 / 600 400 / 400 Other: # Bowel Movements 0 oriented heart reg lung exp wheeze alyx abd s/nt ext left heel/post calf ulceration Results - Labs CBC & Chem 7: 01/28/18 05:15 01/29/18 06:20 Laboratory Results - last 24 hr 01/29/18 01/29/18 01/29/18 12:11 16:55 19:53 POC Glucose 123 H 77 133 H 01/30/18 01/30/18 03:53 08:30 POC Glucose 112 H 105 Microbiology 01/25/18 18:00 Blood - Peripheral Aerobic Blood Culture - Preliminary No growth in 4 days 01/25/18 18:00 Blood - Peripheral Anaerobic Blood Culture - Preliminary No growth in 4 days 01/25/18 17:50 Blood - Peripheral Aerobic Blood Culture - Preliminary No growth in 4 days 01/25/18 17:50 Blood - Peripheral Anaerobic Blood Culture - Preliminary No growth in 4 days - Imaging Impressions Aorta w/Runoff CTA 01/29/18 00:00 CONCLUSION: High-grade stenosis involving the distal superficial femoral arteries bilaterally. This would be amenable to endovascular repair. No inflow stenosis is seen. Assessment and Plan - Assessment (1) Wound infection Code(s): T14.8XXA - Other injury of unspecified body region, initial encounter; L08.9 - Local infection of the skin and subcutaneous tissue, unspecified Status: Acute Plan: Wound Infections, B/L heels - Pt follows outpt with General Surgery, Dr. Kaminski. - Wound Cx outpt, left heel, (01/18) --> enterococcus faecalis - h/o enterococcus in left heel wound by outpt culture - Comgmt with ID, Podiatry, Wound Care - Pt received Vancomycin in the ER - Unasyn (01/26 - present) - norco prn pain - DVT prophylaxis with lovenox - Wound care orders placed per Podiatry. - vascular studies per podiatry. gfr better with ivf... - CTA shows severe femoral art dz bilaterally spoke with vascular surg. revascularization procedure planned for tomorrow stop ivf. pt getting edematous/wheezing. resume lasix/nebs scheduled pt agreeable to snf. discussed po augmentin upon dc with ID YAZAN - improving - underlying CKD -3 - pt had decreased appetite, n/v prior to admission - Cr 2.72 (01/25), 2.48 (01/26), 1.76 (01/27), 01/28 1.4. now 1.2 Failure to Thrive - PT - will need SNF at the end of this hospitalization - anticipate d/c to SNF soon COPD - duonebs PAD CAD - ASA, zetia (2) YAZAN (acute kidney injury) Code(s): N17.9 - Acute kidney failure, unspecified Status: Acute (3) Afib Code(s): I48.91 - Unspecified atrial fibrillation Status: Acute (4) COPD (chronic obstructive pulmonary disease) Code(s): J44.9 - Chronic obstructive pulmonary disease, unspecified Status: Chronic (5) Weakness generalized Code(s): R53.1 - Weakness Status: Acute (3) Afib Qualifiers: Atrial fibrillation type: chronic Qualified Code(s): I48.2 - Chronic atrial fibrillation
[2018-01-30] MEDS ORDERED: Furosemide 40 MG Tablet PO ONE (10:00)
--- NOTE | 2018-01-30 11:37 | P.PNVS ---
- Pre-operative Note Planned Procedure: Bilateral Lower Extremity Angiogram Interval History: 77/M with multiple wounds to B LE Pt w/ bilateral distal superficial femoral artery stenosis (high grade) Labs: WBC 5.0 th/mm3 (4.0-11.0) 01/28/18 05:15 RBC 2.98 mil/mm3 (4.50-5.90) L 01/28/18 05:15 Hgb 9.1 gm/dL (13.0-17.0) L 01/28/18 05:15 Hct 28.8 % (39.0-51.0) L 01/28/18 05:15 MCV 96.6 fL (80.0-100.0) 01/28/18 05:15 MCH 30.5 pg (27.0-34.0) 01/28/18 05:15 MCHC 31.6 % (32.0-36.0) L 01/28/18 05:15 RDW 17.1 % (11.6-17.2) 01/28/18 05:15 Plt Count 272 th/mm3 (150-450) 01/28/18 05:15 MPV 9.1 fL (7.0-11.0) 01/28/18 05:15 Sodium 143 meq/L (136-145) 01/29/18 06:20 Potassium 4.1 meq/L (3.5-5.1) 01/29/18 06:20 Chloride 112 meq/L (98-107) H 01/29/18 06:20 Carbon Dioxide 21.1 meq/L (21.0-32.0) 01/29/18 06:20 Anion Gap 10 meq/L (5-15) 01/29/18 06:20 BUN 21 mg/dL (7-18) H 01/29/18 06:20 Random Glucose 96 mg/dL (74-106) 01/29/18 06:20 Calcium 8.9 mg/dL (8.5-10.1) 01/29/18 06:20 Imaging: ITS Impressions Chest X-Ray 01/25/18 17:54 CONCLUSION: 1. Cardiomegaly. 2. No focal infiltrate or pulmonary vascular congestion. 3. Severe degenerative changes involving the shoulders bilaterally. Extremity Arterial Study 01/26/18 18:34 CONCLUSION: 1. Irregular inconsistent segmental pressures and waveforms particularly on the right. This may reflect diffusely calcified vessels peripherally with artifactually increased pressures. 2. Significantly dampened waveforms with unobtainable pressures in the toes consistent with small vessel disease. 3. Consider CTA examination for better evaluation. 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 This would be amenable to endovascular repair. No inflow stenosis is seen. Consent: Informed consent has been obtained from Bin Hobbs. I have explained the procedure in detail and discussed the risks, benefits, and potential complications. All questions have been answered. Patient Contact Information: - Darrell Hobbs [phone]
[2018-01-30] MEDS: Gabapentin 300 MG Capsule PO SCH ×2 (12:21→22:37)
[2018-01-30] MEDS: Enoxaparin Inj 40 MG/0.4 ML Syringe SQ SCH (15:47)
[2018-01-30] MEDS: ALPRAZolam 0.25 MG Tablet PO SCH (22:37)
--- NOTE | 2018-01-31 08:37 | P.PNIM ---
Subjective Interval history: no new complaints. edema better. Physical Exam Vital signs: Vital Signs 01/30/18 11:50 01/30/18 12:00 01/30/18 16:00 Temperature 98.3 F Pulse Rate 84 96 H 87 Respiratory Rate 20 Blood Pressure 110/70 Pulse Oximetry 100 01/30/18 16:10 01/30/18 16:30 01/30/18 18:00 Temperature 98.4 F Pulse Rate 80 78 Respiratory Rate 20 20 Blood Pressure 100/67 Pulse Oximetry 97 98 01/30/18 20:00 01/30/18 20:07 01/30/18 20:24 Temperature 97.4 F L Pulse Rate 100 H 85 99 H Respiratory Rate 18 16 Blood Pressure 117/61 Pulse Oximetry 98 01/31/18 00:00 01/31/18 00:24 01/31/18 00:43 Temperature 97.9 F Pulse Rate 102 H 90 90 Respiratory Rate 20 21 Blood Pressure 127/72 Pulse Oximetry 100 01/31/18 04:00 01/31/18 04:13 01/31/18 08:11 Temperature 98.9 F Pulse Rate 104 H 99 H 100 H Respiratory Rate 20 17 Blood Pressure 154/66 H Pulse Oximetry 96 99 Intake & Output 01/30/18 01/31/18 01/31/18 18:59 06:59 18:59 Intake Total 680 / 680 240 / 240 Output Total 800 / 800 Balance 680 / 680 -560 / -560 Weight 96.5 kg Intake: IV 200 / 200 Unasyn Inj 1,500 MG In NS Inj 200 / 200 100 ML @ 200 mls/hr IV.SIG Q6H ANTIONETTE Rx#:[id number] Oral 480 / 480 240 / 240 Output: Urine 800 / 800 Other: # Voids 1 # Bowel Movements 1 0 heart reg lung cta abd s/nt ext lower ext bandages over ulcerated areas in place. Results - Labs CBC & Chem 7: 01/28/18 05:15 01/29/18 06:20 Laboratory Results - last 24 hr 01/30/18 01/30/18 01/30/18 08:30 12:04 17:00 POC Glucose 105 102 77 01/30/18 01/31/18 01/31/18 20:08 04:18 07:19 POC Glucose 112 H 113 H 100 Microbiology 01/25/18 18:00 Blood - Peripheral Aerobic Blood Culture - Final No growth in 5 days 01/25/18 18:00 Blood - Peripheral Anaerobic Blood Culture - Final No growth in 5 days 01/25/18 17:50 Blood - Peripheral Aerobic Blood Culture - Final No growth in 5 days 01/25/18 17:50 Blood - Peripheral Anaerobic Blood Culture - Final No growth in 5 days Assessment and Plan - Assessment (1) Wound infection Code(s): T14.8XXA - Other injury of unspecified body region, initial encounter; L08.9 - Local infection of the skin and subcutaneous tissue, unspecified Status: Acute Plan: Wound Infections, B/L heels - Pt follows outpt with General Surgery, Dr. Kaminski. - Wound Cx outpt, left heel, (01/18) --> enterococcus faecalis - h/o enterococcus in left heel wound by outpt culture - Comgmt with ID, Podiatry, Wound Care - Pt received Vancomycin in the ER - Unasyn (01/26 - present) - norco prn pain - DVT prophylaxis with lovenox - Wound care orders placed per Podiatry. - vascular studies per podiatry. gfr better with ivf... - CTA shows severe femoral art dz bilaterally spoke with vascular surg. revascularization procedure planned for today stopped ivf. pt getting edematous/wheezing. resumed lasix/nebs scheduled and now better. pt agreeable to snf. discussed po augmentin upon dc with ID YAZAN - improving - underlying CKD -3 - pt had decreased appetite, n/v prior to admission - Cr 2.72 (01/25), 2.48 (01/26), 1.76 (01/27), 01/28 1.4. now 1.2 Failure to Thrive - PT - will need SNF at the end of this hospitalization - anticipate d/c to SNF soon COPD - duonebs PAD CAD - ASA, zetia (2) YAZAN (acute kidney injury) Code(s): N17.9 - Acute kidney failure, unspecified Status: Acute (3) Afib Code(s): I48.91 - Unspecified atrial fibrillation Status: Acute (4) COPD (chronic obstructive pulmonary disease) Code(s): J44.9 - Chronic obstructive pulmonary disease, unspecified Status: Chronic (5) Weakness generalized Code(s): R53.1 - Weakness Status: Acute (3) Afib Qualifiers: Atrial fibrillation type: chronic Qualified Code(s): I48.2 - Chronic atrial fibrillation
[2018-01-31] MEDS: Gabapentin 300 MG Capsule PO SCH ×2 (08:51→21:25)
[2018-01-31] MEDS: Insulin NovoLOG Aspart Correctional Sugar Inj SQ SCH ×3 (08:51→17:40)
[2018-01-31] MEDS: Aspirin 325 MG Tablet PO SCH (08:54)
[2018-01-31] MEDS: Ezetimibe 10 MG Tablet PO SCH (08:55)
[2018-01-31] MEDS: Furosemide 40 MG Tablet PO SCH (08:55)
[2018-01-31] MEDS: Metoprolol Tartrate 50 MG Tablet PO SCH ×2 (08:55→21:24)
[2018-01-31] MEDS: Allopurinol 300 MG Tablet PO SCH (08:55)
[2018-01-31] MEDS: Ampicillin/Sulbactam Inj 1,500 MG in Sodium Chloride 0.9% Inj 100 ML IV.SIG SCH ×5 (09:30→21:24)
[2018-01-31] MEDS ORDERED: Heparin 10,000 UNITS/10 ML Vial (for IV use) ONE (11:13)
[2018-01-31] MEDS ORDERED: Bupivacaine PF 0.5% Inj 30 ML Vial ONE (11:13)
[2018-01-31] MEDS ORDERED: Heparin/NS PF Inj 500 ML ONE (11:13)
[2018-01-31] MEDS ORDERED: Phenylephrine/NS 1000 MCG/10ML Syringe IV.PUSH ONE (12:00)
[2018-01-31] MEDS ORDERED: Lidocaine PF 1% Inj 5 ML Syringe INFILTRATN ONE (12:00)
[2018-01-31] MEDS ORDERED: ceFAZolin 2 GM Premix Inj 2 GM/50 ML PIGGYBACK IV.SIG ONE (12:04)
[2018-01-31] MEDS ORDERED: Iohexol 300 MG/ML 50 ML Vial (for Rad Diag) IVCONTRAST ONE (13:44)
--- NOTE | 2018-01-31 13:45 | P.OP ---
Date of procedure: 01/31/18 Procedure: 1. Aortogram w/ B LE angiogram 2. B SFA angioplasty (5mm) 3. B FAMILY REUNIFICATION SPECIALIST Angioseal Implants: Angioseal B FAMILY REUNIFICATION SPECIALIST Anesthesia: GETA Surgeon: Ken Benavidez MD Heel Trimmer: Rebecca Vigil Estimated blood loss (mL): 10 Urine output (mL): 200 Pathology: none sent Operation and Findings: B SFA tandem lesions, successful [employer] without need for stent Excellent result
[2018-01-31] MEDS ORDERED: Morphine Inj 4 MG/ML Vial ONE (14:20)
--- NOTE | 2018-01-31 15:56 | MP ---
cc: Ken Benavidez MD DATE OF OPERATION: 01/31/2018 PREOPERATIVE DIAGNOSIS: Bilateral lower extremity peripheral arterial occlusive disease. POSTOPERATIVE DIAGNOSIS: Bilateral lower extremity peripheral arterial occlusive disease. PROCEDURE PERFORMED: 1. Aortogram with bilateral lower extremity angiogram. 2. Left superficial femoral artery angioplasty with a 5 mm balloon. 3. Right SFA angioplasty with 5 mm balloon. 4. Bilateral common femoral artery AngioSeal. ATTENDING SURGEON: Ken Benavidez MD JUICE MIXER SURGEON: Rebecca Vigil. ANESTHESIA: General. INDICATIONS FOR PROCEDURE: Mr. Hobbs is a 77-year-old gentleman with severe peripheral vascular disease, rest pain and tissue loss. He was taken to the operating room for angiographic evaluation and treatment. There was no prior catheter-based imaging available for my review. DESCRIPTION OF PROCEDURE: Informed consent was obtained from the patient. He was taken to the operating room and placed supine on the operating room table. An appropriate timeout was taken to ensure the patient's identify, the operative site and planned procedure. Two grams of Ancef was administered prior to skin incision and will be discontinued after a single preoperative does. Everyone in the room agreed with the timeout and we proceeded. His bilateral groins were prepped and draped and a 21-gauge micropuncture needle was used to access the right common femoral artery. This was exchanged using Seldinger technique for a micropuncture sheath through which a 0.038 Glidewire was introduced. The micropuncture sheath was exchanged for a 5-Macanese sheath. A VCF catheter was placed over the wire and through the sheath and aortogram and pelvic arteriogram obtained. The Glidewire was navigated down to the left common femoral artery and the VCF was exchanged for a glide catheter, and this was used to navigate into the left common femoral artery and left lower extremity arteriogram was obtained. The patient was systemically heparinized with 5000 units of IV heparin. A 0.035 Ramos wire was placed through the glide catheter and the glide catheter was removed. The 5-Macanese sheath was removed and a 6-Macanese, 55-cm Jayden sheath was introduced. A CXI catheter was advanced over the Ramos and through the Jayden and the Ramos was exchanged for a [employer] wire. The PR[employer] wire and then a Glidewire were used to navigate to the stenoses of the SFA and the catheter was advanced to the popliteal artery. The Ramos wire was then reintroduced. The CXI catheter was removed and the entire SFA was angioplastied with a 5 mm balloon. The completion angiogram showed excellent result without any recoil or extravasation. The wire, catheter and sheath were removed and exchanged for a short 6-Macanese sheath through which a right lower extremity arteriogram was obtained. The wire was reintroduced and the groin was closed with an Angio-Seal. A 21-gauge micropuncture needle was used to access the left common femoral artery. This was exchanged using Seldinger technique through a micropuncture sheath, through which a 0.035 Glidewire was introduced. The micropuncture sheath was exchanged for a 5-Macanese sheath, and the VCF catheter and Glidewire were navigated down to the right common femoral artery from the left catheter site. The Ramos wire was then introduced instead of the Glidewire and the Ramos was advanced down to the SFA. The CXI catheter was advanced over the Ramos and the Ramos exchanged for a [employer] wire and Glidewire and, using the combination of glide, PR[employer] HE[employer] and CXI, we were able to navigate past the SFA stenoses, down in the popliteal artery and the SFA was angioplastied with a 5 mm balloon. The completion angiograms showed excellent result without recoil or extravasation. The wire, catheter and sheath were removed and the groin was closed with Angio-Seal. There were no complications. I was present and scrubbed and performed the entire procedure. INTERPRETATION OF IMAGES: The patient has patent terminal aorta, common iliac arteries, hypogastric arteries and external iliac arteries bilaterally. The common femoral artery was calcified, but no hemodynamically significant stenoses. The left SFA has several high-grade tandem stenoses that were successfully angioplastied. The popliteal artery is patent and there is 3-vessel runoff to the foot with a pedal arch filling. On the right hand side, the patient has a patent common femoral, profunda. The proximal SFA is patent. The mid-SFA has several high-grade tandem stenoses and the distal SFA is patent and the popliteal artery is patent, with 3-vessel runoff. After angioplasty, there was successful resolution of the hemodynamically-appearing stenoses on the right. MD AIDEN Hoffman/SADE , 03:28 PM , 03:55 PM
[2018-01-31] MEDS: Enoxaparin Inj 40 MG/0.4 ML Syringe SQ SCH (16:39)
[2018-01-31] MEDS: ALPRAZolam 0.25 MG Tablet PO SCH (21:25)
[2018-02-01] MEDS: Ampicillin/Sulbactam Inj 1,500 MG in Sodium Chloride 0.9% Inj 100 ML IV.SIG SCH ×4 (03:44→21:50)
[2018-02-01] MEDS: Insulin NovoLOG Aspart Correctional Sugar Inj SQ SCH ×5 (03:47→21:00)
[2018-02-01] MEDS: Metoprolol Tartrate 50 MG Tablet PO SCH ×2 (08:22→21:50)
[2018-02-01] MEDS: Aspirin 325 MG Tablet PO SCH (08:22)
[2018-02-01] MEDS: Furosemide 40 MG Tablet PO SCH (08:22)
[2018-02-01] MEDS: Gabapentin 300 MG Capsule PO SCH (08:22)
[2018-02-01] MEDS: Allopurinol 300 MG Tablet PO SCH (08:22)
[2018-02-01] MEDS: Ezetimibe 10 MG Tablet PO SCH (08:22)
--- NOTE | 2018-02-01 09:45 | P.PNIM ---
Subjective Interval history: sleeping present. asking to stop gabapentin and change xanax to prn also she believes his urine smell is from the antibiotics Physical Exam Vital signs: Vital Signs 01/31/18 11:45 01/31/18 12:00 01/31/18 14:15 Temperature 97.6 F 97.4 F L Pulse Rate 69 69 97 H Respiratory Rate 20 24 Blood Pressure 106/54 L 132/74 Pulse Oximetry 100 94 L 01/31/18 14:30 01/31/18 14:45 01/31/18 15:00 Temperature Pulse Rate 101 H 88 91 H Respiratory Rate 20 20 20 Blood Pressure 134/83 138/94 H 128/66 Pulse Oximetry 97 97 97 01/31/18 15:15 01/31/18 15:35 01/31/18 16:00 Temperature 98.1 F 97.5 F L Pulse Rate 92 H 64 100 H Respiratory Rate 20 16 Blood Pressure 130/75 131/60 Pulse Oximetry 97 94 L 01/31/18 16:15 01/31/18 19:30 01/31/18 20:00 Temperature 97.4 F L Pulse Rate 74 108 H 96 H Respiratory Rate 17 18 20 Blood Pressure 135/90 Pulse Oximetry 99 99 02/01/18 00:00 02/01/18 04:00 02/01/18 05:02 Temperature 98.2 F 101.3 F H Pulse Rate 109 H 104 H 114 H Respiratory Rate 18 18 18 Blood Pressure 150/73 H 152/90 H Pulse Oximetry 98 93 L 02/01/18 08:00 02/01/18 08:45 Temperature 98.1 F Pulse Rate 97 H 79 Respiratory Rate 17 Blood Pressure 116/64 Pulse Oximetry 97 97 Intake & Output 01/31/18 02/01/18 02/01/18 18:59 06:59 18:59 Intake Total 450 / 450 440 / 440 Output Total 710 / 710 100 / 100 Balance -260 / -260 340 / 340 Weight 100.7 kg Intake: IV 250 / 250 200 / 200 Unasyn Inj 1,500 MG In NS Inj 200 / 200 200 / 200 100 ML @ 200 mls/hr IV.SIG Q6H [facility] Rx#:[id number] Ancef 2 GM Premix Inj 2 gm In 50 / 50 50 ml @ 0 mls/hr IV.SIG .STK- [facility] Rx#:[id number] Oral 0 / 0 240 / 240 Anesthesia Amount 200 / 200 Output: Urine 100 / 100 100 / 100 Estimated Blood Loss 10 10 Urine Amount (Catheter) 600 / 600 Straight 600 / 600 Other: Date of Last Bowel Movement 01/31/18 heent neg heart reg lung cta abd s/nt ext lower ext bandaged. - Urinary Catheter Management Straight Cath placed during this visit: yes Reason for continuing: Not indwelling catheter Insertion date: 01/31/18 Insertion time: 13:32 Results - Labs CBC & Chem 7: 01/28/18 05:15 01/29/18 06:20 Laboratory Results - last 24 hr 01/31/18 01/31/18 01/31/18 10:55 16:58 21:18 POC Glucose 115 H 81 82 02/01/18 02/01/18 03:45 07:10 POC Glucose 109 116 H Assessment and Plan - Assessment (1) Wound infection Code(s): T14.8XXA - Other injury of unspecified body region, initial encounter; L08.9 - Local infection of the skin and subcutaneous tissue, unspecified Status: Acute Plan: Wound Infections, B/L heels - Pt follows outpt with General Surgery, Dr. Kaminski. - Wound Cx outpt, left heel, (01/18) --> enterococcus faecalis - h/o enterococcus in left heel wound by outpt culture - Comgmt with ID, Podiatry, Wound Care - Pt received Vancomycin in the ER - Unasyn (01/26 - present) - norco prn pain - DVT prophylaxis with lovenox - Wound care orders placed per Podiatry. - vascular studies per podiatry. gfr better with ivf... - CTA shows severe femoral art dz bilaterally spoke with vascular surg. s/p balloon angioplasty alyx femorals 01/31 plan for dc to snf in AM u/a pending. discussed po augmentin upon dc with ID YAZAN - improving - underlying CKD -3 - pt had decreased appetite, n/v prior to admission - Cr 2.72 (01/25), 2.48 (01/26), 1.76 (01/27), 01/28 1.4. now 1.2 Failure to Thrive - PT - will need SNF at the end of this hospitalization - anticipate d/c to SNF soon COPD - duonebs PAD CAD - ASA, zetia (2) YAZAN (acute kidney injury) Code(s): N17.9 - Acute kidney failure, unspecified Status: Acute (3) Afib Code(s): I48.91 - Unspecified atrial fibrillation Status: Acute (4) COPD (chronic obstructive pulmonary disease) Code(s): J44.9 - Chronic obstructive pulmonary disease, unspecified Status: Chronic (5) Weakness generalized Code(s): R53.1 - Weakness Status: Acute (3) Afib Qualifiers: Atrial fibrillation type: chronic Qualified Code(s): I48.2 - Chronic atrial fibrillation
[2018-02-01] MEDS: Enoxaparin Inj 40 MG/0.4 ML Syringe SQ SCH (12:18)
[2018-02-01] MEDS ORDERED: ALPRAZolam 0.25 MG Tablet PO PRN (21:00)
[2018-02-02] MEDS: Insulin NovoLOG Aspart Correctional Sugar Inj SQ SCH ×7 (03:21→22:17)
[2018-02-02] MEDS: Ampicillin/Sulbactam Inj 1,500 MG in Sodium Chloride 0.9% Inj 100 ML IV.SIG SCH ×2 (03:22→09:03)
[2018-02-02] MEDS: Metoprolol Tartrate 50 MG Tablet PO SCH ×2 (09:00→22:15)
[2018-02-02] MEDS: Allopurinol 300 MG Tablet PO SCH (09:00)
[2018-02-02] MEDS: Aspirin 325 MG Tablet PO SCH (09:00)
[2018-02-02] MEDS: Ezetimibe 10 MG Tablet PO SCH (09:00)
[2018-02-02] MEDS: Furosemide 40 MG Tablet PO SCH (09:00)
--- NOTE | 2018-02-02 10:07 | P.PNIM ---
Subjective Interval history: c/o peristent ue edema Physical Exam Vital signs: Vital Signs 02/01/18 12:00 02/01/18 12:09 02/01/18 16:00 Temperature 98.2 F 98.2 F Pulse Rate 83 97 H 66 Respiratory Rate 19 18 Blood Pressure 147/73 H 108/61 Pulse Oximetry 97 99 02/01/18 19:20 02/01/18 19:21 02/01/18 20:00 Temperature 97.8 F Pulse Rate 91 H 88 Respiratory Rate 18 18 Blood Pressure 116/74 Pulse Oximetry 98 94 L 02/01/18 21:10 02/01/18 23:46 02/02/18 00:00 Temperature 97.7 F Pulse Rate 85 90 91 H Respiratory Rate 18 Blood Pressure 99/59 L Pulse Oximetry 97 02/02/18 04:00 02/02/18 04:03 02/02/18 07:54 Temperature 97.5 F L Pulse Rate 73 77 122 H Respiratory Rate 18 14 Blood Pressure 111/58 L Pulse Oximetry 96 99 02/02/18 08:00 Temperature 98.1 F Pulse Rate 109 H Respiratory Rate 20 Blood Pressure 117/71 Pulse Oximetry 97 Intake & Output 02/01/18 02/02/18 02/02/18 18:59 06:59 18:59 Intake Total 800 / 800 560 / 560 100 / 100 Output Total 150 / 150 650 / 650 Balance 650 / 650 -90 / -90 100 / 100 Weight 101.6 kg Intake: IV 200 / 200 200 / 200 100 / 100 Unasyn Inj 1,500 MG In NS Inj 200 / 200 200 / 200 100 / 100 100 ML @ 200 mls/hr IV.SIG Q6H [facility] Rx#:[id number] Oral 600 / 600 360 / 360 Output: Urine 150 / 150 650 / 650 Other: # Bowel Movements 0 0 pitting edema alyx upper ext's heart reg lungcta abd s/nt ext no lower ext pitting edema bandages over known ulcerations. - Urinary Catheter Management Straight Cath placed during this visit: yes Reason for continuing: Not indwelling catheter Insertion date: 01/31/18 Insertion time: 13:32 Results - Labs CBC & Chem 7: 01/28/18 05:15 01/29/18 06:20 Laboratory Results - last 24 hr 02/01/18 02/01/18 02/01/18 11:49 16:23 21:49 POC Glucose 91 121 H 93 02/02/18 02/02/18 03:20 09:01 POC Glucose 113 H 98 Assessment and Plan - Assessment (1) Wound infection Code(s): T14.8XXA - Other injury of unspecified body region, initial encounter; L08.9 - Local infection of the skin and subcutaneous tissue, unspecified Status: Acute Plan: Wound Infections, B/L heels - Pt follows outpt with General Surgery, Dr. Kaminski. - Wound Cx outpt, left heel, (01/18) --> enterococcus faecalis - h/o enterococcus in left heel wound by outpt culture - Comgmt with ID, Podiatry, Wound Care - Pt received Vancomycin in the ER - Unasyn (01/26 - present) - norco prn pain - DVT prophylaxis with lovenox - Wound care orders placed per Podiatry. - vascular studies per podiatry. gfr better with ivf... - CTA shows severe femoral art dz bilaterally spoke with vascular surg. s/p balloon angioplasty alyx femorals 01/31 plan for dc to snf this weekend. extra lasix today for UE swelling due to IVF convert to po abx and stop iv u/a pending. YAZAN - improving - underlying CKD -3 - pt had decreased appetite, n/v prior to admission - Cr 2.72 (01/25), 2.48 (01/26), 1.76 (01/27), 01/28 1.4. now 1.2 Failure to Thrive - PT - will need SNF at the end of this hospitalization - anticipate d/c to SNF soon COPD - duonebs PAD CAD - ASA, zetia (2) YAZAN (acute kidney injury) Code(s): N17.9 - Acute kidney failure, unspecified Status: Acute (3) Afib Code(s): I48.91 - Unspecified atrial fibrillation Status: Acute (4) COPD (chronic obstructive pulmonary disease) Code(s): J44.9 - Chronic obstructive pulmonary disease, unspecified Status: Chronic (5) Weakness generalized Code(s): R53.1 - Weakness Status: Acute (3) Afib Qualifiers: Atrial fibrillation type: chronic Qualified Code(s): I48.2 - Chronic atrial fibrillation
--- NOTE | 2018-02-02 10:30 | P.PNVS ---
Subjective Subjective/Hospital Course: POD#2 s/p B [facility] EM[facility]Y [facility] obviously still debilitated but feel feel better to him Objective Vital Signs / I&O: Vital Signs 02/01/18 12:00 02/01/18 12:09 02/01/18 16:00 Temperature 98.2 F 98.2 F Pulse Rate 83 97 H 66 Respiratory Rate 19 18 Blood Pressure 147/73 H 108/61 Pulse Oximetry 97 99 02/01/18 19:20 02/01/18 19:21 02/01/18 20:00 Temperature 97.8 F Pulse Rate 91 H 88 Respiratory Rate 18 18 Blood Pressure 116/74 Pulse Oximetry 98 94 L 02/01/18 21:10 02/01/18 23:46 02/02/18 00:00 Temperature 97.7 F Pulse Rate 85 90 91 H Respiratory Rate 18 Blood Pressure 99/59 L Pulse Oximetry 97 02/02/18 04:00 02/02/18 04:03 02/02/18 07:54 Temperature 97.5 F L Pulse Rate 73 77 122 H Respiratory Rate 18 14 Blood Pressure 111/58 L Pulse Oximetry 96 99 02/02/18 08:00 Temperature 98.1 F Pulse Rate 75 Respiratory Rate 20 Blood Pressure 117/71 Pulse Oximetry 97 Intake & Output 02/01/18 02/02/18 02/02/18 18:59 06:59 18:59 Intake Total 800 / 800 560 / 560 100 / 100 Output Total 150 / 150 650 / 650 Balance 650 / 650 -90 / -90 100 / 100 Weight 101.6 kg Intake: IV 200 / 200 200 / 200 100 / 100 Unasyn Inj 1,500 MG In NS Inj 200 / 200 200 / 200 100 / 100 100 ML @ 200 mls/hr IV.SIG Q6H [facility] Rx#:[id number] Oral 600 / 600 360 / 360 Output: Urine 150 / 150 650 / 650 Other: # Bowel Movements 0 0 Physical Exam: B LE edema persists palpable pedal pusles (DP) Laboratory Results - last 24 hr 02/01/18 02/01/18 02/01/18 11:49 16:23 21:49 POC Glucose 91 121 H 93 02/02/18 02/02/18 03:20 09:01 POC Glucose 113 H 98 Assessment and Plan - Assessment (1) Wound of left leg Code(s): S81.802A - Unspecified open wound, left lower leg, initial encounter Status: Chronic (2) Wound of right leg Code(s): S81.801A - Unspecified open wound, right lower leg, initial encounter Status: Chronic - Plan POD#2 s/p B [facility] EM[facility]Y [facility] successful revascularization palpable pulses and feet feel better 1. Medical management per primary service - needs antiplatelet therapy only s/p [facility] EMERGENCY DEPARTMENT (ASA or plavix ok) 2.wound care as you are doing 3. will arrange f/u in my clinic in 1m with ABIs
[2018-02-02] MEDS: Enoxaparin Inj 40 MG/0.4 ML Syringe SQ SCH (13:39)
[2018-02-02] MEDS: Amoxicillin/Clavulanate 500/125 MG Tablet PO SCH ×2 (13:39→22:15)
[2018-02-02] MEDS ORDERED: Furosemide 40 MG Tablet PO ONE (16:00)
[2018-02-03 07:00] VITALS: BP 130/60; TEMP 99.1
[2018-02-03 07:52] VITALS: RESP 14; O2SAT 97
[2018-02-03] MEDS: Amoxicillin/Clavulanate 500/125 MG Tablet PO SCH (08:15)
[2018-02-03] MEDS: Insulin NovoLOG Aspart Correctional Sugar Inj SQ SCH ×2 (08:15→08:22)
[2018-02-03] MEDS: Aspirin 325 MG Tablet PO SCH (08:18)
[2018-02-03] MEDS: Metoprolol Tartrate 50 MG Tablet PO SCH (08:18)
[2018-02-03] MEDS: Ezetimibe 10 MG Tablet PO SCH (08:18)
[2018-02-03] MEDS: Furosemide 40 MG Tablet PO SCH (08:18)
[2018-02-03] MEDS: Allopurinol 300 MG Tablet PO SCH (08:18)
--- NOTE | 2018-02-03 09:38 | P.DS ---
Date of admission: 01/25/18 19:19 Primary care physician: No Primary Care Physician Anticipated date of discharge: 02/03/18 Brief History from admission: This is a pleasant 77-year-old male with past medical history of coronary artery disease, COPD, chronic kidney disease stage III, diabetes with neuropathy, peripheral arterial disease, and paroxysmal atrial fibrillation who presented to the ER today for evaluation of cellulitis and possible infected ulcer of lower extremity. The patient states that he was at the wound care clinic earlier today. He was weak and unable to get out of the car. He then vomited. He felt very dizzy. Of note several days ago he did have a culture of the left heel ulcer which returned positive for enterococcus sensitive to vancomycin. The patient has been under treatment with Dr. Kaminski for the left heel ulcer and also ulcer of the posterior right calf. Today he has redness of his right lower foot. The patient also has chronic pedal edema. He endorses he has not been eating or drinking well. He was hypotensive in the ED, this improved after receiving IVF boluses. He has elevation of BUN and creatinine as compared to baseline. No leukocytosis. DS: Diagnosis - Discharge Diagnosis (1) Wound infection Status: Acute (2) YAZAN (acute kidney injury) Status: Acute (3) Afib Status: Acute (4) COPD (chronic obstructive pulmonary disease) Status: Chronic (5) Weakness generalized Status: Acute DS: Medications - Discharge Medications Prescriptions: alprazolam [Xanax] 0.25 mg PO HS PRN #10 tab PRN Reason: Anxiety aspirin 325 mg PO DAILY 90 Days #90 tab furosemide [Lasix] 20 mg PO DAILY@17 #10 tab hydrocodone-acetaminophen 1 tab PO Q8HR PRN #10 tab PRN Reason: Acute Pain ipratropium-albuterol 1 amp NEB Q6HR WHILE AWAKE NEB 14 Days ml DS: Summary Hospital Course: - Assessment (1) Wound infection Code(s): T14.8XXA - Other injury of unspecified body region, initial encounter; L08.9 - Local infection of the skin and subcutaneous tissue, unspecified Status: Acute Plan: Wound Infections, B/L heels - Pt follows outpt with General Surgery, Dr. Kaminski. - Wound Cx outpt, left heel, (01/18) --> enterococcus faecalis - h/o enterococcus in left heel wound by outpt culture - Comgmt with ID, Podiatry, Wound Care - Pt received Vancomycin in the ER - Unasyn (01/26 - present) - norco prn pain - DVT prophylaxis with lovenox - Wound care orders placed per Podiatry. - vascular studies per podiatry. gfr better with ivf... - CTA shows severe femoral art dz bilaterally spoke with vascular surg. s/p balloon angioplasty alyx femorals 01/31 plan for dc to snf today. extra lasix for UE swelling due to IVF convert to po abx and stop iv send with wound care orders rec. by podiatry YAZAN - improving - underlying CKD -3 - pt had decreased appetite, n/v prior to admission - Cr 2.72 (01/25), 2.48 (01/26), 1.76 (01/27), 01/28 1.4. now 1.2 Failure to Thrive - PT - will need SNF at the end of this hospitalization - anticipate d/c to SNF soon COPD - duonebs PAD CAD - ASA, zetia (2) YAZAN (acute kidney injury) Code(s): N17.9 - Acute kidney failure, unspecified Status: Acute (3) Afib Code(s): I48.91 - Unspecified atrial fibrillation Status: Acute (4) COPD (chronic obstructive pulmonary disease) Code(s): J44.9 - Chronic obstructive pulmonary disease, unspecified Status: Chronic (5) Weakness generalized Code(s): R53.1 - Weakness Status: Acute (3) Afib Qualifiers: Atrial fibrillation type: chronic Qualified Code(s): I48.2 - Chronic atrial fibrillation - Time Spent with Patient Total time spent providing and/or coordinating discharge services: - Quality: VTE Deep Vein Thrombosis/Pulmonary Embolism Present on Admission: No Exam Vital signs: Vital Signs 02/02/18 12:00 02/02/18 12:45 02/02/18 16:00 Temperature 98.0 F 98.2 F Pulse Rate 75 71 77 Respiratory Rate 20 14 20 Blood Pressure 123/59 L 138/88 Pulse Oximetry 99 100 02/02/18 20:00 02/02/18 20:05 02/03/18 00:00 Temperature 98.8 F 98.6 F Pulse Rate 88 102 H 75 Respiratory Rate 20 20 Blood Pressure 124/68 131/78 Pulse Oximetry 99 95 02/03/18 03:45 02/03/18 04:00 02/03/18 07:51 Temperature 99.1 F Pulse Rate 99 H 86 91 H Respiratory Rate 20 14 Blood Pressure 130/60 Pulse Oximetry 95 97 Intake & Output 02/02/18 02/03/18 02/03/18 18:59 06:59 18:59 Intake Total 580 / 580 240 / 240 Output Total 0 / 0 1200 / 1200 Balance 580 / 580 -960 / -960 Weight 100.8 kg Intake: IV 100 / 100 Unasyn Inj 1,500 MG In NS Inj 100 / 100 100 ML @ 200 mls/hr IV.SIG Q6H [facility] Rx#:[id number] Oral 480 / 480 240 / 240 Output: Urine 0 / 0 1200 / 1200 Stool 0 / 0 Results Procedures completed during hospitalization: balloon angioplasty bilateral femoral arteries cta with runoff Labs on day of discharge: Labs from last 24 hours 02/03/18 02/03/18 02/02/18 08:22 05:55 20:04 POC Glucose 124 H 118 H 124 H 02/02/18 02/02/18 17:21 13:41 POC Glucose 119 H 130 H - Impressions ITS Impressions Chest X-Ray 01/25/18 17:54 CONCLUSION: 1. Cardiomegaly. 2. No focal infiltrate or pulmonary vascular congestion. 3. Severe degenerative changes involving the shoulders bilaterally. Extremity Arterial Study 01/26/18 18:34 CONCLUSION: 1. Irregular inconsistent segmental pressures and waveforms particularly on the right. This may reflect diffusely calcified vessels peripherally with artifactually increased pressures. 2. Significantly dampened waveforms with unobtainable pressures in the toes consistent with small vessel disease. 3. Consider CTA examination for better evaluation. 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 This would be amenable to endovascular repair. No inflow stenosis is seen. Discharge Plan - Discharge Disposition Patient Disposition: 03 Discharge to SNF - Discharge Condition Condition: Stable - Discharge Order Discharge Orders: Discharge Order (Routine); Ordered 02/03/18 Ordered By: Zia Gordon Vascular Surgery Clear for Discharge (Routine); Ordered 02/01/18 Ordered By: Ken Benavidez - Discharge Details Anticipated Discharge Date: 02/03/18 - Physicians Team Primary Care Provider: Primary Care Shelia Heaton Attending Provider: Sylvain Reyes Other Providers: Prudence Sandoval MD ; Mariam العلي DPM ; Ken Benavidez MD
[2018-02-03 09:48] VITALS: PULSE 98
== END 2018-02-03 11:33 ==
LOC: NEPC 16:10 → NEDA 19:19 → NEPFCDU 21:32 → N04 01-26 19:03
PROVIDERS: ADMIT Hospitalist; ATTEND Hospitalist
PROC: ANGIOLE (2018-01-31 12:11)

== ENCOUNTER 2018-06-26 15:15 | Inpatient (IN) ==
--- NOTE | 2018-06-26 15:48 | ED ---
HPI General Chief complaint: Weakness Stated complaint: gen weakness Time Seen by Provider: 06/26/18 15:47 Source: patient and family Mode of arrival: wheelchair Limitations: no limitations History of Present Illness HPI Narrative: 78-year-old male with PMH of coronary artery disease, COPD, chronic kidney disease stage III, diabetes with neuropathy, peripheral arterial disease, and paroxysmal atrial fibrillation presents to the ED for evaluation of 2 weeks history of weakness. The patient states that he does not have much of an appetite and anything he eats taste strange. He endorses some retching but denies vomiting. He denies fever, chills, chest pain, palpitations, shortness of breath, cough, abdominal pain, melena, hematochezia, dysuria, hematuria, numbness, tingling, weakness, limitations to range of motion of the extremities. His at bedside says that he has had a gradual weight loss of 30-40 pounds over the course of the year. The patient has chronic wounds in the right leg and sees wound care regularly, last visit today. He is followed by Dr. Johnson, [facility]. Related Data Home Medications Medication Instructions Recorded Confirmed allopurinol 300 mg PO DAILY 01/25/18 06/26/18 ezetimibe [Zetia] 10 mg PO DAILY 01/25/18 06/26/18 furosemide [Lasix] 40 mg PO QAM PRN 01/25/18 06/26/18 hydrocodone-acetaminophen [[place]] 1 tab PO TID 01/25/18 06/26/18 metoprolol tartrate 50 mg PO DAILY 01/25/18 06/26/18 furosemide [Lasix] 20 mg PO DAILY@17 PRN 06/26/18 06/26/18 Previous Rx's Medication Instructions Recorded alprazolam [Xanax] 0.25 mg PO HS PRN #10 tab 02/03/18 Allergies Allergy/AdvReac Type Severity Reaction Status Date / Time amlodipine Allergy Severe JOINT Verified 06/26/18 15:30 PAIN, VOMITING, UNABLE TO MOVE atorvastatin Allergy Severe Nausea/Vomi Verified 06/26/18 15:30 ting lovastatin Allergy Severe Abdominal Verified 06/26/18 15:30 Pain pravastatin Allergy Severe JOINT Verified 06/26/18 15:30 PAIN, VOMITING, UNABLE TO MOVE simvastatin Allergy Severe Nausea/Vomi Verified 06/26/18 15:30 ting tetanus toxoid, adsorbed Allergy Severe VOMITING, Verified 06/26/18 15:30 CRAMPING *MDRO Multi-Drug Resistant AdvReac Unknown Nausea/Vomi Uncoded 01/25/18 17:52 Organism ting Review of Systems ROS: all other systems reviewed are negative [facility] Medical History Medical History GERD (gastroesophageal reflux disease) (Acute) CAD (coronary artery disease) (Acute) Paroxysmal A-fib (Acute) COPD (chronic obstructive pulmonary disease) (Acute) Cellulitis of right foot (Acute) Ulcers of both lower extremities (Acute) PAD (peripheral artery disease) (Acute) CHF (congestive heart failure) (Acute) CKD stage 3 due to type 2 diabetes mellitus (Acute) DM type 2, uncontrolled, with neuropathy (Acute) Edema of both lower extremities due to peripheral venous insufficiency (Acute) HLD (hyperlipidemia) (Acute) HTN (hypertension) (Acute) MASHA (obstructive sleep apnea) (Acute) Pedal edema (Acute) Pulmonary hypertension (Acute) Surgical History Surgical History History of bilateral hip replacements (Acute) Hx of CABG (Acute) Hx of tonsillectomy (Acute) Social History Social History Substance History: No History of Abuse Second Hand Smoke Exposure: No Smoking Status: Former smoker Tobacco Type: Cigarettes How Often Do You Have a Drink Containing Alcohol: Never Recent Travel in [facility] within the Last 8 Weeks: No Recent Out of Country Travel within the Last 8 Weeks: No Exam Narrative Exam Narrative: GENERAL: Well-nourished, well-developed, chronically ill- appearing white male in no acute distress. SKIN: Focused skin assessment warm/dry. Chronic ulcers of the right lower extremity without signs of active infection. HEAD: Atraumatic. Normocephalic. EYES: Pupils equal and round. No scleral icterus. No injection or drainage. ENT: No nasal bleeding or discharge. Mucous membranes pink and moist. NECK: Trachea midline. No JVD. CARDIOVASCULAR: Regular rate and rhythm. No murmur appreciated. RESPIRATORY: No accessory muscle use. Clear to auscultation. Breath sounds equal bilaterally. GASTROINTESTINAL: Abdomen soft, non-tender, nondistended. Hepatic and splenic margins not palpable. MUSCULOSKELETAL: No obvious deformities. No clubbing. No cyanosis. No edema. NEUROLOGICAL: Awake and alert. No obvious cranial nerve deficits. Motor grossly within normal limits. Weak overall. Normal speech. PSYCHIATRIC: Appropriate mood and affect; insight and judgment normal. Course Initial Documented Vital Signs Temperature 96.5 F L 06/26/18 15:19 Pulse Rate 52 L 06/26/18 15:19 Respiratory Rate 12 06/26/18 15:19 Blood Pressure 107/59 L 06/26/18 15:19 Pulse Oximetry 97 06/26/18 15:19 Last Documented Vital Signs Temperature 97.8 F 06/28/18 04:00 Pulse Rate 95 H 06/28/18 04:00 Respiratory Rate 18 06/28/18 04:00 Blood Pressure 172/70 H 06/28/18 04:00 Pulse Oximetry 97 06/28/18 04:00 Medical Decision Making YONY Attestation YONY supervised visit: Yes Attestation: I, Dr. Grove, have reviewed the advance practice practitioner's documentation and am in agreement, met with the patient face to face, made the diagnosis, and the medical decision making was done by me. *My assessment and Findings: [-Patient presented for generalized weakness evaluation, was diagnosed with hyperkalemia, dehydration, renal insufficiency. Patient is admitted for further evaluation and treatment.] MDM Narrative Medical decision making narrative: EKG as below. Troponin negative x1.78-year -old male with PMH of coronary artery disease, COPD, chronic kidney disease stage III, diabetes with neuropathy, peripheral arterial disease, and paroxysmal atrial fibrillation presents to the ED for evaluation of 2 weeks history of weakness. The patient states that he does not have much of an appetite and anything he eats taste strange. He endorses some retching but denies vomiting. His at bedside says that he has had a gradual weight loss of 30-40 pounds over the course of the year. Patient is hypotensive with a heart rate of 52 on presentation. On physical exam he is chronically ill- appearing, dry appearing and generally weak. There are ulcers of the right foot without signs of infection. Lung sounds are equal bilaterally. Patient was administered 500 mL's normal saline. CBC with WBC 8.9, hemoglobin 12.9. INR is 1.1. BUN 32, creatinine 2.63. Calcium 14.01 adjusted for albumin. No evidence of UTI on the UA. CT abdomen pelvis with no acute abnormality. CT of the head shows right frontal sinusitis versus mass. Given the patient's weight loss, hypercalcemia and the CT brain findings plan to admit for evaluation. Patient's agreeable to this plan. I spoke with Dr. Santizo who agrees to accept the patient to the medicine service under Dr. Reyes. Please see medicine notes for disposition. Medical Screen Exam Complete: Yes Emergency Medical Condition: Yes Differential Diagnosis Differential Diagnosis: Malnourishment versus dehydration versus deconditioning versus metabolic derangement versus UTI versus pneumonia versus malignancy versus other Lab Data Result diagrams: 06/27/18 04:48 06/27/18 11:26 Lab Results 06/26/18 06/26/18 06/26/18 Range/Units 16:36 16:36 16:36 WBC 8.9 (4.0-11.0) th/mm3 RBC 4.15 L (4.50-5.90) mil/mm3 Hgb 12.9 L (13.0-17.0) gm/dL Hct 37.3 L (39.0-51.0) % MCV 90.0 (80.0-100.0) fL MCH 31.2 (27.0-34.0) pg MCHC 34.7 (32.0-36.0) % RDW 18.1 H (11.6-17.2) % Plt Count 323 (150-450) th/mm3 MPV 9.2 (7.0-11.0) fL Neut % (Auto) 78.5 H (16.0-70.0) % Lymph % (Auto) 10.1 (9.0-44.0) % [place] % (Auto) 7.7 (0.0-8.0) % Eos % (Auto) 2.6 (0.0-4.0) % Baso % (Auto) 1.1 (0.0-2.0) % Neut # (Auto) 6.9 (1.8-7.7) th/mm3 Lymph # (Auto) 0.9 L (1.0-4.8) th/mm3 [place] # (Auto) 0.7 (0.0-0.9) th/mm3 Eos # (Auto) 0.2 (0.0-0.4) th/mm3 Baso # (Auto) 0.1 (0.0-0.2) th/mm3 WBC Differential . Differential Comment Auto diff final PT 11.2 (9.8-11.6) sec INR 1.1 Ratio Sodium (136-145) meq/L Potassium (3.5-5.1) meq/L Chloride (98-107) meq/L Carbon Dioxide (21.0-32.0) meq/L Anion Gap (5-15) meq/L BUN (7-18) mg/dL Creatinine (0.60-1.30) mg/dL Estimated GFR (>89) mL/min POC Glucose (68-110) mg/dl Random Glucose (74-106) mg/dL Calcium (8.5-10.1) mg/dL Calcium Adj for Albumin (8.5-10.1) mg/dL Phosphorus (2.5-4.9) mg/dL Magnesium (1.5-2.5) mg/dL Iron (65-175) mcg/dL TIBC (250-450) mcg/dL % Saturation (20-50) % Ferritin (26-388) ng/mL Total Bilirubin (0.2-1.0) mg/dL AST (15-37) U/L ALT (12-78) U/L Alkaline Phosphatase (45-117) U/L Ammonia (11-32) mcmol/L Troponin I (0.02-0.05) ng/mL B-Natriuretic Peptide 74 (0-100) pg/mL Total Protein (6.4-8.2) g/dL Total Protein (PEP) (6.4-8.2) gm/dL Albumin (3.4-5.0) g/dL Albumin (PEP) (3.50-5.00) gm/dL Albumin/Globulin Ratio (1.39-2.23) Rwast-2-Nzviddbvc (0.11-0.29) gm/dL Suamz-6-Gwbvnpfib (0.22-1.00) gm/dL Beta Globulins (0.53-1.03) gm/dL Gamma Globulins (0.50-1.39) gm/dL PTH Intact (12.4-76.8) pg/mL Urine Color (Yellw/Straw) Urine Clarity (Clear) Urine pH (5.0-8.5) Ur Specific [place] (1.002-1.035) Urine Protein (Neg-Trace) mg/dL Urine Glucose (UA) (Negative) mg/dL Urine Ketones (Negative) mg/dL Urine Occult Blood (Negative) Urine Nitrate (Negative) Urine Bilirubin (Negative) Urine Urobilinogen (Less than 2) mg/dL Ur Leukocyte Esterase (Negative) Urine RBC (0-3) /hpf Urine WBC (0-5) /hpf Urine Bacteria (None) /hpf Micro UA Comment Ur Microscopic Review Urine Culture Comments Urine Osmolality (300-1300) mosm/kg Ur Random Creatinine (27-300) mg/dL Ur Random Sodium meq/L IgG (680-1670) mg/dL IgA (103-568) mg/dL IgM (38-231) mg/dL [place]/Lambda Ratio (1.57-3.93) Complement C3 (90-180) mg/dL Complement C4 (10-40) mg/dL [place] Light Chain Anal (170-370) mg/dL Lambda Light Chain Anal (90-210) mg/dL Hepatitis A IgM Ab (Nonreactive) Hep Bs Antigen (Nonreactive) Hep B Core IgM Ab (Nonreactive) Hep C IgG Ab (Nonreactive) 06/26/18 06/26/18 06/27/18 Range/Units 16:36 19:11 04:48 WBC (4.0-11.0) th/mm3 RBC (4.50-5.90) mil/mm3 Hgb (13.0-17.0) gm/dL Hct (39.0-51.0) % MCV (80.0-100.0) fL MCH (27.0-34.0) pg MCHC (32.0-36.0) % RDW (11.6-17.2) % Plt Count (150-450) th/mm3 MPV (7.0-11.0) fL Neut % (Auto) (16.0-70.0) % Lymph % (Auto) (9.0-44.0) % [place] % (Auto) (0.0-8.0) % Eos % (Auto) (0.0-4.0) % Baso % (Auto) (0.0-2.0) % Neut # (Auto) (1.8-7.7) th/mm3 Lymph # (Auto) (1.0-4.8) th/mm3 [place] # (Auto) (0.0-0.9) th/mm3 Eos # (Auto) (0.0-0.4) th/mm3 Baso # (Auto) (0.0-0.2) th/mm3 WBC Differential Differential Comment PT (9.8-11.6) sec INR Ratio Sodium 136 137 (136-145) meq/L Potassium 4.5 4.1 (3.5-5.1) meq/L Chloride 96 L 100 (98-107) meq/L Carbon Dioxide 24.7 23.0 (21.0-32.0) meq/L Anion Gap 15 14 (5-15) meq/L BUN 32 H 31 H (7-18) mg/dL Creatinine 2.63 H 2.57 H (0.60-1.30) mg/dL Estimated GFR 24 L 24 L (>89) mL/min POC Glucose 90 (68-110) mg/dl Random Glucose 96 47 L* (74-106) mg/dL Calcium 13.3 H* 13.6 H* (8.5-10.1) mg/dL Calcium Adj for Albumin 14.0 H* 14.4 H* (8.5-10.1) mg/dL Phosphorus (2.5-4.9) mg/dL Magnesium 1.8 (1.5-2.5) mg/dL Iron (65-175) mcg/dL TIBC (250-450) mcg/dL % Saturation (20-50) % Ferritin (26-388) ng/mL Total Bilirubin 0.9 0.9 (0.2-1.0) mg/dL AST 13 L 12 L (15-37) U/L ALT 8 L 8 L (12-78) U/L Alkaline Phosphatase 80 72 (45-117) U/L Ammonia (11-32) mcmol/L Troponin I Less than 0.02 L (0.02-0.05) ng/mL B-Natriuretic Peptide (0-100) pg/mL Total Protein 7.1 6.8 (6.4-8.2) g/dL Total Protein (PEP) (6.4-8.2) gm/dL Albumin 3.1 L 3.0 L (3.4-5.0) g/dL Albumin (PEP) (3.50-5.00) gm/dL Albumin/Globulin Ratio (1.39-2.23) Uvjvg-6-Ixoyoqjuj (0.11-0.29) gm/dL Igezy-1-Lotxukmyc (0.22-1.00) gm/dL Beta Globulins (0.53-1.03) gm/dL Gamma Globulins (0.50-1.39) gm/dL PTH Intact (12.4-76.8) pg/mL Urine Color (Yellw/Straw) Urine Clarity (Clear) Urine pH (5.0-8.5) Ur Specific [place] (1.002-1.035) Urine Protein (Neg-Trace) mg/dL Urine Glucose (UA) (Negative) mg/dL Urine Ketones (Negative) mg/dL Urine Occult Blood (Negative) Urine Nitrate (Negative) Urine Bilirubin (Negative) Urine Urobilinogen (Less than 2) mg/dL Ur Leukocyte Esterase (Negative) Urine RBC (0-3) /hpf Urine WBC (0-5) /hpf Urine Bacteria (None) /hpf Micro UA Comment Ur Microscopic Review Urine Culture Comments Urine Osmolality (300-1300) mosm/kg Ur Random Creatinine (27-300) mg/dL Ur Random Sodium meq/L IgG (680-1670) mg/dL IgA (103-568) mg/dL IgM (38-231) mg/dL [place]/Lambda Ratio (1.57-3.93) Complement C3 (90-180) mg/dL Complement C4 (10-40) mg/dL [place] Light Chain Anal (170-370) mg/dL Lambda Light Chain Anal (90-210) mg/dL Hepatitis A IgM Ab (Nonreactive) Hep Bs Antigen (Nonreactive) Hep B Core IgM Ab (Nonreactive) Hep C IgG Ab (Nonreactive) 06/27/18 06/27/18 06/27/18 Range/Units 04:48 06:25 08:05 WBC 5.5 (4.0-11.0) th/mm3 RBC 4.32 L (4.50-5.90) mil/mm3 Hgb 12.7 L (13.0-17.0) gm/dL Hct 39.8 (39.0-51.0) % MCV 92.2 (80.0-100.0) fL MCH 29.4 (27.0-34.0) pg MCHC 31.8 L (32.0-36.0) % RDW 17.8 H (11.6-17.2) % Plt Count 279 (150-450) th/mm3 MPV 9.9 (7.0-11.0) fL Neut % (Auto) 63.9 (16.0-70.0) % Lymph % (Auto) 16.5 (9.0-44.0) % [place] % (Auto) 10.3 H (0.0-8.0) % Eos % (Auto) 8.0 H (0.0-4.0) % Baso % (Auto) 1.3 (0.0-2.0) % Neut # (Auto) 3.5 (1.8-7.7) th/mm3 Lymph # (Auto) 0.9 L (1.0-4.8) th/mm3 [place] # (Auto) 0.6 (0.0-0.9) th/mm3 Eos # (Auto) 0.4 (0.0-0.4) th/mm3 Baso # (Auto) 0.1 (0.0-0.2) th/mm3 WBC Differential . Differential Comment Auto diff final PT (9.8-11.6) sec INR Ratio Sodium (136-145) meq/L Potassium (3.5-5.1) meq/L Chloride (98-107) meq/L Carbon Dioxide (21.0-32.0) meq/L Anion Gap (5-15) meq/L BUN (7-18) mg/dL Creatinine (0.60-1.30) mg/dL Estimated GFR (>89) mL/min POC Glucose 65 L (68-110) mg/dl Random Glucose (74-106) mg/dL Calcium (8.5-10.1) mg/dL Calcium Adj for Albumin (8.5-10.1) mg/dL Phosphorus (2.5-4.9) mg/dL Magnesium (1.5-2.5) mg/dL Iron (65-175) mcg/dL TIBC (250-450) mcg/dL % Saturation (20-50) % Ferritin (26-388) ng/mL Total Bilirubin (0.2-1.0) mg/dL AST (15-37) U/L ALT (12-78) U/L Alkaline Phosphatase (45-117) U/L Ammonia (11-32) mcmol/L Troponin I (0.02-0.05) ng/mL B-Natriuretic Peptide (0-100) pg/mL Total Protein (6.4-8.2) g/dL Total Protein (PEP) (6.4-8.2) gm/dL Albumin (3.4-5.0) g/dL Albumin (PEP) (3.50-5.00) gm/dL Albumin/Globulin Ratio (1.39-2.23) Xhysw-7-Kdzcnicyc (0.11-0.29) gm/dL Wsnfh-1-Cntwnvnvi (0.22-1.00) gm/dL Beta Globulins (0.53-1.03) gm/dL Gamma Globulins (0.50-1.39) gm/dL PTH Intact (12.4-76.8) pg/mL Urine Color Yellow (Yellw/Straw) Urine Clarity Clear (Clear) Urine pH 5.0 (5.0-8.5) Ur Specific [place] 1.014 (1.002-1.035) Urine Protein 30 H (Neg-Trace) mg/dL Urine Glucose (UA) Negative (Negative) mg/dL Urine Ketones 20 (Negative) mg/dL Urine Occult Blood Negative (Negative) Urine Nitrate Negative (Negative) Urine Bilirubin Negative (Negative) Urine Urobilinogen 2.0 H (Less than 2) mg/dL Ur Leukocyte Esterase Negative (Negative) Urine RBC Less than 1 (0-3) /hpf Urine WBC 2 (0-5) /hpf Urine Bacteria Rare H (None) /hpf Micro UA Comment Culture not ind Ur Microscopic Review Not Reportable Urine Culture Comments Culture not ind Urine Osmolality (300-1300) mosm/kg Ur Random Creatinine (27-300) mg/dL Ur Random Sodium meq/L IgG (680-1670) mg/dL IgA (103-568) mg/dL IgM (38-231) mg/dL [place]/Lambda Ratio (1.57-3.93) Complement C3 (90-180) mg/dL Complement C4 (10-40) mg/dL [place] Light Chain Anal (170-370) mg/dL Lambda Light Chain Anal (90-210) mg/dL Hepatitis A IgM Ab (Nonreactive) Hep Bs Antigen (Nonreactive) Hep B Core IgM Ab (Nonreactive) Hep C IgG Ab (Nonreactive) 06/27/18 06/27/18 06/27/18 Range/Units 10:35 11:26 11:26 WBC (4.0-11.0) th/mm3 RBC (4.50-5.90) mil/mm3 Hgb (13.0-17.0) gm/dL Hct (39.0-51.0) % MCV (80.0-100.0) fL MCH (27.0-34.0) pg MCHC (32.0-36.0) % RDW (11.6-17.2) % Plt Count (150-450) th/mm3 MPV (7.0-11.0) fL Neut % (Auto) (16.0-70.0) % Lymph % (Auto) (9.0-44.0) % [place] % (Auto) (0.0-8.0) % Eos % (Auto) (0.0-4.0) % Baso % (Auto) (0.0-2.0) % Neut # (Auto) (1.8-7.7) th/mm3 Lymph # (Auto) (1.0-4.8) th/mm3 [place] # (Auto) (0.0-0.9) th/mm3 Eos # (Auto) (0.0-0.4) th/mm3 Baso # (Auto) (0.0-0.2) th/mm3 WBC Differential Differential Comment PT (9.8-11.6) sec INR Ratio Sodium 137 (136-145) meq/L Potassium 3.6 (3.5-5.1) meq/L Chloride 101 (98-107) meq/L Carbon Dioxide 23.6 (21.0-32.0) meq/L Anion Gap 12 (5-15) meq/L BUN 31 H (7-18) mg/dL Creatinine 2.45 H (0.60-1.30) mg/dL Estimated GFR 26 L (>89) mL/min POC Glucose 111 H (68-110) mg/dl Random Glucose 93 (74-106) mg/dL Calcium 12.5 H* D (8.5-10.1) mg/dL Calcium Adj for Albumin (8.5-10.1) mg/dL Phosphorus 2.6 2.7 (2.5-4.9) mg/dL Magnesium 1.7 (1.5-2.5) mg/dL Iron 46 L (65-175) mcg/dL TIBC 213 L (250-450) mcg/dL % Saturation 21.6 (20-50) % Ferritin 425 H (26-388) ng/mL Total Bilirubin (0.2-1.0) mg/dL AST (15-37) U/L ALT (12-78) U/L Alkaline Phosphatase (45-117) U/L Ammonia (11-32) mcmol/L Troponin I (0.02-0.05) ng/mL B-Natriuretic Peptide (0-100) pg/mL Total Protein (6.4-8.2) g/dL Total Protein (PEP) 6.5 (6.4-8.2) gm/dL Albumin 2.8 L (3.4-5.0) g/dL Albumin (PEP) 3.56 (3.50-5.00) gm/dL Albumin/Globulin Ratio 1.21 L (1.39-2.23) Nfalj-5-Upgqcbwep 0.26 (0.11-0.29) gm/dL Gerke-9-Lnddbymbn 0.93 (0.22-1.00) gm/dL Beta Globulins 0.65 (0.53-1.03) gm/dL Gamma Globulins 1.11 (0.50-1.39) gm/dL PTH Intact (12.4-76.8) pg/mL Urine Color (Yellw/Straw) Urine Clarity (Clear) Urine pH (5.0-8.5) Ur Specific [place] (1.002-1.035) Urine Protein (Neg-Trace) mg/dL Urine Glucose (UA) (Negative) mg/dL Urine Ketones (Negative) mg/dL Urine Occult Blood (Negative) Urine Nitrate (Negative) Urine Bilirubin (Negative) Urine Urobilinogen (Less than 2) mg/dL Ur Leukocyte Esterase (Negative) Urine RBC (0-3) /hpf Urine WBC (0-5) /hpf Urine Bacteria (None) /hpf Micro UA Comment Ur Microscopic Review Urine Culture Comments Urine Osmolality (300-1300) mosm/kg Ur Random Creatinine (27-300) mg/dL Ur Random Sodium meq/L IgG 834 (680-1670) mg/dL IgA 153 (103-568) mg/dL IgM 59 (38-231) mg/dL [place]/Lambda Ratio 1.56 L (1.57-3.93) Complement C3 111 (90-180) mg/dL Complement C4 47 H (10-40) mg/dL [place] Light Chain Anal 192 (170-370) mg/dL Lambda Light Chain Anal 123 (90-210) mg/dL Hepatitis A IgM Ab (Nonreactive) Hep Bs Antigen (Nonreactive) Hep B Core IgM Ab (Nonreactive) Hep C IgG Ab (Nonreactive) 06/27/18 06/27/18 06/27/18 Range/Units 11:26 11:34 19:32 WBC (4.0-11.0) th/mm3 RBC (4.50-5.90) mil/mm3 Hgb (13.0-17.0) gm/dL Hct (39.0-51.0) % MCV (80.0-100.0) fL MCH (27.0-34.0) pg MCHC (32.0-36.0) % RDW (11.6-17.2) % Plt Count (150-450) th/mm3 MPV (7.0-11.0) fL Neut % (Auto) (16.0-70.0) % Lymph % (Auto) (9.0-44.0) % [place] % (Auto) (0.0-8.0) % Eos % (Auto) (0.0-4.0) % Baso % (Auto) (0.0-2.0) % Neut # (Auto) (1.8-7.7) th/mm3 Lymph # (Auto) (1.0-4.8) th/mm3 [place] # (Auto) (0.0-0.9) th/mm3 Eos # (Auto) (0.0-0.4) th/mm3 Baso # (Auto) (0.0-0.2) th/mm3 WBC Differential Differential Comment PT (9.8-11.6) sec INR Ratio Sodium (136-145) meq/L Potassium (3.5-5.1) meq/L Chloride (98-107) meq/L Carbon Dioxide (21.0-32.0) meq/L Anion Gap (5-15) meq/L BUN (7-18) mg/dL Creatinine (0.60-1.30) mg/dL Estimated GFR (>89) mL/min POC Glucose (68-110) mg/dl Random Glucose (74-106) mg/dL Calcium (8.5-10.1) mg/dL Calcium Adj for Albumin (8.5-10.1) mg/dL Phosphorus (2.5-4.9) mg/dL Magnesium (1.5-2.5) mg/dL Iron (65-175) mcg/dL TIBC (250-450) mcg/dL % Saturation (20-50) % Ferritin (26-388) ng/mL Total Bilirubin (0.2-1.0) mg/dL AST (15-37) U/L ALT (12-78) U/L Alkaline Phosphatase (45-117) U/L Ammonia Less than 10 L (11-32) mcmol/L Troponin I (0.02-0.05) ng/mL B-Natriuretic Peptide (0-100) pg/mL Total Protein (6.4-8.2) g/dL Total Protein (PEP) (6.4-8.2) gm/dL Albumin (3.4-5.0) g/dL Albumin (PEP) (3.50-5.00) gm/dL Albumin/Globulin Ratio (1.39-2.23) Xzgdf-5-Sfohgnhrt (0.11-0.29) gm/dL Rbyiq-7-Rgxugcpft (0.22-1.00) gm/dL Beta Globulins (0.53-1.03) gm/dL Gamma Globulins (0.50-1.39) gm/dL PTH Intact (12.4-76.8) pg/mL Urine Color (Yellw/Straw) Urine Clarity (Clear) Urine pH (5.0-8.5) Ur Specific [place] (1.002-1.035) Urine Protein (Neg-Trace) mg/dL Urine Glucose (UA) (Negative) mg/dL Urine Ketones (Negative) mg/dL Urine Occult Blood (Negative) Urine Nitrate (Negative) Urine Bilirubin (Negative) Urine Urobilinogen (Less than 2) mg/dL Ur Leukocyte Esterase (Negative) Urine RBC (0-3) /hpf Urine WBC (0-5) /hpf Urine Bacteria (None) /hpf Micro UA Comment Ur Microscopic Review Urine Culture Comments Urine Osmolality (300-1300) mosm/kg Ur Random Creatinine 105 (27-300) mg/dL Ur Random Sodium 19 meq/L IgG (680-1670) mg/dL IgA (103-568) mg/dL IgM (38-231) mg/dL [place]/Lambda Ratio (1.57-3.93) Complement C3 (90-180) mg/dL Complement C4 (10-40) mg/dL [place] Light Chain Anal (170-370) mg/dL Lambda Light Chain Anal (90-210) mg/dL Hepatitis A IgM Ab Nonreactive (Nonreactive) Hep Bs Antigen Nonreactive (Nonreactive) Hep B Core IgM Ab Nonreactive (Nonreactive) Hep C IgG Ab Nonreactive (Nonreactive) 06/27/18 06/27/18 06/27/18 Range/Units 19:32 20:38 20:58 WBC (4.0-11.0) th/mm3 RBC (4.50-5.90) mil/mm3 Hgb (13.0-17.0) gm/dL Hct (39.0-51.0) % MCV (80.0-100.0) fL MCH (27.0-34.0) pg MCHC (32.0-36.0) % RDW (11.6-17.2) % Plt Count (150-450) th/mm3 MPV (7.0-11.0) fL Neut % (Auto) (16.0-70.0) % Lymph % (Auto) (9.0-44.0) % [place] % (Auto) (0.0-8.0) % Eos % (Auto) (0.0-4.0) % Baso % (Auto) (0.0-2.0) % Neut # (Auto) (1.8-7.7) th/mm3 Lymph # (Auto) (1.0-4.8) th/mm3 [place] # (Auto) (0.0-0.9) th/mm3 Eos # (Auto) (0.0-0.4) th/mm3 Baso # (Auto) (0.0-0.2) th/mm3 WBC Differential Differential Comment PT (9.8-11.6) sec INR Ratio Sodium (136-145) meq/L Potassium (3.5-5.1) meq/L Chloride (98-107) meq/L Carbon Dioxide (21.0-32.0) meq/L Anion Gap (5-15) meq/L BUN (7-18) mg/dL Creatinine (0.60-1.30) mg/dL Estimated GFR (>89) mL/min POC Glucose 109 (68-110) mg/dl Random Glucose (74-106) mg/dL Calcium (8.5-10.1) mg/dL Calcium Adj for Albumin (8.5-10.1) mg/dL Phosphorus (2.5-4.9) mg/dL Magnesium (1.5-2.5) mg/dL Iron (65-175) mcg/dL TIBC (250-450) mcg/dL % Saturation (20-50) % Ferritin (26-388) ng/mL Total Bilirubin (0.2-1.0) mg/dL AST (15-37) U/L ALT (12-78) U/L Alkaline Phosphatase (45-117) U/L Ammonia (11-32) mcmol/L Troponin I (0.02-0.05) ng/mL B-Natriuretic Peptide (0-100) pg/mL Total Protein (6.4-8.2) g/dL Total Protein (PEP) (6.4-8.2) gm/dL Albumin (3.4-5.0) g/dL Albumin (PEP) (3.50-5.00) gm/dL Albumin/Globulin Ratio (1.39-2.23) Poxbl-1-Hbotyclly (0.11-0.29) gm/dL Symln-5-Voxhenana (0.22-1.00) gm/dL Beta Globulins (0.53-1.03) gm/dL Gamma Globulins (0.50-1.39) gm/dL PTH Intact Less than 6.3 L (12.4-76.8) pg/mL Urine Color (Yellw/Straw) Urine Clarity (Clear) Urine pH (5.0-8.5) Ur Specific [place] (1.002-1.035) Urine Protein (Neg-Trace) mg/dL Urine Glucose (UA) (Negative) mg/dL Urine Ketones (Negative) mg/dL Urine Occult Blood (Negative) Urine Nitrate (Negative) Urine Bilirubin (Negative) Urine Urobilinogen (Less than 2) mg/dL Ur Leukocyte Esterase (Negative) Urine RBC (0-3) /hpf Urine WBC (0-5) /hpf Urine Bacteria (None) /hpf Micro UA Comment Ur Microscopic Review Urine Culture Comments Urine Osmolality 386 (300-1300) mosm/kg Ur Random Creatinine (27-300) mg/dL Ur Random Sodium meq/L IgG (680-1670) mg/dL IgA (103-568) mg/dL IgM (38-231) mg/dL [place]/Lambda Ratio (1.57-3.93) Complement C3 (90-180) mg/dL Complement C4 (10-40) mg/dL [place] Light Chain Anal (170-370) mg/dL Lambda Light Chain Anal (90-210) mg/dL Hepatitis A IgM Ab (Nonreactive) Hep Bs Antigen (Nonreactive) Hep B Core IgM Ab (Nonreactive) Hep C IgG Ab (Nonreactive) 06/28/18 Range/Units 05:10 WBC (4.0-11.0) th/mm3 RBC (4.50-5.90) mil/mm3 Hgb (13.0-17.0) gm/dL Hct (39.0-51.0) % MCV (80.0-100.0) fL MCH (27.0-34.0) pg MCHC (32.0-36.0) % RDW (11.6-17.2) % Plt Count (150-450) th/mm3 MPV (7.0-11.0) fL Neut % (Auto) (16.0-70.0) % Lymph % (Auto) (9.0-44.0) % [place] % (Auto) (0.0-8.0) % Eos % (Auto) (0.0-4.0) % Baso % (Auto) (0.0-2.0) % Neut # (Auto) (1.8-7.7) th/mm3 Lymph # (Auto) (1.0-4.8) th/mm3 [place] # (Auto) (0.0-0.9) th/mm3 Eos # (Auto) (0.0-0.4) th/mm3 Baso # (Auto) (0.0-0.2) th/mm3 WBC Differential Differential Comment PT (9.8-11.6) sec INR Ratio Sodium (136-145) meq/L Potassium (3.5-5.1) meq/L Chloride (98-107) meq/L Carbon Dioxide (21.0-32.0) meq/L Anion Gap (5-15) meq/L BUN (7-18) mg/dL Creatinine (0.60-1.30) mg/dL Estimated GFR (>89) mL/min POC Glucose 105 (68-110) mg/dl Random Glucose (74-106) mg/dL Calcium (8.5-10.1) mg/dL Calcium Adj for Albumin (8.5-10.1) mg/dL Phosphorus (2.5-4.9) mg/dL Magnesium (1.5-2.5) mg/dL Iron (65-175) mcg/dL TIBC (250-450) mcg/dL % Saturation (20-50) % Ferritin (26-388) ng/mL Total Bilirubin (0.2-1.0) mg/dL AST (15-37) U/L ALT (12-78) U/L Alkaline Phosphatase (45-117) U/L Ammonia (11-32) mcmol/L Troponin I (0.02-0.05) ng/mL B-Natriuretic Peptide (0-100) pg/mL Total Protein (6.4-8.2) g/dL Total Protein (PEP) (6.4-8.2) gm/dL Albumin (3.4-5.0) g/dL Albumin (PEP) (3.50-5.00) gm/dL Albumin/Globulin Ratio (1.39-2.23) Smatj-9-Onpgzwzgh (0.11-0.29) gm/dL Mixgg-6-Ydvrxqsie (0.22-1.00) gm/dL Beta Globulins (0.53-1.03) gm/dL Gamma Globulins (0.50-1.39) gm/dL PTH Intact (12.4-76.8) pg/mL Urine Color (Yellw/Straw) Urine Clarity (Clear) Urine pH (5.0-8.5) Ur Specific [place] (1.002-1.035) Urine Protein (Neg-Trace) mg/dL Urine Glucose (UA) (Negative) mg/dL Urine Ketones (Negative) mg/dL Urine Occult Blood (Negative) Urine Nitrate (Negative) Urine Bilirubin (Negative) Urine Urobilinogen (Less than 2) mg/dL Ur Leukocyte Esterase (Negative) Urine RBC (0-3) /hpf Urine WBC (0-5) /hpf Urine Bacteria (None) /hpf Micro UA Comment Ur Microscopic Review Urine Culture Comments Urine Osmolality (300-1300) mosm/kg Ur Random Creatinine (27-300) mg/dL Ur Random Sodium meq/L IgG (680-1670) mg/dL IgA (103-568) mg/dL IgM (38-231) mg/dL [place]/Lambda Ratio (1.57-3.93) Complement C3 (90-180) mg/dL Complement C4 (10-40) mg/dL [place] Light Chain Anal (170-370) mg/dL Lambda Light Chain Anal (90-210) mg/dL Hepatitis A IgM Ab (Nonreactive) Hep Bs Antigen (Nonreactive) Hep B Core IgM Ab (Nonreactive) Hep C IgG Ab (Nonreactive) Imaging Data Radiologist's impression: Chest X-Ray 06/26/18 16:06 CONCLUSION: 1. Stable postsurgical features and compensated cardiomegaly. 2. No acute abnormality. Head CT 06/26/18 16:08 CONCLUSION: No acute intracranial abnormality demonstrated. Right frontal sinusitis versus mass. . Abdomen/Pelvis CT 06/26/18 17:48 CONCLUSION: 1. No acute abnormality demonstrated. 2. Scattered benign-appearing cysts of the liver. 3. Mild atrophy of the right kidney, similar to before. 4. Atherosclerotic abdominal aorta and branch vessels. Abdomen/Bladder Ultrasound 06/27/18 00:00 CONCLUSION: 1. No hydronephrosis. However, right kidney is small in size with cortical thinning and echogenicity suggesting chronic medical renal disease. 2. There is at least one polypoid nodular mass along the anterior urinary bladder wall measuring up to 6 mm. Suggest correlating for hematuria since this could represent a urothelial neoplasm. Also consider correlation with cystoscopy or could noninvasively evaluate with pelvis MRI with and without intravenous contrast if the patient has a stable GFR greater than 30. Head MRI 06/27/18 00:00 CONCLUSION: No evidence of acute intracranial pathology. No masses are identified. Findings characteristic of frontal sinus mucocele. CT scan of the sinuses is recommended if clinically indicated ECG Data Attestation: I personally reviewed and interpreted this ECG as follows: Interpretation: Rate 52, A. fib. Normal axis. No acute ST changes. Reviewed by Dr. Terrell cough. Discharge Plan Discharge Disposition Patient Disposition: ED Admit(ED Internal Use Only) Discharge Order Discharge Orders: ED Use Only Admit Order (Routine); Ordered 06/26/18 Ordered By: Haley Corona Discharge Details Diagnosis: Weakness generalized, Dehydration, Hypercalcemia Physicians Team ED Provider: [place] [facility] Midlevel Provider: Haley Corona Primary Care Provider: Celi Johnson Attending Provider: Sylvain Reyes Other Providers: Matthew Coon ; Bolivar Gupta ; Pedro Pablo Rosenberg V ; Qamar Ibrahim Discharge Interventions Interventions: ED Discharge Assessment Last Done: 06/26/18 21:37 Status ED Status: Left Department Discharge Information Discharge Date/Time: 06/26/18 21:43
[2018-06-26] MEDS ORDERED: Sodium Chlor 0.9% Inj 500 ML IV.SIG ONE (16:06)
--- NOTE | 2018-06-26 16:36 | XR ---
EXAM DATE: 06/26/2018 4:31 PM EST AGE/SEX: 78 years / Male INDICATIONS: Cough. CLINICAL DATA: This is the patient's initial encounter. Patient reports that signs and symptoms have been present for 3 days and indicates a pain score of 0/10. MEDICAL/SURGICAL HISTORY: Congestive heart failure. Cardiovascular disease. CABG. COMPARISON: [facility] – [place], CHEST 1V SINGLE AP, 01/25/2018. . FINDINGS: No significant new focal pleural or parenchymal opacities. Postsurgical features of prior median ster notomy. Stable mild enlargement of the cardiac silhouette. Bony thorax is grossly intact. CONCLUSION: 1. Stable postsurgical features and compensated cardiomegaly. 2. No acute abnormality. Electronically signed by: Ke Mckeon MD 06/26/2018 4:35 PM EST
[2018-06-26 17:00] LABS: Baso # (Auto) 0.1 th/mm3 (0.0-0.2); Baso % (Auto) 1.1 % (0.0-2.0); Eos # (Auto) 0.2 th/mm3 (0.0-0.4); Eos % (Auto) 2.6 % (0.0-4.0); Hematocrit 37.3 % (39.0-51.0); Hemoglobin 12.9 gm/dL (13.0-17.0); Lymph # (Auto) 0.9 th/mm3 (1.0-4.8); Lymph % (Auto) 10.1 % (9.0-44.0); Mean Corpuscular HGB Conc 34.7 % (32.0-36.0); Mean Corpuscular Hemoglobin 31.2 pg (27.0-34.0); Mean Platelet Volume 9.2 fL (7.0-11.0); Mono # (Auto) 0.7 th/mm3 (0.0-0.9); Mono % (Auto) 7.7 % (0.0-8.0); Neut # (Auto) 6.9 th/mm3 (1.8-7.7); Neut % (Auto) 78.5 % (16.0-70.0); Platelet Count 323 th/mm3 (150-450); Red Blood Count 4.15 mil/mm3 (4.50-5.90); Red Cell Distribution Width 18.1 % (11.6-17.2); White Blood Count 8.9 th/mm3 (4.0-11.0)
[2018-06-26 17:06] LABS: INR 1.1 Ratio; Prothrombin Time 11.2 sec (9.8-11.6)
[2018-06-26 17:22] LABS: Alanine Aminotransferase 8 U/L (12-78); Albumin 3.1 g/dL (3.4-5.0); Alkaline Phosphatase 80 U/L (45-117); Anion Gap 15 meq/L (5-15); Aspartate Aminotransferase 13 U/L (15-37); Blood Urea Nitrogen 32 mg/dL (7-18); Calcium 13.3 mg/dL (8.5-10.1); Carbon Dioxide 24.7 meq/L (21.0-32.0); Chloride 96 meq/L (98-107); Glomerular Filtration Rate 24 mL/min (>89); Glucose,Random 96 mg/dL (74-106); Magnesium 1.8 mg/dL (1.5-2.5); Potassium 4.5 meq/L (3.5-5.1); Sodium 136 meq/L (136-145); Total Protein 7.1 g/dL (6.4-8.2)
--- NOTE | 2018-06-26 18:21 | CT ---
EXAM DATE: 06/26/2018 6:10 PM EST AGE/SEX: 78 years / Male INDICATIONS: General weakness. CLINICAL DATA: This is the patient's initial encounter. Patient reports that signs and symptoms have been present for 2 weeks and indicates a pain score of 0/10. MEDICAL/SURGICAL HISTORY: Congestive heart failure. Hypertension. Diabetes. CAD. CKD. COPD. GERD . CABG. RADIATION DOSE: 53.89 CTDI (mGy) ;Tabletop exam COMPARISON: No prior exams available for comparison. TECHNIQUE: CT of the head without contrast. Using automated exposure control and adjustment of the mA and/or kV according to patient size, radiation dose was kept as low as reasonably achievable to ob tain optimal diagnostic quality images. DICOM format image data is available electronically for revi ew and comparison. FINDINGS: Cerebrum: The ventricles are normal for age. No evidence of midline shift, mass lesion, hemorrhage or acute infarction. No extraaxial fluid collections are seen. Posterior Fossa: The cerebellum and brainstem are intact. The 4th ventricle is midline. The cerebe llopontine angle is unremarkable. Extracranial: There is heterogeneous material totally opacifying the right frontal sinus. Skull: The calvaria is intact. No evidence of skull fracture. CONCLUSION: No acute intracranial abnormality demonstrated. Right frontal sinusitis versus mass. . Electronically signed by: Jerry Smith MD 06/26/2018 6:19 PM EST
--- NOTE | 2018-06-26 19:06 | CT ---
EXAM DATE: 06/26/2018 6:13 PM EST AGE/SEX: 78 years / Male INDICATIONS: Mid-abdomen pain, loss of appetite. CLINICAL DATA: This is the patient's initial encounter. Patient reports that signs and symptoms have been present for 2 weeks and indicates a pain score of 6/10. MEDICAL/SURGICAL HISTORY: Diabetes. Hypertension. Congestive heart failure. CAD. CKD. COPD. GERD. CABG. Bilateral hip replacements. RADIATION DOSE: 14.72 CTDI (mGy) COMPARISON: [facility] – [place], CTA THORACIC ABDOMINAL AORTA W 3D RECON, 08/14/2016. . TECHNIQUE: Multiple contiguous axial images were obtained through the abdomen. Images were obtained using multiple row detector helical technique. Using automated exposure control and adjustment of the mA and/or kV according to patient size, radiation dose was kept as low as reasonably achievable to o btain optimal diagnostic quality images. DICOM format image data is available electronically for rev iew and comparison. FINDINGS: Scattered benign-appearing cysts measuring up to 3.2 cm are seen of the liver. No acute liver abnorma lity demonstrated. Noncontrast appearance of the spleen, pancreas and adrenal glands within normal li mits. Mild atrophy again seen of the right kidney. No obstruction or inflammatory changes are seen of the gastrointestinal tract. There is atherosclerosis of the abdominal aorta. The vessel measures 2.8 cm maximum, similar to the p rior CTA. There is dense atherosclerosis at the origins of the branch vessels. No free fluid or free air. No lymphadenopathy. Visualized lung bases are clear. No acute bony abnormality demonstrated. CONCLUSION: 1. No acute abnormality demonstrated. 2. Scattered benign-appearing cysts of the liver. 3. Mild atrophy of the right kidney, similar to before. 4. Atherosclerotic abdominal aorta and branch vessels. Electronically signed by: Jerry Smith MD 06/26/2018 7:05 PM EST
[2018-06-26] MEDS ORDERED: Acetaminophen 325 MG Tablet PO PRN (20:36)
[2018-06-26] MEDS ORDERED: Sod Chloride 0.9% Inj 1,000 ML IV.CONT SCH (20:45)
--- NOTE | 2018-06-26 20:47 | P.HP ---
History of Present Illness [facility] Primary Care Physician: Celi Johnson MD Chief Complaint: Increasing generalized weakness weight loss History of Present Illness: 78-year-old male with PMH of coronary artery disease, COPD, chronic kidney disease stage III, diabetes with neuropathy, peripheral arterial disease, and paroxysmal atrial fibrillation, chronic lower extremity wounds right lower extremity followed by wound clinic, presents to the ED for evaluation of 2 weeks history of weakness. The patient states that he does not have much of an appetite and anything he eats taste strange. He endorses some retching but denies vomiting. He denies fever, chills, chest pain, palpitations, shortness of breath, cough, abdominal pain, melena, hematochezia, dysuria, hematuria, numbness, tingling, weakness, limitations to range of motion of the extremities. His at bedside says that he has had a gradual weight loss of 30-40 pounds over the course of the year. The patient has chronic wounds in the right leg and sees wound care regularly, last visit today. In the emergency room lab workup revealed that creatinine of greater than 2 with a history of CKD stage III may be acute kidney injury on this stage III, significant hypercalcemia CT of the head shows a questionable mass in the frontal area, CT of the abdomen is unremarkable. Patient has never had endoscopy or colonoscopy according to his . Of note the abnormal abnormal finding on CT could be responsible for not feeling like eating due to taste problems. - Diagnosis (1) Hypercalcemia (2) YAZAN (acute kidney injury) (3) Dehydration (4) Weakness generalized (5) Afib Inpatient Certification: I certify that the inpatient services were ordered in accordance with Medicare regulations governing the order. This includes certification that hospital inpatient services are reasonable and necessary and in the case of services not specified as inpatient-only under 42 CFR 419.22(n), that they are appropriately provided as inpatient services in accordance to with the 2-midnight benchmark under 43 CFR 412.3(e) Estimated Total Length of Stay (Days): 3 Plans for Post Hospital Care: Not yet determined Review of Systems All other systems reviewed negative except as stated [facility] - History History Provided By: Patient, Family Member - Medical History Medical History: Medical History (Last Reviewed 06/26/18 @ 20:44 by James Santizo MD) Edema of both lower extremities due to peripheral venous insufficiency (Acute) GERD (gastroesophageal reflux disease) (Acute) CAD (coronary artery disease) (Acute) Paroxysmal A-fib (Acute) COPD (chronic obstructive pulmonary disease) (Acute) Cellulitis of right foot (Acute) Ulcers of both lower extremities (Acute) PAD (peripheral artery disease) (Acute) Asthma CHF (congestive heart failure) 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, uncontrolled, with neuropathy FH: bilateral hip replacements FH: bilateral hip replacements HLD (hyperlipidemia) HTN (hypertension) MASHA (obstructive sleep apnea) Pedal edema Pulmonary hypertension - Surgical History Surgical History: Surgical History (Last Reviewed 06/26/18 @ 20:44 by James Santizo MD) Hx of CABG (Acute) Hx of tonsillectomy - Family History Family History: Family History (Last Reviewed 06/26/18 @ 20:44 by James Santizo MD) Other Family history of diabetes mellitus - Tobacco History Second Hand Smoke Exposure: No Smoking Status: Former smoker Tobacco Type: Cigarettes - Alcohol History How Often Do You Have a Drink Containing Alcohol: Never - Substance Use History Substance History: No History of Abuse - Travel History Recent Travel in the [place] Within the Last 8 Weeks: No Recent Travel Out of the Country Within the Last 8 Weeks: No - Immunization History Tetanus Immunization: Unsure Medications and Allergies Active Medications: Active Medications Acetaminophen (Tylenol) 650 mg PO Q4H PRN PRN Reason: Temp > 100.4 Allopurinol (Zyloprim) 300 mg PO DAILY ANTIONETTE Sodium Chloride (Ns Inj) 1,000 mls @ 80 mls/hr IV.CONT .[id number] [facility] Metoprolol Tartrate (Lopressor) 50 mg PO DAILY ANTIONETTE Ondansetron HCl (Zofran Inj) 4 mg IV.PUSH Q6H PRN PRN Reason: NAUSEA OR VOMITING Senna/Docusate Sodium (Yvette-Colace) 1 tab PO BID ANTIONETTE Sodium Chloride (Ns Flush) 2 ml IV.FLUSH PRN PRN PRN Reason: FLUSH AFTER USING IV ACCESS Sodium Chloride (Ns Flush) 2 ml IV.FLUSH BID ANTIONETTE Sodium Chloride (Ns Flush) 2 ml IV.FLUSH PRN PRN PRN Reason: FLUSH AFTER USING IV ACCESS Allergies Allergy/AdvReac Type Severity Reaction Status Date / Time amlodipine Allergy Severe JOINT Verified 12/05/18 15:30 PAIN, VOMITING, UNABLE TO MOVE atorvastatin Allergy Severe Nausea/Vomi Verified 06/26/18 15:30 ting lovastatin Allergy Severe Abdominal Verified 06/26/18 15:30 Pain pravastatin Allergy Severe JOINT Verified 06/26/18 15:30 PAIN, VOMITING, UNABLE TO MOVE simvastatin Allergy Severe Nausea/Vomi Verified 06/26/18 15:30 ting tetanus toxoid, adsorbed Allergy Severe VOMITING, Verified 06/26/18 15:30 CRAMPING *MDRO Multi-Drug Resistant AdvReac Unknown Nausea/Vomi Uncoded 01/25/18 17:52 Organism ting Home Medications Medication Instructions Recorded Confirmed Type allopurinol 300 mg PO DAILY 01/25/18 06/26/18 History ezetimibe [Zetia] 10 mg PO DAILY 01/25/18 06/26/18 History furosemide [Lasix] 40 mg PO QAM PRN 01/25/18 06/26/18 History hydrocodone-acetaminophen [[place]ton] 1 tab PO TID 01/25/18 06/26/18 History metoprolol tartrate 50 mg PO DAILY 01/25/18 06/26/18 History furosemide [Lasix] 20 mg PO DAILY@17 PRN 06/26/18 06/26/18 History Exam Vital signs: Vital Signs 06/26/18 15:19 06/26/18 16:41 06/26/18 16:42 Temperature 96.5 F L Pulse Rate 52 L 56 L Respiratory Rate 12 12 Blood Pressure 107/59 L 141/90 H Pulse Oximetry 97 96 98 06/26/18 18:49 Temperature Pulse Rate 56 L Respiratory Rate 23 Blood Pressure 123/59 L Pulse Oximetry 98 Intake & Output 06/26/18 06/26/18 06/27/18 06:59 18:59 06:59 Intake Total 500 / 500 Balance 500 / 500 Weight 69.4 kg Intake: IV 500 / 500 NS Inj 500 ML @ Wide Open IV. 500 / 500 SIG BOLUS ONE Rx#:[id number] Narrative: GENERAL: SKIN: Warm and dry. Chronic lower extremity wounds wrapped at this time HEAD: Normocephalic. EYES: No scleral icterus. No injection or drainage. NECK: Supple, trachea midline. No JVD or lymphadenopathy. CARDIOVASCULAR: Regular rate and rhythm without murmurs, gallops, or rubs. RESPIRATORY: Breath sounds equal bilaterally. No accessory muscle use. GASTROINTESTINAL: Abdomen soft, non-tender, nondistended. MUSCULOSKELETAL: No cyanosis, or edema. Chronic lower extremity wounds BACK: Nontender without obvious deformity. No CVA tenderness. Results - Labs CBC & Chem 7: 06/26/18 16:36 12 16:36 Labs: Laboratory Results - last 24 hr 06/26/18 06/26/18 12 16:36 16:36 16:36 WBC 8.9 RBC 4.15 L Hgb 12.9 L Hct 37.3 L MCV 90.0 MCH 31.2 MCHC 34.7 RDW 18.1 H Plt Count 323 MPV 9.2 Neut % (Auto) 78.5 H Lymph % (Auto) 10.1 [place] % (Auto) 7.7 Eos % (Auto) 2.6 Baso % (Auto) 1.1 Neut # (Auto) 6.9 Lymph # (Auto) 0.9 L [place] # (Auto) 0.7 Eos # (Auto) 0.2 Baso # (Auto) 0.1 WBC Differential . Differential Comment Auto diff final PT 11.2 INR 1.1 Sodium Potassium Chloride Carbon Dioxide Anion Gap BUN Creatinine Estimated GFR POC Glucose Random Glucose Calcium Calcium Adj for Albumin Magnesium Total Bilirubin AST ALT Alkaline Phosphatase Troponin I B-Natriuretic Peptide 74 Total Protein Albumin 06/26/18 06/26/18 16:36 19:11 WBC RBC Hgb Hct MCV MCH MCHC RDW Plt Count MPV Neut % (Auto) Lymph % (Auto) [place] % (Auto) Eos % (Auto) Baso % (Auto) Neut # (Auto) Lymph # (Auto) [place] # (Auto) Eos # (Auto) Baso # (Auto) WBC Differential Differential Comment PT INR Sodium 136 Potassium 4.5 Chloride 96 L Carbon Dioxide 24.7 Anion Gap 15 BUN 32 H Creatinine 2.63 H Estimated GFR 24 L POC Glucose 90 Random Glucose 96 Calcium 13.3 H* Calcium Adj for Albumin 14.0 H* Magnesium 1.8 Total Bilirubin 0.9 AST 13 L ALT 8 L Alkaline Phosphatase 80 Troponin I Less than 0.02 L B-Natriuretic Peptide Total Protein 7.1 Albumin 3.1 L - Imaging Impressions Chest X-Ray 06/26/18 16:06 CONCLUSION: 1. Stable postsurgical features and compensated cardiomegaly. 2. No acute abnormality. Head CT 06/26/18 16:08 CONCLUSION: No acute intracranial abnormality demonstrated. Right frontal sinusitis versus mass. . Abdomen/Pelvis CT 06/26/18 17:48 CONCLUSION: 1. No acute abnormality demonstrated. 2. Scattered benign-appearing cysts of the liver. 3. Mild atrophy of the right kidney, similar to before. 4. Atherosclerotic abdominal aorta and branch vessels. Caprini VTE Risk Assessment Caprini VTE Risk Assessment: Moderate/High Risk (score >= 2) Caprini Risk Assessment Model: Point Value = 1 Point Value = 2 Point Value = 3 Point Value = 5 Age 41-60 Minor surgery BMI > 25 kg/m2 Swollen legs Varicose veins or History of unexplained or recurrent spontaneous Oral contraceptives or hormone replacement Sepsis (< 1 month) Serious lung disease, including pneumonia (< 1 month) Abnormal pulmonary function Acute myocardial infarction Congestive heart failure (< 1 month) History of inflammatory bowel disease Medical patient at bed rest Age 61-74 Arthroscopic surgery Major open surgery (> 45 min) Laparoscopic surgery (> 45 min) Malignancy Confined to bed (> 72 hours) Immobilizing plaster cast Central venous access Age >= 75 History of VTE Family history of VTE Factor V Leiden Prothrombin [id number] Lupus anticoagulant Anticardiolipin antibodies Elevated serum homocysteine Heparin-induced thrombocytopenia Other congenital or acquired thrombophilia Stroke (< 1 month) Elective arthroplasty Hip, pelvis, or leg fracture Acute spinal cord injury (< 1 month) Prophylaxis Regimen: Total Risk Factor Score Risk Level Prophylaxis Regimen 0-1 Low Early ambulation 2 Moderate Order ONE of the following: *Sequential Compression Device (SCD) *Heparin 5000 units SQ BID 3-4 Higher Order ONE of the following medications: *Heparin 5000 units SQ TID *Enoxaparin/Lovenox 40 mg SQ daily (WT < 150 kg, CrCl > 30 mL/min) *Enoxaparin/Lovenox 30 mg SQ daily (WT < 150 kg, CrCl > 10-29 mL/min) *Enoxaparin/Lovenox 30 mg SQ BID (WT < 150 kg, CrCl > 30 mL/min) AND/OR *Sequential Compression Device (SCD) 5 or more Highest Order ONE of the following medications: *Heparin 5000 units SQ TID (Preferred with Epidurals) *Enoxaparin/Lovenox 40 mg SQ daily (WT < 150 kg, CrCl > 30 mL/min) *Enoxaparin/Lovenox 30 mg SQ daily (WT < 150 kg, CrCl > 10-29 mL/min) *Enoxaparin/Lovenox 30 mg SQ BID (WT < 150 kg, CrCl > 30 mL/min) AND *Sequential Compression Device (SCD) Assessment and Plan - Assessment (1) Hypercalcemia Code(s): E83.52 - Hypercalcemia Status: Acute Plan: We will start patient on some IV fluid calcium ascites concerning with malignancy and as there is an abnormality seen on CAT scan of the head we will go ahead and order MRI for further clarification as he has renal failure will hold the MRI without contrast will review labs in the morning (2) YAZAN (acute kidney injury) Code(s): N17.9 - Acute kidney failure, unspecified Status: Acute Plan: With some IV fluid we will recheck labs he may need nephrology consult (3) Dehydration Code(s): E86.0 - Dehydration Status: Acute Plan: On clinical exam he does appear to be dehydrated we will go ahead and hydrate as stated above and follow-up labs (4) Weakness generalized Code(s): R53.1 - Weakness Status: Acute Plan: Weakness could be explained from the history with a high calcium and critical kidney problems we will go ahead and give some fluid and recheck labs will need physical therapy as well (5) Afib Code(s): I48.91 - Unspecified atrial fibrillation Status: Acute Plan: Patient is on metoprolol we will continue that for now - Plan Further plan as case develops Code Status: Full Discussed Condition With: Patient and (5) Afib Qualifiers:
[2018-06-27] MEDS: Senna/Docusate Sodium 8.6/50 MG Tablet PO SCH ×3 (00:30→20:56)
[2018-06-27 07:07] LABS: Baso # (Auto) 0.1 th/mm3 (0.0-0.2); Baso % (Auto) 1.3 % (0.0-2.0); Eos # (Auto) 0.4 th/mm3 (0.0-0.4); Hematocrit 39.8 % (39.0-51.0); Hemoglobin 12.7 gm/dL (13.0-17.0); Lymph # (Auto) 0.9 th/mm3 (1.0-4.8); Lymph % (Auto) 16.5 % (9.0-44.0); Mean Corpuscular HGB Conc 31.8 % (32.0-36.0); Mean Corpuscular Hemoglobin 29.4 pg (27.0-34.0); Mean Corpuscular Volume 92.2 fL (80.0-100.0); Mean Platelet Volume 9.9 fL (7.0-11.0); Mono # (Auto) 0.6 th/mm3 (0.0-0.9); Mono % (Auto) 10.3 % (0.0-8.0); Neut # (Auto) 3.5 th/mm3 (1.8-7.7); Neut % (Auto) 63.9 % (16.0-70.0); Platelet Count 279 th/mm3 (150-450); Red Blood Count 4.32 mil/mm3 (4.50-5.90); Red Cell Distribution Width 17.8 % (11.6-17.2); White Blood Count 5.5 th/mm3 (4.0-11.0)
[2018-06-27 07:23] LABS: Bacteria,Urine Rare /hpf; Bilirubin,Urine Negative (Negative); Clarity,Urine Clear (Clear); Color,Urine Yellow (Yellw/Straw); Glucose,Urine (UA) Negative (Negative); Leukocyte Esterase,Urine Negative (Negative); Nitrite,Urine Negative (Negative); Specific Gravity,Urine 1.014 (1.002-1.035)
[2018-06-27 07:55] LABS: Calcium 13.6 mg/dL (8.5-10.1); Potassium 4.1 meq/L (3.5-5.1); Total Protein 6.8 g/dL (6.4-8.2)
[2018-06-27] MEDS: Dextrose 5%/NaCl 0.45% Inj 1,000 ML IV.CONT SCH (10:28)
[2018-06-27] MEDS: Metoprolol Tartrate 50 MG Tablet PO SCH (10:30)
[2018-06-27] MEDS: Allopurinol 300 MG Tablet PO SCH (10:30)
[2018-06-27] MEDS ORDERED: Zoledronic Acid Inj 4 MG in Sodium Chlor 0.9% Inj 150 ML IV.SIG ONE (11:00)
--- NOTE | 2018-06-27 12:02 | P.CONPAL ---
Consult Service: Palliative Care Requesting Physician: Sylvain Reyes Reason for Consult: a. To assist with evaluation and management of symptoms including: Pain, generalized weakness and physical deconditioning b. To assist medical decision maker(s) with: better understanding of current medical conditions; weighing benefits/burdens of medical treatment options; making medical treatment decisions. Primary Care Provider: Celi Johnson MD History of Present Illness History of Present Illness: Mr. Hobbs is a 78-year-old male with past medical history of coronary artery disease, paroxysmal atrial fibrillation, chronic kidney disease stage III, COPD , peripheral arterial disease, diabetes mellitus with neuropathy, and chronic lower extremity wounds. Patient was brought to the emergency room on 06/26/18 for evaluation of progressive weakness over the past 2 weeks. ER course: * Vital signs: Temperature 96.5F, pulse 52, respirations 12, BP 107/59, O2 saturation 97% * Laboratory workup revealing WBC 8.9, hemoglobin 12.9, hematocrit 37.3, platelet count 323, PT 11.2, INR 1.1, sodium 136, potassium 4.5, BUN/creatinine 32/2.63, calcium 18.3, AST 1 3, ALT 8, troponin less than 0.02, total protein 7.1, albumin 3.1 * Urinalysis negative for leukocyte esterase and nitrates * Chest x-ray revealed compensated cardiomegaly with no acute abnormality. * Head CT revealing no acute intracranial abnormality and right frontal sinusitis versus a mass. * CT abdomen/pelvis revealing no acute abnormality. Scattered benign appearing cysts of the liver. Mild atrophy of the right kidney and atherosclerotic abdominal aorta and branch vessels. * 500 mls normal saline administered hypotension. * Patient admitted for further evaluation and treatment for weight loss, hypercalcemia and CT brain findings. Nephrology consulted for evaluation and management of acute kidney injury with an elevated creatinine. Ultrasound kidney/renal/bladder on 06/27/18 revealing no hydronephrosis. Right kidney is small in size with cortical thinning and echogenicity suggesting chronic medical renal disease. There is at least one polypoid nodular mass along the anterior urinary bladder wall measuring up to 6 mm. Consider correlation with cystoscopy or noninvasively evaluate with pelvis MRI with and without intravenous contrast when or if patient has a GFR greater than 30. Palliative care consulted to assist with symptom management and establishment of goals of medical treatment. Discussion with Dr. Reyes prior to seeing patient, who feels that goals of medical treatment discussion should be held off for now. Patient seen and examined in his room. Patient is lethargic, oriented to self, place and partly situation. Patient is endorsing nausea, abdominal discomfort and generalized weakness. Introduced palliative care. Obtained some of patient `s psychosocial, past medical history and events leading to this hospitalization. Patient states that he has advanced directives. He states that if he becomes incapacitated, his spouse Darrell Hobbs is his designated healthcare surrogate. Patient states that his makes medical decisions for him. Patient politely dismissed palliative care stating that he wants to rest and is not feeling too good. He states that maybe he will be able to talk more tomorrow (06/28/18) and hopes that his will also be present. . Function/Cognitive Trajectory: Patient lives at home with spouse. He states that he requires assistance with his ADLs and uses a walker and wheelchair at home. Patient has lost 30-40 pounds over a year. Patient has chronic wounds to his bilateral legs and he follows with wound care regularly. Patient's last hospitalization was in January, for management of bilateral lower extremity cellulitis. Review of Systems Constitutional: Reports weight loss, Denies chills, Denies fever(s) Eyes: Denies blurry vision Ears, Nose, Mouth, and Throat: Denies abnormal hearing, Denies difficulty swallowing Cardiovascular: Denies chest pain, Denies shortness of breath Respiratory: Denies shortness of breath Gastrointestinal: Reports nausea, Denies abdominal pain, Denies black, tarry stools, Denies constipation, Denies difficulty swallowing, Denies vomiting, Denies vomiting blood Genitourinary: Denies blood in urine, Denies urinary incontinence Musculoskeletal: Reports decreased muscle mass Skin/Breast: Reports non-healing lesions (In right leg) Neurologic: Denies confusion Psychiatric: Reports change in appetite (Decreased appetite), Denies confusion Endocrine: Denies increased urination Hematologic/Lymphatic: Reports easy bruising PMFSH - History History Provided By: Patient, Medical Record - Medical History Medical History: Medical History (Last Updated 06/27/18 @ 11:31 by David Parson) GERD (gastroesophageal reflux disease) (Acute) CAD (coronary artery disease) (Acute) Paroxysmal A-fib (Acute) COPD (chronic obstructive pulmonary disease) (Acute) Cellulitis of right foot (Acute) Ulcers of both lower extremities (Acute) PAD (peripheral artery disease) (Acute) Asthma CHF (congestive heart failure) 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, uncontrolled, with neuropathy Edema of both lower extremities due to peripheral venous insufficiency HLD (hyperlipidemia) HTN (hypertension) MASHA (obstructive sleep apnea) Pedal edema Pulmonary hypertension - Surgical History Surgical History: Surgical History (Last Updated 06/27/18 @ 11:32 by David Parson) History of bilateral hip replacements Hx of CABG Hx of tonsillectomy - Family History Family History: Family History (Last Reviewed 06/28/18 @ 09:18 by Jeni Murphy) Other Family history of diabetes mellitus - Social History I have reviewed the patient's Social History: Yes - Tobacco History Second Hand Smoke Exposure: No Smoking Status: Former smoker Tobacco Type: Cigarettes - Alcohol History How Often Do You Have a Drink Containing Alcohol: Never - Substance Use History Substance History: No History of Abuse - Travel History Recent Travel in the [place] Within the Last 8 Weeks: No Recent Travel Out of the Country Within the Last 8 Weeks: No - Immunization History Tetanus Immunization: Unsure Hx Influenza Vaccine This Season: No Medications and Allergies Active Medications: Active Medications Acetaminophen (Tylenol) 650 mg PO Q4H PRN PRN Reason: Temp > 100.4 Allopurinol (Zyloprim) 300 mg PO DAILY [facility] Last Admin: 06/27/18 10:30 Dose: 300 mg Dextrose/Sodium Chloride (D5w/1/2 Ns Inj) 1,000 mls @ 85 mls/hr IV.CONT .[id number] [facility] Last Admin: 06/27/18 10:28 Dose: 85 mls/hr Zoledronic Acid 4 mg/ Sodium (Chloride) 155 mls @ 155 mls/hr IV.SIG ONCE ONE Stop: 06/27/18 11:59 Metoprolol Tartrate (Lopressor) 50 mg PO DAILY [facility] Last Admin: 06/27/18 10:30 Dose: 50 mg Ondansetron HCl (Zofran Inj) 4 mg IV.PUSH Q6H PRN PRN Reason: NAUSEA OR VOMITING Senna/Docusate Sodium (Yvette-Colace) 1 tab PO BID [facility] Last Admin: 06/27/18 10:30 Dose: 1 tab Sodium Chloride (Ns Flush) 2 ml IV.FLUSH BID [facility] Last Admin: 06/27/18 10:28 Dose: Not Given Sodium Chloride (Ns Flush) 2 ml IV.FLUSH PRN PRN PRN Reason: FLUSH AFTER USING IV ACCESS Allergies Allergy/AdvReac Type Severity Reaction Status Date / Time amlodipine Allergy Severe JOINT Verified 06/26/18 15:30 PAIN, VOMITING, UNABLE TO MOVE atorvastatin Allergy Severe Nausea/Vomi Verified 06/26/18 15:30 ting lovastatin Allergy Severe Abdominal Verified 06/26/18 15:30 Pain pravastatin Allergy Severe JOINT Verified 06/26/18 15:30 PAIN, VOMITING, UNABLE TO MOVE simvastatin Allergy Severe Nausea/Vomi Verified 06/26/18 15:30 ting tetanus toxoid, adsorbed Allergy Severe VOMITING, Verified 06/26/18 15:30 CRAMPING *MDRO Multi-Drug Resistant AdvReac Unknown Nausea/Vomi Uncoded 01/25/18 17:52 Organism ting Home Medications Medication Instructions Recorded Confirmed Type allopurinol 300 mg PO DAILY 01/25/18 06/26/18 History ezetimibe [Zetia] 10 mg PO DAILY 01/25/18 06/26/18 History furosemide [Lasix] 40 mg PO QAM PRN 01/25/18 06/26/18 History hydrocodone-acetaminophen [[place]] 1 tab PO TID 01/25/18 06/26/18 History metoprolol tartrate 50 mg PO DAILY 01/25/18 06/26/18 History furosemide [Lasix] 20 mg PO DAILY@17 PRN 06/26/18 06/26/18 History Advance Directives Living Will: Unknown Health Care Surrogate Name and Number: HCP: Spouse-Darrell Hobbs-[phone] Family/friends goals: No family at bedside. . Ethical and Legal Issues: None identified. . Physical Exam Vital Signs: Vital Signs - 24 hr 06/26/18 15:19 06/26/18 16:41 06/26/18 16:42 Temperature 96.5 F L Pulse Rate 52 L 56 L Respiratory Rate 12 12 Blood Pressure 107/59 L 141/90 H Pulse Oximetry 97 96 98 06/26/18 18:49 06/26/18 21:45 06/27/18 00:00 Temperature 97.4 F L 97.3 F L Pulse Rate 56 L 59 L 77 Respiratory Rate 23 18 16 Blood Pressure 123/59 L 170/68 H 132/70 Pulse Oximetry 98 98 98 06/27/18 08:00 06/27/18 09:14 Temperature 98.3 F Pulse Rate 77 Respiratory Rate 18 Blood Pressure 114/64 Pulse Oximetry 97 98 I&O: Intake & Output 06/25/18 06/26/18 06/27/18 06/28/18 06:59 06:59 06:59 06:59 Intake Total 620 / 620 822 / 822 Output Total 600 / 600 Balance 822 / 822 Weight 69.6 kg Physical Exam: CONSTITUTIONAL/GENERAL: This is an elderly chronically ill looking patient, in no apparent distress. TUBES/LINES/DRAINS: PIV SKIN: No jaundice, rashes, or lesions. Ecchymoses on upper extremities. Wounds to bilateral lower extremities covered with dressings. Skin temperature appropriate. Not diaphoretic. HEAD: Atraumatic. Normocephalic. EYES: Pupils equal and round and reactive. Extraocular motions intact. No scleral icterus. No injection or drainage. Fundi not examined. ENT: Hearing grossly normal. Nose without bleeding or purulent drainage. Moist oral mucosa. NECK: Trachea midline. Supple, nontender. CARDIOVASCULAR: Regular rate and rhythm without murmurs, gallops, or rubs. No JVD. Peripheral pulses symmetric. RESPIRATORY/CHEST: Symmetric, unlabored respirations. Diminished breath sounds. No wheezes, rales, or rhonchi. GASTROINTESTINAL: Abdomen soft, non-tender, nondistended. No guarding. Bowel sounds present. GENITOURINARY: Without palpable bladder distension. MUSCULOSKELETAL: Extremities without clubbing, cyanosis, or edema. No joint tenderness or effusion noted. No calf tenderness. No mottling or clubbing. LYMPHATICS: Did not assess NEUROLOGICAL: Lethargic, oriented to self, place and partly situation. Moves all extremities to command with generalized weakness. PSYCHIATRIC: No obvious anxiety/depression. no apparent hallucinations or other psychotic thought process. Diagnostic Tests Laboratory: Laboratory Results - last 72 hr 06/26/18 06/26/18 06/26/18 16:36 16:36 16:36 WBC 8.9 RBC 4.15 L Hgb 12.9 L Hct 37.3 L MCV 90.0 MCH 31.2 MCHC 34.7 RDW 18.1 H Plt Count 323 MPV 9.2 Neut % (Auto) 78.5 H Lymph % (Auto) 10.1 [place] % (Auto) 7.7 Eos % (Auto) 2.6 Baso % (Auto) 1.1 Neut # (Auto) 6.9 Lymph # (Auto) 0.9 L [place] # (Auto) 0.7 Eos # (Auto) 0.2 Baso # (Auto) 0.1 WBC Differential . Differential Comment Auto diff final PT 11.2 INR 1.1 Sodium Potassium Chloride Carbon Dioxide Anion Gap BUN Creatinine Estimated GFR POC Glucose Random Glucose Calcium Calcium Adj for Albumin Magnesium Total Bilirubin AST ALT Alkaline Phosphatase Troponin I B-Natriuretic Peptide 74 Total Protein Albumin Urine Color Urine Clarity Urine pH Ur Specific [place] Urine Protein Urine Glucose (UA) Urine Ketones Urine Occult Blood Urine Nitrate Urine Bilirubin Urine Urobilinogen Ur Leukocyte Esterase Urine RBC Urine WBC Urine Bacteria Micro UA Comment Ur Microscopic Review Urine Culture Comments 06/26/18 06/26/18 06/27/18 16:36 19:11 04:48 WBC RBC Hgb Hct MCV MCH MCHC RDW Plt Count MPV Neut % (Auto) Lymph % (Auto) [place] % (Auto) Eos % (Auto) Baso % (Auto) Neut # (Auto) Lymph # (Auto) [place] # (Auto) Eos # (Auto) Baso # (Auto) WBC Differential Differential Comment PT INR Sodium 136 137 Potassium 4.5 4.1 Chloride 96 L 100 Carbon Dioxide 24.7 23.0 Anion Gap 15 14 BUN 32 H 31 H Creatinine 2.63 H 2.57 H Estimated GFR 24 L 24 L POC Glucose 90 Random Glucose 96 47 L* Calcium 13.3 H* 13.6 H* Calcium Adj for Albumin 14.0 H* 14.4 H* Magnesium 1.8 Total Bilirubin 0.9 0.9 AST 13 L 12 L ALT 8 L 8 L Alkaline Phosphatase 80 72 Troponin I Less than 0.02 L B-Natriuretic Peptide Total Protein 7.1 6.8 Albumin 3.1 L 3.0 L Urine Color Urine Clarity Urine pH Ur Specific [place] Urine Protein Urine Glucose (UA) Urine Ketones Urine Occult Blood Urine Nitrate Urine Bilirubin Urine Urobilinogen Ur Leukocyte Esterase Urine RBC Urine WBC Urine Bacteria Micro UA Comment Ur Microscopic Review Urine Culture Comments 06/27/18 06/27/18 06/27/18 04:48 06:25 08:05 WBC 5.5 RBC 4.32 L Hgb 12.7 L Hct 39.8 MCV 92.2 MCH 29.4 MCHC 31.8 L RDW 17.8 H Plt Count 279 MPV 9.9 Neut % (Auto) 63.9 Lymph % (Auto) 16.5 [place] % (Auto) 10.3 H Eos % (Auto) 8.0 H Baso % (Auto) 1.3 Neut # (Auto) 3.5 Lymph # (Auto) 0.9 L [place] # (Auto) 0.6 Eos # (Auto) 0.4 Baso # (Auto) 0.1 WBC Differential . Differential Comment Auto diff final PT INR Sodium Potassium Chloride Carbon Dioxide Anion Gap BUN Creatinine Estimated GFR POC Glucose 65 L Random Glucose Calcium Calcium Adj for Albumin Magnesium Total Bilirubin AST ALT Alkaline Phosphatase Troponin I B-Natriuretic Peptide Total Protein Albumin Urine Color Yellow Urine Clarity Clear Urine pH 5.0 Ur Specific [place] 1.014 Urine Protein 30 H Urine Glucose (UA) Negative Urine Ketones 20 Urine Occult Blood Negative Urine Nitrate Negative Urine Bilirubin Negative Urine Urobilinogen 2.0 H Ur Leukocyte Esterase Negative Urine RBC Less than 1 Urine WBC 2 Urine Bacteria Rare H Micro UA Comment Culture not ind Ur Microscopic Review Not Reportable Urine Culture Comments Culture not ind 06/27/18 10:35 WBC RBC Hgb Hct MCV MCH MCHC RDW Plt Count MPV Neut % (Auto) Lymph % (Auto) [place] % (Auto) Eos % (Auto) Baso % (Auto) Neut # (Auto) Lymph # (Auto) [place] # (Auto) Eos # (Auto) Baso # (Auto) WBC Differential Differential Comment PT INR Sodium Potassium Chloride Carbon Dioxide Anion Gap BUN Creatinine Estimated GFR POC Glucose 111 H Random Glucose Calcium Calcium Adj for Albumin Magnesium Total Bilirubin AST ALT Alkaline Phosphatase Troponin I B-Natriuretic Peptide Total Protein Albumin Urine Color Urine Clarity Urine pH Ur Specific [place] Urine Protein Urine Glucose (UA) Urine Ketones Urine Occult Blood Urine Nitrate Urine Bilirubin Urine Urobilinogen Ur Leukocyte Esterase Urine RBC Urine WBC Urine Bacteria Micro UA Comment Ur Microscopic Review Urine Culture Comments Result Diagrams: 06/27/18 04:48 06/28/18 04:50 Imaging: Chest X-Ray 06/26/18 16:06 CONCLUSION: 1. Stable postsurgical features and compensated cardiomegaly. 2. No acute abnormality. Head CT 06/26/18 16:08 CONCLUSION: No acute intracranial abnormality demonstrated. Right frontal sinusitis versus mass. . Abdomen/Pelvis CT 06/26/18 17:48 CONCLUSION: 1. No acute abnormality demonstrated. 2. Scattered benign-appearing cysts of the liver. 3. Mild atrophy of the right kidney, similar to before. 4. Atherosclerotic abdominal aorta and branch vessels. Patient/Family Conference Family Conference Location: Bedside Issues Discussed: * Palliative care role, purpose, approach * Additional medical, psychosocial, and spiritual history * Patients general health, functional status, and cognitive changes in the months leading up to the current hospitalization * Patient/family understanding of the current medical problems * Patient/family understanding of prognosis * Patients goals of care as best understood from advance directives and/or conversations and/or values * Current medical treatment options and benefits/burdens of those options * Likely scenarios comparing ongoing aggressive care with a transition to comfort measures only * Questions answered to the best of my ability * Palliative care contact information provided Assessment and Plan - Disease Oriented Problem List (1) Dehydration (2) YAZAN (acute kidney injury) (3) CKD stage 3 due to type 2 diabetes mellitus (4) CAD (coronary artery disease) (5) COPD (chronic obstructive pulmonary disease) (6) Diabetes mellitus (7) Congestive heart failure (8) Peripheral artery disease - Symptom Scale (1) Pain 0-10 Scale: 6 Comment: Patient has chronic bilateral wounds to his bilateral lower extremities. (2) Weakness generalized 0-10 Scale: Unable to quantify Comment: Patient has had decreased appetite and came in with complaints of generalized weakness. (3) Physical deconditioning 0-10 Scale: Unable to quantify Comment: Progressive. Significant weight loss over a period of one year. Pertinent Non-Medical Issues: Psychosocial: Patient is originally from [place]. He moved to [place] when he was 4 years old. 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 Patient is to his for 51 years. Spiritual: Patient is a Faith. Legal: Patient states that he has advanced directives. Ethical issues impacting care: None identified at this time. Important Contacts: Spouse-Darrell Hobbs-[phone] Son-Jamie Hobbs [phone] Daughter-Bruna Fisher [phone] Daughter Lani Zayas [phone] Prognosis: Mr. Hobbs is a 78-year-old male with past medical history of coronary artery disease, paroxysmal atrial fibrillation, chronic kidney disease stage III, COPD , peripheral arterial disease, diabetes mellitus with neuropathy, and chronic lower extremity wounds. Patient was brought to the emergency room on 06/26/18 for evaluation of progressive weakness over the past 2 weeks. Clinical course complicated with nausea, generalized weakness and acute kidney injury. Given patient's multiple ongoing comorbidities, patient remains at high risk for further complications, deterioration and decline. . Code Status: Full Code Plan: PLAN: Legal decision maker: Patient is alert, oriented to self, place and partly situation. Unsure of how much insight patient has regarding his medical condition. Patient requesting that any medical decisions be done jointly with his spouse Darrell Hobbs who he states is his health care surrogate. Goals: Aggressive pending discussions of goals of medical treatment with patient and his spouse. Palliative care advised to hold off on discussion of goals of medical treatment today 06/27/18 by consulting physician. CODE STATUS: Full code, pending discussion of goals of medical treatment. SYMPTOMS: * Pain: Patient has chronic wounds to bilateral lower extremities. Currently complaining of abdominal discomfort. Patient is on hydrocodone/acetaminophen 10 /325 mg 3 times daily at home-currently on hold. * Nausea: Patient complaining of nausea and dry heaving. Patient states that he is not able to eat due to nausea. Recommending Zofran 4 mg IV push every 6 hours prn nausea/vomiting. * Generalized weakness: Patient has had decreased appetite and has progressively developed weakness in the past 2 weeks. He has lost approximately 30-40 pounds gradually over a year. * Physical deconditioning: Progressive. Patient has multiple ongoing comorbidities. He has had significant weight loss over a year. Recommending physical therapy. Palliative care will continue to follow the patient during hospital course as condition evolves, to assist patient/decision-maker with understanding of their medical conditions, weighing benefits/burdens of treatment options, for clarification of goals of treatment. Additionally will assist with any symptoms of palliative concern Appreciation Thank you for the opportunity to participate in the care of Bin Hobbs. Attestation Attestation: To help prompt me to consider important information that might be impacting today's encounter and assessment, information from prior notes written by myself or my colleagues may have been "brought forward" into today's note. My signature on this note, however, is an attestation that I personally performed the exam, history, and/or decision-making noted today, and, unless otherwise indicated, the interactions with patient, family, and staff as well as the review of records all occurred today. I also attest that the listed assessment and stated plan reflect my best clinical judgment today based on the combination of historical information, prior notes, and today's exam/ interactions. When time spent is documented, it refers only to time spent today by the signer, or if indicated, combined time spent today by collaborating physician/nurse practitioner.
[2018-06-27 12:16] LABS: Albumin 2.8 g/dL (3.4-5.0); Carbon Dioxide 23.6 meq/L (21.0-32.0); Potassium 3.6 meq/L (3.5-5.1)
[2018-06-27 12:17] LABS: Magnesium 1.7 mg/dL (1.5-2.5)
[2018-06-27 12:22] LABS: Calcium 12.5 mg/dL (8.5-10.1)
[2018-06-27 12:30] LABS: % Iron Saturation 21.6 % (20-50); Kappa Lambda Ratio 1.56 (1.57-3.93); Phosphorus 2.7 mg/dL (2.5-4.9)
[2018-06-27 12:39] LABS: Phosphorus 2.6 mg/dL (2.5-4.9)
--- NOTE | 2018-06-27 12:41 | P.CONNP ---
<Tasneem Murrieta - Last Filed: 06/27/18 12:26> History of Present Illness Service: Nephrology Consult date: 06/27/18 Requesting Physician: Sylvain Reyes Reason for Consult: Acute kidney injury for chronic kdiney disease Primary Care Provider: Celi Johnson MD Chief Complaint: Increasing generalized weakness weight loss History of Present Illness: Patient hernan 78-year-old male with PMH of coronary artery disease, COPD, chronic kidney disease stage III, diabetes with neuropathy, peripheral arterial disease , and paroxysmal atrial fibrillation, and chronic lower extremity wounds right lower extremity followed by wound clinic. Presents to the ED for evaluation of 2 weeks history of weakness. The patient states has had a poor appetite and nausea. In the emergency room lab workup revealed that creatinine of greater than [address] of the head shows a questionable mass in the frontal area. Nephrology is consulted for acute kidney injury with creatinine of 2.63. Baseline creatinine appears to be around 1.5 to 1.7. 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, uncontrolled, with neuropathy Edema of both lower extremities due to peripheral venous insufficiency HLD (hyperlipidemia) HTN (hypertension) MASHA (obstructive sleep apnea) Pedal edema Pulmonary hypertension - Surgical History Surgical History: Surgical History (Last Updated 06/27/18 @ 11:32 by David Parson) History of bilateral hip replacements Hx of CABG Hx of tonsillectomy - Family History Family History: Family History (Last Reviewed 06/26/18 @ 20:44 by James Santizo MD) Other Family history of diabetes mellitus - Tobacco History Second Hand Smoke Exposure: No Smoking Status: Former smoker Tobacco Type: Cigarettes - Alcohol History How Often Do You Have a Drink Containing Alcohol: Never - Substance Use History Substance History: No History of Abuse - Travel History Recent Travel in the [place] Within the Last 8 Weeks: No Recent Travel Out of the Country Within the Last 8 Weeks: No - Immunization History Tetanus Immunization: Unsure Hx Influenza Vaccine This Season: No Medications and Allergies Allergies Allergy/AdvReac Type Severity Reaction Status Date / Time amlodipine Allergy Severe JOINT Verified 06/26/18 15:30 PAIN, VOMITING, UNABLE TO MOVE atorvastatin Allergy Severe Nausea/Vomi Verified 06/26/18 15:30 ting lovastatin Allergy Severe Abdominal Verified 06/26/18 15:30 Pain pravastatin Allergy Severe JOINT Verified 06/26/18 15:30 PAIN, VOMITING, UNABLE TO MOVE simvastatin Allergy Severe Nausea/Vomi Verified 06/26/18 15:30 ting tetanus toxoid, adsorbed Allergy Severe VOMITING, Verified 06/26/18 15:30 CRAMPING *MDRO Multi-Drug Resistant AdvReac Unknown Nausea/Vomi Uncoded 01/25/18 17:52 Organism ting Home Medications Medication Instructions Recorded Confirmed Type allopurinol 300 mg PO DAILY 01/25/18 06/26/18 History ezetimibe [Zetia] 10 mg PO DAILY 01/25/18 06/26/18 History furosemide [Lasix] 40 mg PO QAM PRN 01/25/18 06/26/18 History hydrocodone-acetaminophen [Buckholts] 1 tab PO TID 01/25/18 06/26/18 History metoprolol tartrate 50 mg PO DAILY 01/25/18 06/26/18 History furosemide [Lasix] 20 mg PO DAILY@17 PRN 06/26/18 06/26/18 History Active Medications: Active Medications Acetaminophen (Tylenol) 650 mg PO Q4H PRN PRN Reason: Temp > 100.4 Allopurinol (Zyloprim) 300 mg PO DAILY [facility] Last Admin: 06/27/18 10:30 Dose: 300 mg Dextrose/Sodium Chloride (D5w/1/2 Ns Inj) 1,000 mls @ 85 mls/hr IV.CONT .[id number] [facility] Last Admin: 06/27/18 10:28 Dose: 85 mls/hr Metoprolol Tartrate (Lopressor) 50 mg PO DAILY [facility] Last Admin: 06/27/18 10:30 Dose: 50 mg Ondansetron HCl (Zofran Inj) 4 mg IV.PUSH Q6H PRN PRN Reason: NAUSEA OR VOMITING Senna/Docusate Sodium (Yvette-Colace) 1 tab PO BID [facility] Last Admin: 06/27/18 10:30 Dose: 1 tab Sodium Chloride (Ns Flush) 2 ml IV.FLUSH BID [facility] Last Admin: 06/27/18 10:28 Dose: Not Given Sodium Chloride (Ns Flush) 2 ml IV.FLUSH PRN PRN PRN Reason: FLUSH AFTER USING IV ACCESS Exam Vital signs: Vital Signs 06/26/18 15:19 06/26/18 16:41 06/26/18 16:42 Temperature 96.5 F L Pulse Rate 52 L 56 L Respiratory Rate 12 12 Blood Pressure 107/59 L 141/90 H Pulse Oximetry 97 96 98 06/26/18 18:49 06/26/18 21:45 06/27/18 00:00 Temperature 97.4 F L 97.3 F L Pulse Rate 56 L 59 L 77 Respiratory Rate 23 18 16 Blood Pressure 123/59 L 170/68 H 132/70 Pulse Oximetry 98 98 98 06/27/18 08:00 06/27/18 09:14 Temperature 98.3 F Pulse Rate 77 Respiratory Rate 18 Blood Pressure 114/64 Pulse Oximetry 97 98 Intake & Output 06/26/18 06/27/18 06/27/18 18:59 06:59 18:59 Intake Total 500 / 500 120 / 120 822 / 822 Output Total 600 / 600 Balance 500 / 500 -480 / -480 822 / 822 Weight 69.4 kg 69.6 kg Intake: IV 500 / 500 822 / 822 NS Inj 1,000 ML @ 80 mls/hr IV. 822 / 822 CONT .[id number] [facility] Rx#:[id number] NS Inj 500 ML @ Wide Open IV. 500 / 500 SIG BOLUS ONE Rx#:[id number] Oral 120 / 120 Output: Urine Amount (Catheter) 600 / 600 Straight 600 / 600 Other: Date of Last Bowel Movement 06/25/18 Narrative: GENERAL: Alert and oriented. n SKIN: Warm and dry. NECK: Supple, trachea midline. No JVD CARDIOVASCULAR: Regular rate and rhythm without murmurs, gallops, or rubs. RESPIRATORY: Breath sounds equal bilaterally. No accessory muscle use. GASTROINTESTINAL: Abdomen soft, non-tender, nondistended. MUSCULOSKELETAL: No cyanosis, or edema. BACK: Nontender without obvious deformity. No CVA tenderness. Results - Lab Results 06/27/18 04:48 06/27/18 11:26 Most recent lab results Calcium 12.5 mg/dL (8.5-10.1) H* D 06/27/18 11:26 Magnesium 1.7 mg/dL (1.5-2.5) 06/27/18 11:26 - Image Kidney/bladder ultrasound: pending Assessment and Plan - Assessment (1) Acute kidney injury superimposed on chronic kidney disease Code(s): N17.9 - Acute kidney failure, unspecified; N18.9 - Chronic kidney disease, unspecified Status: Acute Plan: (2) Dehydration Code(s): E86.0 - Dehydration Status: Acute (3) Weakness generalized Code(s): R53.1 - Weakness Status: Acute - Plan Acute kidney injury with creatinine of 2.57 which has improved at 2.63 Acute kidney injury could be prerenal or ATN from dehydration poor intake. Also noted to have anemia with hypercalcemia so possibility of multiple myeloma. Has been followed by Dr. Harris in the past for chronic kidney disease. Chronic kidney most likely from diabetes. Baseline creatinine appears to be around 1.5 to 1.7. Serology has been ordered and pending. Continue IVF as patient intake is very poor Monitor strict I +O Avoid nephrotoxins including NSAIDS, IV contrast, and aminoglycosides Renal US ordered. Urine osm, sodium and creatinine ordered. Labs in AM will follow urinary output and BMP <Matthew Coon - Last Filed: 07/01/18 20:56> History of Present Illness Primary Care Provider: Celi Johnson MD [facility] - Medical History Medical History: Medical History (Last Updated 06/27/18 @ 11:31 by David Parson) GERD (gastroesophageal reflux disease) (Acute) CAD (coronary artery disease) (Acute) Paroxysmal A-fib (Acute) COPD (chronic obstructive pulmonary disease) (Acute) Cellulitis of right foot (Acute) Ulcers of both lower extremities (Acute) PAD (peripheral artery disease) (Acute) Asthma CHF (congestive heart failure) 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, uncontrolled, with neuropathy Edema of both lower extremities due to peripheral venous insufficiency HLD (hyperlipidemia) HTN (hypertension) MASHA (obstructive sleep apnea) Pedal edema Pulmonary hypertension - Surgical History Surgical History: Surgical History (Last Updated 06/27/18 @ 11:32 by David Parson) History of bilateral hip replacements Hx of CABG Hx of tonsillectomy - Family History Family History: Family History (Last Reviewed 06/26/18 @ 20:44 by James Santizo MD) Other Family history of diabetes mellitus Medications and Allergies Active Medications: Active Medications Acetaminophen (Tylenol) 650 mg PO Q4H PRN PRN Reason: Temp > 100.4 Hydrocodone Bitart/Acetaminophen (Buckholts 5/325) 1 tab PO Q4H PRN PRN Reason: PAIN 1-10 AND/OR FEVER >101F Last Admin: 07/01/18 15:27 Dose: 1 tab Allopurinol (Zyloprim) 300 mg PO DAILY [facility] Last Admin: 07/01/18 11:11 Dose: Not Given Piperacillin/Tazobactam/Dextrose (Zosyn 3.375 Gm Premix) 50 mls @ 100 mls/hr IV.SIG Q6H [facility] Last Admin: 07/01/18 18:16 Dose: 100 mls/hr Lactated Ringer's (Lr 1000 Ml Inj) 1,000 mls @ 30 mls/hr IV.SIG .Q24H [facility] Stop: 07/02/18 07:44 Metoprolol Tartrate (Lopressor) 50 mg PO DAILY [facility] Last Admin: 07/01/18 15:27 Dose: 50 mg Mirtazapine (Remeron) 30 mg PO HS [facility] Last Admin: 07/01/18 20:28 Dose: 30 mg Ondansetron HCl (Zofran Inj) 4 mg IV.PUSH Q6H PRN PRN Reason: NAUSEA OR VOMITING Last Admin: 06/30/18 20:29 Dose: 4 mg Pantoprazole Sodium (Protonix) 40 mg PO BID [facility] Last Admin: 07/01/18 20:28 Dose: 40 mg Senna/Docusate Sodium (Yvette-Colace) 1 tab PO BID [facility] Last Admin: 07/01/18 20:28 Dose: 1 tab Sodium Chloride (Ns Flush) 2 ml IV.FLUSH BID [facility] Last Admin: 07/01/18 20:30 Dose: Not Given Sodium Chloride (Ns Flush) 2 ml IV.FLUSH PRN PRN PRN Reason: FLUSH AFTER USING IV ACCESS Exam Vital signs: Vital Signs 06/30/18 23:56 07/01/18 08:00 07/01/18 10:01 Temperature 97.6 F 98.8 F Pulse Rate 69 65 Respiratory Rate 16 18 Blood Pressure 131/65 103/65 Pulse Oximetry 100 98 98 07/01/18 12:21 07/01/18 16:59 07/01/18 20:00 Temperature 97.5 F L 98.5 F 97.5 F L Pulse Rate 75 94 H 74 Respiratory Rate 18 18 16 Blood Pressure 113/62 120/68 97/54 L Pulse Oximetry 98 100 95 07/01/18 20:41 Temperature Pulse Rate Respiratory Rate Blood Pressure Pulse Oximetry 100 Intake & Output 07/01/18 07/01/18 07/02/18 06:59 18:59 06:59 Intake Total 1500 / 1500 510 / 510 Output Total 950 / 950 250 / 250 Balance 550 / 550 260 / 260 Weight 69.2 kg Intake: IV 1100 / 1100 150 / 150 D5W/1/2NS + KCL 10 mEq Inj 1, 1000 / 1000 000 ML @ 100 mls/hr IV.CONT . Q10H [facility] Rx#:[id number] Zosyn 3.375 GM Premix 50 ML @ 100 / 100 50 / 50 100 mls/hr IV.SIG Q6H [facility] Rx#: [id number] KCl 20 mEq Premix Inj 20 meq In 100 / 100 100 ml @ 50 mls/hr IV.SIG Q2H [facility] Rx#:[id number] Oral 400 / 400 360 / 360 Output: Urine 950 / 950 Urine Amount (Catheter) 250 / 250 Indwelling Urethral Catheter 250 / 250 Other: Date of Last Bowel Movement 06/30/18 06/30/18 # Bowel Movements 7 1 Results - Lab Results 07/01/18 06:27 07/01/18 13:35 Most recent lab results Calcium 8.5 mg/dL (8.5-10.1) D 07/01/18 06:27 Phosphorus 2.2 mg/dL (2.5-4.9) L 07/01/18 06:27 Magnesium 1.9 mg/dL (1.5-2.5) 07/01/18 06:27 Ur Total Protein 24 Hr 1206 mg/24hr (0-150) H 06/29/18 06:00 Assessment and Plan - Assessment (1) Acute kidney injury superimposed on chronic kidney disease Code(s): N17.9 - Acute kidney failure, unspecified; N18.9 - Chronic kidney disease, unspecified Status: Acute (2) Dehydration Code(s): E86.0 - Dehydration Status: Acute (3) Weakness generalized Code(s): R53.1 - Weakness Status: Acute - Plan Patient seen and examined, agree with above. Patient with Chronic kidney disease and develop YAZAN. Continue IVF, follow the BMP.
[2018-06-27 13:10] LABS: Hepatitis A IgM Antibody Nonreactive (Nonreactive); Hepatitits B Surface Antigen Nonreactive (Nonreactive)
--- NOTE | 2018-06-27 14:11 | US ---
EXAM DATE: 06/27/2018 1:54 PM EST AGE/SEX: 78 years / Male INDICATIONS: Increased BUN/Creatinine. CLINICAL DATA: This is the patient's initial encounter. Patient reports that signs and symptoms have been present for 2 weeks and indicates a pain score of 0/10. MEDICAL/SURGICAL HISTORY: Asthma. Diabetes mellitus type II. Peripheral artery disease. CAD. CHF. COPD. CKD stage 3. GERD. AFib. Hypertension. Obstructive sleep apnea. Right leg cellulitis. CA BG. Tonsillectomy. [place] [facility] [place]26/2018. . MEASUREMENTS: Right Kidney:__9.9 x 4.6 x 4.7 cm Left Kidney:__11.8 x 6.5 x 5.6 cm FINDINGS: Right Kidney: Increased echogenicity with mild cortical thinning. No mass or hydronephrosis. Left Kidney: Mild increased echogenicity and cortical thickness. No mass or hydronephrosis. Bladder: There is a round polypoid lesion along the anterior urinary bladder wall measuring approxima tely 5.6 x 5 mm and there is mild irregularity and nodularity of the adjacent wall. Other: None. CONCLUSION: 1. No hydronephrosis. However, right kidney is small in size with cortical thinning and echogenicity suggesting chronic medical renal disease. 2. There is at least one polypoid nodular mass along the anterior urinary bladder wall measuring up to 6 mm. Suggest correlating for hematuria since this could represent a urothelial neoplasm. Also con preform plate maker correlation with cystoscopy or could noninvasively evaluate with pelvis MRI with and without in travenous contrast if the patient has a stable GFR greater than 30. Electronically signed by: Jerry Robb MD 06/27/2018 2:09 PM EST
--- NOTE | 2018-06-27 16:15 | MR ---
EXAM DATE: 06/27/2018 4:06 PM EST AGE/SEX: 78 years / Male INDICATIONS: Mass. Abnormal CT. CLINICAL DATA: This is the patient's subsequent encounter. Patient reports that signs and symptoms h ave been present for 2 days and indicates a pain score of 0/10. MEDICAL/SURGICAL HISTORY: Hypertension. Renal insufficiency, chronic. CABG. Tonsillectomy. bi lateral hip replacement COMPARISON: [facility] [place], 06/26/2018. . TECHNIQUE: Multiplanar, multisequence examination of the brain was performed without contrast. FINDINGS: MRI of the brain is performed in sagittal, axial and coronal planes. The craniocervical junction and midline structures are unremarkable. Diffusion weighted images demonstrate no abnormality. No acute c ortical infarction, acute hemorrhage, mass effect or midline shift is seen.There is mixed fluid and s oft tissue signal intensity involving the right frontal sinus which is slightly expanded. The anterio r and posterior bynum of the sinus are intact. No associated or adjacent intracranial abnormality is identified. Posterior fossa structures are unremarkable. CONCLUSION: No evidence of acute intracranial pathology. No masses are identified. Findings characteristic of frontal sinus mucocele. CT scan of the sinuses is recommended if clinicall y indicated Electronically signed by: Felipe Archer MD 06/27/2018 4:14 PM EST
--- NOTE | 2018-06-27 17:02 | P.PNIM ---
Subjective Interval history: Pt with continued poor appetite. Physical Exam Vital signs: Last Vital Signs Temp 98 F 06/27/18 12:00 Pulse 78 06/27/18 12:00 Resp 18 06/27/18 12:00 BP 133/85 06/27/18 12:00 Pulse Ox 98 06/27/18 12:00 Narrative: GENERAL: Cachectic, NAD, obvious weight loss, temporal wasting CARDIOVASCULAR: Regular rate and rhythm without murmurs, gallops, or rubs. RESPIRATORY: Clear to auscultation. Breath sounds equal bilaterally. No wheezes , rales, or rhonchi. GASTROINTESTINAL: Abdomen soft, non-tender, nondistended. Normal active bowel sounds MUSCULOSKELETAL: Extremities without clubbing, cyanosis, or edema. NEURO: Alert & Oriented x4 to person, place, time, situation. Moves all ext x4 Results Labs CBC & Chem 7: 06/30/18 05:25 06/30/18 05:25 Assessment and Plan Assessment (1) COPD (chronic obstructive pulmonary disease): Code(s): J44.9 - Chronic obstructive pulmonary disease, unspecified Status: Chronic (2) Physical deconditioning: Code(s): R53.81 - Other malaise Status: Acute (3) Hypercalcemia: Code(s): E83.52 - Hypercalcemia Status: Acute (4) Afib: Code(s): I48.91 - Unspecified atrial fibrillation Status: Acute Plan: 1) Hypercalcemia Deconditioning weight loss - pt is a poor historian - per pt's , pt has lost 60 pounds in the last year. - weight 100.8kg (02/03/18), 70.5 (06/28). Weight loss 30kg = 66 pounds - CT A/P (06/26) --> NO acute fidnings. No lytic lesions noted. - Renal US (06/27) - c/w medical renal disease - at least one polypoid nodular mass along the anterior urinary bladder wall measuring up to 6mm - MRI brain (06/27) - NO acute findings. No lytic skull lesions noted. - Creatinine 1.3 (08/14), 1.48 (01/28), 2.63 (06/26) - Calcium 8.9 (01/29/18), 13.3 (06/26), 13.6 (06/27), 13.1 (06/28) - TO --> pending - Free Badin light chain --> pending - Free Lambda Light chain --> pending - Hepatitis panel --> negative - PTH intact, low 6.3 (04/27) - Iron 46 (06/28) - TIBC 213 (06/28) - Albumin 2.8 (06/27) - Appreciate input from Nephrology - consult Urology d/t abnormal bladder fiding on US - consult Gastroenterology d/t weight loss - DVT prophylaxis - supportive care - PT - I am concerned about pt's tremendous weight loss - Pt's prognosis is guarded. Progress Note: Quality VTE Deep Vein Thrombosis/Pulmonary Embolism Present on Admission: No _ (1) Afib Qualifiers: Atrial fibrillation type: (2) COPD (chronic obstructive pulmonary disease) Qualifiers: COPD type: Chronic bronchitis type: Emphysema type:
--- NOTE | 2018-06-27 17:41 | ECG ---
Date Performed: 06/26/2018 Time Performed: 17:06:54 PTAGE: 78 years EKG: ATRIAL FIBRILLATION WITH SLOW VENTRICULAR RESPONSE Compared to previous tracing, the previo usly noted minimal ST segment changes are no longer evident ABNORMAL RHYTHM ECG PREVIOUS TRACING : 01/25/2018 18.13 DOCTOR: Susan Jennings Interpretating Date/Time 06/27/2018 17:39:27
[2018-06-27 19:55] LABS: Creatinine,Urine Random 105 mg/dL (27-300); Sodium,Urine Random 19 meq/L
[2018-06-27] MEDS: Mirtazapine 15 MG Tablet PO SCH (20:56)
[2018-06-28] MEDS: Dextrose 5%/NaCl 0.45% Inj 1,000 ML IV.CONT SCH (00:54)
[2018-06-28 07:18] LABS: Albumin 3.1 g/dL (3.4-5.0); Carbon Dioxide 23.2 meq/L (21.0-32.0); Phosphorus 1.8 mg/dL (2.5-4.9); Potassium 3.4 meq/L (3.5-5.1)
[2018-06-28 07:38] LABS: Calcium 13.1 mg/dL (8.5-10.1)
[2018-06-28] MEDS: Metoprolol Tartrate 50 MG Tablet PO SCH (09:51)
[2018-06-28] MEDS: Senna/Docusate Sodium 8.6/50 MG Tablet PO SCH ×2 (09:51→22:41)
[2018-06-28] MEDS: Allopurinol 300 MG Tablet PO SCH (09:51)
--- NOTE | 2018-06-28 10:48 | P.PNNP ---
Subjective Interval history: Patient is lethargic but responds to questions. Reports some abdominal pain and left shoulder discomfort. Creatinine is unchanged at 2.47. <Tasneem Murrieta - Last Filed: 06/28/18 10:38> Physical Exam Vital signs: Vital Signs 06/27/18 12:00 06/27/18 16:00 06/27/18 20:00 Temperature 98 F 97.7 F 97.8 F Pulse Rate 78 57 L 75 Respiratory Rate 18 18 17 Blood Pressure 133/85 147/66 H 130/68 Pulse Oximetry 98 97 98 06/28/18 00:00 06/28/18 04:00 06/28/18 08:50 Temperature 98 F 97.8 F Pulse Rate 76 95 H Respiratory Rate 15 18 Blood Pressure 164/89 H 172/70 H Pulse Oximetry 97 97 96 Intake & Output 06/27/18 06/28/18 06/28/18 18:59 06:59 18:59 Intake Total 977 / 977 1150 / 1150 1020 / 1020 Output Total 300 / 300 Balance 977 / 977 850 / 850 1020 / 1020 Weight 70.5 kg Intake: IV 977 / 977 1000 / 1000 D5W/1/2 NS Inj 1,000 ML @ 85 1000 / 1000 mls/hr IV.CONT .[id number] [facility] Rx# :[id number] NS Inj 1,000 ML @ 80 mls/hr IV. 822 / 822 CONT .[id number] [facility] Rx#:[id number] Zometa Inj 4 MG In NS Inj 150 155 / 155 ML @ 155 mls/hr IV.SIG ONCE ONE Rx#:[id number] Oral 150 / 150 Other 1020 / 1020 Output: Urine Amount (Catheter) 300 / 300 Straight 300 / 300 Other: Other Intake Source Saline Solution # Voids 1 # Oral Regurgitations 1 Narrative: GENERAL: Alert and oriented. n SKIN: Warm and dry. NECK: Supple, trachea midline. No JVD CARDIOVASCULAR: Regular rate and rhythm without murmurs, gallops, or rubs. RESPIRATORY: Breath sounds equal bilaterally. No accessory muscle use. GASTROINTESTINAL: Abdomen soft, non-tender, nondistended. MUSCULOSKELETAL: No cyanosis, or edema. BACK: Nontender without obvious deformity. No CVA tenderness. - Urinary Catheter Management Straight Cath placed during this visit: yes, but has since been removed by the nurse Reason for continuing: Chronic Urinary Retention Insertion date: 06/28/18 Insertion time: 06:00 Removal date: 06/27/18 Removal time: 06:15 <Tasneem Murrieta - Last Filed: 06/28/18 10:38> Vital signs: Vital Signs 06/30/18 23:56 07/01/18 08:00 07/01/18 10:01 Temperature 97.6 F 98.8 F Pulse Rate 69 65 Respiratory Rate 16 18 Blood Pressure 131/65 103/65 Pulse Oximetry 100 98 98 07/01/18 12:21 07/01/18 16:59 07/01/18 20:00 Temperature 97.5 F L 98.5 F 97.5 F L Pulse Rate 75 94 H 74 Respiratory Rate 18 18 16 Blood Pressure 113/62 120/68 97/54 L Pulse Oximetry 98 100 95 07/01/18 20:41 Temperature Pulse Rate Respiratory Rate Blood Pressure Pulse Oximetry 100 Intake & Output 07/01/18 07/01/18 07/02/18 06:59 18:59 06:59 Intake Total 1500 / 1500 510 / 510 Output Total 950 / 950 250 / 250 Balance 550 / 550 260 / 260 Weight 69.2 kg Intake: IV 1100 / 1100 150 / 150 D5W/1/2NS + KCL 10 mEq Inj 1, 1000 / 1000 000 ML @ 100 mls/hr IV.CONT . Q10H [facility] Rx#:[id number] Zosyn 3.375 GM Premix 50 ML @ 100 / 100 50 / 50 100 mls/hr IV.SIG Q6H [facility] Rx#: [id number] KCl 20 mEq Premix Inj 20 meq In 100 / 100 100 ml @ 50 mls/hr IV.SIG Q2H [facility] Rx#:[id number] Oral 400 / 400 360 / 360 Output: Urine 950 / 950 Urine Amount (Catheter) 250 / 250 Indwelling Urethral Catheter 250 / 250 Other: Date of Last Bowel Movement 06/30/18 06/30/18 # Bowel Movements 7 1 - Urinary Catheter Management Straight Cath placed during this visit: yes, but has since been removed by the nurse Reason for continuing: Acute urinary retention Insertion date: 06/28/18 Insertion time: 06:00 Removal date: 06/27/18 Removal time: 06:15 Indwelling Urethral Catheter Cath placed during this visit: no <Matthew Coon - Last Filed: 07/01/18 20:59> Assessment and Plan - Assessment (1) Acute kidney injury superimposed on chronic kidney disease Code(s): N17.9 - Acute kidney failure, unspecified; N18.9 - Chronic kidney disease, unspecified Status: Acute Plan: (2) Dehydration Code(s): E86.0 - Dehydration Status: Acute (3) Weakness generalized Code(s): R53.1 - Weakness Status: Acute - Plan Acute kidney injury with creatinine of 2.57 which has improved at 2.63 on day of consult Acute kidney injury could be ATN from dehydration poor intake and intravascular volume depletion. Also noted to have anemia with hypercalcemia so possibility of multiple myeloma. Has been followed by Dr. Harris in the past for chronic kidney disease. Chronic kidney most likely from diabetes. Baseline creatinine appears to be around 1.5 to 1.7. Avoid nephrotoxins including NSAIDS, IV contrast, and aminoglycosides Serology with C3 normal C4 low. TO and SPEP pending. Continue IVF rate increased as patient appears dry and patient intake is very poor, and urine output is low Hypercalcemia at 13.1, has received 1 dose of zoledronic Monitor strict I +O, Creatinine is essentially unchanged at 2.47 Labs in AM will follow urinary output and BMP <Tasneem Murrieta - Last Filed: 06/28/18 10:38> - Assessment (1) Acute kidney injury superimposed on chronic kidney disease Code(s): N17.9 - Acute kidney failure, unspecified; N18.9 - Chronic kidney disease, unspecified Status: Acute (2) Dehydration Code(s): E86.0 - Dehydration Status: Acute (3) Weakness generalized Code(s): R53.1 - Weakness Status: Acute - Plan Patient seen and examined, agree with above. Calcium was still elevated, given one dose of Zoledronic. Follow the Creatinine and Calcium level. <Matthew Coon - Last Filed: 07/01/18 20:59>
--- NOTE | 2018-06-28 11:04 | CT ---
EXAM DATE: 06/28/2018 10:42 AM EST AGE/SEX: 78 years / Male INDICATIONS: Shortness of breath. CLINICAL DATA: This is the patient's initial encounter. Patient reports that signs and symptoms have been present for 1 day and indicates a pain score of 0/10. MEDICAL/SURGICAL HISTORY: Congestive heart failure. Diabetes. Hypertension. CABG. RADIATION DOSE: 13.78 CTDI (mGy) COMPARISON: POI, CT CHEST W/ CONTRAST, 11/15/2017. . TECHNIQUE: Multiple contiguous axial images were obtained through the chest without contrast. Image s were obtained in suspended respiration using multiple row detector helical technique. Using [place] exposure control and adjustment of the mA and/or kV according to patient size, radiation dose was kept as low as reasonably achievable to obtain optimal diagnostic quality images. DICOM format imag e data is available electronically for review and comparison. FINDINGS: Lungs: No consolidation or pneumothorax. There is trace left pleural fluid with atelectasis in the adjacent left lower lobe. Mild respiratory motion artifact is present. There is a calcified granuloma in the right upper lobe. Mild to moderate centrilobular emphysema is present in the upper lobes. No pneumothorax is present. Mediastinum: The heart and great vessels demonstrate no acute abnormality. No lymphadenopathy is id entified. There is coronary artery calcification and moderate atherosclerotic disease of the aorta. D escending thoracic aorta is tortuous. There are changes related to prior CABG. Pleurae: There is trace left pleural fluid. Axillae: No lymphadenopathy. Musculoskeletal: The bones and soft tissues demonstrate no acute abnormality. There are degenerativ e changes of the thoracic spine with chronic compression fracture of T7. Median sternotomy wires are present. Other: The visualized upper abdominal structures demonstrate no acute abnormality. There are 2 low- density lesions in the liver measuring 1.1 cm and 2.9 cm. Both have density measurements characterist ic of cysts. There is severe calcification in the proximal renal arteries bilaterally. CONCLUSION: 1. No acute finding is identified to explain the shortness of breath. There is mild to moderate cent rilobular emphysema. Trace left pleural fluid is present. 2. Nonacute findings include chronic compression fracture of T7 and severe atherosclerotic plaque in the proximal renal arteries bilaterally. Electronically signed by: Jerry Robb MD 06/28/2018 11:03 AM EST
--- NOTE | 2018-06-28 11:35 | P.CONGI ---
History of Present Illness Consult date: 06/28/18 Consult reason: Difficulty swallowing Weight loss Chief complaint: Hypercalemia,right frontal mass vs sinusitis History of Present Illness: This patient is a 78-year-old male with a past medical history significant for coronary artery disease, COPD, CKD, diabetes with neuropathy, peripheral artery disease and atrial fibrillation. Patient admitted to [facility] for evaluation of 2-week onset of generalized weakness. Patient states that he has been having difficulty swallowing solid foods for the last 2 weeks. He denies difficulty with fluids but states that solid foods feel stuck with pressure while pointing to epigastric area. Patient does endorse nausea he denies vomiting. Denies any noted blood in stool. Patient states he has had no appetite. Of note, per documentation; patient has had a gradual weight loss of 60 pounds over the last year. Our service has been consulted to evaluate patient for difficulty swallowing and unintentional weight loss Review of Systems All other systems reviewed negative except as stated in HPI PMFSH - History History Provided By: Patient, Medical Record - Medical History Medical History: Medical History (Last Reviewed 06/28/18 @ 15:18 by Jeni Murphy) GERD (gastroesophageal reflux disease) (Acute) CAD (coronary artery disease) (Acute) Paroxysmal A-fib (Acute) COPD (chronic obstructive pulmonary disease) (Acute) Cellulitis of right foot (Acute) Ulcers of both lower extremities (Acute) PAD (peripheral artery disease) (Acute) CHF (congestive heart failure) 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, uncontrolled, with neuropathy Edema of both lower extremities due to peripheral venous insufficiency HLD (hyperlipidemia) HTN (hypertension) MASHA (obstructive sleep apnea) Pedal edema Pulmonary hypertension - Surgical History Surgical History: Surgical History (Last Reviewed 06/28/18 @ 15:18 by Jeni Murphy) History of bilateral hip replacements Hx of CABG Hx of tonsillectomy - Family History Family History: Family History (Last Reviewed 06/28/18 @ 15:18 by Jeni Murphy) Other Family history of diabetes mellitus - Tobacco History Second Hand Smoke Exposure: No Smoking Status: Former smoker Tobacco Type: Cigarettes - Alcohol History How Often Do You Have a Drink Containing Alcohol: Never - Substance Use History Substance History: No History of Abuse - Travel History Recent Travel in the [place] Within the Last 8 Weeks: No Recent Travel Out of the Country Within the Last 8 Weeks: No - Immunization History Tetanus Immunization: Unsure Hx Influenza Vaccine This Season: No Medications and Allergies Active Medications: Active Medications Acetaminophen (Tylenol) 650 mg PO Q4H PRN PRN Reason: Temp > 100.4 Allopurinol (Zyloprim) 300 mg PO DAILY [facility] Last Admin: 06/28/18 09:51 Dose: 300 mg Dextrose/Sodium Chloride (D5w/1/2 Ns Inj) 1,000 mls @ 125 mls/hr IV.CONT .Q8H [facility] Last Admin: 06/28/18 00:54 Dose: 85 mls/hr Metoprolol Tartrate (Lopressor) 50 mg PO DAILY [facility] Last Admin: 06/28/18 09:51 Dose: 50 mg Mirtazapine (Remeron) 30 mg PO HS [facility] Last Admin: 06/27/18 20:56 Dose: 30 mg Ondansetron HCl (Zofran Inj) 4 mg IV.PUSH Q6H PRN PRN Reason: NAUSEA OR VOMITING Senna/Docusate Sodium (Yvette-Colace) 1 tab PO BID [facility] Last Admin: 06/28/18 09:51 Dose: 1 tab Sodium Chloride (Ns Flush) 2 ml IV.FLUSH BID [facility] Last Admin: 06/28/18 09:51 Dose: Not Given Sodium Chloride (Ns Flush) 2 ml IV.FLUSH PRN PRN PRN Reason: FLUSH AFTER USING IV ACCESS Allergies Allergy/AdvReac Type Severity Reaction Status Date / Time amlodipine Allergy Severe JOINT Verified 06/26/18 15:30 PAIN, VOMITING, UNABLE TO MOVE atorvastatin Allergy Severe Nausea/Vomi Verified 06/26/18 15:30 ting lovastatin Allergy Severe Abdominal Verified 06/26/18 15:30 Pain pravastatin Allergy Severe JOINT Verified 06/26/18 15:30 PAIN, VOMITING, UNABLE TO MOVE simvastatin Allergy Severe Nausea/Vomi Verified 06/26/18 15:30 ting tetanus toxoid, adsorbed Allergy Severe VOMITING, Verified 06/26/18 15:30 CRAMPING *MDRO Multi-Drug Resistant AdvReac Unknown Nausea/Vomi Uncoded 01/25/18 17:52 Organism ting Home Medications Medication Instructions Recorded Confirmed Type allopurinol 300 mg PO DAILY 01/25/18 06/26/18 History ezetimibe [Zetia] 10 mg PO DAILY 01/25/18 06/26/18 History furosemide [Lasix] 40 mg PO QAM PRN 01/25/18 06/26/18 History hydrocodone-acetaminophen [Delta] 1 tab PO TID 01/25/18 06/26/18 History metoprolol tartrate 50 mg PO DAILY 01/25/18 06/26/18 History furosemide [Lasix] 20 mg PO DAILY@17 PRN 06/26/18 06/26/18 History Exam Vital signs: Vital Signs 06/27/18 12:00 06/27/18 16:00 06/27/18 20:00 Temperature 98 F 97.7 F 97.8 F Pulse Rate 78 57 L 75 Respiratory Rate 18 18 17 Blood Pressure 133/85 147/66 H 130/68 Pulse Oximetry 98 97 98 06/28/18 00:00 06/28/18 04:00 06/28/18 08:00 Temperature 98 F 97.8 F 101.5 F H Pulse Rate 76 95 H 92 H Respiratory Rate 18 Blood Pressure 164/89 H 172/70 H 154/77 H Pulse Oximetry 97 97 96 06/28/18 08:50 Temperature Pulse Rate Respiratory Rate Blood Pressure Pulse Oximetry 96 Intake & Output 06/27/18 06/28/18 06/28/18 18:59 06:59 18:59 Intake Total 977 / 977 1150 / 1150 1020 / 1020 Output Total 300 / 300 Balance 977 / 977 850 / 850 1020 / 1020 Weight 70.5 kg Intake: IV 977 / 977 1000 / 1000 D5W/1/2 NS Inj 1,000 ML @ 85 1000 / 1000 mls/hr IV.CONT .[id number] [facility] Rx# :[id number] NS Inj 1,000 ML @ 80 mls/hr IV. 822 / 822 CONT .[id number] [facility] Rx#:[id number] Zometa Inj 4 MG In NS Inj 150 155 / 155 ML @ 155 mls/hr IV.SIG ONCE ONE Rx#:[id number] Oral 150 / 150 Other 1020 / 1020 Output: Urine Amount (Catheter) 300 / 300 Straight 300 / 300 Other: Other Intake Source Saline Solution # Voids 1 # Oral Regurgitations 1 - Constitutional thin, chronically ill appearing - Routine HEENT Exam Head: Present: normocephalic ENT: Present: mucous membranes dry - Routine Respiratory Exam Present: CTA bilaterally - Routine Abdominal Exam Present: soft, normoactive bowel sounds. Absent: tenderness, distended, guarding, firm - Routine Extremities Exam Absent: edema Comments: Bilateral lower extremity chronic wounds present with dressings in place - Routine Skin Exam Present: dry, warm - Routine Neurological Exam Present: alert Results - Labs CBC & Chem 7: 06/27/18 04:48 06/28/18 04:50 Labs: Laboratory Results - last 24 hr 06/27/18 06/27/18 06/27/18 11:26 11:26 11:26 Sodium 137 Potassium 3.6 Chloride 101 Carbon Dioxide 23.6 Anion Gap 12 BUN 31 H Creatinine 2.45 H Estimated GFR 26 L POC Glucose Random Glucose 93 Calcium 12.5 H* D Phosphorus 2.6 2.7 Magnesium 1.7 Iron 46 L TIBC 213 L % Saturation 21.6 Ferritin 425 H Ammonia Total Protein (PEP) 6.5 Albumin 2.8 L Albumin (PEP) 3.56 Albumin/Globulin Ratio 1.21 L Hkdlf-9-Vaijaueiz 0.26 Fraeq-9-Hypaylezq 0.93 Beta Globulins 0.65 Gamma Globulins 1.11 PTH Intact Urine Osmolality Ur Random Creatinine Ur Random Sodium IgG 834 IgA 153 IgM 59 [place]/Lambda Ratio 1.56 L Complement C3 111 Complement C4 47 H [place] Light Chain Anal 192 Lambda Light Chain Anal 123 Hepatitis A IgM Ab Nonreactive Hep Bs Antigen Nonreactive Hep B Core IgM Ab Nonreactive Hep C IgG Ab Nonreactive 06/27/18 06/27/18 06/27/18 11:34 19:32 19:32 Sodium Potassium Chloride Carbon Dioxide Anion Gap BUN Creatinine Estimated GFR POC Glucose Random Glucose Calcium Phosphorus Magnesium Iron TIBC % Saturation Ferritin Ammonia Less than 10 L Total Protein (PEP) Albumin Albumin (PEP) Albumin/Globulin Ratio Raloo-1-Gtnnbpzwq Qvugy-6-Uiknxydtq Beta Globulins Gamma Globulins PTH Intact Urine Osmolality 386 Ur Random Creatinine 105 Ur Random Sodium 19 IgG IgA IgM [place]/Lambda Ratio Complement C3 Complement C4 [place] Light Chain Anal Lambda Light Chain Anal Hepatitis A IgM Ab Hep Bs Antigen Hep B Core IgM Ab Hep C IgG Ab 06/27/18 06/27/18 06/28/18 20:38 20:58 04:50 Sodium 137 Potassium 3.4 L Chloride 102 Carbon Dioxide 23.2 Anion Gap 12 BUN 29 H Creatinine 2.47 H Estimated GFR 25 L POC Glucose 109 Random Glucose 95 Calcium 13.1 H* Phosphorus 1.8 L Magnesium Iron TIBC % Saturation Ferritin Ammonia Total Protein (PEP) Albumin 3.1 L Albumin (PEP) Albumin/Globulin Ratio Ichzl-2-Zckeejvrz Rsfnc-3-Lzrvgkjnl Beta Globulins Gamma Globulins PTH Intact Less than 6.3 L Urine Osmolality Ur Random Creatinine Ur Random Sodium IgG IgA IgM [place]/Lambda Ratio Complement C3 Complement C4 [place] Light Chain Anal Lambda Light Chain Anal Hepatitis A IgM Ab Hep Bs Antigen Hep B Core IgM Ab Hep C IgG Ab 06/28/18 05:10 Sodium Potassium Chloride Carbon Dioxide Anion Gap BUN Creatinine Estimated GFR POC Glucose 105 Random Glucose Calcium Phosphorus Magnesium Iron TIBC % Saturation Ferritin Ammonia Total Protein (PEP) Albumin Albumin (PEP) Albumin/Globulin Ratio Byffb-9-Zsuurdbow Emrgf-7-Dfccsejrh Beta Globulins Gamma Globulins PTH Intact Urine Osmolality Ur Random Creatinine Ur Random Sodium IgG IgA IgM [place]/Lambda Ratio Complement C3 Complement C4 [place] Light Chain Anal Lambda Light Chain Anal Hepatitis A IgM Ab Hep Bs Antigen Hep B Core IgM Ab Hep C IgG Ab - Imaging Impressions Abdomen/Bladder Ultrasound 06/27/18 00:00 CONCLUSION: 1. No hydronephrosis. However, right kidney is small in size with cortical thinning and echogenicity suggesting chronic medical renal disease. 2. There is at least one polypoid nodular mass along the anterior urinary bladder wall measuring up to 6 mm. Suggest correlating for hematuria since this could represent a urothelial neoplasm. Also consider correlation with cystoscopy or could noninvasively evaluate with pelvis MRI with and without intravenous contrast if the patient has a stable GFR greater than 30. Head MRI 06/27/18 00:00 CONCLUSION: No evidence of acute intracranial pathology. No masses are identified. Findings characteristic of frontal sinus mucocele. CT scan of the sinuses is recommended if clinically indicated Chest CT 06/28/18 00:00 CONCLUSION: 1. No acute finding is identified to explain the shortness of breath. There is mild to moderate centrilobular emphysema. Trace left pleural fluid is present. 2. Nonacute findings include chronic compression fracture of T7 and severe atherosclerotic plaque in the proximal renal arteries bilaterally. Assessment and Plan (1) Dysphasia Status: Acute Code(s): R47.02 - Dysphasia (2) Unintended weight loss Status: Acute Code(s): R63.4 - Abnormal weight loss - Plan This patient is a 78-year-old male with a past medical history significant for coronary artery disease, COPD, CKD, diabetes with neuropathy, peripheral artery disease and atrial fibrillation. Patient admitted to [facility] for evaluation of 2-week onset of generalized weakness. Patient states that he has been having difficulty swallowing solid foods for the last 2 weeks. He denies difficulty with fluids but states that solid foods feel stuck with pressure while pointing to epigastric area. Patient does endorse nausea he denies vomiting. Denies any noted blood in stool. Patient states he has had no appetite. Of note, per documentation; patient has had a gradual weight loss of 60 pounds over the last year. Our service has been consulted to evaluate patient for difficulty swallowing and unintentional weight loss Dysphagia with unintended weight loss Patient endorses 2-week onset of generalized weakness with difficulty swallowing. 30-40 pound weight loss reported over the last year. 06/26/2018 CT abdomen and pelvis reveal the following-- 1. No acute abnormality demonstrated. 2. Scattered benign-appearing cysts of the liver. 3. Mild atrophy of the right kidney, similar to before. 4. Atherosclerotic abdominal aorta and branch vessels. 06/27/2018 WBC 5.5 hemoglobin 12.7 hematocrit 39.8 INR 1.1calcium 13.1 Plan Diet as tolerated Obtain consent for EGD N.p.o. after midnight Aspiration precautions Supportive care Further recommendations to follow This patient has been seen by myself and and this note is written on his behalf - Attending Attestation cheo
--- NOTE | 2018-06-28 12:25 | P.CONURO ---
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, uncontrolled, with neuropathy Edema of both lower extremities due to peripheral venous insufficiency HLD (hyperlipidemia) HTN (hypertension) MASHA (obstructive sleep apnea) Pedal edema Pulmonary hypertension - Surgical History Surgical History: Surgical History (Last Reviewed 06/28/18 @ 09:18 by Jeni Murphy) History of bilateral hip replacements Hx of CABG Hx of tonsillectomy - Family History Family History: Family History (Last Reviewed 06/28/18 @ 09:18 by Jeni Murphy) Other Family history of diabetes mellitus - Tobacco History Second Hand Smoke Exposure: No Smoking Status: Former smoker Tobacco Type: Cigarettes - Alcohol History How Often Do You Have a Drink Containing Alcohol: Never - Substance Use History Substance History: No History of Abuse - Travel History Recent Travel in the [place] Within the Last 8 Weeks: No Recent Travel Out of the Country Within the Last 8 Weeks: No - Immunization History Tetanus Immunization: Unsure Hx Influenza Vaccine This Season: No Medications and Allergies Active Medications: Active Medications Acetaminophen (Tylenol) 650 mg PO Q4H PRN PRN Reason: Temp > 100.4 Allopurinol (Zyloprim) 300 mg PO DAILY [facility] Last Admin: 06/28/18 09:51 Dose: 300 mg Dextrose/Sodium Chloride (D5w/1/2 Ns Inj) 1,000 mls @ 125 mls/hr IV.CONT .Q8H [facility] Last Admin: 06/28/18 00:54 Dose: 85 mls/hr Metoprolol Tartrate (Lopressor) 50 mg PO DAILY [facility] Last Admin: 06/28/18 09:51 Dose: 50 mg Mirtazapine (Remeron) 30 mg PO HS [facility] Last Admin: 06/27/18 20:56 Dose: 30 mg Ondansetron HCl (Zofran Inj) 4 mg IV.PUSH Q6H PRN PRN Reason: NAUSEA OR VOMITING Senna/Docusate Sodium (Yvette-Colace) 1 tab PO BID [facility] Last Admin: 06/28/18 09:51 Dose: 1 tab Sodium Chloride (Ns Flush) 2 ml IV.FLUSH BID [facility] Last Admin: 06/28/18 09:51 Dose: Not Given Sodium Chloride (Ns Flush) 2 ml IV.FLUSH PRN PRN PRN Reason: FLUSH AFTER USING IV ACCESS Allergies Allergy/AdvReac Type Severity Reaction Status Date / Time amlodipine Allergy Severe JOINT Verified 06/26/18 15:30 PAIN, VOMITING, UNABLE TO MOVE atorvastatin Allergy Severe Nausea/Vomi Verified 06/26/18 15:30 ting lovastatin Allergy Severe Abdominal Verified 06/26/18 15:30 Pain pravastatin Allergy Severe JOINT Verified 06/26/18 15:30 PAIN, VOMITING, UNABLE TO MOVE simvastatin Allergy Severe Nausea/Vomi Verified 06/26/18 15:30 ting tetanus toxoid, adsorbed Allergy Severe VOMITING, Verified 06/26/18 15:30 CRAMPING *MDRO Multi-Drug Resistant AdvReac Unknown Nausea/Vomi Uncoded 01/25/18 17:52 Organism ting Home Medications Medication Instructions Recorded Confirmed Type allopurinol 300 mg PO DAILY 01/25/18 06/26/18 History ezetimibe [Zetia] 10 mg PO DAILY 01/25/18 06/26/18 History furosemide [Lasix] 40 mg PO QAM PRN 01/25/18 06/26/18 History hydrocodone-acetaminophen [[place]] 1 tab PO TID 01/25/18 06/26/18 History metoprolol tartrate 50 mg PO DAILY 01/25/18 06/26/18 History furosemide [Lasix] 20 mg PO DAILY@17 PRN 06/26/18 06/26/18 History Physical Exam Vital Signs - 24 hr 06/27/18 16:00 06/27/18 20:00 06/28/18 00:00 Temperature 97.7 F 97.8 F 98 F Pulse Rate 57 L 75 76 Respiratory Rate 18 17 15 Blood Pressure 147/66 H 130/68 164/89 H Pulse Oximetry 97 98 97 06/28/18 04:00 06/28/18 08:00 06/28/18 08:50 Temperature 97.8 F 101.5 F H Pulse Rate 95 H 92 H Respiratory Rate 18 18 Blood Pressure 172/70 H 154/77 H Pulse Oximetry 97 96 96 06/28/18 09:15 Temperature Pulse Rate Respiratory Rate Blood Pressure Pulse Oximetry 96 Physical Exam: GENERAL: This is a well-nourished, well-developed patient, in no apparent distress. SKIN: No rashes, ecchymoses or lesions. Cool and dry. HEAD: Atraumatic. Normocephalic. No temporal or scalp tenderness. EYES: Pupils equal round and reactive. Extraocular motions intact. No scleral icterus. No injection or drainage. ENT: Nose without bleeding, purulent drainage or septal hematoma. Throat without erythema, tonsillar hypertrophy or exudate. Uvula midline. Airway patent. NECK: Trachea midline. No JVD or lymphadenopathy. Supple, nontender, no meningeal signs. CARDIOVASCULAR: Regular rate and rhythm without murmurs, gallops, or rubs. RESPIRATORY: Clear to auscultation. Breath sounds equal bilaterally. No wheezes , rales, or rhonchi. GASTROINTESTINAL: Abdomen soft, non-tender, nondistended. No hepato-splenomegaly , or palpable masses. No guarding. GENITOURINARY: MUSCULOSKELETAL: Extremities without clubbing, cyanosis, or edema. No joint tenderness, effusion, or edema noted. No calf tenderness. Negative Homans sign bilaterally. NEUROLOGICAL: Awake and alert. Cranial nerves II through XII intact. Motor and sensory grossly within normal limits. Five out of 5 muscle strength in all muscle groups. Normal speech. Laboratory Results - last 24 hr 06/27/18 06/27/18 06/27/18 11:26 11:26 11:26 Sodium Potassium Chloride Carbon Dioxide Anion Gap BUN Creatinine 2.45 H Estimated GFR 26 L POC Glucose Random Glucose Calcium Phosphorus 2.6 2.7 TIBC 213 L % Saturation 21.6 Ferritin 425 H Total Protein (PEP) 6.5 Albumin Albumin (PEP) 3.56 Albumin/Globulin Ratio 1.21 L Tizpu-9-Ltfntgjdi 0.26 Ruwyn-7-Qmivsyjmv 0.93 Beta Globulins 0.65 Gamma Globulins 1.11 PTH Intact Urine Osmolality Ur Random Creatinine Ur Random Sodium IgG 834 IgA 153 IgM 59 [place]/Lambda Ratio 1.56 L Complement C3 111 Complement C4 47 H [place] Light Chain Anal 192 [place] Light Chain Anal 123 Hepatitis A IgM Ab Nonreactive Hep Bs Antigen Nonreactive Hep B Core IgM Ab Nonreactive Hep C IgG Ab Nonreactive 06/27/18 06/27/18 06/27/18 19:32 19:32 20:38 Sodium Potassium Chloride Carbon Dioxide Anion Gap BUN Creatinine Estimated GFR POC Glucose Random Glucose Calcium Phosphorus TIBC % Saturation Ferritin Total Protein (PEP) Albumin Albumin (PEP) Albumin/Globulin Ratio Cbptw-5-Xzbxtlywp Ympdy-1-Umlkwjilf Beta Globulins Gamma Globulins PTH Intact Less than 6.3 L Urine Osmolality 386 Ur Random Creatinine 105 Ur Random Sodium 19 IgG IgA IgM [place]/Lambda Ratio Complement C3 Complement C4 [place] Light Chain Anal Lambda Light Chain Anal Hepatitis A IgM Ab Hep Bs Antigen Hep B Core IgM Ab Hep C IgG Ab 06/27/18 06/28/18 06/28/18 20:58 04:50 05:10 Sodium 137 Potassium 3.4 L Chloride 102 Carbon Dioxide 23.2 Anion Gap 12 BUN 29 H Creatinine 2.47 H Estimated GFR 25 L POC Glucose 109 105 Random Glucose 95 Calcium 13.1 H* Phosphorus 1.8 L TIBC % Saturation Ferritin Total Protein (PEP) Albumin 3.1 L Albumin (PEP) Albumin/Globulin Ratio Vqzrv-7-Tvsahowch Vvait-0-Pgbjlhgqm Beta Globulins Gamma Globulins PTH Intact Urine Osmolality Ur Random Creatinine Ur Random Sodium IgG IgA IgM [place]/Lambda Ratio Complement C3 Complement C4 [place] Light Chain Anal Lambda Light Chain Anal Hepatitis A IgM Ab Hep Bs Antigen Hep B Core IgM Ab Hep C IgG Ab Result Diagrams: 06/27/18 04:48 06/28/18 04:50 Imaging: ITS Impressions Chest X-Ray 06/26/18 16:06 CONCLUSION: 1. Stable postsurgical features and compensated cardiomegaly. 2. No acute abnormality. Head CT 06/26/18 16:08 CONCLUSION: No acute intracranial abnormality demonstrated. Right frontal sinusitis versus mass. . Abdomen/Pelvis CT 06/26/18 17:48 CONCLUSION: 1. No acute abnormality demonstrated. 2. Scattered benign-appearing cysts of the liver. 3. Mild atrophy of the right kidney, similar to before. 4. Atherosclerotic abdominal aorta and branch vessels. Abdomen/Bladder Ultrasound 06/27/18 00:00 CONCLUSION: 1. No hydronephrosis. However, right kidney is small in size with cortical thinning and echogenicity suggesting chronic medical renal disease. 2. There is at least one polypoid nodular mass along the anterior urinary bladder wall measuring up to 6 mm. Suggest correlating for hematuria since this could represent a urothelial neoplasm. Also consider correlation with cystoscopy or could noninvasively evaluate with pelvis MRI with and without intravenous contrast if the patient has a stable GFR greater than 30. Head MRI 06/27/18 00:00 CONCLUSION: No evidence of acute intracranial pathology. No masses are identified. Findings characteristic of frontal sinus mucocele. CT scan of the sinuses is recommended if clinically indicated Chest CT 06/28/18 00:00 CONCLUSION: 1. No acute finding is identified to explain the shortness of breath. There is mild to moderate centrilobular emphysema. Trace left pleural fluid is present. 2. Nonacute findings include chronic compression fracture of T7 and severe atherosclerotic plaque in the proximal renal arteries bilaterally. Assessment and Plan - Plan 78 yo male with possible bladder mass -Needs cystoscopy as outpatient. -oliveira catheter per primary -Available as needed. Call with questions. -F/U upon discharge
--- NOTE | 2018-06-28 15:32 | P.PNIM ---
Subjective Interval history: No new complaints. Pt's appetite remains poor. Physical Exam Vital signs: Last Vital Signs Temp 101 F H 06/28/18 12:00 Pulse 81 06/28/18 12:00 Resp 20 06/28/18 12:00 BP 158/79 H 06/28/18 12:00 Pulse Ox 95 06/28/18 12:00 Results Labs CBC & Chem 7: 06/30/18 05:25 06/30/18 05:25 Assessment and Plan Assessment (1) Dysphasia: Code(s): R47.02 - Dysphasia Status: Acute (2) Unintended weight loss: Code(s): R63.4 - Abnormal weight loss Status: Acute Plan 1) Hypercalcemia Deconditioning weight loss - Pt has h/o CAD, s/p CABG 1997, Atrial Fibrillation, COPD, DM2 - pt is a poor historian - per pt's , pt has lost 60 pounds in the last year. - weight 100.8kg (02/03/18), 70.5 (06/28). Weight loss 30kg = 66 pounds - CT A/P (06/26) --> NO acute fidnings. No lytic lesions noted. - Renal US (06/27) - c/w medical renal disease - at least one polypoid nodular mass along the anterior urinary bladder wall measuring up to 6mm - MRI brain (06/27) - NO acute findings. No lytic skull lesions noted. - Creatinine 1.3 (08/14), 1.48 (01/28), 2.63 (06/26) - Calcium 8.9 (01/29/18), 13.3 (06/26), 13.6 (06/27), 13.1 (06/28) - TO --> pending - Free [place] light chain --> pending - Free Lambda Light chain --> pending - Hepatitis panel --> negative - PTH intact, low 6.3 (04/27) - Iron 46 (06/28) - TIBC 213 (06/28) - Albumin 2.8 (06/27) - Appreciate input from Nephrology - Appreciate input from Urology. Recommended outpt cystoscopy - Appreciate input from GI - EGD for Friday 06/29 - DVT prophylaxis - supportive care - PT - I am concerned about pt's tremendous weight loss - Pt's prognosis is guarded. - Case informally d/w Hematology/Oncology (06/28). No indication for consultation at this time. - will give IV venofer daily x 3d - Case d/w Nephrology, Dr. Coon (06/28). Will replete pt's posphorus. - repeat labs in AM to include CBC, CMP, mag, phos Progress Note: Quality VTE Deep Vein Thrombosis/Pulmonary Embolism Present on Admission: No
[2018-06-28] MEDS ORDERED: Sodium Glycerophosphate Inj 15 MMOL in Sodium Chlor 0.9% Inj 100 ML IV.SIG ONE (17:00)
[2018-06-28] MEDS: KCL 10 mEq/D5W/NaCl 0.45% Inj 1,000 ML IV.CONT SCH (18:07)
[2018-06-28] MEDS: Piperacil/Tazo 3.375 GM Premix 50 ML IV.SIG SCH (18:08)
[2018-06-28] MEDS: Iron Sucrose Inj 200 MG in Sodium Chlor 0.9% Inj 100 ML IV.SIG SCH (18:59)
[2018-06-28] MEDS: Mirtazapine 15 MG Tablet PO SCH (22:41)
[2018-06-29] MEDS: Piperacil/Tazo 3.375 GM Premix 50 ML IV.SIG SCH ×5 (02:31→23:38)
[2018-06-29 05:44] LABS: Baso % (Auto) 0.7 % (0.0-2.0); Eos # (Auto) 0.1 th/mm3 (0.0-0.4); Hematocrit 37.4 % (39.0-51.0); Lymph # (Auto) 0.2 th/mm3 (1.0-4.8); Lymph % (Auto) 3.3 % (9.0-44.0); Mean Corpuscular HGB Conc 32.2 % (32.0-36.0); Mean Corpuscular Hemoglobin 29.5 pg (27.0-34.0); Mean Corpuscular Volume 91.6 fL (80.0-100.0); Mean Platelet Volume 9.7 fL (7.0-11.0); Mono # (Auto) 0.2 th/mm3 (0.0-0.9); Mono % (Auto) 3.1 % (0.0-8.0); Neut # (Auto) 5.3 th/mm3 (1.8-7.7); Neut % (Auto) 91.9 % (16.0-70.0); Platelet Count 228 th/mm3 (150-450); Red Blood Count 4.08 mil/mm3 (4.50-5.90); Red Cell Distribution Width 18.1 % (11.6-17.2); White Blood Count 5.7 th/mm3 (4.0-11.0)
[2018-06-29 06:09] LABS: Albumin 2.4 g/dL (3.4-5.0); Anion Gap 9 meq/L (5-15); Aspartate Aminotransferase 20 U/L (15-37); Blood Urea Nitrogen 28 mg/dL (7-18); Calcium 10.5 mg/dL (8.5-10.1); Carbon Dioxide 26.8 meq/L (21.0-32.0); Chloride 104 meq/L (98-107); Glomerular Filtration Rate 27 mL/min (>89); Glucose,Random 113 mg/dL (74-106); Magnesium 1.4 mg/dL (1.5-2.5); Potassium 3.1 meq/L (3.5-5.1); Sodium 140 meq/L (136-145)
[2018-06-29 06:14] LABS: Alanine Aminotransferase 7 U/L (12-78); Alkaline Phosphatase 65 U/L (45-117); Carcinoembryonic Antigen 1.4 ng/mL (0.2-5.0); Phosphorus 2.2 mg/dL (2.5-4.9); Total Protein 6.1 g/dL (6.4-8.2)
[2018-06-29] MEDS ORDERED: Metoprolol Tartrate 25 MG Tablet PO ONE (08:30)
[2018-06-29] MEDS ORDERED: Sodium Chlor 0.9% Inj 500 ML IV.CONT ONE (08:30)
[2018-06-29] MEDS ORDERED: Chlorhexidine Gluconate 2% 1 Pack (2 Cloths) TOPICAL ONE ×2 (08:30→15:30)
[2018-06-29] MEDS: Metoprolol Tartrate 50 MG Tablet PO SCH (08:34)
[2018-06-29] MEDS: Allopurinol 300 MG Tablet PO SCH (08:34)
[2018-06-29] MEDS ORDERED: Mag Sulf 1 gm/100 ml Premix 100 ML IV.SIG ONE (09:13)
[2018-06-29] MEDS ORDERED: PEG 3350/E-Lyte Soln 4000 ML Bottle PO ONE (09:33)
--- NOTE | 2018-06-29 09:39 | GIPROC ---
[facility] [address] [facility]. [facility], [address] EGD WITH DILATION PROCEDURE REPORT EXAM DATE: 06/29/2018 PATIENT NAME: Bin Hobbs MR#: [id number] BIRTHDATE: 1940 ATTENDING: Carmen Simon MD ORDER #: [id number] [employer]: Leo Bailey and Lani Graham STATUS: inpatient INDICATIONS: The patient is a 78 yr old male here for an EGD with dilation due to dysphagia weight loss PROCEDURE PERFORMED: EGD w/ biopsy EGD w/ dilation of esophagus via guidewire MEDICATIONS: Per Anesthesia and None. TOPICAL ANESTHETIC: none CONSENT: The patient understands the risks and benefits of the procedure and understands that these risks include, but are not limited to: sedation, allergic reaction, infection, perforation and/or bleeding. Alternative means of evaluation and treatment include, among others: physical exam, x-rays, and/or surgical intervention. The patient elects to proceed with this endoscopic procedure. medical equipment was checked for proper function. Hand hygiene and appropriate measures for infection prevention was taken. After the risks, benefits and alternatives of the procedure were thoroughly explained, Informed consent was verified, confirmed and timeout was successfully executed by the treatment team. The patient was anesthetized with topical anesthesia and the Pentax EG-[id number] endoscope was introduced through the mouth and advanced to the second portion of the duodenum. The instrument was slowly withdrawn as the mucosa was fully examined. Gastritis antrum-biopsy' duodenum normal-biopsy esophagitis distal esophagus-biopsy esophagitis midesophagus-biopsy dilatation using Savary dilator 17. Dilation was performed at gastroesophageal junction. DILATOR: SIZE(S): RESISTANCE: HEME: APPEARANCE: Dilator: Savary over guidewire Size(s): 17 COMMENT: Retroflexed views revealed a hiatal hernia ADVERSE EVENTS: There were no complications. IMPRESSIONS: 1. Gastritis antrum-biopsy' duodenum normal-biopsy esophagitis distal esophagus-biopsy esophagitis midesophagus-biopsy dilatation using Savary dilator 17 2. Retroflexed views revealed a hiatal hernia RECOMMENDATIONS: 1. Await biopsy results. Biopsy results will not be ready for 7-10 days. If you don't hear from us in two weeks, call our office for biopsy results. 2. Anti-reflux regimen 3. Continue PPI REPEAT EXAM: Return 3 months EGD Carmen Simon MD eSigned: Carmen Simon MD 06/29/2018 9:39 AM cc: PATIENT NAME: Bin Hobbs MR#: [id number]
[2018-06-29] MEDS ORDERED: Sodium Glycerophosphate Inj 15 MMOL in Sodium Chlor 0.9% Inj 100 ML IV.SIG ONE (11:00)
[2018-06-29] MEDS ORDERED: Sodium Phosphate Inj 15 MMOL in Sodium Chlor 0.9% Inj 100 ML IV.SIG ONE (11:00)
[2018-06-29] MEDS: Senna/Docusate Sodium 8.6/50 MG Tablet PO SCH ×2 (11:07→21:01)
--- NOTE | 2018-06-29 12:30 | P.PNIM ---
Addendum entered and electronically signed by MARCELLE Stephenson 15:42: SKIN: RLE multiple areas of open wounds in varies stages of healing with erythema and small amount of purulent drainage present dressing dry and intact wound care consulted Original Note: Subjective Interval history: Patient S/P EGD with esophageal dilation today patient resting in bed able to awake to voice at bedside Physical Exam Vital signs: Last Vital Signs Temp 98 F 06/29/18 10:15 Pulse 92 H 06/29/18 10:15 Resp 18 06/29/18 10:15 BP 148/74 H 06/29/18 10:15 Pulse Ox 100 06/29/18 10:15 ' Narrative: GENERAL: Cachectic, NAD, obvious weight loss, temporal wasting CARDIOVASCULAR: Regular rate and rhythm RESPIRATORY: Clear to auscultation. Breath sounds equal bilaterally. GASTROINTESTINAL: Abdomen soft, non-tender, nondistended. Normal active bowel sounds MUSCULOSKELETAL: Extremities without clubbing, cyanosis, or edema. NEURO: drowsy able to awaken to voice. Moves all ext x4 Results Labs CBC & Chem 7: 06/30/18 05:25 06/30/18 05:25 Assessment and Plan Assessment (1) Dysphasia: Code(s): R47.02 - Dysphasia Status: Acute (2) Unintended weight loss: Code(s): R63.4 - Abnormal weight loss Status: Acute Plan 1) Hypercalcemia Deconditioning weight loss - Pt has h/o CAD, s/p CABG 1997, Atrial Fibrillation, COPD, DM2 - pt is a poor historian - per pt's , pt has lost 60 pounds in the last year. - weight 100.8kg (02/03/18), 70.5 (06/28). Weight loss 30kg = 66 [address] A/P (06/26) --> NO acute fidnings. No lytic lesions noted. - Renal US (06/27) - c/w medical renal disease - at least one polypoid nodular mass along the anterior urinary bladder wall measuring up to 6mm - MRI brain (06/27) - NO acute findings. No lytic skull lesions noted. - Creatinine 1.3 (08/14), 1.48 (01/28), 2.63 (06/26), 2.57 (06/27), 2.45 (06/27), 2.47 (06/28), 2/37 (06/29) - Calcium 8.9 (01/29/18), 13.3 (06/26), 13.6 (06/27), 13.1 (06/28), 10.5 (06/29) - TO --> pending - Free [place] light chain --> pending - Free Lambda Light chain --> pending - Hepatitis panel --> negative - PTH intact, low 6.3 (04/27) - Iron 46 (06/28) - TIBC 213 (06/28) - Albumin 2.8 (06/27) - Appreciate input from Nephrology - Appreciate input from Urology. Recommended outpt cystoscopy - Appreciate input from GI - S/P EGD for Friday 06/[address] Simon 1. Gastritis antrum-biopsy' duodenum normal-biopsy esophagitis distal esophagus-biopsy esophagitis midesophagus-biopsy dilatation using Savary dilator 17 2. Retroflexed views revealed a hiatal hernia - Protonix 40mg PO BID - Dr. Reyes discussed case with Dr. Simon (06/29), plan for colonoscopy in AM - DVT prophylaxis - supportive care - PT - I am concerned about pt's tremendous weight loss - Pt's prognosis is guarded. - Case informally d/w Hematology/Oncology (06/28). No indication for consultation at this time. - will give IV venofer daily x 3d - Case d/w Nephrology, Dr. Coon (06/28). Will replete pt's phosphorus. Electrology abnormalities - potassium 3.1 (06/29) replaced - mag 1.4 (06/29) replaced - phosphorus 2.2 (06/29) replaced - repeat labs in AM to include CBC, BMP, mag, phos Discharge Planning: The exam, history, and the medical decision-making described in the above note were completed with the assistance of the mid-level provider. I reviewed and agree with the findings presented. I attest that I had a [id number] encounter with the patient on the same day, and personally performed and documented my assessment and findings in the medical record. Patient examined. Assessment and plan formulated with Nicole Longoria PA-C. I agree with the above. Progress Note: Quality VTE Deep Vein Thrombosis/Pulmonary Embolism Present on Admission: No
[2018-06-29] MEDS ORDERED: Metoprolol Tartrate 25 MG Tablet PO SCH (15:30)
[2018-06-29] MEDS ORDERED: Sodium Chlor 0.9% Inj 500 ML IV.SIG SCH (16:00)
--- NOTE | 2018-06-29 17:27 | P.PNNP ---
Subjective Interval history: Feels tired Physical Exam Vital signs: Vital Signs 06/28/18 20:00 06/29/18 00:00 06/29/18 04:00 Temperature 98.2 F 98.7 F 97.4 F L Pulse Rate 79 79 85 Respiratory Rate 18 18 17 Blood Pressure 128/81 147/70 H 157/76 H Pulse Oximetry 96 97 98 06/29/18 08:00 06/29/18 09:33 06/29/18 09:45 Temperature 97.3 F L 98 F Pulse Rate 88 74 74 Respiratory Rate 17 18 18 Blood Pressure 121/65 102/56 L 136/75 Pulse Oximetry 98 100 100 06/29/18 10:00 06/29/18 10:15 06/29/18 12:00 Temperature 98 F 97.2 F L Pulse Rate 72 92 H 82 Respiratory Rate 18 18 19 Blood Pressure 132/61 148/74 H 129/75 Pulse Oximetry 100 100 100 06/29/18 13:46 Temperature Pulse Rate Respiratory Rate Blood Pressure Pulse Oximetry 100 Intake & Output 06/28/18 06/29/18 06/29/18 18:59 06:59 18:59 Intake Total 2069 / 0 325 / 325 350 / 350 Output Total 800 / 800 Balance 2069 -475 / -475 350 / 350 Weight 69.1 kg Intake: IV 1050 / 1050 325 / 325 50 / 50 D5W/1/2 NS Inj 1,000 ML @ 125 1000 / 1000 mls/hr IV.CONT .Q8H ANTIONETTE Rx#: [id number] Venofer Inj 200 MG In NS Inj 110 / 110 100 ML @ 110 mls/hr IV.SIG Q24H ANTIONETTE Rx#:[id number] Zosyn 3.375 GM Premix 50 ML @ 50 / 50 100 / 100 50 / 50 100 mls/hr IV.SIG Q6H ANTIONETTE Rx#: [id number] Glycophos Inj 15 MMOL In NS Inj 115 / 115 100 ML @ 25 mls/hr IV.SIG ONCE ONE Rx#:[id number] Oral 0 / 0 Anesthesia Amount 300 / 300 Other 1020 / 1020 Output: Urine 800 / 800 Other: Other Intake Source Saline Solution Narrative: GENERAL: Alert and oriented. n SKIN: Warm and dry. NECK: Supple, trachea midline. No JVD CARDIOVASCULAR: Regular rate and rhythm without murmurs, gallops, or rubs. RESPIRATORY: Breath sounds equal bilaterally. No accessory muscle use. GASTROINTESTINAL: Abdomen soft, non-tender, nondistended. MUSCULOSKELETAL: No cyanosis, or edema. BACK: Nontender without obvious deformity. No CVA tenderness. - Urinary Catheter Management Straight Cath placed during this visit: yes, but has since been removed by the nurse Reason for continuing: Acute urinary retention Insertion date: 06/28/18 Insertion time: 06:00 Removal date: 06/27/18 Removal time: 06:15 Assessment and Plan - Assessment (1) Acute kidney injury superimposed on chronic kidney disease Code(s): N17.9 - Acute kidney failure, unspecified; N18.9 - Chronic kidney disease, unspecified Status: Acute Plan: Chronic kidney disease creatinine 2.3 multiple electrolyte imbalance endoscopy with dilatation procedures done (2) Dehydration Code(s): E86.0 - Dehydration Status: Acute (3) Weakness generalized Code(s): R53.1 - Weakness Status: Acute - Plan Acute kidney injury with creatinine of 2.57 which has improved at 2.63 on day of consult Acute kidney injury could be ATN from dehydration poor intake and intravascular volume depletion. Also noted to have anemia with hypercalcemia so possibility of multiple myeloma. Has been followed by Dr. Harris in the past for chronic kidney disease. Chronic kidney most likely from diabetes. Baseline creatinine appears to be around 1.5 to 1.7. Avoid nephrotoxins including NSAIDS, IV contrast, and aminoglycosides Serology with C3 normal C4 low. TO and SPEP pending. Continue IVF rate increased as patient appears dry and patient intake is very poor, and urine output is low Hypercalcemia at 13.1, has received 1 dose of zoledronic Monitor strict I +O, Creatinine is essentially unchanged at 2.47 Labs in AM will follow urinary output and BMP
[2018-06-29] MEDS: Iron Sucrose Inj 200 MG in Sodium Chlor 0.9% Inj 100 ML IV.SIG SCH (18:04)
[2018-06-29] MEDS: Mirtazapine 15 MG Tablet PO SCH (21:01)
[2018-06-30] MEDS: Piperacil/Tazo 3.375 GM Premix 50 ML IV.SIG SCH ×4 (05:11→23:55)
[2018-06-30 06:19] LABS: Baso % (Auto) 0.8 % (0.0-2.0); Eos # (Auto) 0.6 th/mm3 (0.0-0.4); Eos % (Auto) 10.2 % (0.0-4.0); Hematocrit 34.9 % (39.0-51.0); Hemoglobin 11.2 gm/dL (13.0-17.0); Lymph # (Auto) 0.3 th/mm3 (1.0-4.8); Lymph % (Auto) 5.8 % (9.0-44.0); Mean Corpuscular HGB Conc 32.2 % (32.0-36.0); Mean Corpuscular Hemoglobin 29.4 pg (27.0-34.0); Mean Corpuscular Volume 91.3 fL (80.0-100.0); Mean Platelet Volume 9.8 fL (7.0-11.0); Mono # (Auto) 0.3 th/mm3 (0.0-0.9); Mono % (Auto) 5.4 % (0.0-8.0); Neut # (Auto) 4.3 th/mm3 (1.8-7.7); Neut % (Auto) 77.8 % (16.0-70.0); Platelet Count 191 th/mm3 (150-450); Red Blood Count 3.82 mil/mm3 (4.50-5.90); Red Cell Distribution Width 18.3 % (11.6-17.2); White Blood Count 5.5 th/mm3 (4.0-11.0)
[2018-06-30 06:33] LABS: Calcium 9.3 mg/dL (8.5-10.1); Carbon Dioxide 24.8 meq/L (21.0-32.0); Magnesium 1.7 mg/dL (1.5-2.5); Phosphorus 2.3 mg/dL (2.5-4.9); Potassium 3.5 meq/L (3.5-5.1)
[2018-06-30] MEDS ORDERED: Magnesium Citrate Liq 300 ML Bottle PO ONE ×3 (08:00→20:00)
[2018-06-30] MEDS: Allopurinol 300 MG Tablet PO SCH (09:04)
[2018-06-30] MEDS: Senna/Docusate Sodium 8.6/50 MG Tablet PO SCH ×2 (09:04→20:29)
[2018-06-30] MEDS: Metoprolol Tartrate 50 MG Tablet PO SCH (09:05)
[2018-06-30] MEDS: KCL 10 mEq/D5W/NaCl 0.45% Inj 1,000 ML IV.CONT SCH ×4 (09:12→20:30)
--- NOTE | 2018-06-30 13:45 | P.PNIM ---
Subjective Interval history: Pt more alert and conversational today. (Pt's calcium level has normalized) Physical Exam Vital signs: Last Vital Signs Temp 97.5 F L 06/30/18 12:00 Pulse 74 06/30/18 12:00 Resp 17 06/30/18 12:00 BP 136/81 06/30/18 12:00 Pulse Ox 100 06/30/18 12:16 Narrative: GENERAL: Cachectic, NAD, obvious weight loss, temporal wasting CARDIOVASCULAR: Regular rate and rhythm RESPIRATORY: Clear to auscultation. Breath sounds equal bilaterally. GASTROINTESTINAL: Abdomen soft, non-tender, nondistended. Normal active bowel sounds MUSCULOSKELETAL: Extremities without clubbing, cyanosis, or edema. NEURO: A&Ox3, NAD Results Labs CBC & Chem 7: 06/30/18 05:25 06/30/18 05:25 Assessment and Plan Assessment (1) Dysphasia: Code(s): R47.02 - Dysphasia Status: Acute (2) Unintended weight loss: Code(s): R63.4 - Abnormal weight loss Status: Acute Plan 1) Hypercalcemia Deconditioning weight loss - Pt has h/o CAD, s/p CABG 1997, Atrial Fibrillation, COPD, DM2 - pt is a poor historian - per pt's , pt has lost 60 pounds in the last year. - weight 100.8kg (02/03/18), 70.5 (06/28). Weight loss 30kg = 66 [address] A/P (06/26) --> NO acute fidnings. No lytic lesions noted. - Renal US (06/27) - c/w medical renal disease - at least one polypoid nodular mass along the anterior urinary bladder wall measuring up to 6mm - MRI brain (06/27) --> NO acute findings. No lytic skull lesions noted. - Creatinine 1.3 (08/14), 1.48 (01/28), 2.63 (06/26), 2.57 (06/27), 2.45 (06/27), 2.47 (06/28), 2.37 (06/29), 2.52 (06/30) - Calcium 8.9 (01/29/18), 13.3 (06/26), 13.6 (06/27), 13.1 (06/28), 10.5 (06/29), 9.3 (06/30) - TO --> negative - Free [place] light chain --> pending - Free Lambda Light chain --> pending - Hepatitis panel --> negative - PTH intact, low 6.3 (04/27) - Iron 46 (06/28) - TIBC 213 (06/28) - Albumin 2.8 (06/27) - Appreciate input from Nephrology - Appreciate input from Urology. Recommended outpt cystoscopy - Appreciate input from GI - EGD 06/[address] Simon 1. Gastritis antrum --> biopsy pending duodenum normal --> biopsy pending esophagitis distal esophagus --> biopsy pending esophagitis midesophagus --> biopsy pending dilatation using Savary dilator 17 2. Retroflexed views revealed a hiatal hernia - Protonix 40mg PO BID - DVT prophylaxis - supportive care - PT - I am concerned about pt's tremendous weight loss - Pt's prognosis is guarded. - Case informally d/w Hematology/Oncology (06/28). No indication for consultation at this time. - will give IV venofer daily x 3d - Case d/w Nephrology, Dr. Coon (06/28). Will again replete pt's phosphorus. - DVT prophylaxis - supportive care - Colonoscopy (06/30) --> solid stool - Pt to receive different prep this evening & try to obtain colonoscopy 07/01 - Pt more lucid today with decreased calcium - If no treatable disease explaining weight loss is found on pt's colonoscopy, then likely explanation for pt's weight loss & decline is his advanced age in combination with chronic medical conditions including CAD, COPD, and HTN. - Mr. Hobbs, Mrs. Hobbs, and I discussed his poor prognosis. - pending results from pt's colonoscopy, Mr. Hobbs is interested in consultation with hospice. Electrology abnormalities - potassium 3.1 (06/29) replaced - mag 1.4 (06/29) replaced - phosphorus 2.2 (06/29) replaced - repeat labs in AM to include CBC, BMP, mag, phos Foot Infection, right - continue zosyn - await input from wound care Progress Note: Quality VTE Deep Vein Thrombosis/Pulmonary Embolism Present on Admission: No
[2018-06-30] MEDS ORDERED: Sodium Glycerophosphate Inj 15 MMOL in Sodium Chlor 0.9% Inj 150 ML IV.SIG ONE (14:00)
--- NOTE | 2018-06-30 16:20 | P.PNNP ---
Subjective Interval history: Patient complained of diet restriction Physical Exam Vital signs: Vital Signs 06/29/18 20:00 06/30/18 00:00 06/30/18 04:00 Temperature 97.7 F 97.5 F L 98.1 F Pulse Rate 93 H 73 67 Respiratory Rate 16 17 17 Blood Pressure 131/78 131/76 129/71 Pulse Oximetry 97 100 100 06/30/18 08:00 06/30/18 12:00 06/30/18 12:16 Temperature 97.3 F L 97.5 F L Pulse Rate 90 74 Respiratory Rate 18 17 Blood Pressure 139/81 136/81 Pulse Oximetry 100 100 100 Intake & Output 06/29/18 06/30/18 06/30/18 18:59 06:59 18:59 Intake Total 1900 / 1900 390 / 390 50 / 50 Output Total 225 / 225 280 / 280 325 / 325 Balance 1675 / 1675 110 / 110 -275 / -275 Weight 70 kg Intake: IV 1100 / 1100 210 / 210 50 / 50 D5W/1/2NS + KCL 10 mEq Inj 1, 1000 / 1000 000 ML @ 100 mls/hr IV.CONT . Q10H ANTIONETTE Rx#:[id number] Venofer Inj 200 MG In NS Inj 110 / 110 100 ML @ 110 mls/hr IV.SIG Q24H ANTIONETTE Rx#:[id number] Zosyn 3.375 GM Premix 50 ML @ 100 / 100 100 / 100 50 / 50 100 mls/hr IV.SIG Q6H ANTIONETTE Rx#: [id number] Oral 500 / 500 180 / 180 Anesthesia Amount 300 / 300 Output: Urine 225 / 225 280 / 280 325 / 325 Other: # Bowel Movements 0 Narrative: GENERAL: Alert and oriented. n SKIN: Warm and dry. NECK: Supple, trachea midline. No JVD CARDIOVASCULAR: Regular rate and rhythm without murmurs, gallops, or rubs. RESPIRATORY: Breath sounds equal bilaterally. No accessory muscle use. GASTROINTESTINAL: Abdomen soft, non-tender, nondistended. MUSCULOSKELETAL: No cyanosis, or edema. BACK: Nontender without obvious deformity. No CVA tenderness. - Urinary Catheter Management Straight Cath placed during this visit: yes, but has since been removed by the nurse Reason for continuing: Acute urinary retention Insertion date: 06/28/18 Insertion time: 06:00 Removal date: 12/06/18 Removal time: 06:15 Assessment and Plan - Assessment (1) Acute kidney injury superimposed on chronic kidney disease Code(s): N17.9 - Acute kidney failure, unspecified; N18.9 - Chronic kidney disease, unspecified Status: Acute Plan: Chronic kidney disease creatinine 2.5 multiple electrolyte imbalance endoscopy with dilatation procedures done Dr. Coon to monitor (2) Dehydration Code(s): E86.0 - Dehydration Status: Acute (3) Weakness generalized Code(s): R53.1 - Weakness Status: Acute - Plan Acute kidney injury with creatinine of 2.57 which has improved at 2.63 on day of consult Acute kidney injury could be ATN from dehydration poor intake and intravascular volume depletion. Also noted to have anemia with hypercalcemia so possibility of multiple myeloma. Has been followed by Dr. Harris in the past for chronic kidney disease. Chronic kidney most likely from diabetes. Baseline creatinine appears to be around 1.5 to 1.7. Avoid nephrotoxins including NSAIDS, IV contrast, and aminoglycosides Serology with C3 normal C4 low. TO and SPEP pending. Continue IVF rate increased as patient appears dry and patient intake is very poor, and urine output is low Hypercalcemia at 13.1, has received 1 dose of zoledronic Monitor strict I +O, Creatinine is essentially unchanged at 2.47 Labs in AM will follow urinary output and BMP
[2018-06-30] MEDS: Iron Sucrose Inj 200 MG in Sodium Chlor 0.9% Inj 100 ML IV.SIG SCH (17:27)
[2018-06-30] MEDS: Mirtazapine 15 MG Tablet PO SCH (20:29)
[2018-07-01] MEDS: Piperacil/Tazo 3.375 GM Premix 50 ML IV.SIG SCH ×3 (05:45→18:16)
[2018-07-01] MEDS: KCL 10 mEq/D5W/NaCl 0.45% Inj 1,000 ML IV.CONT SCH (06:19)
[2018-07-01 07:25] LABS: Baso % (Auto) 0.8 % (0.0-2.0); Eos # (Auto) 0.6 th/mm3 (0.0-0.4); Eos % (Auto) 10.5 % (0.0-4.0); Hematocrit 33.1 % (39.0-51.0); Hemoglobin 10.7 gm/dL (13.0-17.0); Lymph # (Auto) 0.3 th/mm3 (1.0-4.8); Lymph % (Auto) 5.9 % (9.0-44.0); Mean Corpuscular HGB Conc 32.2 % (32.0-36.0); Mean Corpuscular Hemoglobin 29.3 pg (27.0-34.0); Mean Corpuscular Volume 91.2 fL (80.0-100.0); Mean Platelet Volume 9.9 fL (7.0-11.0); Mono # (Auto) 0.4 th/mm3 (0.0-0.9); Mono % (Auto) 7.4 % (0.0-8.0); Neut # (Auto) 4.1 th/mm3 (1.8-7.7); Neut % (Auto) 75.4 % (16.0-70.0); Platelet Count 178 th/mm3 (150-450); Red Blood Count 3.63 mil/mm3 (4.50-5.90); Red Cell Distribution Width 18.7 % (11.6-17.2); White Blood Count 5.4 th/mm3 (4.0-11.0)
[2018-07-01] MEDS ORDERED: Chlorhexidine Gluconate 2% 1 Pack (2 Cloths) TOPICAL ONE (07:40)
[2018-07-01 07:53] LABS: Calcium 8.5 mg/dL (8.5-10.1); Carbon Dioxide 25.2 meq/L (21.0-32.0); Magnesium 1.9 mg/dL (1.5-2.5); Phosphorus 2.2 mg/dL (2.5-4.9)
[2018-07-01 07:57] LABS: Potassium 2.8 meq/L (3.5-5.1)
--- NOTE | 2018-07-01 08:55 | P.PNIM ---
Subjective Interval history: Patient resting in bed able to awake to voice reports multiple BMs through the night due to bowel prep - plan for repeat colonoscopy today Physical Exam Vital signs: Last Vital Signs Temp 98.8 F 07/01/18 08:00 Pulse 65 07/01/18 08:00 Resp 18 07/01/18 08:00 BP 103/65 07/01/18 08:00 Pulse Ox 100 07/01/18 08:00 Narrative: GENERAL: Cachectic, NAD, obvious weight loss, temporal wasting SKIN: dressing RLE dry and intact. RLE multiple areas of open wounds with erythema and small amount of purulent drainage also anterior R foot open areas with erythema and small amount of drainage CARDIOVASCULAR: Regular rate and rhythm RESPIRATORY: Clear to auscultation. Breath sounds equal bilaterally. GASTROINTESTINAL: Abdomen soft, non-tender, nondistended. Normal active bowel sounds MUSCULOSKELETAL: Extremities without clubbing, cyanosis, or edema. NEURO: A&O, moves all four extremities Results Labs CBC & Chem 7: 07/01/18 06:27 07/01/18 13:35 Assessment and Plan Assessment (1) Dysphasia: Code(s): R47.02 - Dysphasia Status: Acute (2) Unintended weight loss: Code(s): R63.4 - Abnormal weight loss Status: Acute Plan 1) Hypercalcemia Deconditioning weight loss - Pt has h/o CAD, s/p CABG 1997, Atrial Fibrillation, COPD, DM2 - pt is a poor historian - per pt's , pt has lost 60 pounds in the last year. - weight 100.8kg (02/03/18), 70.5 (06/28). Weight loss 30kg = [address] A/P (06/26) --> NO acute fidnings. No lytic lesions noted. - Renal US (06/27) - c/w medical renal disease - at least one polypoid nodular mass along the anterior urinary bladder wall measuring up to 6mm - MRI brain (06/27) --> NO acute findings. No lytic skull lesions noted. - Creatinine 1.3 (08/14), 1.48 (01/28), 2.63 (06/26), 2.57 (06/27), 2.45 (06/27), 2.47 (06/28), 2.37 (06/29), 2.52 (06/30). 2.55 (07/01) - Calcium 8.9 (01/29/18), 13.3 (06/26), 13.6 (06/27), 13.1 (06/28), 10.5 (06/29), 9.3 (06/30), 8.5 (07/01) - TO --> negative - Free [place] light chain --> pending - Free Lambda Light chain --> pending - Hepatitis panel --> negative - PTH intact, low 6.3 (04/27) - Iron 46 (06/28) - TIBC 213 (06/28) - Albumin 2.8 (06/27) - Appreciate input from Nephrology - Appreciate input from Urology. Recommended outpt cystoscopy - Appreciate input from GI - EGD 06/[address] Simon 1. Gastritis antrum --> biopsy pending duodenum normal --> biopsy pending esophagitis distal esophagus --> biopsy pending esophagitis midesophagus --> biopsy pending dilatation using Savary dilator 17 2. Retroflexed views revealed a hiatal hernia - Protonix 40mg PO BID - DVT prophylaxis - supportive care - PT - Patient has had a tremendous weight loss - Pt's prognosis is guarded. - Case informally d/w Hematology/Oncology (06/28). No indication for consultation at this time. - will give IV venofer daily x 3d - Case d/w Nephrology, Dr. Coon (06/28). Will again replete pt's phosphorus. - DVT prophylaxis - supportive care - Colonoscopy (06/30) --> solid stool - Pt to receive different prep this evening & plan for repeat colonoscopy 07/01 - Pt A&O with decreased calcium - If no treatable disease explaining weight loss is found on pt's colonoscopy, then likely explanation for pt's weight loss & decline is his advanced age in combination with chronic medical conditions including CAD, COPD, and HTN. - Mr. Hobbs, Mrs. Hobbs, and I discussed his poor prognosis. - pending results from pt's colonoscopy, Mr. Hobbs is interested in consultation with hospice. Electrology abnormalities - potassium 2.8 (07/01) replaced recheck at 1300 - mag 1.4 (06/29) replaced - phosphorus 2.2 (06/29) replaced - repeat labs in AM to include CBC, BMP in AM Foot Infection, right - continue zosyn - await input from wound care Discharge Planning: The exam, history, and the medical decision-making described in the above note were completed with the assistance of the mid-level provider. I reviewed and agree with the findings presented. I attest that I had a [id number] encounter with the patient on the same day, and personally performed and documented my assessment and findings in the medical record. Patient examined. Assessment and plan formulated with Nicole Longoria PA-C. I agree with the above. Attending Attestation Patient examined. Assessment and plan formulated with Nicole Longoria PA-C. I agree with the above. Hypercalcemia and weight loss. has been attributed to poor dietary intake by the pt with dehydration and immobility. improved with bisphosphonate and ivf. could also consider occult malignancy and pth related peptide. his intact pth was suppressed. ?bladder ca..?occult squamous ca. ct c/a/p noted. awaiting c scope. will need snf. f/u pending pth related peptide. a/ckd 3. renal following. Progress Note: Quality VTE Deep Vein Thrombosis/Pulmonary Embolism Present on Admission: No
[2018-07-01] MEDS: Potassium Chlor 20 mEq Premix 20 MEQ/100 ML PIGGYBACK IV.SIG SCH ×2 (10:30→13:16)
[2018-07-01] MEDS: Allopurinol 300 MG Tablet PO SCH (11:11)
[2018-07-01] MEDS: Senna/Docusate Sodium 8.6/50 MG Tablet PO SCH ×2 (11:11→20:28)
--- NOTE | 2018-07-01 11:59 | P.PNPAL ---
Reason for Visit Reason for visit: a. To assist with evaluation and management of symptoms including: Pain, generalized weakness and physical deconditioning b. To assist medical decision maker(s) with: better understanding of current medical conditions; weighing benefits/burdens of medical treatment options; making medical treatment decisions. Subjective Subjective/Interval History: Follow-up medically necessary for symptom management and establishing goals of medical treatment. Patient seen and examined in his room. Patient is in bed awake, alert oriented to self, place and situation. Patient endorsing generalized pain. Unable to describe pain but states that he is constantly in pain. Pain is been managed with hydrocodone/acetaminophen 5/325 p.o. every 4 hours prn. Patient has only used x2 prn in the past 24 hours. Interim course: * 06/28/18-chest CT revealed mild to moderate centrilobular lobular emphysema and trace left pleural fluid present. Nonacute findings include chronic compression fracture of T7 and CV catheter sclerotic plaque in the proximal renal arteries bilaterally. * 06/28/18-GI consulted to evaluate patient with difficulty swallowing and unintentional weight loss, recommended EGD and aspiration precautions. * 06/28/18-Urology consulted to evaluate and manage patient with possible bladder mass, recommended cystoscopy as outpatient. * 06/29/18-patient underwent EGD with dilatation and biopsy. Esophagitis noted. Colonoscopy not done due to poor bowel preparation. * 07/01/18-plan for colonoscopy. Patient n.p.o. Discussed patient's hospital course. Patient states, "I do not think it will make it out of here". When asked to elaborate what he meant by that patient stated that he feels like he is going to before he leaves the hospital. Patient states that he feels sick and has been for some time. Addressed CODE STATUS with patient, discussed CPR, benefits, limitations and complications. Patient said, " If it is God`s time for me to go, i would want to be left to peacefully than end up on life support". Patient elected Do Not Resuscitate /Do Not Intubate. Briefly discussed hospice and its benefits. Patient would like to involve his in medical decision making. 1300hrs-met with patient's spouse Darrell Hobbs in room. Updated her on discussion and decision held earlier on with patient. Patient spouse supportive of patient`s decision to make himself a DNR/DNI. Patient spouse feels like patient has given up on himself. She states that patient is not motivated to do much for himself. Patient`s spouse feels that patient should try rehabilitation, maybe he will get stronger. Introduced hospice philosophy and benefits to patient spouse. Patient and spouse would like patient to try rehabilitation first and if he fails and continues to deteriorate they both agreed that hospice would be appropriate. Patient spouse is interested in having an informative hospice consultation prior to patient`s discharge to rehabilitation. Patient spouse provided copies of patient's living will and healthcare surrogate. Spouse Darrell Hobbs is the healthcare surrogate and patient's son Jamie Hobbs is the alternate healthcare surrogate. Family/Friend Interactions: See interval note. . Advance Directives Living Will: Copy in medical record Health Care Surrogate: Copy in medical record Health Care Surrogate Name and Number: HCS:Darrell Hobbs-[phone] Alt HCS: Jamie Hobbs Objective Vital Signs: Vital Signs 06/30/18 12:00 06/30/18 12:16 06/30/18 16:00 Temperature 97.5 F L 97.0 F L Pulse Rate 74 87 Respiratory Rate 17 16 Blood Pressure 136/81 153/63 H Pulse Oximetry 100 100 99 06/30/18 19:00 06/30/18 19:56 06/30/18 20:50 Temperature 98.1 F Pulse Rate 75 Respiratory Rate 18 16 Blood Pressure 102/60 Pulse Oximetry 100 100 06/30/18 23:56 07/01/18 08:00 07/01/18 10:01 Temperature 97.6 F 98.8 F Pulse Rate 69 65 Respiratory Rate 16 18 Blood Pressure 131/65 103/65 Pulse Oximetry 100 98 98 Intake & Output 06/30/18 07/01/18 07/01/18 18:59 06:59 18:59 Intake Total 625 / 625 1500 / 1500 Output Total 325 / 325 950 / 950 Balance 300 / 300 550 / 550 Weight 69.2 kg Intake: IV 100 / 100 1100 / 1100 D5W/1/2NS + KCL 10 mEq Inj 1, 1000 / 1000 000 ML @ 100 mls/hr IV.CONT . Q10H [facility] Rx#:[id number] Zosyn 3.375 GM Premix 50 ML @ 100 / 100 100 / 100 100 mls/hr IV.SIG Q6H [facility] Rx#: [id number] Oral 525 / 525 400 / 400 Output: Urine 325 / 325 950 / 950 Other: Date of Last Bowel Movement 06/30/18 06/30/18 # Bowel Movements 1 7 Physical Exam: CONSTITUTIONAL/GENERAL: This is an elderly chronically ill looking patient, in no apparent distress. TUBES/LINES/DRAINS: PIV SKIN: No jaundice, rashes, or lesions. Ecchymoses on upper extremities. Wounds to bilateral lower extremities covered with dressings. Skin temperature appropriate. Not diaphoretic. HEAD: Atraumatic. Normocephalic. EYES: Pupils equal and round and reactive. Extraocular motions intact. No scleral icterus. No injection or drainage. Fundi not examined. ENT: Hearing grossly normal. Nose without bleeding or purulent drainage. Moist oral mucosa. NECK: Trachea midline. Supple, nontender. CARDIOVASCULAR: Regular rate and rhythm without murmurs, gallops, or rubs. No JVD. Peripheral pulses symmetric. RESPIRATORY/CHEST: Symmetric, unlabored respirations. Diminished breath sounds. No wheezes, rales, or rhonchi. GASTROINTESTINAL: Abdomen soft, non-tender, nondistended. No guarding. Bowel sounds present. GENITOURINARY: Without palpable bladder distension. MUSCULOSKELETAL: Extremities without clubbing, cyanosis, or edema. No joint tenderness or effusion noted. No calf tenderness. No mottling or clubbing. LYMPHATICS: Did not assess NEUROLOGICAL: Lethargic, oriented to self, place and partly situation. Moves all extremities to command with generalized weakness. PSYCHIATRIC: No obvious anxiety/depression. no apparent hallucinations or other psychotic thought process. Diagnostic Tests Laboratory: Laboratory Results - last 72 hr 06/27/18 06/27/18 06/28/18 11:26 11:26 04:50 WBC RBC Hgb Hct MCV MCH MCHC RDW Plt Count MPV Neut % (Auto) Lymph % (Auto) [place] % (Auto) Eos % (Auto) Baso % (Auto) Neut # (Auto) Lymph # (Auto) [place] # (Auto) Eos # (Auto) Baso # (Auto) WBC Differential Differential Comment Sodium Potassium Chloride Carbon Dioxide Anion Gap BUN Creatinine Estimated GFR POC Glucose Random Glucose Calcium Phosphorus 1.8 L Magnesium Total Bilirubin AST ALT Alkaline Phosphatase Total Protein Albumin PEP Pathologist Comment Carcinoembryonic Ag Ur 24 Hour Volume Ur Total Protein 24 Hr KYA Interpretation TO Screen Neg 06/29/18 06/29/18 06/29/18 04:37 04:37 06:00 WBC 5.7 RBC 4.08 L Hgb 12.0 L Hct 37.4 L MCV 91.6 MCH 29.5 MCHC 32.2 RDW 18.1 H Plt Count 228 MPV 9.7 Neut % (Auto) 91.9 H Lymph % (Auto) 3.3 L [place] % (Auto) 3.1 Eos % (Auto) 1.0 Baso % (Auto) 0.7 Neut # (Auto) 5.3 Lymph # (Auto) 0.2 L [place] # (Auto) 0.2 Eos # (Auto) 0.1 Baso # (Auto) 0.0 WBC Differential . Differential Comment Auto diff final Sodium 140 Potassium 3.1 L Chloride 104 Carbon Dioxide 26.8 Anion Gap 9 BUN 28 H Creatinine 2.37 H Estimated GFR 27 L POC Glucose Random Glucose 113 H Calcium 10.5 H D Phosphorus 2.2 L Magnesium 1.4 L Total Bilirubin 0.6 AST 20 ALT 7 L Alkaline Phosphatase 65 Total Protein 6.1 L D Albumin 2.4 L D PEP Pathologist Comment Carcinoembryonic Ag 1.4 Ur 24 Hour Volume 1000 Ur Total Protein 24 Hr 1206 H KYA Interpretation TO Screen 06/30/18 06/30/18 06/30/18 05:25 05:25 07:35 WBC 5.5 RBC 3.82 L Hgb 11.2 L Hct 34.9 L MCV 91.3 MCH 29.4 MCHC 32.2 RDW 18.3 H Plt Count 191 MPV 9.8 Neut % (Auto) 77.8 H Lymph % (Auto) 5.8 L [place] % (Auto) 5.4 Eos % (Auto) 10.2 H Baso % (Auto) 0.8 Neut # (Auto) 4.3 Lymph # (Auto) 0.3 L [place] # (Auto) 0.3 Eos # (Auto) 0.6 H Baso # (Auto) 0.0 WBC Differential . Differential Comment Auto diff final Sodium 140 Potassium 3.5 Chloride 106 Carbon Dioxide 24.8 Anion Gap 9 BUN 28 H Creatinine 2.52 H Estimated GFR 25 L POC Glucose 127 H Random Glucose 122 H Calcium 9.3 D Phosphorus 2.3 L Magnesium 1.7 Total Bilirubin AST ALT Alkaline Phosphatase Total Protein Albumin PEP Pathologist Comment Carcinoembryonic Ag Ur 24 Hour Volume Ur Total Protein 24 Hr KYA Interpretation TO Screen 07/01/18 07/01/18 06:27 06:27 WBC 5.4 RBC 3.63 L Hgb 10.7 L Hct 33.1 L MCV 91.2 MCH 29.3 MCHC 32.2 RDW 18.7 H Plt Count 178 MPV 9.9 Neut % (Auto) 75.4 H Lymph % (Auto) 5.9 L [place] % (Auto) 7.4 Eos % (Auto) 10.5 H Baso % (Auto) 0.8 Neut # (Auto) 4.1 Lymph # (Auto) 0.3 L [place] # (Auto) 0.4 Eos # (Auto) 0.6 H Baso # (Auto) 0.0 WBC Differential . Differential Comment Auto diff final Sodium 142 Potassium 2.8 L* Chloride 107 Carbon Dioxide 25.2 Anion Gap 10 BUN 28 H Creatinine 2.55 H Estimated GFR 25 L POC Glucose Random Glucose 93 Calcium 8.5 D Phosphorus 2.2 L Magnesium 1.9 Total Bilirubin AST ALT Alkaline Phosphatase Total Protein Albumin PEP Pathologist Comment Carcinoembryonic Ag Ur 24 Hour Volume Ur Total Protein 24 Hr KYA Interpretation TO Screen Result Diagrams: 07/01/18 06:27 07/01/18 13:35 Microbiology: Microbiology 06/28/18 17:00 Gram Stain - Final Wound - Leg Wound Culture - Preliminary Staphylococcus aureus Klebsiella oxytoca Pseudomonas aeruginosa Imaging: Chest X-Ray 06/26/18 16:06 CONCLUSION: 1. Stable postsurgical features and compensated cardiomegaly. 2. No acute abnormality. Head CT 06/26/18 16:08 CONCLUSION: No acute intracranial abnormality demonstrated. Right frontal sinusitis versus mass. . Abdomen/Pelvis CT 06/26/18 17:48 CONCLUSION: 1. No acute abnormality demonstrated. 2. Scattered benign-appearing cysts of the liver. 3. Mild atrophy of the right kidney, similar to before. 4. Atherosclerotic abdominal aorta and branch vessels. Abdomen/Bladder Ultrasound 06/27/18 00:00 CONCLUSION: 1. No hydronephrosis. However, right kidney is small in size with cortical thinning and echogenicity suggesting chronic medical renal disease. 2. There is at least one polypoid nodular mass along the anterior urinary bladder wall measuring up to 6 mm. Suggest correlating for hematuria since this could represent a urothelial neoplasm. Also consider correlation with cystoscopy or could noninvasively evaluate with pelvis MRI with and without intravenous contrast if the patient has a stable GFR greater than 30. Head MRI 06/27/18 00:00 CONCLUSION: No evidence of acute intracranial pathology. No masses are identified. Findings characteristic of frontal sinus mucocele. CT scan of the sinuses is recommended if clinically indicated Chest CT 06/28/18 00:00 CONCLUSION: 1. No acute finding is identified to explain the shortness of breath. There is mild to moderate centrilobular emphysema. Trace left pleural fluid is present. 2. Nonacute findings include chronic compression fracture of T7 and severe atherosclerotic plaque in the proximal renal arteries bilaterally. Assessment and Plan - Disease Oriented Problem List (1) Dehydration (2) YAZAN (acute kidney injury) (3) CKD stage 3 due to type 2 diabetes mellitus (4) CAD (coronary artery disease) (5) COPD (chronic obstructive pulmonary disease) (6) Diabetes mellitus (7) Congestive heart failure (8) Peripheral artery disease - Symptom Scale (1) Pain Comment: Patient has chronic bilateral wounds to his bilateral lower extremities. (2) Weakness generalized Comment: Patient has had decreased appetite and came in with complaints of generalized weakness. (3) Physical deconditioning Comment: Progressive. Significant weight loss over a period of one year. Pertinent Non-Medical Issues: Psychosocial: Patient is originally from [place]. He moved to [place] when he was 4 years old. 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 Patient is to his for 51 years. Spiritual: Patient is a [employer]. Legal: Patient states that he has advanced directives. Ethical issues impacting care: None identified at this time. Important Contacts: Spouse-HCS: Darrell Hobbs-[phone] Son-Alt HCS:Jamie Hobbs [phone] Daughter-Bruna Fisher [phone] Daughter Lani Zayas [phone] Alt HCS: Prognosis: Mr. Hobbs is a 78-year-old male with past medical history of coronary artery disease, paroxysmal atrial fibrillation, chronic kidney disease stage III, COPD , peripheral arterial disease, diabetes mellitus with neuropathy, and chronic lower extremity wounds. Patient was brought to the emergency room on 06/26/18 for evaluation of progressive weakness over the past 2 weeks. Clinical course complicated with nausea, generalized weakness and acute kidney injury. Given patient's multiple ongoing comorbidities, patient remains at high risk for further complications, deterioration and decline. . Code Status: No Code DNR Plan: PLAN: Legal decision maker: Patient is alert, oriented to self, place and situation. Unsure of how much insight patient has regarding his medical condition. Patient is requesting that any medical decisions be done jointly with his spouse Darrell Hobbs who is his health care surrogate. Goals: Aggressive short of no code. Patient elected Do Not Resuscitate /Do Not Intubate. Patient and spouse would like patient to try rehabilitation first and if he fails and continues to deteriorate they both agreed that hospice would be appropriate. Patient spouse is interested in having an informative hospice consultation prior to patient`s discharge to rehabilitation. Patient spouse provided copies of patient's living will and healthcare surrogate. Spouse Darrell Hobbs is the healthcare surrogate and patient's son Jamie Hobbs is the alternate healthcare surrogate. CODE STATUS: No code Do Not Resuscitate /Do Not Intubate. SYMPTOMS: * Pain: Patient has chronic wounds to bilateral lower extremities. Currently complaining of abdominal discomfort. Pain is been managed with hydrocodone/ acetaminophen 5/325 p.o. every 4 hours prn. Patient has only used x2 prn in the past 24 hours. * Nausea: Patient complaining of nausea and dry heaving. Patient states that he is not able to eat due to nausea. Currently on clear liquid diet. EGD on showed gastritis. Colonoscopy pending. Recommending Zofran 4 mg IV push every 6 hours prn nausea/vomiting. * Generalized weakness: Patient has had decreased appetite and has progressively developed weakness in the past 2 weeks. He has lost approximately 30-40 pounds gradually over a year. Physical therapy consulted, recommending physical therapy at rehab. * Physical deconditioning: Progressive. Patient has multiple ongoing comorbidities. He has had significant weight loss over a year. PT recommending physical therapy at rehab. Palliative care will continue to follow the patient during hospital course as condition evolves, to assist patient/decision-maker with understanding of their medical conditions, weighing benefits/burdens of treatment options, for clarification of goals of treatment. Additionally will assist with any symptoms of palliative concern Attestation Attestation: To help prompt me to consider important information that might be impacting today's encounter and assessment, information from prior notes written by myself or my colleagues may have been "brought forward" into today's note. My signature on this note, however, is an attestation that I personally performed the exam, history, and/or decision-making noted today, and, unless otherwise indicated, the interactions with patient, family, and staff as well as the review of records all occurred today. I also attest that the listed assessment and stated plan reflect my best clinical judgment today based on the combination of historical information, prior notes, and today's exam/ interactions. When time spent is documented, it refers only to time spent today by the signer, or if indicated, combined time spent today by collaborating physician/nurse practitioner.
--- NOTE | 2018-07-01 13:11 | P.DIET ---
Nutritional Evaluation Type of nutrition evaluation: initial Nutrition screening: Weight Loss > 10 lbs Screening comments: Difficulty swallowing solid food; 30-40 lb wt loss over the last year Subjective Barriers to Nutrition: Swallowing problem Subjective Comments: NPO for Colonoscopy. Pt sleeping when visited. at bedside and says to call him "Gregorio". Objective - Diagnosis Hypercalcemia, right frontal mass vs sinusitis - Objective % IBW: 99 Body Weight Used for Calculations: Actual (69.6 kg) Energy Needs - Lower Range (kCal/kg): 28 Energy Needs - Upper Range (kCal/kg): 33 Lower Limit kCal/kg (kCals): 1,979 Upper Limit kCal/kg (kCals): 2,297 Lower Limit Protein Factor (Grams per Kg): 0.7 Upper Limit Protein Factor (Grams per Kg): 0.9 Lower Protein Needs (Protein): 49 Upper Protein Needs (Protein): 63 Dietitian Reviewed in Medical Record: Current diet, Curent medications, Intake & Output, Labs, Medical history Diet Order: NPO Oral Diet Intake Amount: Poor <50% Objective Comments: PMH: Asthma, CAD h/o CABG, Cellulitis of right foot, CHF, Paroxymal AFib, CKD-3 , COPD, DM-2, Edema of both lower extremities diet to peripheral neuropathy, GERD, HLD, HTN, MASHA, PAD Labs include: BUN 28, Creainine 2.55, estGFR 25, Glucose 93 LBM 06/30/18, +UOP 1275ml Feeding - Current PO Supplement Current Supplement: Nepro Current Frequency of Supplement: Three times a day Current kCals Provided by Supplement: 425 Current Protein Provided by Supplement: 20 Assessment Assessment: Pt is at high nutritional risk r/t dysphagia w/unintentional wt loss over the last year. Monitor NPO status. Monitor ST Recs. Nephrology and Palliative Care progress notes reviewed. Nepro supplement per MD when diet is Full Liquid or greater. Dietitian will follow. Recommendations: 1. Monitor NPO status 2. Monitor ST Recs 3. Nepro supplement per MD when diet is Full Liquid or greater 4. Dietitian will follow Dietitian to Monitor: Lab values, Electrolytes, Renal labs, Glucose level, Supplement acceptance, Intake & Output, Weight change, Diet advancement, Wound/ skin status (h/o cellulitis), Swallow recommendations
[2018-07-01] MEDS: Metoprolol Tartrate 50 MG Tablet PO SCH (15:27)
--- NOTE | 2018-07-01 15:31 | P.PNNP ---
Subjective Interval history: Seen in AM. Patient with no acute events overnight. Creatinine at 2.55 today and hypokalemic. <Tasneem Murrieta - Last Filed: 07/01/18 15:22> Physical Exam Vital signs: Vital Signs 06/30/18 16:00 06/30/18 19:00 06/30/18 19:56 Temperature 97.0 F L 98.1 F Pulse Rate 87 75 Respiratory Rate 16 18 16 Blood Pressure 153/63 H 102/60 Pulse Oximetry 99 100 06/30/18 20:50 06/30/18 23:56 07/01/18 08:00 Temperature 97.6 F 98.8 F Pulse Rate 69 65 Respiratory Rate 16 18 Blood Pressure 131/65 103/65 Pulse Oximetry 100 100 98 07/01/18 10:01 07/01/18 12:21 Temperature 97.5 F L Pulse Rate 75 Respiratory Rate 18 Blood Pressure 113/62 Pulse Oximetry 98 98 Intake & Output 06/30/18 07/01/18 07/01/18 18:59 06:59 18:59 Intake Total 625 / 625 1500 / 1500 150 / 150 Output Total 325 / 325 950 / 950 Balance 300 / 300 550 / 550 150 / 150 Weight 69.2 kg Intake: IV 100 / 100 1100 / 1100 150 / 150 D5W/1/2NS + KCL 10 mEq Inj 1, 1000 / 1000 000 ML @ 100 mls/hr IV.CONT . Q10H [facility] Rx#:[id number] Zosyn 3.375 GM Premix 50 ML @ 100 / 100 100 / 100 50 / 50 100 mls/hr IV.SIG Q6H [facility] Rx#: [id number] KCl 20 mEq Premix Inj 20 meq In 100 / 100 100 ml @ 50 mls/hr IV.SIG Q2H [facility] Rx#:[id number] Oral 525 / 525 400 / 400 Output: Urine 325 / 325 950 / 950 Other: Date of Last Bowel Movement 06/30/18 06/30/18 # Bowel Movements 1 7 Narrative: GENERAL: Alert and oriented. NAD SKIN: Warm and dry. NECK: Supple, trachea midline. No JVD CARDIOVASCULAR: Regular rate and rhythm without murmurs, gallops, or rubs. RESPIRATORY: Breath sounds equal bilaterally. No accessory muscle use. GASTROINTESTINAL: Abdomen soft, non-tender, nondistended. MUSCULOSKELETAL: No cyanosis, or edema. BACK: Nontender without obvious deformity. No CVA tenderness. - Urinary Catheter Management Straight Cath placed during this visit: yes, but has since been removed by the nurse Reason for continuing: Acute urinary retention Insertion date: 06/28/18 Insertion time: 06:00 Removal date: 06/27/18 Removal time: 06:15 <Tasneem Murrieta - Last Filed: 07/01/18 15:22> Vital signs: Vital Signs 07/02/18 20:00 07/02/18 23:55 07/03/18 00:00 Temperature 97.9 F 98.1 F Pulse Rate 80 83 92 H Respiratory Rate 17 15 Blood Pressure 118/65 126/72 Pulse Oximetry 95 96 07/03/18 04:00 07/03/18 08:00 07/03/18 09:30 Temperature 97.1 F L 97.6 F Pulse Rate 72 85 81 Respiratory Rate 16 16 Blood Pressure 130/72 137/72 Pulse Oximetry 96 97 07/03/18 09:33 07/03/18 12:00 Temperature 97.6 F Pulse Rate 108 H Respiratory Rate 16 Blood Pressure 150/82 H Pulse Oximetry 97 96 Intake & Output 07/02/18 07/03/18 07/03/18 18:59 06:59 18:59 Intake Total 490 / 490 300 / 300 50 / 50 Output Total 200 / 200 175 / 175 250 / 250 Balance 290 / 290 125 / 125 -200 / -200 Weight 71.3 kg Intake: IV 50 / 50 150 / 150 50 / 50 Zosyn 3.375 GM Premix 50 ML @ 50 / 50 150 / 150 50 / 50 100 mls/hr IV.SIG Q6H [facility] Rx#: [id number] Oral 240 / 240 150 / 150 Anesthesia Amount 200 / 200 Output: Urine 200 / 200 175 / 175 Urine Amount (Catheter) 250 / 250 Indwelling Urethral Catheter 250 / 250 Other: Date of Last Bowel Movement 07/02/18 07/02/18 # Bowel Movements 1 1 # Oral Regurgitations 1 - Urinary Catheter Management Straight Cath placed during this visit: yes, but has since been removed by the nurse Reason for continuing: Acute urinary retention Insertion date: 06/28/18 Insertion time: 06:00 Removal date: 06/27/18 Removal time: 06:15 Indwelling Urethral Catheter Cath placed during this visit: no Reason for continuing: Chronic Urinary Retention <Matthew Coon - Last Filed: 07/03/18 17:11> Assessment and Plan - Assessment (1) Acute kidney injury superimposed on chronic kidney disease Code(s): N17.9 - Acute kidney failure, unspecified; N18.9 - Chronic kidney disease, unspecified Status: Acute Plan: Chronic kidney disease creatinine 2.5 multiple electrolyte imbalance endoscopy with dilatation procedures done Dr. Coon to monitor (2) Dehydration Code(s): E86.0 - Dehydration Status: Acute (3) Weakness generalized Code(s): R53.1 - Weakness Status: Acute - Plan Acute kidney injury with creatinine of 2.57 which has improved at 2.63 on day of consult Acute kidney injury could be ATN from dehydration poor intake and intravascular volume depletion. Has been followed by Dr. Harris in the past for chronic kidney disease. Chronic kidney most likely from diabetes. Baseline creatinine appears to be around 1.5 to 1.7. Avoid nephrotoxins including NSAIDS, IV contrast, and aminoglycosides Hypercalcemia has improved Hypokalemia, replacement has been ordered, recheck in process. Monitor strict I +O, Creatinine at 2.55 Labs in AM will follow urinary output and BMP Plan for repeat colonoscopy today. <Tasneem Murrieta - Last Filed: 07/01/18 15:22> - Assessment (1) Acute kidney injury superimposed on chronic kidney disease Code(s): N17.9 - Acute kidney failure, unspecified; N18.9 - Chronic kidney disease, unspecified Status: Acute Plan: Patient seen and examined, agree with above. Creatinine is almost same, Calcium is better. (2) Dehydration Code(s): E86.0 - Dehydration Status: Acute (3) Weakness generalized Code(s): R53.1 - Weakness Status: Acute <Matthew Coon - Last Filed: 07/03/18 17:11>
--- NOTE | 2018-07-01 17:18 | P.PNGI ---
Subjective Interval history: Patient sitting up in chair Family member at bedside Colonoscopy rescheduled for tomorrow Additional prep ordered Physical Exam Vital signs: Vital Signs 06/30/18 19:00 06/30/18 19:56 06/30/18 20:50 Temperature 98.1 F Pulse Rate 75 Respiratory Rate 18 16 Blood Pressure 102/60 Pulse Oximetry 100 100 06/30/18 23:56 07/01/18 08:00 07/01/18 10:01 Temperature 97.6 F 98.8 F Pulse Rate 69 65 Respiratory Rate 16 18 Blood Pressure 131/65 103/65 Pulse Oximetry 100 98 98 07/01/18 12:21 07/01/18 16:59 Temperature 97.5 F L 98.5 F Pulse Rate 75 94 H Respiratory Rate 18 18 Blood Pressure 113/62 120/68 Pulse Oximetry 98 100 Intake & Output 06/30/18 07/01/18 07/01/18 18:59 06:59 18:59 Intake Total 625 / 625 1500 / 1500 150 / 150 Output Total 325 / 325 950 / 950 Balance 300 / 300 550 / 550 150 / 150 Weight 69.2 kg Intake: IV 100 / 100 1100 / 1100 150 / 150 D5W/1/2NS + KCL 10 mEq Inj 1, 1000 / 1000 000 ML @ 100 mls/hr IV.CONT . Q10H [facility] Rx#:[id number] Zosyn 3.375 GM Premix 50 ML @ 100 / 100 100 / 100 50 / 50 100 mls/hr IV.SIG Q6H [facility] Rx#: [id number] KCl 20 mEq Premix Inj 20 meq In 100 / 100 100 ml @ 50 mls/hr IV.SIG Q2H [facility] Rx#:[id number] Oral 525 / 525 400 / 400 Output: Urine 325 / 325 950 / 950 Other: Date of Last Bowel Movement 06/30/18 06/30/18 # Bowel Movements 1 7 - Constitutional no acute distress, chronically ill appearing - Routine HEENT Exam Head: Present: normocephalic - Routine Respiratory Exam Present: CTA bilaterally - Routine Abdominal Exam Present: soft, normoactive bowel sounds. Absent: tenderness - Routine Skin Exam Present: dry, warm - Routine Neurological Exam Present: alert - Urinary Catheter Management Straight Cath placed during this visit: yes, but has since been removed by the nurse Reason for continuing: Acute urinary retention Insertion date: 06/28/18 Insertion time: 06:00 Removal date: 06/27/18 Removal time: 06:15 Results - Labs CBC & Chem 7: 07/01/18 06:27 07/01/18 13:35 Laboratory Results - last 24 hr 07/01/18 07/01/18 07/01/18 06:27 06:27 13:35 WBC 5.4 RBC 3.63 L Hgb 10.7 L Hct 33.1 L MCV 91.2 MCH 29.3 MCHC 32.2 RDW 18.7 H Plt Count 178 MPV 9.9 Neut % (Auto) 75.4 H Lymph % (Auto) 5.9 L Evangeline % (Auto) 7.4 Eos % (Auto) 10.5 H Baso % (Auto) 0.8 Neut # (Auto) 4.1 Lymph # (Auto) 0.3 L Evangeline # (Auto) 0.4 Eos # (Auto) 0.6 H Baso # (Auto) 0.0 WBC Differential . Differential Comment Auto diff final Sodium 142 Potassium 2.8 L* 3.5 Chloride 107 Carbon Dioxide 25.2 Anion Gap 10 BUN 28 H Creatinine 2.55 H Estimated GFR 25 L Random Glucose 93 Calcium 8.5 D Phosphorus 2.2 L Magnesium 1.9 Microbiology 06/28/18 17:00 Wound - Leg Gram Stain - Final 06/28/18 17:00 Wound - Leg Wound Culture - Preliminary Staphylococcus aureus Klebsiella oxytoca Pseudomonas aeruginosa Assessment and Plan (1) Dysphasia Status: Acute Code(s): R47.02 - Dysphasia (2) Unintended weight loss Status: Acute Code(s): R63.4 - Abnormal weight loss - Plan This patient is a 78-year-old male with a past medical history significant for coronary artery disease, COPD, CKD, diabetes with neuropathy, peripheral artery disease and atrial fibrillation. Patient admitted to [facility] for evaluation of 2-week onset of generalized weakness. Patient states that he has been having difficulty swallowing solid foods for the last 2 weeks. He denies difficulty with fluids but states that solid foods feel stuck with pressure while pointing to epigastric area. Patient does endorse nausea he denies vomiting. Denies any noted blood in stool. Patient states he has had no appetite. Of note, per documentation; patient has had a gradual weight loss of 60 pounds over the last year. Our service has been consulted to evaluate patient for difficulty swallowing and unintentional weight loss Dysphagia with unintended weight loss Patient endorses 2-week onset of generalized weakness with difficulty swallowing. 30-40 pound weight loss reported over the last year. 06/26/2018 CT abdomen and pelvis reveal the following-- 1. No acute abnormality demonstrated. 2. Scattered benign-appearing cysts of the liver. 3. Mild atrophy of the right kidney, similar to before. 4. Atherosclerotic abdominal aorta and branch vessels. 06/27/2018 WBC 5.5 hemoglobin 12.7 hematocrit 39.8 INR 1.1calcium 13.1 07/01/2018 -Patient unable to have colonoscopy today due to inadequate prep. -Colonoscopy rescheduled for 07/02/2018, additional prep ordered. -WBC 5.4 hemoglobin 10.7 hematocrit 33.1 platelet count 178 Plan -Clear liquid diet -N.p.o. after midnight -Colonoscopy in a.m. -Mag citrate 300 mL's p.o. at 1730 and 1930 -Dulcolax tabs p.o. at 1930 -Aspiration precautions -Supportive care -Further recommendations to follow This patient has been seen by myself and and this note is written on his behalf - Attending Attestation Dr. Rosenberg
[2018-07-01] MEDS ORDERED: Magnesium Citrate Liq 300 ML Bottle PO ONE ×2 (17:30→19:30)
[2018-07-01] MEDS: Mirtazapine 15 MG Tablet PO SCH (20:28)
[2018-07-02] MEDS: Piperacil/Tazo 3.375 GM Premix 50 ML IV.SIG SCH ×4 (00:29→17:55)
[2018-07-02 05:00] LABS: Baso # (Auto) 0.1 th/mm3 (0.0-0.2); Eos # (Auto) 0.7 th/mm3 (0.0-0.4); Eos % (Auto) 13.6 % (0.0-4.0); Hematocrit 31.9 % (39.0-51.0); Hemoglobin 10.5 gm/dL (13.0-17.0); Lymph # (Auto) 0.4 th/mm3 (1.0-4.8); Lymph % (Auto) 7.9 % (9.0-44.0); Mean Corpuscular HGB Conc 32.8 % (32.0-36.0); Mean Corpuscular Hemoglobin 29.3 pg (27.0-34.0); Mean Corpuscular Volume 89.2 fL (80.0-100.0); Mean Platelet Volume 9.5 fL (7.0-11.0); Mono # (Auto) 0.5 th/mm3 (0.0-0.9); Mono % (Auto) 10.3 % (0.0-8.0); Neut # (Auto) 3.5 th/mm3 (1.8-7.7); Neut % (Auto) 67.2 % (16.0-70.0); Platelet Count 189 th/mm3 (150-450); Red Blood Count 3.58 mil/mm3 (4.50-5.90); Red Cell Distribution Width 18.5 % (11.6-17.2); White Blood Count 5.3 th/mm3 (4.0-11.0)
[2018-07-02 05:07] LABS: Calcium 8.1 mg/dL (8.5-10.1); Carbon Dioxide 24.7 meq/L (21.0-32.0); Potassium 3.2 meq/L (3.5-5.1)
[2018-07-02] MEDS: Metoprolol Tartrate 50 MG Tablet PO SCH (08:34)
--- NOTE | 2018-07-02 09:58 | GIPROC ---
[facility] [address] [place] [facility]. [facility], [address] COLONOSCOPY PROCEDURE REPORT EXAM DATE: 07/02/2018 PATIENT NAME: Bin Hobbs MR #: [id number] BIRTHDATE: 1940 ENDOSCOPIST: Pedro Pablo Rosenberg MD ORDER #: [id number] LEGAL ADMINISTRATIVE SECRETARY: Leo Bailey and Janneth Demarco STATUS: inpatient INDICATIONS: The patient is a 78 yr old male here for a colonoscopy due to weight loss and change in bowel habits PROCEDURE PERFORMED: Colonoscopy, diagnostic Colonoscopy with polypectomy MEDICATIONS: Per Anesthesia and None. PREP QUALITY: fair ESTIMATED BLOOD LOSS: None CONSENT: The patient understands the risks and benefits of the procedure and understands that these risks include, but are not limited to: sedation, allergic reaction, infection, perforation and/or bleeding. Alternative means of evaluation and treatment include, among others: physical exam, x-rays, and/or surgical intervention. The patient elects to proceed with this endoscopic procedure. medical equipment was checked for proper function. Hand hygiene and appropriate measures for infection prevention was taken. After the risks, benefits and alternatives of the procedure were thoroughly explained, Informed consent was verified, confirmed and timeout was successfully executed by the treatment team. A digital exam was performed and revealed no abnormalities of the rectum The Pentax [id number] endoscope was introduced through the anus and advanced to the cecum, which was identified by both the appendix and ileocecal valve. The instrument was then slowly withdrawn as the colon was fully examined. COLON FINDINGS: Severe diverticulosis was noted throughout the entire examined colon. Four sessile polyps ranging between 3-7mm in size were found in the ascending colon, descending colon, sigmoid colon, and rectum. A polypectomy was performed using snare cautery. Large No bleeding or SRH arteriovenous malformation was found in the ascending colon. Retroflexed views revealed internal hemorrhoids and Retroflexed views revealed medium internal hemorrhoids The scope was then completely withdrawn from the patient and the procedure terminated. PROCEDURE WITHDRAWAL TIME:10minutes ADVERSE EVENTS: There were no complications. IMPRESSIONS: 1. Severe diverticulosis was noted throughout the entire examined colon 2. Four sessile polyps ranging between 3-7mm in size were found in the ascending colon, descending colon, sigmoid colon, and rectum; polypectomy was performed using snare cautery 3. 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 Retroflexed views revealed internal hemorrhoids 5. Retroflexed views revealed medium internal hemorrhoids 6. Was performed 7. Revealed no abnormalities of the rectum RECOMMENDATIONS: Await biopsy results. Biopsy results will not be ready for 7-10 days. If you don't hear from us in two weeks, call our office for results. RECALL: Return 3 years Colonoscopy Pedro Pablo Rosenberg MD eSigned: Pedro Pablo Rosenberg MD 07/02/2018 9:58 AM cc: PATIENT NAME: Bin Hobbs MR#: [id number]
--- NOTE | 2018-07-02 12:14 | ECG ---
Date Performed: 07/02/2018 Time Performed: 10:31:28 PTAGE: 78 years EKG: PROBABLE ATRIAL FIBRILLATION MODERATE INTRAVENTRICULAR CONDUCTION DELAY ST DEVIATION AND MO DERATE T-WAVE ABNORMALITY, CONSIDER ANTERIOR ISCHEMIA ABNORMAL ECG PREVIOUS TRACING : 06/26/2018 17.06 DOCTOR: Jeferson Harry Interpretating Date/Time 07/02/2018 12:12:42
--- NOTE | 2018-07-02 13:12 | P.PNIM ---
Subjective Interval history: Patient resting in bed S/P colonoscopy Offers no new concerns/complaints at this time Physical Exam Vital signs: Last Vital Signs Temp 97.0 F L 07/02/18 10:00 Pulse 82 07/02/18 10:00 Resp 18 07/02/18 10:00 BP 118/61 07/02/18 10:00 Pulse Ox 98 07/02/18 10:00 Narrative: GENERAL: Cachectic, NAD, obvious weight loss, temporal wasting SKIN: dressing RLE dry and intact. RLE multiple areas of open wounds with erythema and no longer has drainage also anterior R foot open areas with erythema and no longer has drainage CARDIOVASCULAR: bradycardic RESPIRATORY: Clear to auscultation. Breath sounds equal bilaterally. GASTROINTESTINAL: Abdomen soft, non-tender, nondistended. Normal active bowel sounds MUSCULOSKELETAL: Extremities without clubbing, cyanosis, or edema. NEURO: A&O, moves all four extremities Results Labs CBC & Chem 7: 07/02/18 04:30 07/02/18 04:30 Assessment and Plan Assessment (1) Dysphasia: Code(s): R47.02 - Dysphasia Status: Acute (2) Unintended weight loss: Code(s): R63.4 - Abnormal weight loss Status: Acute Plan 1) Hypercalcemia Deconditioning weight loss - Pt has h/o CAD, s/p CABG 1997, Atrial Fibrillation, COPD, DM2 - pt is a poor historian - per pt's , pt has lost 60 pounds in the last year. - weight 100.8kg (02/03/18), 70.5 (06/28). Weight loss 30kg = 66 pounds - CT A/P (06/26) --> NO acute fidnings. No lytic lesions noted. - Renal US (06/27) - c/w medical renal disease - at least one polypoid nodular mass along the anterior urinary bladder wall measuring up to 6mm - MRI brain (06/27) --> NO acute findings. No lytic skull lesions noted. - Creatinine 1.3 (08/14), 1.48 (01/28), 2.63 (06/26), 2.57 (06/27), 2.45 (06/27), 2.47 (06/28), 2.37 (06/29), 2.52 (06/30). 2.55 (07/01) - Calcium 8.9 (01/29/18), 13.3 (06/26), 13.6 (06/27), 13.1 (06/28), 10.5 (06/29), 9.3 (06/30), 8.5 (07/01) - TO --> negative - Free [place] light chain --> pending - Free [place] Light chain --> pending - Hepatitis panel --> negative - PTH intact, low 6.3 (04/27) - Iron 46 (06/28) - TIBC 213 (06/28) - Albumin 2.8 (06/27) - Appreciate input from Nephrology - Appreciate input from Urology. Recommended outpt cystoscopy - Appreciate input from GI - EGD 06/[address] Simon 1. Gastritis antrum --> biopsy pending duodenum normal --> biopsy pending esophagitis distal esophagus --> biopsy pending esophagitis midesophagus --> biopsy pending dilatation using Savary dilator 17 2. Retroflexed views revealed a hiatal hernia - Protonix 40mg PO BID - DVT prophylaxis - supportive care - PT - Patient has had a tremendous weight loss - Pt's prognosis is guarded. - Case informally d/w Hematology/Oncology (06/28). No indication for consultation at this time. - will give IV venofer daily x 3d - Case d/w Nephrology, Dr. Coon (06/28). Will again replete pt's phosphorus. - DVT prophylaxis - supportive care - Colonoscopy (06/30) --> solid stool - Colonoscopy (07/02) --> 1. Severe diverticulosis was noted throughout the entire examined colon 2. Four sessile polyps ranging between 3-7mm in size were found in the ascending colon, descending colon, sigmoid colon, and rectum; polypectomy was performed using snare cautery 3. 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 Retroflexed views revealed internal hemorrhoids 5. Retroflexed views revealed medium internal hemorrhoids 6. Was performed 7. Revealed no abnormalities of the rectum - Pt A&O with decreased calcium - No treatable disease explaining weight loss was found, likely explanation for pt's weight loss & decline is his advanced age in combination with chronic medical conditions including CAD, COPD, and HTN. - Patient and his are interested in SNF for rehab at end of hospitalization they remain aggressive at this time Sinus bradycardia with pauses - Pause x 3 longest pauses 2.76 seconds on telemetry after anaesthesia- reviewed by myself and Dr. Gordon - hold metoprolol and replace potassium - monitor on telemetry Electrology abnormalities - potassium 2.8 (07/01) -> 3.2 (12.11) replaced - mag 1.4 (06/29) replaced - phosphorus 2.2 (/) replaced - repeat labs in AM to include CBC, BMP in AM Foot Infection, right - continue zosyn - await input from wound care Plan to DC to SNF tomorrow if patient is stable Discharge Planning: The exam, history, and the medical decision-making described in the above note were completed with the assistance of the mid-level provider. I reviewed and agree with the findings presented. I attest that I had a [id number] encounter with the patient on the same day, and personally performed and documented my assessment and findings in the medical record. Patient examined. Assessment and plan formulated with Nicole Longoria PA-C. I agree with the above. Progress Note: Quality VTE Deep Vein Thrombosis/Pulmonary Embolism Present on Admission: No
[2018-07-02] MEDS: Allopurinol 300 MG Tablet PO SCH (13:16)
[2018-07-02] MEDS: Senna/Docusate Sodium 8.6/50 MG Tablet PO SCH ×2 (13:16→22:03)
--- NOTE | 2018-07-02 15:24 | P.PNPAL ---
Reason for Visit Reason for visit: a. To assist with evaluation and management of symptoms including: Pain, generalized weakness and physical deconditioning b. To assist medical decision maker(s) with: better understanding of current medical conditions; weighing benefits/burdens of medical treatment options; making medical treatment decisions. Subjective Subjective/Interval History: Follow-up medically necessary for symptom management. Patient seen and examined in his room in the presence of his spouse. Patient is in bed, awake, alert oriented to self, place and situation. Patient requesting a bedpan, assisted with bedpan. Patient underwent colonoscopy with biopsy today 07/02/18- report pending. Patient denies pain and nausea. Laboratory workup today revealing WBC 5.6, hemoglobin 10.5, hematocrit 31.9, platelet count 189, sodium 143, potassium 3.2, BUN/creatinine 26/2.63, calcium 8.1. Case management assisting with discharge planning. Patient and his spouse are interested in patient being discharged to [facility]. Family/Friend Interactions: See interval note. Advance Directives Living Will: Copy in medical record Health Care Surrogate: Copy in medical record Health Care Surrogate Name and Number: HCS:Darrell Hobbs-[phone] [facility] HCS: Jamie Myles Hobbs Objective Vital Signs: Vital Signs 07/01/18 16:59 07/01/18 20:00 07/01/18 20:41 Temperature 98.5 F 97.5 F L Pulse Rate 94 H 74 Respiratory Rate 18 16 Blood Pressure 120/68 97/54 L Pulse Oximetry 100 95 100 07/02/18 00:00 07/02/18 04:00 07/02/18 08:00 Temperature 97.3 F L 98.1 F 97.8 F Pulse Rate 77 59 L 71 Respiratory Rate 16 16 18 Blood Pressure 123/65 126/63 118/65 Pulse Oximetry 98 97 99 07/02/18 08:39 07/02/18 09:12 07/02/18 10:00 Temperature 97.0 F L Pulse Rate 82 Respiratory Rate 18 Blood Pressure 118/61 Pulse Oximetry 97 91 L 98 Intake & Output 07/01/18 07/02/18 07/02/18 18:59 06:59 18:59 Intake Total 510 / 510 390 / 390 250 / 250 Output Total 250 / 250 350 / 350 Balance 260 / 260 40 / 40 250 / 250 Weight 68.3 kg Intake: IV 150 / 150 150 / 150 50 / 50 Zosyn 3.375 GM Premix 50 ML @ 50 / 50 150 / 150 50 / 50 100 mls/hr IV.SIG Q6H [facility] Rx#: [id number] KCl 20 mEq Premix Inj 20 meq In 100 / 100 100 ml @ 50 mls/hr IV.SIG Q2H [facility] Rx#:[id number] Oral 360 / 360 240 / 240 Anesthesia Amount 200 / 200 Output: Urine 350 / 350 Urine Amount (Catheter) 250 / 250 Indwelling Urethral Catheter 250 / 250 Other: Date of Last Bowel Movement 06/30/18 07/01/18 # Bowel Movements 1 3 # Incontinent Bowel Movements 2 Physical Exam: CONSTITUTIONAL/GENERAL: This is an elderly chronically ill looking patient, in no apparent distress. TUBES/LINES/DRAINS: PIV SKIN: Dry. Ecchymoses on upper extremities. Wounds to bilateral lower extremities covered with dressings. Normothermic EYES: Pupils equal and round and reactive. Extraocular motions intact. No scleral icterus. Fundi not examined. ENT: Hearing grossly normal. Nose without bleeding or purulent drainage. Moist oral mucosa. NECK: Trachea midline. Supple, nontender. CARDIOVASCULAR: Regular rate and rhythm without murmurs, gallops, or rubs. No JVD. Peripheral pulses symmetric. RESPIRATORY/CHEST: Symmetric, unlabored respirations. Diminished in the bases. No rhonchi. GASTROINTESTINAL: Abdomen soft, non-tender, nondistended. No guarding. Bowel sounds present. GENITOURINARY: Without palpable bladder distension. MUSCULOSKELETAL: Extremities without clubbing, cyanosis, or edema. No joint tenderness or effusion noted. No mottling or clubbing. LYMPHATICS: Did not assess NEUROLOGICAL: Awake, alert, oriented to self, place and partly situation. Follows commands with all 4 extremities. PSYCHIATRIC: No obvious anxiety/depression. no apparent hallucinations or other psychotic thought process. Diagnostic Tests Laboratory: Laboratory Results - last 72 hr 06/30/18 06/30/18 06/30/18 05:25 05:25 07:35 WBC 5.5 RBC 3.82 L Hgb 11.2 L Hct 34.9 L MCV 91.3 MCH 29.4 MCHC 32.2 RDW 18.3 H Plt Count 191 MPV 9.8 Neut % (Auto) 77.8 H Lymph % (Auto) 5.8 L [place] % (Auto) 5.4 Eos % (Auto) 10.2 H Baso % (Auto) 0.8 Neut # (Auto) 4.3 Lymph # (Auto) 0.3 L [place] # (Auto) 0.3 Eos # (Auto) 0.6 H Baso # (Auto) 0.0 WBC Differential . Differential Comment Auto diff final Sodium 140 Potassium 3.5 Chloride 106 Carbon Dioxide 24.8 Anion Gap 9 BUN 28 H Creatinine 2.52 H Estimated GFR 25 L POC Glucose 127 H Random Glucose 122 H Calcium 9.3 D Phosphorus 2.3 L Magnesium 1.7 07/01/18 07/01/18 07/01/18 06:27 06:27 13:35 WBC 5.4 RBC 3.63 L Hgb 10.7 L Hct 33.1 L MCV 91.2 MCH 29.3 MCHC 32.2 RDW 18.7 H Plt Count 178 MPV 9.9 Neut % (Auto) 75.4 H Lymph % (Auto) 5.9 L [place] % (Auto) 7.4 Eos % (Auto) 10.5 H Baso % (Auto) 0.8 Neut # (Auto) 4.1 Lymph # (Auto) 0.3 L [place] # (Auto) 0.4 Eos # (Auto) 0.6 H Baso # (Auto) 0.0 WBC Differential . Differential Comment Auto diff final Sodium 142 Potassium 2.8 L* 3.5 Chloride 107 Carbon Dioxide 25.2 Anion Gap 10 BUN 28 H Creatinine 2.55 H Estimated GFR 25 L POC Glucose Random Glucose 93 Calcium 8.5 D Phosphorus 2.2 L Magnesium 1.9 07/02/18 07/02/18 04:30 04:30 WBC 5.3 RBC 3.58 L Hgb 10.5 L Hct 31.9 L MCV 89.2 MCH 29.3 MCHC 32.8 RDW 18.5 H Plt Count 189 MPV 9.5 Neut % (Auto) 67.2 Lymph % (Auto) 7.9 L [place] % (Auto) 10.3 H Eos % (Auto) 13.6 H Baso % (Auto) 1.0 Neut # (Auto) 3.5 Lymph # (Auto) 0.4 L [place] # (Auto) 0.5 Eos # (Auto) 0.7 H Baso # (Auto) 0.1 WBC Differential . Differential Comment Auto diff final Sodium 143 Potassium 3.2 L Chloride 109 H Carbon Dioxide 24.7 Anion Gap 9 BUN 26 H Creatinine 2.63 H Estimated GFR 24 L POC Glucose Random Glucose 84 Calcium 8.1 L Phosphorus Magnesium Result Diagrams: 07/02/18 04:30 07/02/18 04:30 Microbiology: Microbiology 06/28/18 17:00 Gram Stain - Final Wound - Leg Wound Culture - Final Staphylococcus aureus Klebsiella oxytoca Pseudomonas aeruginosa Imaging: Chest X-Ray 06/26/18 16:06 CONCLUSION: 1. Stable postsurgical features and compensated cardiomegaly. 2. No acute abnormality. Head CT 06/26/18 16:08 CONCLUSION: No acute intracranial abnormality demonstrated. Right frontal sinusitis versus mass. . Abdomen/Pelvis CT 06/26/18 17:48 CONCLUSION: 1. No acute abnormality demonstrated. 2. Scattered benign-appearing cysts of the liver. 3. Mild atrophy of the right kidney, similar to before. 4. Atherosclerotic abdominal aorta and branch vessels. Abdomen/Bladder Ultrasound 06/27/18 00:00 CONCLUSION: 1. No hydronephrosis. However, right kidney is small in size with cortical thinning and echogenicity suggesting chronic medical renal disease. 2. There is at least one polypoid nodular mass along the anterior urinary bladder wall measuring up to 6 mm. Suggest correlating for hematuria since this could represent a urothelial neoplasm. Also consider correlation with cystoscopy or could noninvasively evaluate with pelvis MRI with and without intravenous contrast if the patient has a stable GFR greater than 30. Head MRI 06/27/18 00:00 CONCLUSION: No evidence of acute intracranial pathology. No masses are identified. Findings characteristic of frontal sinus mucocele. CT scan of the sinuses is recommended if clinically indicated Chest CT 06/28/18 00:00 CONCLUSION: 1. No acute finding is identified to explain the shortness of breath. There is mild to moderate centrilobular emphysema. Trace left pleural fluid is present. 2. Nonacute findings include chronic compression fracture of T7 and severe atherosclerotic plaque in the proximal renal arteries bilaterally. Procedures: 06/29/18-EGD with esophageal dilatation and biopsy -colonoscopy with biopsy Assessment and Plan - Disease Oriented Problem List (1) Dehydration (2) YAZAN (acute kidney injury) (3) CKD stage 3 due to type 2 diabetes mellitus (4) CAD (coronary artery disease) (5) COPD (chronic obstructive pulmonary disease) (6) Diabetes mellitus (7) Congestive heart failure (8) Peripheral artery disease - Symptom Scale (1) Pain Comment: Patient has chronic bilateral wounds to his bilateral lower extremities. (2) Weakness generalized 0-10 Scale: Unable to quantify Comment: Patient has had decreased appetite and came in with complaints of generalized weakness. (3) Physical deconditioning 0-10 Scale: Unable to quantify Comment: Progressive. Significant weight loss over a period of one year. Pertinent Non-Medical Issues: Psychosocial: Patient is originally from [place]. He moved to [place] when he was 4 years old. 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 Patient is to his for 51 years. Spiritual: Patient is a Druze. Legal: Patient states that he has advanced directives. Ethical issues impacting care: None identified at this time. Important Contacts: Spouse-HCS: AnjelBlayne kingMlsqq-[phone] Son-Alt HCS:Jamie Hobbs [phone] Daughter-Bruna Fisher [phone] Daughter Lani Zayas [phone] Alt HCS: Prognosis: Mr. Hobbs is a 78-year-old male with past medical history of coronary artery disease, paroxysmal atrial fibrillation, chronic kidney disease stage III, COPD , peripheral arterial disease, diabetes mellitus with neuropathy, and chronic lower extremity wounds. Patient was brought to the emergency room on 06/26/18 for evaluation of progressive weakness over the past 2 weeks. Clinical course complicated with nausea, generalized weakness and acute kidney injury. Given patient's multiple ongoing comorbidities, patient remains at high risk for further complications, deterioration and decline. . Code Status: No Code DNR Plan: PLAN: Legal decision maker: Patient is alert, oriented to self, place and situation. Unsure of how much insight patient has regarding his medical condition. Patient is requesting that any medical decisions be done jointly with his spouse Darrell Hobbs who is his health care surrogate. Goals: Aggressive short of no code. Patient with the support of his spouse would like to be discharged to a rehabilitation facility preferably to [facility] in [place]. CODE STATUS: No code Do Not Resuscitate /Do Not Intubate. SYMPTOMS: * Pain: Patient has chronic wounds to bilateral lower extremities. Currently complaining of abdominal discomfort. Pain is been managed with hydrocodone/ acetaminophen 5/325 p.o. every 4 hours prn. Patient has only used x2 prn in the past 48hours. Medication appears adequate at this time. * Nausea: Patient complaining of nausea and dry heaving. Patient states that he is not able to eat due to nausea. Currently on clear liquid diet. EGD on showed gastritis. Colonoscopy 07/02/18. Recommending Zofran 4 mg IV push every 6 hours prn nausea/vomiting. Currently denying nausea. * Generalized weakness: Patient has had decreased appetite and has progressively developed weakness in the past 2 weeks. He has lost approximately 30-40 pounds gradually over a year. Physical therapy consulted, recommending physical therapy at rehab. * Physical deconditioning: Progressive. Patient has multiple ongoing comorbidities. He has had significant weight loss over a year. PT recommending physical therapy at rehab. Palliative care will continue to follow the patient during hospital course as condition evolves, to assist patient/decision-maker with understanding of their medical conditions, weighing benefits/burdens of treatment options, for clarification of goals of treatment. Additionally will assist with any symptoms of palliative concern Attestation Attestation: To help prompt me to consider important information that might be impacting today's encounter and assessment, information from prior notes written by myself or my colleagues may have been "brought forward" into today's note. My signature on this note, however, is an attestation that I personally performed the exam, history, and/or decision-making noted today, and, unless otherwise indicated, the interactions with patient, family, and staff as well as the review of records all occurred today. I also attest that the listed assessment and stated plan reflect my best clinical judgment today based on the combination of historical information, prior notes, and today's exam/ interactions. When time spent is documented, it refers only to time spent today by the signer, or if indicated, combined time spent today by collaborating physician/nurse practitioner.
--- NOTE | 2018-07-02 15:50 | P.PNNP ---
Subjective Interval history: S/P colonoscopy at bedside. No acute events overnight. Denies any shortness of breath, chest pain, nausea or vomiting. <Tasneem Murrieta - Last Filed: 07/02/18 15:48> Physical Exam Vital signs: Vital Signs 07/01/18 16:59 07/01/18 20:00 07/01/18 20:41 Temperature 98.5 F 97.5 F L Pulse Rate 94 H 74 Respiratory Rate 18 16 Blood Pressure 120/68 97/54 L Pulse Oximetry 100 95 100 07/02/18 00:00 07/02/18 04:00 07/02/18 08:00 Temperature 97.3 F L 98.1 F 97.8 F Pulse Rate 77 59 L 71 Respiratory Rate 16 16 18 Blood Pressure 123/65 126/63 118/65 Pulse Oximetry 98 97 99 07/02/18 08:39 07/02/18 09:12 07/02/18 10:00 Temperature 97.0 F L Pulse Rate 82 Respiratory Rate 18 Blood Pressure 118/61 Pulse Oximetry 97 91 L 98 Intake & Output 07/01/18 07/02/18 07/02/18 18:59 06:59 18:59 Intake Total 510 / 510 390 / 390 250 / 250 Output Total 250 / 250 350 / 350 Balance 260 / 260 40 / 40 250 / 250 Weight 68.3 kg Intake: IV 150 / 150 150 / 150 50 / 50 Zosyn 3.375 GM Premix 50 ML @ 50 / 50 150 / 150 50 / 50 100 mls/hr IV.SIG Q6H [facility] Rx#: [id number] KCl 20 mEq Premix Inj 20 meq In 100 / 100 100 ml @ 50 mls/hr IV.SIG Q2H [facility] Rx#:[id number] Oral 360 / 360 240 / 240 Anesthesia Amount 200 / 200 Output: Urine 350 / 350 Urine Amount (Catheter) 250 / 250 Indwelling Urethral Catheter 250 / 250 Other: Date of Last Bowel Movement 06/30/18 07/01/18 # Bowel Movements 1 3 # Incontinent Bowel Movements 2 Narrative: GENERAL: Alert and oriented. NAD SKIN: Warm and dry. NECK: Supple, trachea midline. No JVD CARDIOVASCULAR: Regular rate and rhythm without murmurs, gallops, or rubs. RESPIRATORY: Breath sounds equal bilaterally. No accessory muscle use. GASTROINTESTINAL: Abdomen soft, non-tender, nondistended. MUSCULOSKELETAL: No cyanosis, or edema. BACK: Nontender without obvious deformity. No CVA tenderness. - Urinary Catheter Management Straight Cath placed during this visit: yes, but has since been removed by the nurse Reason for continuing: Acute urinary retention Insertion date: 06/28/18 Insertion time: 06:00 Removal date: 06/27/18 Removal time: 06:15 Indwelling Urethral Catheter Cath placed during this visit: no Reason for continuing: Hourly intake/output <Tasneem Murrieta - Last Filed: 07/02/18 15:48> Vital signs: Vital Signs 07/01/18 20:41 07/02/18 00:00 07/02/18 04:00 Temperature 97.3 F L 98.1 F Pulse Rate 77 59 L Respiratory Rate 16 16 Blood Pressure 123/65 126/63 Pulse Oximetry 100 98 97 07/02/18 08:00 07/02/18 08:39 07/02/18 09:12 Temperature 97.8 F Pulse Rate 71 Respiratory Rate 18 Blood Pressure 118/65 Pulse Oximetry 99 97 91 L 07/02/18 10:00 07/02/18 16:00 Temperature 97.0 F L 97.0 F L Pulse Rate 82 79 Respiratory Rate 18 18 Blood Pressure 118/61 110/55 L Pulse Oximetry 98 99 Intake & Output 07/02/18 07/02/18 07/03/18 06:59 18:59 06:59 Intake Total 390 / 390 490 / 490 50 / 50 Output Total 350 / 350 200 / 200 Balance 40 / 40 290 / 290 50 / 50 Weight 68.3 kg Intake: IV 150 / 150 50 / 50 50 / 50 Zosyn 3.375 GM Premix 50 ML @ 150 / 150 50 / 50 50 / 50 100 mls/hr IV.SIG Q6H [facility] Rx#: [id number] Oral 240 / 240 240 / 240 Anesthesia Amount 200 / 200 Output: Urine 350 / 350 200 / 200 Other: Date of Last Bowel Movement 07/01/18 07/02/18 # Bowel Movements 3 1 # Incontinent Bowel Movements 2 - Urinary Catheter Management Straight Cath placed during this visit: no Indwelling Urethral Catheter Cath placed during this visit: no <Matthew Coon - Last Filed: 07/02/18 20:41> Assessment and Plan - Assessment (1) Acute kidney injury superimposed on chronic kidney disease Code(s): N17.9 - Acute kidney failure, unspecified; N18.9 - Chronic kidney disease, unspecified Status: Acute (2) Dehydration Code(s): E86.0 - Dehydration Status: Acute (3) Weakness generalized Code(s): R53.1 - Weakness Status: Acute - Plan acute kidney injury with creatinine of 2.57 which has improved at 2.63 on day of consult Acute kidney injury could be ATN from dehydration poor intake and intravascular volume depletion. Has been followed by Dr. Harris in the past for chronic kidney disease. Chronic kidney most likely from diabetes. Baseline creatinine appears to be around 1.5 to 1.7. Avoid nephrotoxins including NSAIDS, IV contrast, and aminoglycosides Hypercalcemia has improved Hypokalemia, replacement has been ordered Creatinine slightly more elevated at 2.6, fluids encouraged. Labs in AM will follow urinary output and BMP Possible discharge tomorrow. <Tasneem Murrieta - Last Filed: 07/02/18 15:48> - Assessment (1) Acute kidney injury superimposed on chronic kidney disease Code(s): N17.9 - Acute kidney failure, unspecified; N18.9 - Chronic kidney disease, unspecified Status: Acute (2) Dehydration Code(s): E86.0 - Dehydration Status: Acute (3) Weakness generalized Code(s): R53.1 - Weakness Status: Acute - Plan Patient seen and examined, agree with above. Creatinine is 2.6, non oliguric. Avoid Nephrotoxins. <Matthew Coon - Last Filed: 07/02/18 20:41>
[2018-07-02] MEDS: Mirtazapine 15 MG Tablet PO SCH (22:02)
[2018-07-02 23:52] LABS: Free Kappa/Lambda Light Chain 1.92 (0.26-1.65); Kappa Light Chain, Free 42.3 mg/L (3.3-19.4)
[2018-07-03] MEDS: Piperacil/Tazo 3.375 GM Premix 50 ML IV.SIG SCH ×3 (00:25→12:46)
[2018-07-03 04:20] VITALS: RESP 16
[2018-07-03 06:46] LABS: Albumin 1.8 g/dL (3.4-5.0); Calcium 8.1 mg/dL (8.5-10.1); Carbon Dioxide 24.7 meq/L (21.0-32.0); Phosphorus 1.3 mg/dL (2.5-4.9); Potassium 3.5 meq/L (3.5-5.1)
[2018-07-03] MEDS: Allopurinol 300 MG Tablet PO SCH (09:28)
[2018-07-03] MEDS: Senna/Docusate Sodium 8.6/50 MG Tablet PO SCH (09:28)
[2018-07-03 09:35] VITALS: TEMP 97.6
--- NOTE | 2018-07-03 11:47 | P.DS ---
DS: Providers Date of admission: 06/26/18 19:39 Primary care physician: Celi Johnson MD Consults: 06/27/18 10:11 Consult to Palliative Care Routine Consulting Provider: Bolivar Gupta Preferred Stocking Inspector:: Bolivar Gupta Reason for Consultation: clarification of goals Notified:: Service Spoke with:: АННА Date Notified:: 06/27/18 Time Notified:: 10:13 Ordering Provider: DON 06/27/18 10:21 Consult to Nephrology Routine Consulting Provider: Matthew Coon Does the patient have a Chip Mixer who follows them?: No Preferred Nephrology Stocking Inspector:: Maintenance Journeyman Physician Reason for Consultation: hypercalcemia Notified:: Office Spoke with:: SOFIA Date Notified:: 06/27/18 Time Notified:: 10:25 Ordering Provider: DON 06/27/18 18:24 Consult to Gastroenterology Routine Consulting Provider: Pedro Pablo Rosenberg V Reason for Consultation: Difficulty swallowing and weight loss Notified:: Service Spoke with:: OCHOA Date Notified:: 06/27/18 Time Notified:: 18:27 Ordering Provider: KRISTI 06/27/18 18:28 Consult to Urology Routine Consulting Provider: Qamar Ibrahim Reason for Consultation: Abnormal bladder US Notified:: Service Spoke with:: flakito Date Notified:: 06/27/18 Time Notified:: 20:16 Ordering Provider: KRISTI 07/02/18 14:22 HUB Only Consult Order Routine Consulting Provider: [facility],[place] 07/03/18 11:36 HUB Only Consult Order Routine Consulting Provider: [facility] Brief History from admission: 78-year-old male with PMH of coronary artery disease, COPD, chronic kidney disease stage III, diabetes with neuropathy, peripheral arterial disease, and paroxysmal atrial fibrillation, chronic lower extremity wounds right lower extremity followed by wound clinic, presents to the ED for evaluation of 2 weeks history of weakness. The patient states that he does not have much of an appetite and anything he eats taste strange. He endorses some retching but denies vomiting. He denies fever, chills, chest pain, palpitations, shortness of breath, cough, abdominal pain, melena, hematochezia, dysuria, hematuria, numbness, tingling, weakness, limitations to range of motion of the extremities. His at bedside says that he has had a gradual weight loss of 30-40 pounds over the course of the year. The patient has chronic wounds in the right leg and sees wound care regularly, last visit today. In the emergency room lab workup revealed that creatinine of greater than 2 with a history of CKD stage III may be acute kidney injury on this stage III, significant hypercalcemia CT of the head shows a questionable mass in the frontal area, CT of the abdomen is unremarkable. Patient has never had endoscopy or colonoscopy according to his . Of note the abnormal abnormal finding on CT could be responsible for not feeling like eating due to taste problems. DS: Diagnosis Discharge Diagnosis (1) Dysphasia: Status: Acute (2) Unintended weight loss: Status: Acute DS: Summary Hypercalcemia Deconditioning weight loss - Pt has h/o CAD, s/p CABG 1997, Atrial Fibrillation, COPD, DM2. Per the pt's , pt has lost 60 pounds in the last year. Review of records revealed weight 100.8kg (02/03/18) --> 70.5 (06/28/19). Weight loss 30kg = 66 pounds. He had a CT Abd/Pelvis () --> NO acute findings, no lytic lesions noted. Renal US (06/27) c/w medical renal disease but noted at least one polypoid nodular mass along the anterior urinary bladder wall measuring up to 6mm. MRI brain (06/27) --> NO acute findings, no lytic skull lesions noted. His previous labs revealed his baseline Cr 1.3 (08/14/18) and 1.48 (01/28/19) His lab trended with this admission: - Creatinine 2.63 (06/26), 2.57 (06/27), 2.45 (06/27), 2.47 (06/28), 2.37 (06/29) , 2.52 (06/30). 2.55 (07/01) - Calcium 8.9 (01/29/18), 13.3 (06/26), 13.6 (06/27), 13.1 (06/28), 10.5 (06/29), 9.3 (06/30), 8.5 (07/01) - TO --> negative - Free [place] light chain --> pending - Free Lambda Light chain --> pending - Hepatitis panel --> negative - PTH intact, low 6.3 (04/27) - Iron 46 (06/28) - TIBC 213 (06/28) - Albumin 2.8 (06/27) - Appreciate input from Nephrology - Appreciate input from Urology. Recommended outpt cystoscopy - Appreciate input from GI - EGD 06/[address] Simon 1. Gastritis antrum --> biopsy pending duodenum normal --> biopsy pending esophagitis distal esophagus --> biopsy pending esophagitis midesophagus --> biopsy pending dilatation using Savary dilator 17 2. Retroflexed views revealed a hiatal hernia - Protonix 40mg PO BID - DVT prophylaxis - supportive care - PT - Patient has had a tremendous weight loss - Pt's prognosis is guarded. - Case informally d/w Hematology/Oncology (06/28). No indication for consultation at this time. - will give IV venofer daily x 3d - Case d/w Nephrology, Dr. Coon (06/28). Will again replete pt's phosphorus. - DVT prophylaxis - supportive care - Colonoscopy (06/30) --> solid stool - Colonoscopy (07/02) --> 1. Severe diverticulosis was noted throughout the entire examined colon 2. Four sessile polyps ranging between 3-7mm in size were found in the ascending colon, descending colon, sigmoid colon, and rectum; polypectomy was performed using snare cautery 3. 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 Retroflexed views revealed internal hemorrhoids 5. Retroflexed views revealed medium internal hemorrhoids 6. Was performed 7. Revealed no abnormalities of the rectum - Pt A&O with decreased calcium - No treatable disease explaining weight loss was found, likely explanation for pt's weight loss & decline is his advanced age in combination with chronic medical conditions including CAD, COPD, and HTN. - Patient and his are interested in SNF for rehab at end of hospitalization they remain aggressive at this time Sinus bradycardia with pauses A. fib - On 07/02 pt was noted to have pause x 3 with the longest pause being 2.76 seconds on telemetry after anaesthesia. His metoprolol was held and his potassium was replaced. On 07/03 the pts HR started to rise and was having some A. fib RVR. Pt will be resumed on his Metoprolol at a dose of 25 mg BID on the day of discharge. Electrolyte abnormalities - Pt had multiple electrolyte abnormalities including low potassium, magnesium, and phosphorus. These were replaced mutliple time and we will continue to monitor labs while his is at rehab for the attending physician there to monitor. Foot Infection, right - Pt was given Zosyn during this admission and wound care was consulted but was unable to see him during admission. - await input from wound care Time Spent with Patient Total time spent providing and/or coordinating discharge services: Quality: VTE Deep Vein Thrombosis/Pulmonary Embolism Present on Admission: No Results Completed studies during hospitalization: Pending at discharge 06/29/18 09:07 Surgical [PTH] Routine Pending studies at discharge: Pending at discharge 07/02/18 12:28 Surgical [PTH] Routine Labs on day of discharge: Labs from last 24 hours 07/03/18 06/27/18 05:05 20:38 Sodium 141 Potassium 3.5 Chloride 108 H Carbon Dioxide 24.7 Anion Gap 8 BUN 26 H Creatinine 2.71 H Estimated GFR 23 L Random Glucose 73 L Calcium 8.1 L Phosphorus 1.3 L Albumin 1.8 L Free [place] Light Chains 42.30 H Free Lambda Light Chain 22.00 Free [place]/Lambda Ratio 1.92 H Impressions ITS Impressions Chest X-Ray 06/26/18 16:06 CONCLUSION: 1. Stable postsurgical features and compensated cardiomegaly. 2. No acute abnormality. Head CT 06/26/18 16:08 CONCLUSION: No acute intracranial abnormality demonstrated. Right frontal sinusitis versus mass. . Abdomen/Pelvis CT 06/26/18 17:48 CONCLUSION: 1. No acute abnormality demonstrated. 2. Scattered benign-appearing cysts of the liver. 3. Mild atrophy of the right kidney, similar to before. 4. Atherosclerotic abdominal aorta and branch vessels. Abdomen/Bladder Ultrasound 06/27/18 00:00 CONCLUSION: 1. No hydronephrosis. However, right kidney is small in size with cortical thinning and echogenicity suggesting chronic medical renal disease. 2. There is at least one polypoid nodular mass along the anterior urinary bladder wall measuring up to 6 mm. Suggest correlating for hematuria since this could represent a urothelial neoplasm. Also consider correlation with cystoscopy or could noninvasively evaluate with pelvis MRI with and without intravenous contrast if the patient has a stable GFR greater than 30. Head MRI 06/27/18 00:00 CONCLUSION: No evidence of acute intracranial pathology. No masses are identified. Findings characteristic of frontal sinus mucocele. CT scan of the sinuses is recommended if clinically indicated Chest CT 06/28/18 00:00 CONCLUSION: 1. No acute finding is identified to explain the shortness of breath. There is mild to moderate centrilobular emphysema. Trace left pleural fluid is present. 2. Nonacute findings include chronic compression fracture of T7 and severe atherosclerotic plaque in the proximal renal arteries bilaterally. Discharge Plan Discharge Disposition Patient Disposition: Discharge to SNF Discharge Condition Condition: Stable Discharge Order Discharge Orders: Discharge Order (Routine); Ordered 07/03/18 Ordered By: Janneth Clark Discharge Details Anticipated Discharge Date: 07/03/18 Discharge Comment: Followup with Dr. Ibrahim in [address] Coon in [address] Rosenberg in [address] Johnson 1 week after discharge from SNF. Physicians Team ED Provider: [facility] [facility] Midlevel Provider: Haley Corona Primary Care Provider: Celi Johnson Attending Provider: Sylvain Reyes Other Providers: Matthew Coon ; Bolivar Gupta ; Pedro Pablo Rosenberg V ; Qamar Ibrahim ; [facility] ; [facility] Rxs /Orders / Referrals /Forms Prescriptions: New metoprolol tartrate 50 mg Tablet 25 mg PO BID Qty: 60 RF: 0 hydrocodone-acetaminophen [Ogden] 10-325 mg Tablet 1 tab PO TID PRN (Reason: pain) Qty: 9 RF: 0 alprazolam [Xanax] 0.25 mg Tablet 0.25 mg PO HS PRN (Reason: Anxiety) Qty: 10 RF: 0 pantoprazole 40 mg Tablet,Delayed Release (Dr/Ec) 40 mg PO BID Qty: 60 RF: 0 Continue allopurinol 300 mg Tablet 300 mg PO DAILY RF: 0 ezetimibe [Zetia] 10 mg Tablet 10 mg PO DAILY RF: 0 Discontinued furosemide [Lasix] 40 mg Tablet 40 mg PO QAM PRN (Reason: leg swelling) RF: 0 metoprolol tartrate 50 mg Tablet 50 mg PO DAILY RF: 0 furosemide [Lasix] 20 mg tablet 20 mg PO DAILY@17 PRN (Reason: leg swelling) RF: 0 Referrals: Matthew Coon MD [Physician] - See Instructions (Followup in 2 weeks. ) Qamar Ibrahim MD [Physician] - See Instructions (Followup in 1 week, rehab to arrange transport and appt. ) Pedro Pablo Rosenberg MD [Physician] - See Instructions (Followup in 2 weeks) Celi Johnson MD [Primary Care Provider] - See Instructions Brad Conley MD [Family Provider] - See Instructions Discharge Instructions Patient Printed Instructions: Metoprolol (By mouth), Hydrocodone/Acetaminophen (By mouth), Alprazolam (By mouth), Pantoprazole (By mouth), Dehydration (DC), Acute Kidney Injury (GEN), Kemp Catheter Placement and Care (DC), Chronic Wound Care (GEN), Colonoscopy (DC), Upper Endoscopy (GEN) Status ED Status: Left Department
[2018-07-03] MEDS ORDERED: Metoprolol Tartrate 25 MG Tablet PO SCH (12:05)
[2018-07-03] MEDS ORDERED: Potassium Phosphate 500 MG Soluble Tablet PO ONE (12:15)
[2018-07-03 13:15] VITALS: BP 150/82; PULSE 108; O2SAT 96
--- NOTE | 2018-07-03 15:38 | P.PNNP ---
Subjective Interval history: Seen in morning. Sitting on side of bed. Denies any shortness of breath, chest pain, nausea, or vomiting. Plans for discharge today. <Tasneem Murrieta - Last Filed: 07/03/18 15:34> Physical Exam Vital signs: Vital Signs 07/02/18 16:00 07/02/18 20:00 07/02/18 23:55 Temperature 97.0 F L 97.9 F Pulse Rate 79 80 83 Respiratory Rate 18 17 Blood Pressure 110/55 L 118/65 Pulse Oximetry 99 95 07/03/18 00:00 07/03/18 04:00 07/03/18 08:00 Temperature 98.1 F 97.1 F L 97.6 F Pulse Rate 92 H 72 85 Respiratory Rate 15 16 16 Blood Pressure 126/72 130/72 137/72 Pulse Oximetry 96 96 97 07/03/18 09:30 07/03/18 09:33 07/03/18 12:00 Temperature 97.6 F Pulse Rate 81 108 H Respiratory Rate 16 Blood Pressure 150/82 H Pulse Oximetry 97 96 Intake & Output 07/02/18 07/03/18 07/03/18 18:59 06:59 18:59 Intake Total 490 / 490 300 / 300 50 / 50 Output Total 200 / 200 175 / 175 Balance 290 / 290 125 / 125 50 / 50 Weight 71.3 kg Intake: IV 50 / 50 150 / 150 50 / 50 Zosyn 3.375 GM Premix 50 ML @ 50 / 50 150 / 150 50 / 50 100 mls/hr IV.SIG Q6H [facility] Rx#: [id number] Oral 240 / 240 150 / 150 Anesthesia Amount 200 / 200 Output: Urine 200 / 200 175 / 175 Other: Date of Last Bowel Movement 07/02/18 07/02/18 # Bowel Movements 1 1 # Oral Regurgitations 1 Narrative: GENERAL: Alert and oriented. NAD SKIN: Warm and dry. NECK: Supple, trachea midline. No JVD CARDIOVASCULAR: Regular rate and rhythm without murmurs, gallops, or rubs. RESPIRATORY: Breath sounds equal bilaterally. No accessory muscle use. GASTROINTESTINAL: Abdomen soft, non-tender, nondistended. MUSCULOSKELETAL: No cyanosis, or edema. BACK: Nontender without obvious deformity. No CVA tenderness. - Urinary Catheter Management Straight Cath placed during this visit: yes, but has since been removed by the nurse Reason for continuing: Acute urinary retention Insertion date: 06/28/18 Insertion time: 06:00 Removal date: 06/27/18 Removal time: 06:15 Indwelling Urethral Catheter Cath placed during this visit: no Reason for continuing: Chronic Urinary Retention <MaliaTasneem valencia - Last Filed: 07/03/18 15:34> - Urinary Catheter Management Straight Cath placed during this visit: no Indwelling Urethral Catheter Cath placed during this visit: no <Matthew Coon - Last Filed: 07/04/18 21:08> Assessment and Plan - Assessment (1) Acute kidney injury superimposed on chronic kidney disease Code(s): N17.9 - Acute kidney failure, unspecified; N18.9 - Chronic kidney disease, unspecified Status: Acute (2) Dehydration Code(s): E86.0 - Dehydration Status: Acute (3) Weakness generalized Code(s): R53.1 - Weakness Status: Acute - Plan acute kidney injury with creatinine of 2.57 which has improved at 2.63 on day of consult Acute kidney injury could be ATN from dehydration poor intake and intravascular volume depletion. Has been followed by Dr. Harris in the past for chronic kidney disease. Chronic kidney most likely from diabetes. Baseline creatinine was around 1.5 to 1.7. Recommend to Avoid nephrotoxins . Creatinine slightly more elevated at 2.7, fluids encouraged. Plans for discharge today. Patient has been followed by Dr. Harris in the past and will need to be followed outpatient by Nephrology. <Tasneem Murrieta - Last Filed: 07/03/18 15:34> - Assessment (1) Acute kidney injury superimposed on chronic kidney disease Code(s): N17.9 - Acute kidney failure, unspecified; N18.9 - Chronic kidney disease, unspecified Status: Acute (2) Dehydration Code(s): E86.0 - Dehydration Status: Acute (3) Weakness generalized Code(s): R53.1 - Weakness Status: Acute - Plan Patient seen and examined, agree with above. Creatinine remain elevated but stable. Possible discharge , to follow with Nephrology, he has been following with Dr. Harris in the past. <Matthew Coon - Last Filed: 07/04/18 21:08>
--- NOTE | 2018-07-03 16:21 | P.PNWCN ---
Wound Care Nurse Consult Description: Received wound management consult for bilateral lower leg wounds from Janneth IBANEZ Communicated with: JUVENCIO Zimmerman [place] and Janneth IBANEZ Recommendation: 1.Please cleanse diffuse open wounds to RLE with normal saline or wound cleanser and pat dry. 2. Apply Maxorb extra AG over open wounds and cover with ABD pads. 3. Secure dressing with rolled gauze, tape and stockinette. 4. Change dressing every 3 days or as needed if saturated or dislodged. 5. Patient needs to follow up with outpatient wound care after discharge. Wound/Pressure Injury - Wound Right Sen Wound Assessment: Ongoing Wound Type: Traumatic Wound Requested from Provider a Wound Care Consult: Yes (Wound care saw patient today) Length (cm): 2.5 Width (cm): 3 Depth (cm): 0.2 (~0.2cm) Wound Bed Appearance: 100% red non granulation tissue Surrounding Tissue Appearance: [place], Taut, Weeping Surrounding Tissue Temperature: Cool Drainage Description: Serosanguinous Drainage Amount: Minimal Drainage Odor: No Odor Dressing Status: Changed Cleansing Solution: Saline Primary Dressing: Maxorb extra Ag Cover Dressing: ABd pad, rolled gauze Tape Type: Paper Wound Dressing Change Date: 07/03/18 Wound Margin Description: jagged poorly defined Right Lower Sen Wound Assessment: Ongoing Wound Type: Traumatic Wound Requested from Provider a Wound Care Consult: Yes (Patient seen today by Wound care inpatient ) Length (cm): 4.1 Width (cm): 1 Depth (cm): 0.2 (~0.2cm) Wound Bed Appearance: Red Wound Bed Appearance: 100% red non granulation tissue Surrounding Tissue Appearance: Edematous, Shiny, Taut, Weeping Surrounding Tissue Temperature: Cool Drainage Description: Serosanguinous Drainage Amount: Minimal Drainage Odor: No Odor Dressing Status: Changed Cleansing Solution: Saline Primary Dressing: Maxorb extra AG Cover Dressing: ABd pad, rolled gauze and tape Wound Dressing Change Date: 07/03/18 Wound Margin Description: jagged poorly defined wound margins Right Dorsal foot Wound Assessment: Ongoing Wound Type: Traumatic Wound Requested from Provider a Wound Care Consult: Yes Length (cm): 5.6 Width (cm): 3.2 Depth (cm): 0.2 (~0.2cm) Wound Bed Appearance: [place] Wound Bed Appearance: 100% pink tissue Surrounding Tissue Appearance: Edematous, [place], Taut, Weeping Surrounding Tissue Temperature: Cool Drainage Description: Serosanguinous Drainage Amount: Scant Drainage Odor: No Odor Dressing Status: Changed Cleansing Solution: Saline Primary Dressing: Maxorb Extra AG Cover Dressing: ABD pad, secured with rolled gauze and tape Wound Dressing Change Date: 07/03/18 Right Lower Leg gaiter area Wound Assessment: Ongoing Wound Type: Traumatic Wound Is This a Chronic Wound: No Requested from Provider a Wound Care Consult: Yes Wound Bed Appearance: [place] Wound Bed Appearance: Gaiter area on R lateral lower leg presents with small diffuse open wounds within area that measures 9cm x 4cm. Wounds have depth of ~0.2cm Surrounding Tissue Appearance: Edematous, [place], Taut, Weeping Surrounding Tissue Temperature: Cool Drainage Description: Serosanguinous Drainage Amount: Minimal Drainage Odor: No Odor Dressing Status: Changed Cleansing Solution: Saline Primary Dressing: Maxorb Extra AG Cover Dressing: Abd pad, secured with rolled gauze, and stockinette Tape Type: Paper Wound Dressing Change Date: 07/03/18 Wound Margin Description: Poorly defined and jagged. - Additional Information Patient seen on for wound management of bilateral legs. Patient is laying in bed upon keno writer's arrival R lower leg is noted with dressing in place. L lower leg is open to air and is observed with diffuse scabs and dry scaly skin. Rolled gauze and ABd pad dressings were removed to reveal many open wounds. Wounds are noted with a mix of red non granulation tissue and pink tissue. All wounds have minimal active sero-sanguinous drainage without odor. Dry scaly skin is also noted to entire R lower leg. Applied Shaving cream to RLE skin and then covered with moist warm towel that was left in place for ~10 minutes, before rinsing off shaving cream with warm water and wash cloth. Entire R lower leg was patted dry. Wounds were cleansed with normal saline and patted dry. Apply Maxorb extra AG to cut to fit wound beds and secured dressings with ABD pads, rolled gauze, tape and stockinette. Patient tolerated dressing change well.
--- NOTE | 2018-07-03 16:23 | P.PNPAL ---
Reason for Visit Reason for visit: a. To assist with evaluation and management of symptoms including: Pain, generalized weakness and physical deconditioning b. To assist medical decision maker(s) with: better understanding of current medical conditions; weighing benefits/burdens of medical treatment options; making medical treatment decisions. Subjective Subjective/Interval History: Follow-up medically necessary for symptom management and signing of [facility] DNR. Patient seen and examined in his room in the presence of his spouse Darrell Hobbs who is also his healthcare surrogate. Patient denying pain or any source of discomfort. He is alert and oriented to self, place and situation. Patient states that he has been medically discharged and is waiting to be transferred to a [facility] facility for rehabilitation. Patient has been accepted at [facility]. Plan is for patient to be transported to facility between 1630 hours to 1730 hours 07/03/18. 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 Discussed importance of [facility] DNR and asked if patient wanted to maintain his DNR status outpatient. Patient reiterated in front of his spouse that he would never want to be resuscitated or even exist in a vegetative state. Patient requested his spouse to sign the [facility] DNR for him since he is feeling cold and does not want blankets covering him to be removed. With patient's permission, patient spouse Darrell Hobbs signed a [facility] DNR. Hard copy handed to spouse, who stated that she will be traveling with patient to the rehabilitation facility. A copy of the DNR placed on patient's chart and one will be faxed to HIM to added to patient's electronic medical record. Briefly discussed goals, which at this time remain aggressive short of no code. Patient and spouse complimenting a Jacinto Betts who has provided exceptional care to patient. Case discussed with bedside RN and Nurse structural manager. Family/Friend Interactions: Patient spouse at bedside during visit. See interval note. Advance Directives Living Will: Copy in medical record Health Care Surrogate: Copy in medical record Health Care Surrogate Name and Number: HCS:Darrell Hobbs-[phone] [facility] HCS: Jamie Myles Anjel Objective Vital Signs: Vital Signs 07/02/18 20:00 07/02/18 23:55 07/03/18 00:00 Temperature 97.9 F 98.1 F Pulse Rate 80 83 92 H Respiratory Rate 17 15 Blood Pressure 118/65 126/72 Pulse Oximetry 95 96 07/03/18 04:00 07/03/18 08:00 07/03/18 09:30 Temperature 97.1 F L 97.6 F Pulse Rate 72 85 81 Respiratory Rate 16 16 Blood Pressure 130/72 137/72 Pulse Oximetry 96 97 07/03/18 09:33 07/03/18 12:00 Temperature 97.6 F Pulse Rate 108 H Respiratory Rate 16 Blood Pressure 150/82 H Pulse Oximetry 97 96 Intake & Output 07/02/18 07/03/18 07/03/18 18:59 06:59 18:59 Intake Total 490 / 490 300 / 300 50 / 50 Output Total 200 / 200 175 / 175 Balance 290 / 290 125 / 125 50 / 50 Weight 71.3 kg Intake: IV 50 / 50 150 / 150 50 / 50 Zosyn 3.375 GM Premix 50 ML @ 50 / 50 150 / 150 50 / 50 100 mls/hr IV.SIG Q6H ANTIONETTE Rx#: [id number] Oral 240 / 240 150 / 150 Anesthesia Amount 200 / 200 Output: Urine 200 / 200 175 / 175 Other: Date of Last Bowel Movement 07/02/18 07/02/18 # Bowel Movements 1 1 # Oral Regurgitations 1 Physical Exam: CONSTITUTIONAL/GENERAL: This is an elderly chronically ill looking patient, in no apparent distress. TUBES/LINES/DRAINS: PIV SKIN: Dry. Ecchymoses on upper extremities. Wounds to bilateral lower extremities covered with dressings intact. Normothermic EYES: Pupils equal and round and reactive. No scleral icterus. Fundi not examined. ENT: Hearing grossly normal. Nose without bleeding or purulent drainage. Moist oral mucosa. NECK: Trachea midline. Supple, nontender. CARDIOVASCULAR: S1, S2 normal. Peripheral pulses symmetric. RESPIRATORY/CHEST: Symmetric, unlabored respirations. Diminished in the bases. No rhonchi. GASTROINTESTINAL: Abdomen soft, non-tender, nondistended. No guarding. Bowel sounds present. GENITOURINARY: Without palpable bladder distension. MUSCULOSKELETAL: Extremities without clubbing, cyanosis, or edema. No joint tenderness or effusion noted. No mottling or clubbing. LYMPHATICS: Did not assess NEUROLOGICAL: Awake, alert, oriented to self, place and situation. Follows commands with all 4 extremities. Speech clear. PSYCHIATRIC: No obvious anxiety/depression. no apparent hallucinations or other psychotic thought process. Diagnostic Tests Laboratory: Laboratory Results - last 72 hr 06/27/18 07/01/18 07/01/18 20:38 06:27 06:27 WBC 5.4 RBC 3.63 L Hgb 10.7 L Hct 33.1 L MCV 91.2 MCH 29.3 MCHC 32.2 RDW 18.7 H Plt Count 178 MPV 9.9 Neut % (Auto) 75.4 H Lymph % (Auto) 5.9 L [place] % (Auto) 7.4 Eos % (Auto) 10.5 H Baso % (Auto) 0.8 Neut # (Auto) 4.1 Lymph # (Auto) 0.3 L [place] # (Auto) 0.4 Eos # (Auto) 0.6 H Baso # (Auto) 0.0 WBC Differential . Differential Comment Auto diff final Sodium 142 Potassium 2.8 L* Chloride 107 Carbon Dioxide 25.2 Anion Gap 10 BUN 28 H Creatinine 2.55 H Estimated GFR 25 L Random Glucose 93 Calcium 8.5 D Phosphorus 2.2 L Magnesium 1.9 Albumin Free [place] Light Chains 42.30 H Free Lambda Light Chain 22.00 Free [place]/Lambda Ratio 1.92 H 07/01/18 07/02/18 07/02/18 13:35 04:30 04:30 WBC 5.3 RBC 3.58 L Hgb 10.5 L Hct 31.9 L MCV 89.2 MCH 29.3 MCHC 32.8 RDW 18.5 H Plt Count 189 MPV 9.5 Neut % (Auto) 67.2 Lymph % (Auto) 7.9 L [place] % (Auto) 10.3 H Eos % (Auto) 13.6 H Baso % (Auto) 1.0 Neut # (Auto) 3.5 Lymph # (Auto) 0.4 L [place] # (Auto) 0.5 Eos # (Auto) 0.7 H Baso # (Auto) 0.1 WBC Differential . Differential Comment Auto diff final Sodium 143 Potassium 3.5 3.2 L Chloride 109 H Carbon Dioxide 24.7 Anion Gap 9 BUN 26 H Creatinine 2.63 H Estimated GFR 24 L Random Glucose 84 Calcium 8.1 L Phosphorus Magnesium Albumin Free [place] Light Chains Free Lambda Light Chain Free [place]/Lambda Ratio 07/03/18 05:05 WBC RBC Hgb Hct MCV MCH MCHC RDW Plt Count MPV Neut % (Auto) Lymph % (Auto) [place] % (Auto) Eos % (Auto) Baso % (Auto) Neut # (Auto) Lymph # (Auto) [place] # (Auto) Eos # (Auto) Baso # (Auto) WBC Differential Differential Comment Sodium 141 Potassium 3.5 Chloride 108 H Carbon Dioxide 24.7 Anion Gap 8 BUN 26 H Creatinine 2.71 H Estimated GFR 23 L Random Glucose 73 L Calcium 8.1 L Phosphorus 1.3 L Magnesium Albumin 1.8 L Free [place] Light Chains Free Lambda Light Chain Free [place]/Lambda Ratio Result Diagrams: 07/02/18 04:30 07/03/18 05:05 Microbiology: Microbiology 06/28/18 17:00 Gram Stain - Final Wound - Leg Wound Culture - Final Staphylococcus aureus Klebsiella oxytoca Pseudomonas aeruginosa Imaging: Chest X-Ray 06/26/18 16:06 CONCLUSION: 1. Stable postsurgical features and compensated cardiomegaly. 2. No acute abnormality. Head CT 06/26/18 16:08 CONCLUSION: No acute intracranial abnormality demonstrated. Right frontal sinusitis versus mass. . Abdomen/Pelvis CT 06/26/18 17:48 CONCLUSION: 1. No acute abnormality demonstrated. 2. Scattered benign-appearing cysts of the liver. 3. Mild atrophy of the right kidney, similar to before. 4. Atherosclerotic abdominal aorta and branch vessels. Abdomen/Bladder Ultrasound 06/27/18 00:00 CONCLUSION: 1. No hydronephrosis. However, right kidney is small in size with cortical thinning and echogenicity suggesting chronic medical renal disease. 2. There is at least one polypoid nodular mass along the anterior urinary bladder wall measuring up to 6 mm. Suggest correlating for hematuria since this could represent a urothelial neoplasm. Also consider correlation with cystoscopy or could noninvasively evaluate with pelvis MRI with and without intravenous contrast if the patient has a stable GFR greater than 30. Head MRI 06/27/18 00:00 CONCLUSION: No evidence of acute intracranial pathology. No masses are identified. Findings characteristic of frontal sinus mucocele. CT scan of the sinuses is recommended if clinically indicated Chest CT 06/28/18 00:00 CONCLUSION: 1. No acute finding is identified to explain the shortness of breath. There is mild to moderate centrilobular emphysema. Trace left pleural fluid is present. 2. Nonacute findings include chronic compression fracture of T7 and severe atherosclerotic plaque in the proximal renal arteries bilaterally. Procedures: 06/29/18-EGD with esophageal dilatation and biopsy -colonoscopy with biopsy Assessment and Plan - Disease Oriented Problem List (1) Dehydration (2) YAZAN (acute kidney injury) (3) CKD stage 3 due to type 2 diabetes mellitus (4) CAD (coronary artery disease) (5) COPD (chronic obstructive pulmonary disease) (6) Diabetes mellitus (7) Congestive heart failure (8) Peripheral artery disease - Symptom Scale (1) Pain Comment: Patient has chronic bilateral wounds to his bilateral lower extremities. (2) Weakness generalized Comment: Patient has had decreased appetite and came in with complaints of generalized weakness. (3) Physical deconditioning Comment: Progressive. Significant weight loss over a period of one year. Pertinent Non-Medical Issues: Psychosocial: Patient is originally from [place]. He moved to [place] when he was 4 years old. 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 Patient is to his for 51 years. Spiritual: Patient is a Confucianism. Legal: Patient states that he has advanced directives. Ethical issues impacting care: None identified at this time. Important Contacts: Spouse-HCS: Darrell Hobbs-[phone] Son-Alt HCS:Jamie Hobbs [phone] Daughter-Bruna Fisher [phone] Daughter Lani Zayas [phone] Alt HCS: Prognosis: Mr. Hobbs is a 78-year-old male with past medical history of coronary artery disease, paroxysmal atrial fibrillation, chronic kidney disease stage III, COPD , peripheral arterial disease, diabetes mellitus with neuropathy, and chronic lower extremity wounds. Patient was brought to the emergency room on 06/26/18 for evaluation of progressive weakness over the past 2 weeks. Clinical course complicated with nausea, generalized weakness and acute kidney injury. Given patient's multiple ongoing comorbidities, patient remains at high risk for further complications, deterioration and decline. . Code Status: No Code DNR Plan: PLAN: Legal decision maker: Patient is alert, oriented to self, place and situation. Unsure of how much insight patient has regarding his medical condition. Patient is requesting that any medical decisions be done jointly with his spouse Darrell Hobbs who is his health care surrogate. Goals: Aggressive short of no code. Patient will be transferred to [facility] nursing facility for rehabilitation. Briefly discussed goals, which at this time remain aggressive short of no code. CODE STATUS: No code Do Not Resuscitate /Do Not Intubate. State of [place] DNR signed. SYMPTOMS: * Pain: Patient has chronic wounds to bilateral lower extremities. Currently complaining of abdominal discomfort. Pain is been managed with hydrocodone/ acetaminophen 5/325 p.o. every 4 hours prn. Patient has only used x2 prn in the past 48hours. Medication appears adequate at this time. * Nausea: Patient complaining of nausea and dry heaving. Patient states that he is not able to eat due to nausea. Currently on clear liquid diet. EGD on showed gastritis. Colonoscopy 07/02/18. Recommending Zofran 4 mg IV push every 6 hours prn nausea/vomiting. Currently denying nausea. * Generalized weakness: Patient has had decreased appetite and has progressively developed weakness in the past 2 weeks. He has lost approximately 30-40 pounds gradually over a year. Physical therapy consulted, recommending physical therapy at rehab. * Physical deconditioning: Progressive. Patient has multiple ongoing comorbidities. He has had significant weight loss over a year. PT recommending physical therapy at rehab. Palliative care will continue to follow the patient during hospital course as condition evolves, to assist patient/decision-maker with understanding of their medical conditions, weighing benefits/burdens of treatment options, for clarification of goals of treatment. Additionally will assist with any symptoms of palliative concern Attestation Attestation: To help prompt me to consider important information that might be impacting today's encounter and assessment, information from prior notes written by myself or my colleagues may have been "brought forward" into today's note. My signature on this note, however, is an attestation that I personally performed the exam, history, and/or decision-making noted today, and, unless otherwise indicated, the interactions with patient, family, and staff as well as the review of records all occurred today. I also attest that the listed assessment and stated plan reflect my best clinical judgment today based on the combination of historical information, prior notes, and today's exam/ interactions. When time spent is documented, it refers only to time spent today by the signer, or if indicated, combined time spent today by collaborating physician/nurse practitioner.
--- NOTE | 2018-07-03 19:46 | P.PNGI ---
Subjective Interval history: Patient awake and alert Spouse at bedside Patient post colonoscopy Physical Exam Vital signs: Vital Signs 07/02/18 20:00 07/02/18 23:55 07/03/18 00:00 Temperature 97.9 F 98.1 F Pulse Rate 80 83 92 H Respiratory Rate 17 15 Blood Pressure 118/65 126/72 Pulse Oximetry 95 96 07/03/18 04:00 07/03/18 08:00 07/03/18 09:30 Temperature 97.1 F L 97.6 F Pulse Rate 72 85 81 Respiratory Rate 16 16 Blood Pressure 130/72 137/72 Pulse Oximetry 96 97 07/03/18 09:33 07/03/18 12:00 Temperature 97.6 F Pulse Rate 108 H Respiratory Rate 16 Blood Pressure 150/82 H Pulse Oximetry 97 96 Intake & Output 07/03/18 07/03/18 07/04/18 06:59 18:59 06:59 Intake Total 300 / 300 50 / 50 Output Total 175 / 175 250 / 250 Balance 125 / 125 -200 / -200 Weight 71.3 kg Intake: IV 150 / 150 50 / 50 Zosyn 3.375 GM Premix 50 ML @ 150 / 150 50 / 50 100 mls/hr IV.SIG Q6H ANTIONETTE Rx#: [id number] Oral 150 / 150 Output: Urine 175 / 175 Urine Amount (Catheter) 250 / 250 Indwelling Urethral Catheter 250 / 250 Other: Date of Last Bowel Movement 07/02/18 # Bowel Movements 1 # Oral Regurgitations 1 - Constitutional no acute distress - Routine HEENT Exam Head: Present: normocephalic - Routine Respiratory Exam Present: CTA bilaterally - Routine Abdominal Exam Present: soft, normoactive bowel sounds. Absent: tenderness - Routine Skin Exam Present: dry, warm - Routine Neurological Exam Present: alert - Urinary Catheter Management Straight Cath placed during this visit: yes, but has since been removed by the nurse Reason for continuing: Acute urinary retention Insertion date: 06/28/18 Insertion time: 06:00 Removal date: 06/27/18 Removal time: 06:15 Indwelling Urethral Catheter Cath placed during this visit: no Reason for continuing: Chronic Urinary Retention Results - Labs CBC & Chem 7: 07/02/18 04:30 07/03/18 05:05 Laboratory Results - last 24 hr 06/27/18 07/03/18 20:38 05:05 Sodium 141 Potassium 3.5 Chloride 108 H Carbon Dioxide 24.7 Anion Gap 8 BUN 26 H Creatinine 2.71 H Estimated GFR 23 L Random Glucose 73 L Calcium 8.1 L Phosphorus 1.3 L Albumin 1.8 L Free [place] Light Chains 42.30 H Free Lambda Light Chain 22.00 Free [place]/Lambda Ratio 1.92 H Assessment and Plan (1) Dysphasia Status: Acute Code(s): R47.02 - Dysphasia (2) Unintended weight loss Status: Acute Code(s): R63.4 - Abnormal weight loss - Plan This patient is a 78-year-old male with a past medical history significant for coronary artery disease, COPD, CKD, diabetes with neuropathy, peripheral artery disease and atrial fibrillation. Patient admitted to [facility] for evaluation of 2-week onset of generalized weakness. Patient states that he has been having difficulty swallowing solid foods for the last 2 weeks. He denies difficulty with fluids but states that solid foods feel stuck with pressure while pointing to epigastric area. Patient does endorse nausea he denies vomiting. Denies any noted blood in stool. Patient states he has had no appetite. Of note, per documentation; patient has had a gradual weight loss of 60 pounds over the last year. Our service has been consulted to evaluate patient for difficulty swallowing and unintentional weight loss Dysphagia with unintended weight loss Patient endorses 2-week onset of generalized weakness with difficulty swallowing. 30-40 pound weight loss reported over the last year. 06/26/2018 CT abdomen and pelvis reveal the following-- 1. No acute abnormality demonstrated. 2. Scattered benign-appearing cysts of the liver. 3. Mild atrophy of the right kidney, similar to before. 4. Atherosclerotic abdominal aorta and branch vessels. 06/27/2018 WBC 5.5 hemoglobin 12.7 hematocrit 39.8 INR 1.1calcium 13.1 07/01/2018 -Patient unable to have colonoscopy today due to inadequate prep. -Colonoscopy rescheduled for 07/02/2018, additional prep ordered. -WBC 5.4 hemoglobin 10.7 hematocrit 33.1 platelet count 178 07/03/2018 Patient post colonoscopy- 1. Severe diverticulosis was noted throughout the entire examined colon 2. Four sessile polyps ranging between 3-7mm in size were found in the ascending colon, descending colon, sigmoid colon, and rectum; polypectomy was performed using snare cautery 3. 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 Retroflexed views revealed internal hemorrhoids 5. Retroflexed views revealed medium internal hemorrhoids 6. Was performed 7. Revealed no abnormalities of the rectum Labs as noted above Patient denies abdominal pain nausea or vomiting. States tolerating diet well Plan for discharge home today Plan Diet as tolerated Patient stable for discharge home Patient and spouse agree to follow-up with advanced GI post discharge for biopsy results Supportive care This patient has been seen by myself and and this note is written on his behalf - Attending Attestation Dr. Rosenberg
== END 2018-07-03 17:38 ==
LOC: NEPC 15:15 → NEDA 19:39 → N07 21:30
PROVIDERS: ADMIT Hospitalist; ATTEND Hospitalist
PROC: PANENDO (2018-06-29 09:08)
PROC: COLONOS (2018-06-30 14:50)
DX: D12.5 Benign neoplasm of sigmoid colon; Z83.3 Family history of diabetes mellitus; I25.10 Atherosclerotic heart disease of native coronary artery without angina pectoris; I13.0 Hypertensive heart and chronic kidney disease with heart failure and stage 1 through stage 4 chronic kidney disease, or unspecified chronic kidney disease; E11.622 Type 2 diabetes mellitus with other skin ulcer; I48.0 Paroxysmal atrial fibrillation; D12.4 Benign neoplasm of descending colon; Z66 Do not resuscitate; G47.33 Obstructive sleep apnea (adult) (pediatric); D12.2 Benign neoplasm of ascending colon; Z87.891 Personal history of nicotine dependence; K21.0 Gastro-esophageal reflux disease with esophagitis; E86.0 Dehydration; K55.20 Angiodysplasia of colon without hemorrhage; Z96.643 Presence of artificial hip joint, bilateral; R64 Cachexia; J44.9 Chronic obstructive pulmonary disease, unspecified; L97.519 Non-pressure chronic ulcer of other part of right foot with unspecified severity; K44.9 Diaphragmatic hernia without obstruction or gangrene; E83.52 Hypercalcemia; E11.40 Type 2 diabetes mellitus with diabetic neuropathy, unspecified; I50.9 Heart failure, unspecified; K62.1 Rectal polyp; J43.2 Centrilobular emphysema; K29.70 Gastritis, unspecified, without bleeding; K57.90 Diverticulosis of intestine, part unspecified, without perforation or abscess without bleeding; E87.6 Hypokalemia; Z88.7 Allergy status to serum and vaccine; K76.89 Other specified diseases of liver; I70.0 Atherosclerosis of aorta; E78.5 Hyperlipidemia, unspecified; L03.115 Cellulitis of right lower limb; I27.20 Pulmonary hypertension, unspecified; R00.1 Bradycardia, unspecified; Z95.1 Presence of aortocoronary bypass graft; Z68.23 Body mass index [BMI] 23.0-23.9, adult; E11.51 Type 2 diabetes mellitus with diabetic peripheral angiopathy without gangrene; D63.1 Anemia in chronic kidney disease; N17.0 Acute kidney failure with tubular necrosis; N32.89 Other specified disorders of bladder; R13.10 Dysphagia, unspecified; K64.8 Other hemorrhoids; E11.65 Type 2 diabetes mellitus with hyperglycemia; N26.1 Atrophy of kidney (terminal); N18.3 Chronic kidney disease, stage 3 (moderate); E11.22 Type 2 diabetes mellitus with diabetic chronic kidney disease